=== PATIENT | female | born 1945 | race Caucasian/White ===

== ENCOUNTER → 2019-07-23 14:58 | Outpatient (BNVA) | payer MEDICARE, MEDICAID, SELFPAY | PROVIDERS: Family Provider Family Medicine; PCP Family Medicine; Visit Provider Nurse Practitioner Family | DX: I48.20 Chronic atrial fibrillation, unspecified (principal); I35.0 Nonrheumatic aortic (valve) stenosis; I50.40 Unspecified combined systolic (congestive) and diastolic (congestive) heart failure; I42.8 Other cardiomyopathies | CPT/HCPCS: 80048 ==

== ENCOUNTER 2019-08-16 10:00 | Inpatient (IN) | payer MEDICARE, MEDICAID, SELFPAY ==
[2019-08-16] VITALS (10 sets, daily range): BP systolic 122–177; BP diastolic 66–114; PULSE 63–106; RESP 18–22; TEMP 36.5–36.9; O2SAT 91–96; BMI 22.3
--- NOTE | 2019-08-16 10:07 | ED_ITS ---
Entered by Nubia Zamarripa, acting as scribe for Gwyn Sánchez DO HPI - SOB/Dyspnea General: Chief Complaint: Shortness of Breath/Dyspnea Stated Complaint: RESPIRATORY DISTRESS Time Seen by Provider: 08/16/19 10:10 Source: patient and EMS Mode of arrival: EMS Limitations: no limitations History of Present Illness: HPI Narrative: 73 yo female presents with increased shortness of breath. pt states this started today. pt states when walking or taking deep breaths she has increased shortness of breath. pt states oxygen makes this better. pt is not on home O2. pt denies any other symptoms at this time. MD elicited complaint: shortness of breath Onset (ago): day(s) (yesterday) Context: recent illness Timing: constant and progressively worsening Severity: moderate Exacerbating factors: exertion and deep breaths Relieving factors: oxygen Associated symptoms: Reports fever(s); Deny abdominal pain, nausea or vomiting Treatment prior to arrival: oxygen and other (seen at [facility] yesterday) Related Data: Home oxygen amount: none Review of Systems Const: Reports: fever ENMT: Denies: throat pain, ear pain, nasal discharge or nasal congestion Card: Reports: shortness of breath on exertion Resp: Reports: shortness of breath and productive cough GI: Denies: abdominal pain, nausea, vomiting, vomiting blood, coffee grounds in vomit, diarrhea, constipation, bloating, blood in stool or black tarry stool : Denies: flank pain, difficulty urinating, painful urination, urinary frequency or urinary urgency Skin/Breast: Denies: rash or itching PFSH ED PFSH: Social History Smoking and tobacco status: former smoker Physical Exam Const: COMMON NORMALS: average body habitus, oriented x3 and alert GENERAL APPEARANCE: cooperative, comfortable, well kempt and well developed NUTRITIONAL APPEARANCE: obese ORIENTATION/CONSCIOUSNESS: Yes awake, Yes oriented to person and Yes oriented to place HENMT: COMMON NORMALS: normocephalic, head/scalp atraumatic, external ears normal, EAC's normal, TM's normal bilaterally, external nose normal, moist oral mucous membranes and oropharynx normal HEAD & SCALP: normocephalic and atraumatic NOSE: external nose normal EXTERNAL EAR: Yes external ears normal EXTERNAL AUDITORY CANAL: EAC's normal TYMPANIC MEMBRANE: TM's normal bilaterally MOUTH: oral and palatal mucosa normal, lip normal and tongue normal THROAT: posterior oropharynx normal and tonsils normal Eye: COMMON NORMALS: PERRL, EOMs intact bilaterally, conjunctivae normal and no scleral icterus CONJUNCTIVA: Yes conjunctivae normal PUPIL: Yes PERRL Neck/C-Spine: COMMON NORMALS: full ROM, no lymphadenopathy, supple, no meningeal signs and thyroid normal THYROID: thyroid normal and asymmetrical Lymph: LYMPHATIC: no lymphadenopathy noted Resp: AUSCULTATION: rales bilateral at the base Cardio: COMMON NORMALS: regular rate and regular rhythm RATE: regular rate RHYTHM: regular rhythm HEART SOUNDS: murmur systolic Location: right sternal border Intensity: II/ GI: COMMON NORMALS: normal to inspection, nondistended, normoactive bowel sounds, soft to palpation and no hepatosplenomegaly AUSCULTATION: Yes normoactive bowel sounds PALPATION: Yes soft and Yes no hepatosplenomegaly : COMMON NORMALS: Yes no CVA tenderness BLADDER/KIDNEY EXAM: Yes no CVA tenderness Back/Pelvis: COMMON NORMALS: no CVA tenderness LUMBAR SPINE/LOWER BACK: Yes normal to inspection Extremity: COMMON NORMALS: no clubbing, cyanosis or edema, no calf tenderness and no pedal edema Neuro: COMMON NORMALS: oriented x3 SENSORIUM/ORIENTATION: Yes alert, Yes oriented to person and Yes oriented to place MENINGEAL SIGNS: Yes no meningeal signs Psych: APPEARANCE: Yes well kempt Skin: COMMON NORMALS: no rashes or lesions noted and skin turgor normal GENERAL SKIN EXAM: no rashes or lesions noted and turgor normal Course ED course: Patient has a low-grade bilateral pneumonia with a small pleural effusion. She is requiring oxygen she does not usually require it at home without it she remains in the low 90s on room air with any activity standing up walking even within the room she desats into the mid 80s. We will go ahead and started on IV antibiotics admit to the hospitalist service. Vital Signs: Vital signs: Vital Signs Temperature 97.7 F 08/16/19 15:01 Pulse Rate 93 08/16/19 15:52 Respiratory Rate 18 08/16/19 15:44 Blood Pressure 140/73 08/16/19 15:01 Pulse Oximetry 94 08/16/19 15:44 MDM - SOB/Dyspnea Lab Data: Labs: Lab Results 08/16/19 08/16/19 08/16/19 Range/Units 10:50 10:50 10:50 WBC 4.2 (4.0-10.0) 10^3/ uL RBC 4.30 (4.1-5.3) 10^6/u L Hgb 14.0 (11.5-15.3) g/dL Hct 44.4 (37.0-47.0) % MCV 103.3 H (81-99) fL MCH 32.6 (28.0-34.0) pg MCHC 31.5 (30.0-36.0) g/dL RDW 14.0 (12.1-15.1) % Plt Count 174 (130-400) 10^3/c mm MPV 9.6 (7.4-10.4) fL Neut % (Auto) 78.7 % Lymph % (Auto) 12.9 % [place] % (Auto) 7.4 % Eos % (Auto) 0.0 % Baso % (Auto) 0.5 % Neut # (Auto) 3.3 (1.8-7.7) 10^3/u L Lymph # (Auto) 0.5 L (0.8-4.8) 10^3/u L [place] # (Auto) 0.3 (0.2-0.9) 10^3/u L Eos # (Auto) 0.0 (0.0-0.8) 10^3/u L Baso # (Auto) 0.0 (0.0-0.1) 10^3/u L Nucleated RBC % (a uto) 0 % Nucleated RBCs # 0.0 /100WBC Sodium 139 (136-145) mmol/L Potassium 3.7 (3.5-5.1) mmol/L Chloride 99 (98-107) mmol/L Carbon Dioxide 25 (22-29) mmol/L Anion Gap 18.7 (5-19) BUN 19 (8-23) mg/dL Creatinine 0.9 (0.5-0.9) mg/dL Glucose 132 H (65-115) mg/dL Calcium 9.6 (8.5-10.5) mg/dL Total Bilirubin 1.2 (0.15-1.2) mg/dL AST 34 H (0-32) U/L ALT 38 H (0-33) U/L Alkaline Phosphata se 157 H (35-105) IU/L Troponin T Baselin e 17 H (0-10) ng/mL Total Protein 6.6 (6.6-8.7) g/dL Albumin 4.0 (3.5-5.2) g/dL Globulin 2.6 (1.3-4.6) g/dL Imaging Data^: CXR: Radiologist's impression: [address] [address] XRay Report Signed Patient: oRwena Gil #: [id number] : 5Acct#:[id number] Age/Sex: 73 / FADM Date: 08/16/19 Loc: [facility]/Bed: Attending Dr: Ordering Provider/Ordering MD: Gwyn Sánchez DO Date of Service: 08/16/19 Procedure(s): XR chest 1V portable [id number] Accession Number(s): [id number] Report Number: [id number] WS: [id number] XR chest 1V portable [id number] REASON FOR EXAM: dyspnea/cough FINDINGS: Comparisons were made to May 24, 2019. There is a small amount of bilateral pleural effusion. There is low-grade alveolar infiltrates in the basilar portions of both lower lungs. There is cardiomegaly with arteriosclerotic changes. XR/XR chest 1V portable [id number] IMPRESSION: Low-grade pneumonia basilar portions of both lower lungs with small amounts of pleural effusion Arteriosclerotic heart disease. Dictated By:Gerald Redmond DO Signed By:Gerald Redmond DOSigned Date/Time:08/16/19 1054 Discharge Plan Discharge Admit Provider: Sunny Bautista Clinical Impression: Bilateral pneumonia, COPD (chronic obstructive pulmonary disease), Hypertension, Nonischemic cardiomyopathy, Aortic stenosis, mild Condition: Stable Interventions: ED Discharge Assessment Last Done: 08/16/19 14:45 Discharge Date/Time: 08/16/19 15:06 Coding Level of Care Code ED Resolution Specialist for g Fwd Exam Comprehensive The documentation recorded by the Dallin garcia Bridget Annette, accurately reflects the service I personally performed and the decisions made by me, Gwyn Sánchez, Aug 16, 2019 10:00
--- NOTE | 2019-08-16 10:24 | XR_ITS ---
WS: [id number] XR chest 1V portable [id number] REASON FOR EXAM: dyspnea/cough FINDINGS: Comparisons were made to May 24, 2019. There is a small amount of bilateral pleural effusion. There is low-grade alveolar infiltrates in the basilar portions of both lower lungs. There is cardiomegaly with arteriosclerotic changes. XR/XR chest 1V portable [id number] IMPRESSION: Low-grade pneumonia basilar portions of both lower lungs with small amounts of pleural effusion Arteriosclerotic heart disease.
--- NOTE | 2019-08-16 10:24 | ECG_ITS ---
Measurements Intervals [place] Rate: 109 P: [place]: 0 QRS: -20 QRSD: 89 T: 76 QT: 331 QTc: 446 ATRIAL FIBRILLATION WITH RAPID VENTRICULAR RESPONSE WITH ABERRANT CONDUCTION OR VENTRICULAR PREMATURE COMPLEXES ST DEVIATION AND MODERATE T-WAVE ABNORMALITY, CONSIDER LATERAL ISCHEMIA [-0.1+ mV T WAVE IN I/aVL/V5/V6] Compared to ECG 05/24/2019 16:49:15 Aberrant conduction of supraventricular beat(s) now present Ventricular premature complex(es) now present T-wave abnormality still present Possible ischemia still present Electronically Signed On 08-16-2019 16:57:51 DOCENT COORDINATOR by Donald Dunaway M.D. [id number]
[2019-08-16 10:58] LABS: Basophils % 0.5 %; Hematocrit 44.4 % (37.0-47.0); Lymphocytes # 0.5 10^3/uL (0.8-4.8); Lymphocytes % 12.9 %; Mean Corpuscular HGB Conc 31.5 g/dL (30.0-36.0); Mean Corpuscular Hemoglobin 32.6 pg (28.0-34.0); Mean Corpuscular Volume 103.3 fL (81-99); Mean Platelet Volume 9.6 fL (7.4-10.4); Monocytes # 0.3 10^3/uL (0.2-0.9); Monocytes % 7.4 %; Neutrophils # 3.3 10^3/uL (1.8-7.7); Neutrophils % 78.7 %; Nucleated Red Blood Cells % 0 %; Platelet Count 174 10^3/cmm (130-400); White Blood Count 4.2 10^3/uL (4.0-10.0)
[2019-08-16 11:18] LABS: Alanine Aminotransferase 38 U/L (0-33); Alkaline Phosphatase 157 IU/L (35-105); Anion Gap 18.7 (5-19); Aspartate Amino Transferase 34 U/L (0-32); Blood Urea Nitrogen 19 mg/dL (8-23); Calcium 9.6 mg/dL (8.5-10.5); Carbon Dioxide 25 mmol/L (22-29); Chloride 99 mmol/L (98-107); Globulin 2.6 g/dL (1.3-4.6); Glucose 132 mg/dL (65-115); Potassium 3.7 mmol/L (3.5-5.1); Sodium 139 mmol/L (136-145); Total Bilirubin 1.2 mg/dL (0.15-1.2); Total Protein 6.6 g/dL (6.6-8.7)
[2019-08-16 11:20] LABS: Troponin(5th) Baseline 17 ng/mL (0-10)
--- NOTE | 2019-08-16 12:24 | ECG_ITS ---
Measurements Intervals [place] Rate: 91 P: [place]: 0 QRS: -5 QRSD: 88 T: 157 QT: 401 QTc: 495 ATRIAL FIBRILLATION WITH ABERRANT CONDUCTION OR VENTRICULAR PREMATURE COMPLEXES ST DEVIATION AND MODERATE T-WAVE ABNORMALITY, CONSIDER LATERAL ISCHEMIA [-0.1+ mV T WAVE IN I/aVL/V5/V6] Compared to ECG 05/24/2019 16:49:15 Ventricular premature complex(es) now present Aberrant conduction of supraventricular beat(s) now present T-wave abnormality still present Possible ischemia still present Electronically Signed On 08-16-2019 17:04:05 PLATEMAKER by Donald Dunaway M.D. [id number]
[2019-08-16] MEDS: azithromycin 500 MG in sodium chloride 0.9% 250 ML 250 MG IV (12:52)
[2019-08-16 13:18] LABS: Troponin 5 2HR 15.01 ng/mL (0-10)
[2019-08-16 13:23] LABS: Troponin 5 2HR Delta -1.99 ABS# (0-10)
[2019-08-16] MEDS: cefTRIAXone 1,000 MG in sodium chloride 0.9% (plus) 50 ML 100 MG IV (14:05)
--- NOTE | 2019-08-16 14:27 | USCV_ITS ---
Louise Rowena Age: 73 Gender: F : 1945 Exam Date: 08/16/2019 16:45 Ordering Phys: Sunny Bautista MD Technologist: Dorota Garrett Exam Location: [facility] [place] Indication: SOB BP: / HR: 77 Rhythm: Atrial fibrillation Technical Quality: Adequate MEASUREMENTS (Male / Female) Normal Values 2D ECHO LV Diastolic Diameter PLAX 4.2 cm 4.2 - 5.9 / 3.9 - 5.3 cm LV Systolic Diameter PLAX 3.1 cm LV Chamber Size 3.9 cm IVS Diastolic Thickness 1.6 cm 0.6 - 1.0 / 0.6 - 0.9 cm IVS Systolic Thickness 1.7 cm LVPW Diastolic Thickness 1.4 cm 0.6 - 1.0 / 0.6 - 0.9 cm LVPW Systolic Thickness 1.5 cm RV Chamber Size 2.7 cm LVOT Diameter 2.1 cm LV Ejection Fraction 2D Teich 51.6 % LV Ejection Fraction MOD 2C 49.2 % LV Ejection Fraction 2C AL 49.0 % LA Diameter 5.6 cm LA Width 3.5 cm LA Height 6.4 cm RA Width 4.0 cm RA Height 5.9 cm Aorta at Sinotubular Diameter 2.9 cm M-MODE LV Diastolic Diameter MM 5.5 cm 4.2 - 5.9 / 3.9 - 5.3 cm LV Systolic Diameter MM 3.8 cm LV Ejection Fraction MM Teich 58.7 % IVS Diastolic Thickness MM 1.1 cm 0.6 - 1.0 / 0.6 - 0.9 cm IVS Systolic Thickness MM 1.2 cm LVPW Diastolic Thickness MM 1.0 cm 0.6 - 1.0 / 0.6 - 0.9 cm LVPW Systolic Thickness MM 1.5 cm RV Diastolic Diameter MM 1.5 cm Aortic Annulus Diameter 3.4 cm LA Ao Ratio MM 1.6 MV E Point Septal Separation 0.5 cm DOPPLER AV Peak Velocity 143.0 cm/s LVOT Peak Velocity 88.0 cm/s AV Area Cont Eq vti 2.0 cm squared AV Area Cont Eq pk 2.1 cm squared MV Area PHT 4.3 cm squared MV E' Velocity 11.0 cm/s Mitral E to MV E' Ratio 11.7 Mitral E to LV E' Lateral Ratio 12.0 Mitral E to LV E' Septal Ratio 11.5 TR Peak Velocity 298.5 cm/s TR Peak Gradient 35.6 mmHg TR Mean Velocity 241.0 cm/s TR Mean Gradient 25.3 mmHg TR Velocity Time Integral 102.4 cm TV Peak E Velocity 81.0 cm/s PV Peak Velocity 64.0 cm/s RV Acceleration Time 0.1 s RV Ejection Time 0.3 s RV AcT/ET 0.5 FINDINGS Left Ventricle Normal left ventricular cavity size. Moderately increased left ventricular wall thickness. Moderately decreased left ventricular systolic function. Left ventricular ejection fraction is estimated at 40%. Global left ventricular hypokinesis. Rhythm precludes evaluation of diastolic function. Right Ventricle Normal right ventricular size and systolic function. Right ventricular systolic pressure 39 mmHg. Right Atrium Moderately increased right atrial size. Right atrial pressure estimated at 3 mmHg. Left Atrium Moderately increased left atrial size. Mitral Valve Mild mitral annular calcification. Thickened mitral valve. Mild mitral valve regurgitation. Aortic Valve Aortic valve not well visualized. Mildly thickened and sclerotic aortic valve. No aortic valve stenosis. No aortic valve regurgitation. Tricuspid Valve Structurally normal tricuspid valve. No tricuspid valve stenosis. Mild tricuspid valve regurgitation. Pulmonic Valve Structurally normal pulmonic valve. Mild pulmonary valve regurgitation. Pericardium Small to moderate pericardial effusion (more posteriorly measured 11 mm along left ventricle). No evidence of hemodynamic compromise. Aorta Normal-sized aortic root. CONCLUSIONS 1. Normal left ventricular cavity size. Moderately increased left ventricular wall thickness. Moderately decreased left ventricular systolic function. Left ventricular ejection fraction is estimated at 40%. Global left ventricular hypokinesis. 2. Normal right ventricular size and systolic function. 3. Moderate biatrial enlargement. 4. Mild mitral and tricuspid valve regurgitation. 5. Mild pulmonary hypertension with pulmonary artery pressure estimated at 39 mmHg. 6. Small to moderate pericardial effusion (more posteriorly along left ventricle). No evidence of hemodynamic compromise. 7. When compared to previous echocardiogram dated 11/23/2018, left ventricular systolic function seems to have decreased slightly and there is pericardial effusion now. Nola Tapia MD (Electronically Signed) Final Date: 17 August 2019 14:48 S
[2019-08-16 14:44] LABS: Thyroid Stimulating Hormone 1.12 uIU/mL (0.27-4.20)
--- NOTE | 2019-08-16 14:47 | PM.HP ---
Providers/Chief Complaint Admitting Physician: Sunny Bautista MD Primary Care Provider: Sreedhar Mejia MD Chief Complaint: RESPIRATORY DISTRESS History of Present Illness Rowena Gil is a 73 year old female with a past medical history of atrial fibrillation on Eliquis, diastolic heart failure, hypothyroidism, COPD, history of CVA, dyslipidemia, hypertension, hyperlipidemia, peripheral vascular disease who presents to the emergency room with her sister for evaluation of cough, shortness of breath, fevers, chills, malaise, fatigue, poor appetite. Patient states that she lives by herself, in [facility], her sister checks up on her regularly, she can perform activities of daily living on her own, At one point she did have home health care Patient states that for the last week she has been having fevers, chills, productive cough yellow sputum, increased shortness of breath with exertion, lightheadedness, dizziness, fatigue, malaise, has a good appetite, states that she lives in a assisted living facility with other geriatric individuals and she thinks she might of been exposed to the flu and grandkids. Patient also has complaints of intermittent chest pain, left-sided, nonradiating, associate with shortness of breath, no lightheadedness, has dizziness, no nausea, no vomiting, no significant cardiac history, no history of cardiac stents, has a history of atrial fibrillation, on Eliquis and aspirin. Patient states that she been having episodes of chest palpitations recently. Dizziness, patient states that she has had a few months history of dizziness, as if the room is spinning around her, no tinnitus, no nausea, no vomiting, typically her occurs with changing head positions, often she states that she will shake her head and it will resolve, no recent falls, no visual deficits. Review of Systems Const: Reports: fever, body aches, fatigue and malaise; Denies: chills Eyes: Denies: change in vision or blurry vision ENMT: Reports: nasal congestion Card: Reports: chest pain, palpitations, irregular heart rhythm, edema and swelling of feet/ankles Resp: Reports: shortness of breath and productive cough; Denies: non-productive cough or wheezing GI: Denies: abdominal pain, nausea, vomiting, vomiting blood, diarrhea, constipation, blood in stool or black tarry stool : Denies: flank pain, painful urination or urinary frequency Musc: Denies: neck pain or back pain Skin/Breast: Denies: rash Neuro: Denies: headache, dizziness or vertigo Psych: Denies: anxiety or depression Endo: Denies: excessive urination or excessive thirst Medications/Allergies Home Medications Medication Instructions Recorded Confirmed Last Taken Type amoxicillin-pot clavulanate 1 tab PO BID 08/16/19 08/16/19 08/15/19 History [Augmentin] lisinopril 20 mg PO DAILY 08/16/19 08/16/19 08/16/19 History Allergies Allergy/AdvReac Type Severity Reaction Status Date / Time Sulfa (Sulfonamide Allergy UNK Verified 08/16/19 10:09 Antibiotics) Additional Medication Information Additional Medication Information: Eliquis 5 mg twice daily Aspirin 81 mg once daily Cardizem 240 mg once daily Lasix 80 mg once daily Levothyroxine 50 mcg once daily Lisinopril 20 p.o. daily Metoprolol 50 twice daily sotalol 80 once daily PFSH Acute PFSH: Social History Smoking and tobacco status: former smoker Vitals/I&O/Wt Last Vital Signs Temp 98.4 F 08/16/19 12:58 Pulse 103 H 08/16/19 14:45 Resp 18 08/16/19 14:45 BP 157/114 08/16/19 14:45 Pulse Ox 92 08/16/19 14:45 08/15/19 08/16/19 08/16/19 22:59 06:59 14:59 Intake Total 250 / 250 Balance 250 / 250 Weight last 48 hrs Weight 57.153 kg Physical Exam Const: COMMON NORMALS: no apparent distress and oriented x3 GENERAL APPEARANCE: cooperative and comfortable HENMT: COMMON NORMALS: normocephalic HEAD & SCALP: normocephalic Eye: COMMON NORMALS: PERRL, EOMs intact bilaterally and no papilledema GENERAL EYE: normal appearance of both eyes PUPIL: Yes PERRL DIRECT OPHTHALMOSCOPY: Yes no papilledema Neck/C-Spine: COMMON NORMALS: full ROM, no lymphadenopathy, no JVD and thyroid normal THYROID: thyroid normal Lymph: LYMPHATIC: no lymphadenopathy noted Resp: COMMON NORMALS: normal respiratory effort, no retractions and no use of accessory muscles AUSCULTATION: rhonchi and wheezes Cardio: COMMON NORMALS: no JVD, regular rate, regular rhythm, S1 normal heart sound, S2 normal heart sound, no gallops, no clicks and no murmurs RATE: regular rate RHYTHM: regular rhythm HEART SOUNDS: S1 normal and S2 normal GI: COMMON NORMALS: normal to inspection, nondistended, normoactive bowel sounds, soft to palpation, non-tender and no hepatosplenomegaly PALPATION: Yes soft and Yes no hepatosplenomegaly Extremity: COMMON NORMALS: normal to inspection and full ROM NARRATIVE EXTREMITY EXAM: 2+ pitting edema bilaterally Neuro: COMMON NORMALS: oriented x3, CN's II-XII intact bilaterally, moves all extremities and no focal motor deficits Psych: COMMON NORMALS: mental status grossly normal, thought process normal and cooperative THOUGHT PROCESS: normal thought process Data : 08/16/19 10:50 08/16/19 10:50 Micro: Microbiology 08/16/19 12:51 Blood Culture - Preliminary Blood SPECIMEN COLLECTED 08/16/19 12:29 Blood Culture - Preliminary Blood SPECIMEN COLLECTED A&P Assessment and plan (1) Acute and chronic respiratory failure with hypoxia: -Secondary to bilateral lower lobe pneumonias, diastolic CHF exacerbation Plan: -Nebulizer treatments -Rocephin and azithromycin -Hold off on IV fluids, hold off on steroids -Bumex 1 mg IV twice daily -Fluid restrictions 1500 cc -PT OT -Sputum culture, blood culture, viral panel, urine bacterial antigens Status: Acute Code(s): J96.21 - Acute and chronic respiratory failure with hypoxia (2) Diastolic CHF: Has 2+ pitting edema bilaterally, BNP 8297, repeat echocardiogram Status: Acute Code(s): I50.30 - Unspecified diastolic (congestive) heart failure (3) Chest pain: -EKG shows new T wave inversions in lateral leads, A. fib with RVR -Mild troponin elevations -Likely type II NSTEMI, supply demand ischemia -No active chest pain Plan: -Continue aspirin, statin -Serial EKGs, troponin -Echocardiogram Status: Acute Code(s): R07.9 - Chest pain, unspecified (4) Dizziness: -Likely benign positional vertigo Status: Acute Code(s): R42 - Dizziness and giddiness (5) Hypertension: Status: Acute Code(s): I10 - Essential (primary) hypertension (6) Hypothyroid: Status: Acute Code(s): E03.9 - Hypothyroidism, unspecified (7) Dyslipidemia: Status: Acute Code(s): E78.5 - Hyperlipidemia, unspecified (8) CVA (cerebral vascular accident): -Has had 2 CVAs in the past, -Last CT scan in 06/01/2019 showed a small round low-density area in the left thalamus, most compatible lacunar infarct, age uncertain -We will have PT OT evaluate patient -On aspirin, statin Status: Acute Code(s): I63.9 - Cerebral infarction, unspecified (9) COPD (chronic obstructive pulmonary disease): Not in exacerbation Status: Acute Code(s): J44.9 - Chronic obstructive pulmonary disease, unspecified (10) Bilateral pneumonia: cxray shows bilateral lobe pneumonia, however white count unremarkable, pro-Arcenio 0.08 Chest x-ray seems more like pulmonary vascular congestion, but given upper respiratory tract symptoms we will treat for pneumonia Status: Acute Code(s): J18.9 - Pneumonia, unspecified organism Attestations Medical Necessity Statement*: Patient requires hospitalization, inpatient greater than 2 midnights, acute hypoxic respiratory failure secondary to diastolic CHF and pneumonia Coding Level of Care Code Acute Pharmaceutical Salesperson for [facility] Diagnoses Acute and chronic respiratory failure with hypoxia J96.21 Diastolic CHF I50.30 Chest pain R07.9 Dizziness R42 Hypertension I10 Hypothyroid E03.9 Dyslipidemia E78.5 CVA (cerebral vascular accident) I63.9 COPD (chronic obstructive pulmonary disease) J44.9 Bilateral pneumonia J18.9
[2019-08-16 15:11] LABS: NT Pro B Type Natriuretic Pept 8297 pg/mL (0-125); Procalcitonin 0.08 ng/mL (0-0.5)
[2019-08-16 15:15] LABS: C Reactive Protein 7.4 mg/L (0.0-4.9)
[2019-08-16] MEDS: ipratropium-albuterol 3 mL Neb INHALATION ×2 (15:51→19:40)
--- NOTE | 2019-08-16 16:24 | ECG_ITS ---
Measurements Intervals [place] Rate: 87 P: [place]: 0 QRS: -35 QRSD: 93 T: 222 QT: 427 QTc: 515 ATRIAL FIBRILLATION WITH ABERRANT CONDUCTION OR VENTRICULAR PREMATURE COMPLEXES MARKED LEFT AXIS DEVIATION MINIMAL VOLTAGE CRITERIA FOR LVH, CONSIDER NORMAL VARIANT ST DEVIATION AND MODERATE T-WAVE ABNORMALITY, CONSIDER LATERAL ISCHEMIA ST DEVIATION AND MODERATE T-WAVE ABNORMALITY, CONSIDER INFERIOR ISCHEMIA Compared to ECG 08/16/2019 13:38:37 Left-axis deviation now present T-wave abnormality still present Possible ischemia still present Electronically Signed On 08-17-2019 15:41:08 DROP HAMMER SETTER UP by Nola Tapia M.D. [id number]
[2019-08-16] MEDS: bumetanide 0.25 mg/mL SDV 10 mL 1 MG IV (16:41)
[2019-08-16] MEDS: D5-NS 0.45% + KCL 20 mEq 20 MEQ/1,000 ML BAG 100 MEQ IV (16:48)
[2019-08-16 17:26] LABS: Lactic Sepsis W/Reflex 1.2 mmol/L (0.5-2.2)
[2019-08-16 17:36] LABS: Troponin 5 6HR 11.83 ng/mL (0-10)
[2019-08-16 17:39] LABS: Troponin 5 6HR Delta -5.17 ng/L (0-12)
[2019-08-16] MEDS: apixaban 5 mg Tablet PO (18:22)
[2019-08-16] MEDS: metoprolol tartrate 50 mg Tablet PO (18:51)
[2019-08-16] MEDS: atorvastatin 40 mg Tablet PO (20:03)
[2019-08-17] VITALS (14 sets, daily range): BP systolic 123–158; BP diastolic 74–110; PULSE 88–123; RESP 16–20; TEMP 36.4–36.9; O2SAT 88–98
[2019-08-17] MEDS: ipratropium-albuterol 3 mL Neb INHALATION ×6 (00:01→20:18)
[2019-08-17] MEDS: acetaminophen 325 mg Tablet 650 MG PO ×2 (00:14→09:06)
[2019-08-17] MEDS: bumetanide 0.25 mg/mL SDV 10 mL 1 MG IV ×2 (01:54→14:12)
[2019-08-17] MEDS: levothyroxine 50 mcg Tablet PO (05:46)
[2019-08-17] MEDS: metoprolol tartrate 50 mg Tablet PO ×2 (05:57→17:41)
[2019-08-17 06:12] LABS: Hematocrit 41.5 % (37.0-47.0); Hemoglobin 13.6 g/dL (11.5-15.3); Lymphocytes # 0.4 10^3/uL (0.8-4.8); Lymphocytes % 8.3 %; Mean Corpuscular HGB Conc 32.8 g/dL (30.0-36.0); Mean Corpuscular Hemoglobin 32.9 pg (28.0-34.0); Mean Corpuscular Volume 100.2 fL (81-99); Mean Platelet Volume 9.9 fL (7.4-10.4); Monocytes # 0.3 10^3/uL (0.2-0.9); Monocytes % 5.5 %; Nucleated Red Blood Cells % 0 %; Platelet Count 196 10^3/cmm (130-400); Red Blood Count 4.14 10^6/uL (4.1-5.3); Red Cell Distribution Width 13.7 % (12.1-15.1); White Blood Count 4.7 10^3/uL (4.0-10.0)
[2019-08-17 06:42] LABS: Magnesium 2.2 mg/dL (1.7-2.3)
[2019-08-17 06:43] LABS: Chol HDL Ratio 4.97 mg/dL (0.0-4.40); Cholesterol 169 mg/dL (0-200); HDL Cholesterol 34 mg/dL (60-100); LDL Cholesterol Calculated 120 mg/dL (50-129); LDL HDL Ratio 3.53 RATIO (0.00-3.22); Triglycerides 75 mg/dL (0-150)
[2019-08-17 07:03] LABS: Alanine Aminotransferase 32 U/L (0-33); Albumin Level 3.8 g/dL (3.5-5.2); Alkaline Phosphatase 146 IU/L (35-105); Anion Gap 19.4 (5-19); Aspartate Amino Transferase 24 U/L (0-32); Blood Urea Nitrogen 22 mg/dL (8-23); Calcium 9.5 mg/dL (8.5-10.5); Carbon Dioxide 24 mmol/L (22-29); Chloride 101 mmol/L (98-107); Globulin 2.4 g/dL (1.3-4.6); Glucose 154 mg/dL (65-115); Potassium 3.4 mmol/L (3.5-5.1); Sodium 141 mmol/L (136-145); Total Bilirubin 0.7 mg/dL (0.15-1.2); Total Protein 6.2 g/dL (6.6-8.7)
[2019-08-17] MEDS: sotalol 80 mg Tablet PO (08:59)
[2019-08-17] MEDS: lisinopril 20 mg Tablet PO (08:59)
[2019-08-17] MEDS: apixaban 5 mg Tablet PO ×2 (08:59→17:41)
[2019-08-17] MEDS: dilTIAZem ER (24HR) 240 mg Capsule PO (08:59)
[2019-08-17] MEDS: aspirin 81 mg Chew Tablet PO (08:59)
--- NOTE | 2019-08-17 12:31 | PC.RESP ---
Patient given information on Pulmonary Rehab.
--- NOTE | 2019-08-17 13:12 | PC.CHAP ---
Pastoral Care Encounter/Spiritual Assessment Type of Contact [] Declined presbyterian clergy visit [] Patient/Family/Request visit [] Outpatient visit [] Follow-up visit [] Physician referral [] Code/Alert [x] Routine visit [] Staff referral [] Actively dying [] Patient sleeping [] Family support [] [] Out of room [] Palliative care [] [] Receiving care in room [] Pre-surgical visit [] Trauma [] Long length of stay [] ICU visit [] Other: Relational/Emotional Strength [x] Patient feels connected with others/family/visitors/staff [] Distress [] Loneliness/isolation [] Abandonment Spirituality of Patient [x] Person of Millicent [x] Attends Taoism of their Millicent [] Believes in Prayer [] Reads Bible or Protestant materials [] There are Spiritual issues to be addressed Recruiting Specialist Interventions [x] Prayer [] Active listening [] Non-anxious presence [] Spiritual/emotional support [] Crisis/trauma care [] Spiritual counseling [] Bereavement support [] Provided bereavement packet [] Provided Bible/devotional materials [] Provided toy/stuffed animal, coloring book to patient or family member [] Provided Communion [] Anointing/[place] [] Salvation [x] Completed spiritual assessment [] Other: Impact on Illness or Injury [] Angry [] Fearful [x] Anxious [] Often cries [] Exhaustion [] Unable to work [] Unable to attend shinto [] Unable to walk/stand [] Unable to read [] Unable to drive [] Unable to eat/drink [] Unable to sleep [] Unable to be with family [] Patient intubated [] Other: Summary 10 min Time spent with patient
[2019-08-17] MEDS: azithromycin 500 MG in sodium chloride 0.9% 250 ML 250 MG IV (14:07)
[2019-08-17] MEDS: cefTRIAXone 1,000 MG in sodium chloride 0.9% (plus) 50 ML 100 MG IV (14:08)
--- NOTE | 2019-08-17 18:28 | PM.PN ---
Subjective Subjective: Interval history: Patient states that she is doing better this morning, shortness of breath has improved, no fevers, no chills, no nausea, no vomiting, no lightheaded, no dizziness, has not got out of bed this morning Vitals/I&O/Wt Last Vital Signs Temp 97.8 F 08/17/19 15:56 Pulse 100 08/17/19 16:15 Resp 18 08/17/19 16:15 BP 123/76 08/17/19 15:56 Pulse Ox 98 08/17/19 16:15 08/17/19 08/17/19 08/17/19 06:59 14:59 22:59 Intake Total 60 / 720 840 / 840 Output Total 300 / 300 251 / 251 Balance -240 / 420 589 / 589 Weight last 48 hrs Weight 67.903 kg Weight 57.153 kg Physical Exam Const: COMMON NORMALS: no apparent distress and oriented x3 HENMT: COMMON NORMALS: normocephalic HEAD & SCALP: normocephalic Neck/C-Spine: COMMON NORMALS: no JVD Resp: COMMON NORMALS: normal respiratory effort, no retractions, no use of accessory muscles and clear to auscultation bilaterally AUSCULTATION: clear to auscultation bilaterally Cardio: COMMON NORMALS: no JVD, regular rate, regular rhythm, S1 normal heart sound and S2 normal heart sound RATE: regular rate RHYTHM: regular rhythm HEART SOUNDS: S1 normal and S2 normal GI: COMMON NORMALS: normal to inspection, nondistended, normoactive bowel sounds, soft to palpation, non-tender, no hepatosplenomegaly, no masses and no bruits PALPATION: Yes soft and Yes no hepatosplenomegaly Extremity: COMMON NORMALS: normal capillary refill, no clubbing, cyanosis or edema, no calf tenderness and no pedal edema Neuro: COMMON NORMALS: oriented x3 Psych: COMMON NORMALS: mental status grossly normal Data : 08/17/19 05:42 08/17/19 05:42 Micro: Microbiology 08/16/19 12:51 Blood Culture - Preliminary Blood NEGATIVE TO DATE 08/16/19 12:29 Blood Culture - Preliminary Blood NEGATIVE TO DATE A&P Assessment and plan (1) Acute and chronic respiratory failure with hypoxia: -Secondary to bilateral lower lobe pneumonias, diastolic CHF exacerbation Plan: -Nebulizer treatments -Rocephin and azithromycin -Bumex 1 mg IV twice daily -Fluid restrictions 1500 cc -PT OT -Sputum culture, blood culture, viral panel, urine bacterial antigens Status: Acute Code(s): J96.21 - Acute and chronic respiratory failure with hypoxia (2) Diastolic CHF: Has 2+ pitting edema bilaterally, BNP 8297, repeat echocardiogram Status: Acute Code(s): I50.30 - Unspecified diastolic (congestive) heart failure (3) Chest pain: -EKG shows new T wave inversions in lateral leads, A. fib with RVR -Mild troponin elevations -Likely type II NSTEMI, supply demand ischemia -No active chest pain Plan: -Continue aspirin, statin -Echocardiogram pending Status: Acute Code(s): R07.9 - Chest pain, unspecified (4) Dizziness: -Likely benign positional vertigo Status: Acute Code(s): R42 - Dizziness and giddiness (5) Hypertension: Status: Acute Code(s): I10 - Essential (primary) hypertension (6) Hypothyroid: Status: Acute Code(s): E03.9 - Hypothyroidism, unspecified (7) Dyslipidemia: Status: Acute Code(s): E78.5 - Hyperlipidemia, unspecified (8) CVA (cerebral vascular accident): -Has had 2 CVAs in the past, -Last CT scan in 06/01/2019 showed a small round low-density area in the left thalamus, most compatible lacunar infarct, age uncertain -We will have PT OT evaluate patient -On aspirin, statin Status: Acute Code(s): I63.9 - Cerebral infarction, unspecified (9) COPD (chronic obstructive pulmonary disease): Not in exacerbation Status: Acute Code(s): J44.9 - Chronic obstructive pulmonary disease, unspecified (10) Bilateral pneumonia: cxray shows bilateral lobe pneumonia, however white count unremarkable, pro-Arcenio 0.08 Chest x-ray seems more like pulmonary vascular congestion, but given upper respiratory tract symptoms we will treat for pneumonia Status: Acute Code(s): J18.9 - Pneumonia, unspecified organism Attestations Medical Necessity Statement*: Requires hospitalization due to acute respiratory failure Coding Level of Care Code Acute Sanitation Truck Cleaner for [facility] Fwd Diagnoses Acute and chronic respiratory failure with hypoxia J96.21 Diastolic CHF I50.30 Chest pain R07.9 Dizziness R42 Hypertension I10 Hypothyroid E03.9 Dyslipidemia E78.5 CVA (cerebral vascular accident) I63.9 COPD (chronic obstructive pulmonary disease) J44.9 Bilateral pneumonia J18.9
[2019-08-17] MEDS: atorvastatin 40 mg Tablet PO (21:33)
[2019-08-17 22:32] LABS: Influenza A by IFA Negative (Negative); Influenza B by IFA Negative (Negative)
[2019-08-18] VITALS (27 sets, daily range): BP systolic 126–170; BP diastolic 70–99; PULSE 83–145; RESP 16–22; TEMP 36.4–37; O2SAT 90–98
[2019-08-18] MEDS: acetaminophen 325 mg Tablet 650 MG PO (01:17)
[2019-08-18] MEDS: bumetanide 0.25 mg/mL SDV 10 mL 1 MG IV ×2 (02:53→10:36)
[2019-08-18] MEDS: ipratropium-albuterol 3 mL Neb INHALATION ×6 (04:23→23:48)
[2019-08-18 05:35] LABS: Basophils % 0.3 %; Eosinophils % 0.1 %; Hematocrit 42.7 % (37.0-47.0); Hemoglobin 13.3 g/dL (11.5-15.3); Lymphocytes # 1.2 10^3/uL (0.8-4.8); Lymphocytes % 17.8 %; Mean Corpuscular HGB Conc 31.1 g/dL (30.0-36.0); Mean Corpuscular Hemoglobin 32.4 pg (28.0-34.0); Mean Corpuscular Volume 103.9 fL (81-99); Mean Platelet Volume 10.1 fL (7.4-10.4); Monocytes # 0.6 10^3/uL (0.2-0.9); Monocytes % 8.5 %; Nucleated Red Blood Cells % 0 %; Platelet Count 205 10^3/cmm (130-400); Red Blood Count 4.11 10^6/uL (4.1-5.3); Red Cell Distribution Width 14.4 % (12.1-15.1); White Blood Count 6.9 10^3/uL (4.0-10.0)
[2019-08-18] MEDS: levothyroxine 50 mcg Tablet PO (05:43)
[2019-08-18 05:55] LABS: Alanine Aminotransferase 30 U/L (0-33); Albumin Level 3.4 g/dL (3.5-5.2); Alkaline Phosphatase 133 IU/L (35-105); Anion Gap 16.7 (5-19); Aspartate Amino Transferase 23 U/L (0-32); Blood Urea Nitrogen 30 mg/dL (8-23); Calcium 9.7 mg/dL (8.5-10.5); Carbon Dioxide 28 mmol/L (22-29); Chloride 99 mmol/L (98-107); Globulin 2.9 g/dL (1.3-4.6); Glucose 112 mg/dL (65-115); Magnesium 2.3 mg/dL (1.7-2.3); Phosphorus 4.2 mg/dL (2.5-4.5); Potassium 3.7 mmol/L (3.5-5.1); Sodium 140 mmol/L (136-145); Total Bilirubin 0.4 mg/dL (0.15-1.2); Total Protein 6.3 g/dL (6.6-8.7)
--- NOTE | 2019-08-18 08:18 | CTR_ITS ---
PROCEDURE INFORMATION: Exam: CT Angiography Chest With Contrast Exam date and time: 08/18/2019 8:21 AM Age: 73 years old Clinical indication: Shortness of breath; Additional info: R/O pe TECHNIQUE: Imaging protocol: Computed tomographic angiography of the chest with intravenous contrast. 3D rendering: MIP and/or 3D reconstructed images were created by the technologist. Total DLP: 484.32 mGy-cm Radiation optimization: All CT scans at this facility use at least one of these dose optimization techniques: automated exposure control; mA and/or kV adjustment per patient size (includes targeted exams where dose is matched to clinical indication); or iterative reconstruction. Contrast material: VISI 320; Contrast volume: 95 ml; Contrast route: RT WRIST; COMPARISON: CTA Chest-Pulmonary Emb [id number] 11/23/2018 12:26 PM FINDINGS: Pulmonary arteries: Subtle pulmonary emboli in 1st and 2nd order branches of the right middle lobe pulmonary artery (series 2: Image 246). Aorta: Calcification and ectasia of the thoracic aorta. Inferior vena cava: Refluxed contrast into the inferior vena cava and a padded veins. Upper abdomen: Atrophy of the incompletely visualized right kidney with infiltration of perinephric fat. Wall thickening in the nondistended and incompletely visualized stomach. Lungs: COPD, interstitial prominence, and bronchial wall thickening. Bibasilar airspace disease and poorly defined parenchymal density in the right middle lobe. 3 mm subpleural nodule in the right lower lobe (series 2: Image 310). For patients at low risk (minimal or absent history of smoking and of other known risk factors), no routine follow-up is indicated. For patients at high risk (history of smoking or of other known risk factors), consider optional CT at 12 months. (Verenice et al., Fleischner Society, 2017). Pleural space: Small bilateral pleural effusions. Heart: Cardiomegaly, coronary artery calcification, and 1.8 cm pericardial effusion. Lymph nodes: Lymph nodes, predominantly subcentimeter in size. Bones/joints: Degenerative change prior chronic T7 compression fracture. Soft tissues: Punctate right breast calcification. CT/CT angio chest PE protcl [id number] IMPRESSION: 1. Subtle pulmonary emboli in 1st and 2nd order branches of the right middle lobe pulmonary artery (series 2: Image 246). 2. Cardiomegaly, coronary artery calcification, and 1.8 cm pericardial effusion. 3. COPD, interstitial disease, and bibasilar airspace disease. 4. Additional findings as described above. The aforementioned findings initiated a critical results communication pathway. An addendum will be issued at the time of clincian notification. Radiation Dose CTDIVOL = (mGy): DLP = 484.32 (mGy-cm)
[2019-08-18] MEDS: iodixanol 320 mg/mL 100mL Btl IV (11:29)
[2019-08-18] MEDS: aspirin 81 mg Chew Tablet PO (12:27)
[2019-08-18] MEDS: lisinopril 20 mg Tablet PO (12:28)
[2019-08-18] MEDS: metoprolol tartrate 50 mg Tablet PO (12:28)
[2019-08-18] MEDS: dilTIAZem ER (24HR) 240 mg Capsule PO (12:28)
[2019-08-18] MEDS: sotalol 80 mg Tablet PO (12:29)
[2019-08-18] MEDS: apixaban 5 mg Tablet PO (12:29)
[2019-08-18] MEDS: metoprolol tartrate 1 mg/1 mL SDV 5 mL 5 MG IV ×4 (14:13→23:05)
--- NOTE | 2019-08-18 16:39 | PM.PN ---
Subjective Subjective: Interval history: Patient states that she still has some shortness of breath this morning, no fevers, no chills, has a persistent cough, no hemoptysis, has a poor appetite, has ambulated with assistance Vitals/I&O/Wt Last Vital Signs Temp 97.7 F 08/18/19 11:57 Pulse 110 H 08/18/19 15:36 Resp 17 08/18/19 15:26 BP 128/79 08/18/19 15:09 Pulse Ox 98 08/18/19 15:26 08/18/19 08/18/19 08/18/19 06:59 14:59 22:59 Output Total 1600 / 1851 Balance -1600 / -531 Weight last 48 hrs Weight 67.903 kg Physical Exam Const: COMMON NORMALS: no apparent distress and oriented x3 HENMT: COMMON NORMALS: normocephalic HEAD & SCALP: normocephalic Neck/C-Spine: COMMON NORMALS: no JVD Resp: COMMON NORMALS: normal respiratory effort, no retractions, no use of accessory muscles and clear to auscultation bilaterally AUSCULTATION: clear to auscultation bilaterally Cardio: COMMON NORMALS: no JVD, S1 normal heart sound and S2 normal heart sound RATE: tachycardic RHYTHM: abnormal rhythm HEART SOUNDS: S1 normal and S2 normal GI: COMMON NORMALS: normal to inspection, nondistended, normoactive bowel sounds, soft to palpation, non-tender, no hepatosplenomegaly, no masses and no bruits PALPATION: Yes soft and Yes no hepatosplenomegaly Extremity: COMMON NORMALS: normal capillary refill, no clubbing, cyanosis or edema, no calf tenderness and no pedal edema Neuro: COMMON NORMALS: oriented x3 Psych: COMMON NORMALS: mental status grossly normal Data : 08/18/19 04:47 08/18/19 04:47 Micro: Microbiology 08/16/19 12:51 Blood Culture - Preliminary Blood NEGATIVE TO DATE 08/16/19 12:29 Blood Culture - Preliminary Blood NEGATIVE TO DATE A&P Assessment and plan (1) Pulmonary embolism on right: -Patient's oxygen requirements remained 3 L, her ejection fraction has reduced to 40% from 45% since last year, her echocardiogram showed elevated pulmonary arterial pressure, I was highly concerned for pulmonary embolism, CT angiogram showed subtle pulmonary emboli in the first and second order branch of the right middle lobe pulmonary arteries. This was not seen on CT angiogram on 11/30/2018. -Patient has been on Eliquis 5 mg twice daily for her atrial fibrillation chronically, takes as prescribed -Thus this is likely failure of anticoagulation she is developed a pulmonary embolism Plan: -Stop Eliquis - transition to Lovenox and Coumadin bridge -Will require daily INRs -Goal INR 2-3 Status: Acute Code(s): I26.99 - Other pulmonary embolism without acute cor pulmonale (2) Atrial fibrillation: -Has episodes of A. fib with RVR today, likely secondary to respiratory failure, pulmonary embolism -Received 5 mg x 2 IV pushes of metoprolol, down to the 110s -Metoprolol increased to 75 mg twice daily -On sotalol 80 mg daily -On Cardizem 240 p.o. daily -On telemetry monitoring Status: Acute Code(s): I48.91 - Unspecified atrial fibrillation (3) Acute and chronic respiratory failure with hypoxia: -Secondary to bilateral lower lobe pneumonias, diastolic CHF exacerbation Plan: -Nebulizer treatments -Rocephin and azithromycin -Bumex 1 mg IV twice daily -Fluid restrictions 1500 cc -PT OT -Blood cultures have been unremarkable, viral panel pending Status: Acute Code(s): J96.21 - Acute and chronic respiratory failure with hypoxia (4) Diastolic CHF: Has 2+ pitting edema bilaterally, BNP 8297, repeat echocardiogram Status: Acute Code(s): I50.30 - Unspecified diastolic (congestive) heart failure (5) Chest pain: -EKG shows new T wave inversions in lateral leads, A. fib with RVR -Mild troponin elevations -Likely type II NSTEMI, supply demand ischemia -No active chest pain -Echocardiogram shows dilated cardiomyopathy which is seen on previous echocardiogram, however ejection fraction has reduced from 45% to 40% Plan: -Continue aspirin, statin -Will require an outpatient follow-up with cardiology on discharge Status: Acute Code(s): R07.9 - Chest pain, unspecified (6) Dizziness: -Likely benign positional vertigo Status: Acute Code(s): R42 - Dizziness and giddiness (7) Hypertension: Status: Acute Code(s): I10 - Essential (primary) hypertension (8) Hypothyroid: Status: Acute Code(s): E03.9 - Hypothyroidism, unspecified (9) Dyslipidemia: Status: Acute Code(s): E78.5 - Hyperlipidemia, unspecified (10) CVA (cerebral vascular accident): -Has had 2 CVAs in the past, -Last CT scan in 06/01/2019 showed a small round low-density area in the left thalamus, most compatible lacunar infarct, age uncertain -We will have PT OT evaluate patient -On aspirin, statin Status: Acute Code(s): I63.9 - Cerebral infarction, unspecified (11) COPD (chronic obstructive pulmonary disease): Not in exacerbation Status: Acute Code(s): J44.9 - Chronic obstructive pulmonary disease, unspecified (12) Bilateral pneumonia: cxray shows bilateral lobe pneumonia, however white count unremarkable, pro-Arcenio 0.08 Chest x-ray seems more like pulmonary vascular congestion, but given upper respiratory tract symptoms we will treat for pneumonia Status: Acute Code(s): J18.9 - Pneumonia, unspecified organism Attestations Medical Necessity Statement*: Patient requires hospitalization due to A. fib with RVR, pulmonary embolism, pneumonia Coding Level of Care Code Acute Proposal Rep for [facility] Fwd Diagnoses Pulmonary embolism on right I26.99 Atrial fibrillation I48.91 Acute and chronic respiratory failure with hypoxia J96.21 Diastolic CHF I50.30 Chest pain R07.9 Dizziness R42 Hypertension I10 Hypothyroid E03.9 Dyslipidemia E78.5 CVA (cerebral vascular accident) I63.9 COPD (chronic obstructive pulmonary disease) J44.9 Bilateral pneumonia J18.9
[2019-08-18] MEDS: predniSONE 20 mg Tablet 40 MG PO (18:24)
[2019-08-18] MEDS: metoprolol tartrate 50 mg Tablet 75 MG PO (18:25)
[2019-08-18] MEDS: warfarin 5 mg Tablet PO (18:25)
[2019-08-18] MEDS: guaiFENesin 600 mg Tablet PO (18:26)
[2019-08-18] MEDS: fluticasone nasal spray 16gm Btl 1 SPRAY NASAL (18:26)
--- NOTE | 2019-08-18 19:50 | CTR_ITS ---
PROCEDURE INFORMATION: Exam: CT Head Without Contrast Exam date and time: 08/18/2019 7:54 PM Age: 73 years old Clinical indication: Speech disturbance; Patient HX: Slurred speech x 2 hrs TECHNIQUE: Imaging protocol: Computed tomography of the head without contrast. Total DLP: 2223.35 mGy-cm Radiation optimization: All CT scans at this facility use at least one of these dose optimization techniques: automated exposure control; mA and/or kV adjustment per patient size (includes targeted exams where dose is matched to clinical indication); or iterative reconstruction. Other technique: STROKE PROTOCOL was implemented. COMPARISON: CT head wo con* [id number] 05/24/2019 7:14 PM FINDINGS: Brain: Stable chronic bilateral lacunar basal ganglia infarcts. Mild cerebral atrophy and ischemic leukoencephalopathy. Stable one or more left chronic lacunar thalamic infarcts. Ventricles: Normal. No ventriculomegaly. Bones/joints: Unremarkable. No acute fracture. Sinuses: Visualized sinuses are unremarkable. No fluid levels. Mastoid air cells: Visualized mastoid air cells are well aerated. Soft tissues: Unremarkable. Vasculature: Severe calcified intracranial atherosclerotic vessel disease. Other findings: Examination is limited secondary to motion artifact. CT/CT head wo con* [id number] IMPRESSION: No acute intracranial findings. ASSESSMENT: ASPECTS ([place] Stroke Program Early CT Score) is 10. Radiation Dose CTDIVOL = (mGy): DLP = 2223.35 (mGy-cm)
--- NOTE | 2019-08-18 20:26 | P.EN_ITS ---
Event Note Event Note: I was called by the nurse for patient's slurred speech Patient examined on stat basis, according to nursing report at the change of shift patient's speech was noticed to be slurred which was not the case earlier, when I examined the patient she had good comprehension, slurred speech, right- sided facial droop, NIH score 2, otherwise nonfocal exam, she seemed very tired and lethargic and complained of shortness of breath, she was saturating well on 2 L nasal cannula, heart rate fluctuating between 90-1 35, systolic blood pressure 170, She is able to tell me all the details of the day, she told me her date of , no cerebellar signs No pronator drift, blood sugar 142, A. fib RVR Stroke alert was called stat CT head was done which did not show any acute bleeding My suspicion is high for embolic stroke, her creatinine is 1.1 she has received contrast for CTA chest earlier, she is not a TPA candidate because of Eliquis use currently she is on warfarin and Lovenox, INR 1.1 For her A. fib RVR I have given her 1 dose of 5 mg of metoprolol, sister updated, her phone number is [phone]
[2019-08-18 20:49] LABS: Glucose Point of Care 142 mg/dL (70-110)
[2019-08-18] MEDS: cefTRIAXone 1,000 MG in sodium chloride 0.9% (plus) 50 ML 100 MG IV (22:09)
[2019-08-18] MEDS: enoxaparin 80 mg/0.8 mL Syringe 70 MG SUBCUT (22:09)
[2019-08-18] MEDS: atorvastatin 40 mg Tablet PO (22:10)
[2019-08-19] VITALS (22 sets, daily range): BP systolic 114–165; BP diastolic 75–120; PULSE 82–141; RESP 18–29; TEMP 36.4–37.1; O2SAT 6–98
--- NOTE | 2019-08-19 01:43 | PC.NURSE ---
called report at 1:25am to melvi in [facility]
--- NOTE | 2019-08-19 01:45 | PC.NURSE ---
Received from Med Surg via bed. Monitor showing A-Fib with RVR with HR of 140-150. Oxygen Saturation mid 80's with oxygen at 3L/NC. BP 144/110. Dr. Maldonado notified. Cardizem drip infusing at 10ml/hr. Labetolol 5ml given. Order received to insert espinal catheter. Patient very short of breath. Pale/dusky. Oxygen mask applied at 6L. Oxygen saturation up to low 90's. Sister at bedside.
[2019-08-19] MEDS: ipratropium-albuterol 3 mL Neb INHALATION ×6 (04:26→23:57)
[2019-08-19] MEDS: metoprolol tartrate 1 mg/1 mL SDV 5 mL 5 MG IV (04:39)
--- NOTE | 2019-08-19 04:40 | PC.NURSE ---
Metoprolol given at the time it was ordered. Medication was scanned. This nurse unsure why it didn't take.
--- NOTE | 2019-08-19 04:44 | PC.NURSE ---
Received order to change patient's diet from regular to cardiac.
--- NOTE | 2019-08-19 04:45 | PC.NURSE ---
Patient resting better at this time. HR upper 80's to 90's. Monitor still showing A-Fib. Oxygen Saturation 95% at this time. Patient on high flow NC. Denies complaints at this time. Will monitor.
[2019-08-19] MEDS: levothyroxine 50 mcg Tablet PO (05:37)
[2019-08-19] MEDS: bumetanide 0.25 mg/mL SDV 10 mL 1 MG IV (07:48)
[2019-08-19 07:57] LABS: INR 1.13 (0.8-1.2)
[2019-08-19 08:00] LABS: Basophils % 0.2 %; Hematocrit 44.9 % (37.0-47.0); Lymphocytes # 0.6 10^3/uL (0.8-4.8); Lymphocytes % 12.4 %; Mean Corpuscular HGB Conc 31.2 g/dL (30.0-36.0); Mean Corpuscular Hemoglobin 32.8 pg (28.0-34.0); Mean Corpuscular Volume 105.2 fL (81-99); Mean Platelet Volume 10.1 fL (7.4-10.4); Monocytes # 0.3 10^3/uL (0.2-0.9); Monocytes % 6.7 %; Neutrophils # 3.6 10^3/uL (1.8-7.7); Neutrophils % 80.3 %; Nucleated Red Blood Cells % 0 %; Platelet Count 203 10^3/cmm (130-400); Red Blood Count 4.27 10^6/uL (4.1-5.3); White Blood Count 4.5 10^3/uL (4.0-10.0)
[2019-08-19 08:08] LABS: Alanine Aminotransferase 27 U/L (0-33); Albumin Level 3.3 g/dL (3.5-5.2); Alkaline Phosphatase 144 IU/L (35-105); Anion Gap 17.9 (5-19); Aspartate Amino Transferase 23 U/L (0-32); Blood Urea Nitrogen 20 mg/dL (8-23); Calcium 9.5 mg/dL (8.5-10.5); Carbon Dioxide 24 mmol/L (22-29); Chloride 99 mmol/L (98-107); Globulin 3.1 g/dL (1.3-4.6); Glucose 144 mg/dL (65-115); Magnesium 2.5 mg/dL (1.7-2.3); Phosphorus 4.7 mg/dL (2.5-4.5); Potassium 3.9 mmol/L (3.5-5.1); Sodium 137 mmol/L (136-145); Total Bilirubin 0.6 mg/dL (0.15-1.2); Total Protein 6.4 g/dL (6.6-8.7)
[2019-08-19] MEDS: guaiFENesin 600 mg Tablet PO ×2 (08:08→17:37)
[2019-08-19] MEDS: predniSONE 20 mg Tablet 40 MG PO (08:09)
[2019-08-19] MEDS: lisinopril 20 mg Tablet PO (08:10)
[2019-08-19] MEDS: aspirin 81 mg Chew Tablet PO (08:10)
[2019-08-19] MEDS: azithromycin 250 mg Tablet PO (08:10)
[2019-08-19] MEDS: fluticasone nasal spray 16gm Btl 1 SPRAY NASAL ×2 (08:11→17:38)
[2019-08-19] MEDS: enoxaparin 80 mg/0.8 mL Syringe 70 MG SUBCUT ×2 (08:11→20:37)
--- NOTE | 2019-08-19 09:43 | PC.SOCIAL ---
IMM Update Pg 2 of IMM given and explained to patient who verbalized understanding. Copy provided to patient and copy in chart updated.
[2019-08-19] MEDS: FUROsemide 10 mg/mL SDV 4mL 40 MG IVP ×2 (10:29→20:37)
[2019-08-19] MEDS: acetaminophen 325 mg Tablet 650 MG PO (11:17)
[2019-08-19 11:50] LABS: Influenza A by IFA Negative (Negative); Influenza B by IFA Negative (Negative)
--- NOTE | 2019-08-19 12:16 | PC.OT ---
OT tx attempted. Pt lying in bed sleeping with lunch tray in front of her. She wakes to therapists voice, but unable to maintain alertness and states with slurred speech, I just want to sleep . Nursing notified. SERRANO to attempt tx again later this afternoon if possible.
[2019-08-19] MEDS: warfarin 5 mg Tablet PO (14:13)
--- NOTE | 2019-08-19 15:20 | PM.PN ---
Subjective Subjective: Interval history: Rowena reports she is short of breath today. She is about the same as yesterday. History and physical was reviewed. No chest pain. Medications: Reviewed: Yes Vitals/I&O/Wt Last Vital Signs Temp 98.8 F 08/19/19 15:10 Pulse 103 H 08/19/19 15:10 Resp 24 H 08/19/19 15:10 BP 146/75 08/19/19 15:10 Pulse Ox 97 08/19/19 15:10 08/19/19 08/19/19 08/19/19 06:59 14:59 22:59 Intake Total 480 / 480 Output Total 2200 / 2200 Balance -1720 / -1720 Physical Exam Narrative: EXAM NARRATIVE: General exam is a thin appearing white female, in mild respiratory distress Cardiovascular irregular, irregular Lungs diminished breath sounds bilaterally Abdomen is soft with positive bowel sounds Extremities no cyanosis clubbing or edema Urinary Catheter Management^: [place]: Cath Placed During This Visit: yes Reason for Continuing Indwelling Catheter: Accurate Measurement of Urinary Output in Critically Ill Patients Urinary Catheter Date of Insertion: 08/19/19 Urinary Catheter Time of Insertion: 15:00 Data : 08/19/19 07:18 08/19/19 07:18 A&P Assessment and plan (1) Pulmonary embolism on right: Occurred on Eliquis, found on CTA right middle lobe pulmonary emboli Continue therapeutic dose Lovenox Conversion to Coumadin, 5 mg daily until INR greater than 2. Status: Acute Code(s): I26.99 - Other pulmonary embolism without acute cor pulmonale (2) Atrial fibrillation: On Cardizem drip Restart metoprolol 50 mg twice daily Restart sotalol Wean Cardizem as tolerated Status: Acute Code(s): I48.91 - Unspecified atrial fibrillation (3) Acute and chronic respiratory failure with hypoxia: Mixed etiology, pulmonary emboli, possible lower lobe pneumonia Continue Rocephin, azithromycin Change Bumex to 40 mg of Lasix IV twice daily Continue fluid restriction Close follow-up of renal function Status: Acute Code(s): J96.21 - Acute and chronic respiratory failure with hypoxia (4) Diastolic CHF: Continue diuresis. Echocardiogram demonstrates EF of 40%, slightly lower than previous. This demonstrates a mixed systolic and diastolic acute congestive heart failure Continue PAN inhibitor Status: Acute Code(s): I50.30 - Unspecified diastolic (congestive) heart failure (5) Chest pain: Continue aspirin, statin, beta-vero Appears to be type II Consider outpatient follow-up with cardiology Status: Acute Code(s): R07.9 - Chest pain, unspecified (6) Dizziness: Improved Status: Acute Code(s): R42 - Dizziness and giddiness (7) Hypertension: Still elevated. Metoprolol restarted Status: Acute Code(s): I10 - Essential (primary) hypertension (8) Hypothyroid: Status: Acute Code(s): E03.9 - Hypothyroidism, unspecified (9) Dyslipidemia: Continue statin Status: Acute Code(s): E78.5 - Hyperlipidemia, unspecified (10) CVA (cerebral vascular accident): -Has had 2 CVAs in the past, -Last CT scan in 06/01/2019 showed a small round low-density area in the left thalamus, most compatible lacunar infarct, age uncertain -We will have PT OT evaluate patient -On aspirin, statin Status: Acute Code(s): I63.9 - Cerebral infarction, unspecified (11) COPD (chronic obstructive pulmonary disease): Not in exacerbation Status: Acute Code(s): J44.9 - Chronic obstructive pulmonary disease, unspecified (12) Bilateral pneumonia: Rocephin, Zithromax Wean oxygen as tolerated Status: Acute Code(s): J18.9 - Pneumonia, unspecified organism Additional A&P Information Stroke alert called last night. CT negative. Patient had slurred speech with no other symptoms, possible right facial droop but family and patient alert me that this is old. No further intervention currently other than continue aspirin, anticoagulation. Check carotid duplex. Lovenox for DVT prophylaxis Repeat flu swab was done for symptomatology and negative Attestations Medical Necessity Statement*: Needs continued hospitalization for further diuresis secondary to mixed diastolic and systolic congestive heart failure Coding Level of Care Code Acute Multimedia Technician for [facility] Diagnoses Pulmonary embolism on right I26.99 Atrial fibrillation I48.91 Acute and chronic respiratory failure with hypoxia J96.21 Diastolic CHF I50.30 Chest pain R07.9 Dizziness R42 Hypertension I10 Hypothyroid E03.9 Dyslipidemia E78.5 CVA (cerebral vascular accident) I63.9 COPD (chronic obstructive pulmonary disease) J44.9 Bilateral pneumonia J18.9
[2019-08-19] MEDS: sotalol 80 mg Tablet PO (15:46)
[2019-08-19] MEDS: metoprolol tartrate 50 mg Tablet PO (17:38)
[2019-08-19] MEDS: cefTRIAXone 1,000 MG in sodium chloride 0.9% (plus) 50 ML 100 MG IV (18:54)
--- NOTE | 2019-08-19 19:54 | PC.NURSE ---
may flush espinal cath, patient present's with bright red in espinal collection drainage bag, Called hospitalist food consultant, may flush espinal, will continue to monitor.
--- NOTE | 2019-08-19 20:05 | PC.NURSE ---
flushed espinal cath with 50 cc of normal saline. Will continue to monitor the color of urine and urine output.
[2019-08-19] MEDS: atorvastatin 40 mg Tablet PO (20:37)
[2019-08-20] VITALS (210 sets, daily range): BP systolic 101–182; BP diastolic 68–123; PULSE 77–150; RESP 14–34; TEMP 36.8–36.9; O2SAT 74–100
--- NOTE | 2019-08-20 02:46 | PC.NURSE ---
Restarted patient's Cardizem at 10 units an hour, patient's heart rate tachycardic at 150's. Care Continued. Call light within the patient's reach.
[2019-08-20] MEDS: ipratropium-albuterol 3 mL Neb INHALATION ×6 (04:15→23:10)
[2019-08-20] MEDS: lisinopril 20 mg Tablet PO (04:34)
--- NOTE | 2019-08-20 04:44 | PC.NURSE ---
notified physician, patient's blood pressure 150/103, per hospitalist, okay to give 0900 dose of Lisinopril.
--- NOTE | 2019-08-20 04:47 | PC.NURSE ---
Flushed patient's espinal cath with 40cc of Normal Saline
[2019-08-20] MEDS: levothyroxine 50 mcg Tablet PO (05:03)
--- NOTE | 2019-08-20 06:00 | USCV_ITS ---
Louise Rowena Age: 73 Gender: F : 1945 Exam Date: 08/20/2019 10:26 Ordering Phys: Gideon Mark MD Technologist: Alison Sanchez [place] [facility] [place]: CVA symptoms Risk Factors: Unknown Previous Vascular Surgery: Right Brachial BP: / Left Brachial BP: / Right Left Velocity (cm/s) Spectral Plaque Velocity (cm/s) Spectral Plaque Syst/Diast Broadening Syst/Diast Broadening 41.40/ 9.20 Homo Prox CCA 75.20 / 12.50 40.10/ 11.20 Homo Mid CCA 33.90 / 6.80 33.30/ 11.50 Homo Distal CCA 30.40 / 4.80 33.60/ 6.90 Hetro Prox ICA 74.90 / 14.50 Hetro 45.90/ 9.60 Mid ICA 84.10 / 15.80 45.70/ 11.70 Distal ICA 78.90 / 26.30 87.10 ECA 198.90 Hetro 1.00 ICA/CCA 1.19 Antegrade Vertebral Antegrade 50.20/ 6.80 cm/s 59.80/ 16.20 cm/s Tri Subclavian Tri 83.50 166.2 0 FINDINGS Moderate dense irregular plaques at the right bifurcation and proximal internal carotid artery Moderate dense irregular plaques at the left bifurcation and internal carotid artery Antegrade flow in the vertebral arteries bilaterally Elevated Doppler flow velocitiy in the left external carotid artery CONCLUSIONS Moderate dense irregular plaques at the left bifurcation and internal carotid artery with velocity elevation consistent with 16-49% stenosis. Moderate dense irregular plaques at the right bifurcation and proximal internal carotid artery Elevated velocity in the external carotid artery on the left side, suggestive of hemodynamically significant stenosis. No previous studies are available for comparison. Dr Latosha Mauricio MD [facility] (Electronically Signed) Final Date: 21 August 2019 00:24 S
--- NOTE | 2019-08-20 06:59 | XRR_ITS ---
PROCEDURE INFORMATION: Exam: XR Chest, 1 View Exam date and time: 08/20/2019 7:12 AM Age: 73 years old Clinical indication: Chest pain; Type not specified TECHNIQUE: Imaging protocol: XR of the chest Views: 1 view. COMPARISON: CR XR chest 1V portable [id number] 08/16/2019 10:41 AM FINDINGS: Lungs: mild opacity in the left retrocardiac region-atelectasis versus infiltrate. Pleural space: Unremarkable. No pleural effusion. No pneumothorax. Heart/Mediastinum: Cardiomegaly Bones/joints: Unremarkable. XR/XR chest 1V portable [id number] IMPRESSION: Mild opacity in the left retrocardiac region-atelectasis versus infiltrate. Subtle airspace disease right lung base.
--- NOTE | 2019-08-20 07:00 | PC.NURSE ---
nurse entered room to pt being in distress, nurse Janeth, RN at bedside. dr being notified by night nurse Liliya, JACOBO. 0655 dr Sandhu at bedside. 0659 portable chest xray ordered. 0700 ABG ordered 0702 vitals: heart rate 123, oxygen saturation 96%, respirations 27. pt lethargic. 0705 Cardizem ordered to be increased from 10 ml/hr to 15ml/hr. respiratory therapists at bedside to do ABG. Bladder scanned 30 ml noted. vitals: heart rate 120, 92%, 31 respirations, blood pressure 173/113. 0707 blood sugar checked 164. [address] Sandhu and decision made to transfer to ICU. 0718 Dr. Mark at bedside. vitals: 106 heart rate, 98% on bipap, 35 respirations, 163/96. 0730 pt transferred to ICU via bed and 2 nurses and a respiratory therapist. Report given at bedside in ICU room 1.
[2019-08-20 07:08] LABS: Basophils % 0.2 %; Eosinophils % 0.1 %; Hematocrit 49.4 % (37.0-47.0); Hemoglobin 15.5 g/dL (11.5-15.3); Lymphocytes # 1.6 10^3/uL (0.8-4.8); Lymphocytes % 16.8 %; Mean Corpuscular HGB Conc 31.4 g/dL (30.0-36.0); Mean Corpuscular Hemoglobin 32.5 pg (28.0-34.0); Mean Corpuscular Volume 103.6 fL (81-99); Mean Platelet Volume 9.8 fL (7.4-10.4); Neutrophils % 72.6 %; Nucleated Red Blood Cells % 0 %; Platelet Count 238 10^3/cmm (130-400); Red Blood Count 4.77 10^6/uL (4.1-5.3); Red Cell Distribution Width 13.8 % (12.1-15.1); White Blood Count 9.6 10^3/uL (4.0-10.0)
[2019-08-20 07:09] LABS: ABG PCO2 57.4 mmHg (35-45); ABG PH Result 7.37 (7.35-7.45); Arterial Blood Gas Hematocrit 48.4 % (37-47); Base Excess ABG 5.7 mmol/L (-2.0-2.0); Blood Gas Allen Test Pos; Blood Gas Sample Site Radial, right; Blood Gas Sample Type Arterial; HCO3 ABG 33.1 mmol/L (22-26); Oxygen Device NC; PO2 ABG 80.2 mmHg (80.0-100.0)
[2019-08-20 07:14] LABS: Glucose Point of Care 164 mg/dL (70-110)
[2019-08-20 07:22] LABS: INR 1.34 (0.8-1.2)
[2019-08-20 07:30] LABS: Blood Urea Nitrogen 30 mg/dL (8-23); Calcium 9.7 mg/dL (8.5-10.5); Carbon Dioxide 31 mmol/L (22-29); Chloride 98 mmol/L (98-107); Glucose 149 mg/dL (65-115); Osmolality Calculated 292 mOsm/kg (285-295); Sodium 141 mmol/L (136-145)
--- NOTE | 2019-08-20 08:19 | PC.CHAP ---
Pastoral Care Encounter/Spiritual Assessment Type of Contact [] Declined transmission and coordination engineer visit [] Patient/Family/Request visit [] Outpatient visit [] Follow-up visit [] Physician referral [] Code/Alert [] Routine visit [] Staff referral [] Actively dying [x] Patient sleeping [] Family support [] [] Out of room [] Palliative care [] [] Receiving care in room [] Pre-surgical visit [] Trauma [] Long length of stay [x ICU visit [] Other: Relational/Emotional Strength [] Patient feels connected with others/family/visitors/staff [] Distress [] Loneliness/isolation [] Abandonment Spirituality of Patient [] Person of Millicent [] Attends Roman Catholic of their Millicent [] Believes in Prayer [] Reads Bible or Restorationist materials [] There are Spiritual issues to be addressed Bankruptcy Assistant Interventions [] Prayer [] Active listening [] Non-anxious presence [] Spiritual/emotional support [] Crisis/trauma care [] Spiritual counseling [] Bereavement support [] Provided bereavement packet [] Provided Bible/devotional materials [] Provided toy/stuffed animal, coloring book to patient or family member [] Provided Communion [] Anointing/[place] [] Salvation [] Completed spiritual assessment [] Other: Impact on Illness or Injury [] Angry [] Fearful [] Anxious [] Often cries [] Exhaustion [] Unable to work [] Unable to attend anglican [] Unable to walk/stand [] Unable to read [] Unable to drive [] Unable to eat/drink [] Unable to sleep [] Unable to be with family [] Patient intubated [] Other: Summary Patient was sleeping at the time of visit. Patient visit was attempted by Bankruptcy Assistant Adam Lagos. Time spent with patient 3 minutes
[2019-08-20] MEDS: aspirin 81 mg Chew Tablet PO (10:16)
[2019-08-20] MEDS: fluticasone nasal spray 16gm Btl 1 SPRAY NASAL ×2 (10:16→17:41)
[2019-08-20] MEDS: enoxaparin 80 mg/0.8 mL Syringe 70 MG SUBCUT ×2 (10:16→21:32)
[2019-08-20] MEDS: metoprolol tartrate 50 mg Tablet PO ×2 (10:17→17:40)
[2019-08-20] MEDS: predniSONE 20 mg Tablet 40 MG PO (10:17)
[2019-08-20] MEDS: guaiFENesin 600 mg Tablet PO ×2 (10:17→17:40)
[2019-08-20] MEDS: FUROsemide 10 mg/mL SDV 4mL 40 MG IVP (10:18)
[2019-08-20] MEDS: linezolid premix 600 MG/300 ML PREMIX 300 MG IV ×2 (10:25→21:31)
--- NOTE | 2019-08-20 12:03 | PC.OT ---
OT tx attempted. Nursing reports physician requests therapies be on hold today to allow pt to sleep. OTR to check pt status tomorrow.
[2019-08-20] MEDS: piperacillin-tazobactam 3.375 GM in sodium chloride 0.9% (plus) 50 ML IV (12:16)
--- NOTE | 2019-08-20 12:25 | PM.PN ---
Subjective Subjective: Interval history: Rowena had a respiratory event this morning. According to the overnight physician she had some coughing, following ingestion of water and there was concern of aspiration. She seems lethargic, and she was placed on BiPAP. She was transferred to the ICU. She is sleepy but awakens easily and moves all of her extremities for me. Communication is somewhat difficult on BiPAP. She denies any pain. Medications: Reviewed: Yes Vitals/I&O/Wt Last Vital Signs Temp 98.3 F 08/20/19 08:00 Pulse 87 08/20/19 11:21 Resp 20 H 08/20/19 11:15 BP 144/90 08/20/19 09:45 Pulse Ox 97 08/20/19 11:15 08/19/19 08/20/19 08/20/19 22:59 06:59 14:59 Intake Total 321.292 / 801.292 8.5 / 809.792 370.667 / 370.667 Output Total 401 / 2601 750 / 3351 Balance -79.708 / -1799.708 -741.5 / -2541.208 370.667 / 370.667 Physical Exam Narrative: EXAM NARRATIVE: General exam is a thin appearing white female, currently on BiPAP Cardiovascular irregular, irregular with controlled rate. Note that she did have some atrial fibrillation with rapid ventricular rate last night requiring restart of Cardizem. Lungs diminished breath sounds bilaterally Abdomen is soft with positive bowel sounds Extremities no cyanosis clubbing or edema Urinary Catheter Management^: [place]: Cath Placed During This Visit: yes Reason for Continuing Indwelling Catheter: Other Urinary Catheter Date of Insertion: 08/19/19 Urinary Catheter Time of Insertion: 15:00 Data : 08/20/19 06:57 08/20/19 06:57 A&P Assessment and plan (1) Pulmonary embolism on right: Occurred on Eliquis, found on CTA right middle lobe pulmonary emboli Continue therapeutic dose Lovenox Conversion to Coumadin, 5 mg daily until INR greater than 2. Status: Acute Code(s): I26.99 - Other pulmonary embolism without acute cor pulmonale (2) Atrial fibrillation: On Cardizem drip Continue metoprolol, sotalol Initiate Cardizem orally Status: Acute Code(s): I48.91 - Unspecified atrial fibrillation (3) Acute and chronic respiratory failure with hypoxia: Mixed etiology, pulmonary emboli, possible lower lobe pneumonia Continue Rocephin, azithromycin Continue Lasix, but reduce to once daily Continue fluid restriction Close follow-up of renal function Status: Acute Code(s): J96.21 - Acute and chronic respiratory failure with hypoxia (4) Diastolic CHF: Continue diuresis. Echocardiogram demonstrates EF of 40%, slightly lower than previous. This demonstrates a mixed systolic and diastolic acute congestive heart failure Continue PAN inhibitor Continue Lasix but reduce to every 24 hours Status: Acute Code(s): I50.30 - Unspecified diastolic (congestive) heart failure (5) Chest pain: Continue aspirin, statin, beta-vero Appears to be type II Consider outpatient follow-up with cardiology Status: Acute Code(s): R07.9 - Chest pain, unspecified (6) Dizziness: Improved Status: Acute Code(s): R42 - Dizziness and giddiness (7) Hypertension: Still elevated. Metoprolol restarted. Cardizem restarted Status: Acute Code(s): I10 - Essential (primary) hypertension (8) Hypothyroid: Status: Acute Code(s): E03.9 - Hypothyroidism, unspecified (9) Dyslipidemia: Continue statin Status: Acute Code(s): E78.5 - Hyperlipidemia, unspecified (10) CVA (cerebral vascular accident): -Has had 2 CVAs in the past, -Last CT scan in 06/01/2019 showed a small round low-density area in the left thalamus, most compatible lacunar infarct, age uncertain -We will have PT OT evaluate patient -On aspirin, statin Awaiting carotid ultrasound Status: Acute Code(s): I63.9 - Cerebral infarction, unspecified (11) COPD (chronic obstructive pulmonary disease): Not in exacerbation Status: Acute Code(s): J44.9 - Chronic obstructive pulmonary disease, unspecified (12) Bilateral pneumonia: With worsening respiratory status discontinued Rocephin and Zithromax Started linezolid, Zosyn Concern of aspiration event. Speech therapy consultation. Status: Acute Code(s): J18.9 - Pneumonia, unspecified organism Additional A&P Information Stroke alert called during hospital stay . CT negative. Patient had slurred speech with no other symptoms, possible right facial droop but family and patient alert me that this is old. No further intervention currently other than continue aspirin, anticoagulation. Awaiting carotid duplex Lovenox for DVT prophylaxis Repeat flu swab was done for symptomatology and negative Attestations Medical Necessity Statement*: Needs continued hospitalization for stabilization of respiratory status Coding Level of Care Code Acute Pedigree Tracer for Sandeepg Nasimd Diagnoses Pulmonary embolism on right I26.99 Atrial fibrillation I48.91 Acute and chronic respiratory failure with hypoxia J96.21 Diastolic CHF I50.30 Chest pain R07.9 Dizziness R42 Hypertension I10 Hypothyroid E03.9 Dyslipidemia E78.5 CVA (cerebral vascular accident) I63.9 COPD (chronic obstructive pulmonary disease) J44.9 Bilateral pneumonia J18.9
[2019-08-20] MEDS: dilTIAZem 30 mg Tablet PO ×3 (13:21→21:31)
[2019-08-20] MEDS: warfarin 5 mg Tablet PO (13:22)
--- NOTE | 2019-08-20 20:19 | PC.NURSE ---
assessment per flowsheet. pt noted to have some slurred speech. no ferrari drift noted. vessel ordinary seaman equal and strong. pedal pushes equal and strong. pupils perrl . no facial drooping noted. vss per cm. hr a fib 110-130 at this time. pt requesting tylenol at [facility].
[2019-08-20] MEDS: atorvastatin 40 mg Tablet PO (21:31)
[2019-08-20] MEDS: acetaminophen 325 mg Tablet 650 MG PO (21:31)
[2019-08-21] VITALS (72 sets, daily range): BP systolic 116–163; BP diastolic 54–109; PULSE 75–143; RESP 13–34; TEMP 36.2–36.8; O2SAT 83–99
[2019-08-21] MEDS: ipratropium-albuterol 3 mL Neb INHALATION ×4 (03:07→20:04)
[2019-08-21 04:42] LABS: Anion Gap 14.4 (5-19); Blood Urea Nitrogen 30 mg/dL (8-23); Calcium 9.2 mg/dL (8.5-10.5); Carbon Dioxide 31 mmol/L (22-29); Chloride 98 mmol/L (98-107); Glucose 123 mg/dL (65-115); Osmolality Calculated 288 mOsm/kg (285-295); Potassium 3.4 mmol/L (3.5-5.1); Sodium 140 mmol/L (136-145)
[2019-08-21] MEDS: levothyroxine 50 mcg Tablet PO (05:33)
[2019-08-21 06:01] LABS: INR 2.21 (0.8-1.2)
[2019-08-21 06:58] LABS: Creatine Phosphokinase 21 U/L (26-192)
[2019-08-21 08:19] LABS: Magnesium 2.6 mg/dL (1.7-2.3)
[2019-08-21 08:35] LABS: Vitamin B12 1127 pg/mL (232-1245)
[2019-08-21] MEDS: dilTIAZem 30 mg Tablet PO (08:36)
[2019-08-21] MEDS: fluticasone nasal spray 16gm Btl 1 SPRAY NASAL ×2 (08:36→18:38)
[2019-08-21] MEDS: linezolid premix 600 MG/300 ML PREMIX 300 MG IV ×2 (08:36→20:40)
[2019-08-21] MEDS: metoprolol tartrate 50 mg Tablet PO ×2 (08:36→18:38)
[2019-08-21] MEDS: aspirin 81 mg Chew Tablet PO (08:36)
[2019-08-21] MEDS: lisinopril 20 mg Tablet PO (08:36)
[2019-08-21] MEDS: guaiFENesin 600 mg Tablet PO ×2 (08:36→18:38)
--- NOTE | 2019-08-21 09:15 | PC.SOCIAL ---
IMM Updated Page 2 of IMM updated and given to patient. Initialed, dated, and timed and placed back in chart.
--- NOTE | 2019-08-21 12:14 | PM.PN ---
Subjective Subjective: Interval history: Continues to have significant weakness. Patient reports she would like her [place] catheter out today. Hospitalist was called last night secondary to weakness, difficulty holding head up. Medications: Reviewed: Yes Vitals/I&O/Wt Last Vital Signs Temp 97.1 F L 08/21/19 04:00 Pulse 115 H 08/21/19 10:00 Resp 27 H 08/21/19 10:00 BP 163/91 08/21/19 10:00 Pulse Ox 90 08/21/19 10:00 08/20/19 08/21/19 08/21/19 22:59 06:59 14:59 Intake Total 540 / 910.667 50 / 960.667 200 / 200 Output Total 3201 / 3201 400 / 3601 Balance -2661 / -2290.333 -350 / -2640.333 200 / 200 Physical Exam Narrative: EXAM NARRATIVE: General exam is a thin appearing white female, she is able to converse. She can hold her head up this morning. Cardiovascular irregular, irregular variable rate. Lungs diminished breath sounds bilaterally Abdomen is soft with positive bowel sounds Extremities no cyanosis clubbing. Trace edema. Urinary Catheter Management^: [place]: Cath Placed During This Visit: yes Reason for Continuing Indwelling Catheter: Other Urinary Catheter Date of Insertion: 08/19/19 Urinary Catheter Time of Insertion: 15:00 Data : 08/20/19 06:57 08/21/19 03:10 A&P Assessment and plan (1) Pulmonary embolism on right: Occurred on Eliquis, found on CTA right middle lobe pulmonary emboli INR is therapeutic. Discontinue Lovenox Continue Coumadin INR tomorrow Status: Acute Code(s): I26.99 - Other pulmonary embolism without acute cor pulmonale (2) Atrial fibrillation: Discontinue sotalol Continue metoprolol Increase Cardizem Status: Acute Code(s): I48.91 - Unspecified atrial fibrillation (3) Acute and chronic respiratory failure with hypoxia: Mixed etiology, pulmonary emboli, possible lower lobe pneumonia Continue Rocephin, azithromycin Continue Lasix, 40 mg IV every 24 hours Continue fluid restriction Continue to follow-up on renal function Status: Acute Code(s): J96.21 - Acute and chronic respiratory failure with hypoxia (4) Diastolic CHF: Appears better compensated Echocardiogram demonstrates EF of 40%, slightly lower than previous. This demonstrates a mixed systolic and diastolic acute congestive heart failure Continue PAN inhibitor Continue IV Lasix every 24 hours Status: Acute Code(s): I50.30 - Unspecified diastolic (congestive) heart failure (5) Chest pain: Continue aspirin, statin, beta-vero Appears to be type II Consider outpatient follow-up with cardiology Status: Acute Code(s): R07.9 - Chest pain, unspecified (6) Dizziness: Improved Status: Acute Code(s): R42 - Dizziness and giddiness (7) Hypertension: Control improved Status: Acute Code(s): I10 - Essential (primary) hypertension (8) Hypothyroid: Last TSH normal Status: Acute Code(s): E03.9 - Hypothyroidism, unspecified (9) Dyslipidemia: Continue statin Status: Acute Code(s): E78.5 - Hyperlipidemia, unspecified (10) CVA (cerebral vascular accident): -Has had 2 CVAs in the past, -Last CT scan in 06/01/2019 showed a small round low-density area in the left thalamus, most compatible lacunar infarct, age uncertain -We will have PT OT evaluate patient -On aspirin, statin Carotid ultrasound demonstrates no flow-limiting disease Status: Acute Code(s): I63.9 - Cerebral infarction, unspecified (11) COPD (chronic obstructive pulmonary disease): Not in exacerbation Status: Acute Code(s): J44.9 - Chronic obstructive pulmonary disease, unspecified (12) Bilateral pneumonia: Continue linezolid, Zosyn. Concern of aspiration event. Speech therapy evaluating Check MRSA PCR Status: Acute Code(s): J18.9 - Pneumonia, unspecified organism Additional A&P Information Stroke alert called during hospital stay . CT negative. Patient had slurred speech with no other symptoms, possible right facial droop but family and patient alert me that this is old. No further intervention currently other than continue aspirin, anticoagulation. Carotid duplex no flow-limiting disease Profound weakness. Acetylcholine antibody testing ordered. Briefly discussed with neurology. They request follow-up in 1 week, after testing has been completed. Add nutritional supplementation Coumadin will suffice for DVT prophylaxis Plan to get sent [facility] May transfer back to cardiac stepdown unit. Attestations Medical Necessity Statement*: Needs continued hospitalization for IV antibiotics secondary to pneumonia, further adjustment of medications secondary to atrial fibrillation with rapid ventricular rate. Coding Level of Care Code Acute Psychological Anthropologist for Chg Fwd Diagnoses Pulmonary embolism on right I26.99 Atrial fibrillation I48.91 Acute and chronic respiratory failure with hypoxia J96.21 Diastolic CHF I50.30 Chest pain R07.9 Dizziness R42 Hypertension I10 Hypothyroid E03.9 Dyslipidemia E78.5 CVA (cerebral vascular accident) I63.9 COPD (chronic obstructive pulmonary disease) J44.9 Bilateral pneumonia J18.9
[2019-08-21] MEDS: warfarin 5 mg Tablet PO (14:39)
[2019-08-21] MEDS: FUROsemide 10 mg/mL SDV 4mL 40 MG IVP (14:39)
[2019-08-21] MEDS: dilTIAZem 30 mg Tablet 60 MG PO ×3 (14:39→20:39)
--- NOTE | 2019-08-21 15:12 | PC.CHAP ---
Pastoral Care Encounter/Spiritual Assessment Type of Contact [] Declined snack bar cashier visit [] Patient/Family/Request visit [] Outpatient visit [] Follow-up visit [] Physician referral [] Code/Alert [x] Routine visit [] Staff referral [] Actively dying [] Patient sleeping [] Family support [] [] Out of room [] Palliative care [] [] Receiving care in room [] Pre-surgical visit [] Trauma [] Long length of stay [x] ICU visit [] Other: Relational/Emotional Strength [x] Patient feels connected with others/family/visitors/staff [] Distress [] Loneliness/isolation [] Abandonment Spirituality of Patient [x] Person of Millicent [] Attends Religious of their [place] [x] Believes in Prayer [] Reads Bible or Adventist materials [] There are Spiritual issues to be addressed Applique Sewer Interventions [x] Prayer [x] Active listening [x] Non-anxious presence [x] Spiritual/emotional support [] Crisis/trauma care [] Spiritual counseling [] Bereavement support [] Provided bereavement packet [] Provided Bible/devotional materials [] Provided toy/stuffed animal, coloring book to patient or family member [] Provided Communion [x] Anointing/[place] [] Salvation [] Completed spiritual assessment [] Other: Impact on Illness or Injury [] Angry [] Fearful [x] Anxious [] Often cries [x] Exhaustion [] Unable to work [] Unable to attend yarsanism [] Unable to walk/stand [] Unable to read [] Unable to drive [] Unable to eat/drink [] Unable to sleep [] Unable to be with family [] Patient intubated [] Other: Summary Had prayer with patient and sister Time spent with patient 4
--- NOTE | 2019-08-21 17:53 | PC.SLP ---
INTERPRETER checked in with the pt to see how she was doing with her diet. Difficulty reported earlier. Pt reported some of the food at lunch was too thick for her to swallow, but that she was dong Ok with supper. INTERPRETER will monitor.
[2019-08-21] MEDS: atorvastatin 40 mg Tablet PO (20:39)
[2019-08-21] MEDS: acetaminophen 325 mg Tablet 650 MG PO (23:22)
[2019-08-21] MEDS: piperacillin-tazobactam 3.375 GM in sodium chloride 0.9% (plus) 100 ML IV (23:23)
[2019-08-22] VITALS (19 sets, daily range): BP systolic 121–145; BP diastolic 65–94; PULSE 70–111; RESP 18–24; TEMP 36.4–36.7; O2SAT 94–99
[2019-08-22] MEDS: ipratropium-albuterol 3 mL Neb INHALATION ×6 (00:51→21:19)
[2019-08-22 04:04] LABS: Eosinophils % 0.6 %; Hematocrit 46.4 % (37.0-47.0); Hemoglobin 14.6 g/dL (11.5-15.3); Lymphocytes # 1.6 10^3/uL (0.8-4.8); Lymphocytes % 29.8 %; Mean Corpuscular HGB Conc 31.5 g/dL (30.0-36.0); Mean Corpuscular Volume 104.7 fL (81-99); Monocytes # 0.5 10^3/uL (0.2-0.9); Monocytes % 10.2 %; Neutrophils # 3.1 10^3/uL (1.8-7.7); Neutrophils % 58.8 %; Nucleated Red Blood Cells % 0 %; Platelet Count 176 10^3/cmm (130-400); Red Blood Count 4.43 10^6/uL (4.1-5.3); Red Cell Distribution Width 13.4 % (12.1-15.1); White Blood Count 5.2 10^3/uL (4.0-10.0)
[2019-08-22 04:27] LABS: Anion Gap 13.7 (5-19); Blood Urea Nitrogen 29 mg/dL (8-23); Carbon Dioxide 30 mmol/L (22-29); Chloride 99 mmol/L (98-107); Glucose 94 mg/dL (65-115); Osmolality Calculated 285 mOsm/kg (285-295); Potassium 3.7 mmol/L (3.5-5.1); Sodium 139 mmol/L (136-145)
[2019-08-22 04:39] LABS: INR 2.05 (0.8-1.2)
[2019-08-22] MEDS: piperacillin-tazobactam 3.375 GM in sodium chloride 0.9% (plus) 100 ML IV ×3 (06:07→20:50)
[2019-08-22] MEDS: levothyroxine 50 mcg Tablet PO (06:07)
--- NOTE | 2019-08-22 08:18 | PM.PN ---
Subjective Subjective: Interval history: Rowena reports she feels a little bit better. She has more energy. She has been able to stand and move about some. Medications: Reviewed: Yes Vitals/I&O/Wt Last Vital Signs Temp 98.3 F 08/21/19 12:00 Pulse 91 08/22/19 08:14 Resp 22 H 08/22/19 08:14 BP 126/72 08/22/19 04:00 Pulse Ox 96 08/22/19 08:14 08/21/19 08/22/19 08/22/19 22:59 06:59 14:59 Intake Total 250 / 800 580 / 1380 Output Total 900 / 1100 100 / 1200 Balance -650 / -300 480 / 180 Physical Exam Narrative: EXAM NARRATIVE: General exam is a thin appearing white female, she is able to converse. She can hold her head up this morning. Cardiovascular irregular, irregular variable rate. Lungs diminished breath sounds bilaterally, a few scattered wheezes Abdomen is soft with positive bowel sounds Extremities no cyanosis clubbing. Urinary Catheter Management^: [place]: Cath Placed During This Visit: yes Reason for Continuing Indwelling Catheter: Other Urinary Catheter Date of Insertion: 08/19/19 Urinary Catheter Time of Insertion: 15:00 Data : 08/22/19 03:40 08/22/19 03:40 Micro: Microbiology 08/16/19 12:51 Blood Culture - Final Blood NO GROWTH AFTER 5 DAYS 08/16/19 12:29 Blood Culture - Final Blood NO GROWTH AFTER 5 DAYS A&P Assessment and plan (1) Pulmonary embolism on right: Occurred on Eliquis, found on CTA right middle lobe pulmonary emboli INR is therapeutic. Continue Coumadin INR tomorrow Status: Acute Code(s): I26.99 - Other pulmonary embolism without acute cor pulmonale (2) Atrial fibrillation: Continue metoprolol, Cardizem. Rate is controlled. She is fully anticoagulated. Status: Acute Code(s): I48.91 - Unspecified atrial fibrillation (3) Acute and chronic respiratory failure with hypoxia: Mixed etiology, pulmonary emboli, possible lower lobe pneumonia Continue Rocephin, azithromycin Discontinue IV Lasix Initiate Lasix 60 mg p.o. daily Continue fluid restriction Continue to follow-up on renal function Status: Acute Code(s): J96.21 - Acute and chronic respiratory failure with hypoxia (4) Diastolic CHF: Appears better compensated Echocardiogram demonstrates EF of 40%, slightly lower than previous. This demonstrates a mixed systolic and diastolic acute congestive heart failure Continue PAN inhibitor Change to oral Lasix Status: Acute Code(s): I50.30 - Unspecified diastolic (congestive) heart failure (5) Chest pain: Continue aspirin, statin, beta-vero Appears to be type II Consider outpatient follow-up with cardiology Status: Acute Code(s): R07.9 - Chest pain, unspecified (6) Dizziness: Improved Status: Acute Code(s): R42 - Dizziness and giddiness (7) Hypertension: Control improved Status: Acute Code(s): I10 - Essential (primary) hypertension (8) Hypothyroid: Last TSH normal Status: Acute Code(s): E03.9 - Hypothyroidism, unspecified (9) Dyslipidemia: Continue statin Status: Acute Code(s): E78.5 - Hyperlipidemia, unspecified (10) CVA (cerebral vascular accident): -Has had 2 CVAs in the past, -Last CT scan in 06/01/2019 showed a small round low-density area in the left thalamus, most compatible lacunar infarct, age uncertain -We will have PT OT evaluate patient -On aspirin, statin Carotid ultrasound demonstrates no flow-limiting disease Status: Acute Code(s): I63.9 - Cerebral infarction, unspecified (11) COPD (chronic obstructive pulmonary disease): Not in exacerbation Status: Acute Code(s): J44.9 - Chronic obstructive pulmonary disease, unspecified (12) Bilateral pneumonia: Continue linezolid, Zosyn. Concern of aspiration event. Speech therapy evaluating Check MRSA PCR. If negative discontinue linezolid Status: Acute Code(s): J18.9 - Pneumonia, unspecified organism Additional A&P Information Stroke alert called during hospital stay . CT negative. Patient had slurred speech with no other symptoms, possible right facial droop but family and patient alert me that this is old. No further intervention currently other than continue aspirin, anticoagulation. Carotid duplex no flow-limiting disease Profound weakness. Acetylcholine antibody testing ordered. Briefly discussed with neurology. They request follow-up in 1 week, after testing has been completed. Add nutritional supplementation. She appears clinically better today. Coumadin will suffice for DVT prophylaxis Plan to get sent to care home facility for further rehabilitation Likely will be ready for discharge tomorrow Attestations Medical Necessity Statement*: Needs continued hospitalization for adjustment of medications for atrial fibrillation, CHF pending discharge to care home facility tomorrow. Coding Level of Care Code Acute Producer Assistant for Sandeepg Fwd Diagnoses Pulmonary embolism on right I26.99 Atrial fibrillation I48.91 Acute and chronic respiratory failure with hypoxia J96.21 Diastolic CHF I50.30 Chest pain R07.9 Dizziness R42 Hypertension I10 Hypothyroid E03.9 Dyslipidemia E78.5 CVA (cerebral vascular accident) I63.9 COPD (chronic obstructive pulmonary disease) J44.9 Bilateral pneumonia J18.9
[2019-08-22] MEDS: fluticasone nasal spray 16gm Btl 1 SPRAY NASAL ×2 (08:24→18:14)
[2019-08-22] MEDS: guaiFENesin 600 mg Tablet PO ×2 (08:25→18:14)
[2019-08-22] MEDS: metoprolol tartrate 50 mg Tablet PO ×2 (08:25→18:14)
[2019-08-22] MEDS: lisinopril 20 mg Tablet PO (08:25)
[2019-08-22] MEDS: linezolid premix 600 MG/300 ML PREMIX 300 MG IV (08:25)
[2019-08-22] MEDS: aspirin 81 mg Chew Tablet PO (08:25)
[2019-08-22] MEDS: dilTIAZem ER (24HR) 180 mg Capsule PO (08:29)
[2019-08-22] MEDS: FUROsemide 40 mg Tablet 60 MG PO (08:29)
--- NOTE | 2019-08-22 09:45 | PC.OT ---
OT TREATMENT ATTEMPTED. PATIENT SLEEPING BUT EASILY AWAKENED. HAS DIFFICULTY STAYING AWAKE AND STATES NOT UP TO THERAPY THIS A.M. IS AGREEABLE TO P.M. ATTEMPT
--- NOTE | 2019-08-22 10:37 | PC.CHAP ---
Pastoral Care Encounter/Spiritual Assessment Type of Contact [] Declined pediatric oncology nurse visit [] Patient/Family/Request visit [] Outpatient visit [] Follow-up visit [] Physician referral [] Code/Alert [x] Routine visit [] Staff referral [] Actively dying [] Patient sleeping [] Family support [] [] Out of room [] Palliative care [] [x] Receiving care in room [] Pre-surgical visit [] Trauma [] Long length of stay [x] ICU visit [] Other: Relational/Emotional Strength [] Patient feels connected with others/family/visitors/staff [] Distress [] Loneliness/isolation [] Abandonment Spirituality of Patient [] Person of Millicent [] Attends Sabianism of their Millicent [] Believes in Prayer [] Reads Bible or Catholic materials [] There are Spiritual issues to be addressed Smooth Plater Interventions [] Prayer [] Active listening [] Non-anxious presence [] Spiritual/emotional support [] Crisis/trauma care [] Spiritual counseling [] Bereavement support [] Provided bereavement packet [] Provided Bible/devotional materials [] Provided toy/stuffed animal, coloring book to patient or family member [] Provided Communion [] Anointing/[place] [] Salvation [x] Completed spiritual assessment [] Other: Impact on Illness or Injury [] Angry [] Fearful [] Anxious [] Often cries [] Exhaustion [] Unable to work [] Unable to attend yazidi [] Unable to walk/stand [] Unable to read [] Unable to drive [] Unable to eat/drink [] Unable to sleep [] Unable to be with family [] Patient intubated [] Other: Summary Time spent with patient
[2019-08-22] MEDS: warfarin 5 mg Tablet PO (14:14)
--- NOTE | 2019-08-22 19:14 | PC.NURSE ---
report called to nery vincent in [facility].
[2019-08-22] MEDS: atorvastatin 40 mg Tablet PO (20:47)
[2019-08-22] MEDS: acetaminophen 325 mg Tablet 650 MG PO (20:50)
[2019-08-23] VITALS (14 sets, daily range): BP systolic 129–151; BP diastolic 79–99; PULSE 82–128; RESP 18–23; TEMP 36.4–36.9; O2SAT 90–99
[2019-08-23] MEDS: ipratropium-albuterol 3 mL Neb INHALATION ×6 (00:58→22:01)
[2019-08-23 04:26] LABS: Anion Gap 14.5 (5-19); Blood Urea Nitrogen 28 mg/dL (8-23); Calcium 9.2 mg/dL (8.5-10.5); Carbon Dioxide 29 mmol/L (22-29); Chloride 98 mmol/L (98-107); Glucose 91 mg/dL (65-115); Osmolality Calculated 283 mOsm/kg (285-295); Potassium 3.5 mmol/L (3.5-5.1); Sodium 138 mmol/L (136-145)
[2019-08-23 04:42] LABS: INR 2.27 (0.8-1.2)
[2019-08-23] MEDS: piperacillin-tazobactam 3.375 GM in sodium chloride 0.9% (plus) 100 ML IV ×3 (05:10→20:35)
[2019-08-23] MEDS: levothyroxine 50 mcg Tablet PO (05:10)
--- NOTE | 2019-08-23 06:00 | PC.NURSE ---
Attempt to wean patient off of oxygen. When nasal cannula was taken off, patient's oxygen saturation dropped down to the 80s. Nasal cannula placed back on at 2 liters with oxygen saturation the 90s. Continuos pulse ox on. Will continue to monitor.
[2019-08-23] MEDS: lisinopril 20 mg Tablet PO (08:50)
[2019-08-23] MEDS: metoprolol tartrate 50 mg Tablet PO (08:50)
[2019-08-23] MEDS: aspirin 81 mg Chew Tablet PO (08:50)
[2019-08-23] MEDS: dilTIAZem ER (24HR) 180 mg Capsule PO (08:50)
[2019-08-23] MEDS: guaiFENesin 600 mg Tablet PO ×2 (08:50→18:41)
[2019-08-23] MEDS: FUROsemide 40 mg Tablet 60 MG PO (08:50)
[2019-08-23] MEDS: fluticasone nasal spray 16gm Btl 1 SPRAY NASAL ×2 (08:51→18:42)
--- NOTE | 2019-08-23 09:14 | DCPLANNER ---
Pg 2 of IM updated and reviewed with pt. No questions.
[2019-08-23] MEDS: metoprolol tartrate 25 mg Tablet PO (11:24)
--- NOTE | 2019-08-23 12:59 | P.PN_ITS ---
Subjective Subjective: Interval history: Rowena reports she is about the same. No chest pain. Still short of breath when she moves around but she is able to get out of bed. Overall feels tired. Medications: Reviewed: Yes Vitals/I&O/Wt Last Vital Signs Temp 98.4 F 08/23/19 11:49 Pulse 114 H 08/23/19 12:42 Resp 18 08/23/19 12:42 BP 131/80 08/23/19 11:49 Pulse Ox 95 08/23/19 12:42 08/22/19 08/23/19 08/23/19 22:59 06:59 14:59 Intake Total 350 / 690 400 / 1090 640 / 640 Output Total 200 / 1700 Balance 150 / -1010 400 / -610 640 / 640 Weight last 48 hrs Weight 64.864 kg Physical Exam Narrative: EXAM NARRATIVE: General exam is a thin appearing white female, she is able to converse. Heart rate is higher this morning. Cardiovascular irregular, irregular with accelerated rate this morning Lungs diminished breath sounds bilaterally, a few scattered wheezes Abdomen is soft with positive bowel sounds Extremities no cyanosis clubbing. Urinary Catheter Management^: [place]: Cath Placed During This Visit: yes Reason for Continuing Indwelling Catheter: Other Urinary Catheter Date of Insertion: 08/19/19 Urinary Catheter Time of Insertion: 15:00 Data : 08/22/19 03:40 08/23/19 03:30 Micro: Microbiology 08/21/19 15:10 MRSA Culture - Final Nose A&P Assessment and plan (1) Pulmonary embolism on right: Occurred on Eliquis, found on CTA right middle lobe pulmonary emboli INR is therapeutic. Continue Coumadin Daily INR Status: Acute Code(s): I26.99 - Other pulmonary embolism without acute cor pulmonale (2) Atrial fibrillation: On metoprolol, Cardizem. Rate is not well controlled today. Increase met oprolol to 100 mg twice daily She is fully anticoagulated. Status: Acute Code(s): I48.91 - Unspecified atrial fibrillation (3) Acute and chronic respiratory failure with hypoxia: Mixed etiology, pulmonary emboli, possible lower lobe pneumonia On linezolid, Zosyn Continue Lasix 60 mg p.o. daily Continue fluid restriction Continue to follow-up on renal function Status: Acute Code(s): J96.21 - Acute and chronic respiratory failure with hypoxia (4) Diastolic CHF: Appears better compensated Echocardiogram demonstrates EF of 40%, slightly lower than previous. This demonstrates a mixed systolic and diastolic acute congestive heart failure Continue PAN inhibitor Continue oral Lasix Status: Acute Code(s): I50.30 - Unspecified diastolic (congestive) heart failure (5) Chest pain: Continue aspirin, statin, beta-vero Appears to be type II Consider outpatient follow-up with cardiology Status: Acute Code(s): R07.9 - Chest pain, unspecified (6) Dizziness: Improved Status: Acute Code(s): R42 - Dizziness and giddiness (7) Hypertension: Control improved Status: Acute Code(s): I10 - Essential (primary) hypertension (8) Hypothyroid: Last TSH normal Status: Acute Code(s): E03.9 - Hypothyroidism, unspecified (9) Dyslipidemia: Continue statin Status: Acute Code(s): E78.5 - Hyperlipidemia, unspecified (10) CVA (cerebral vascular accident): -Has had 2 CVAs in the past, -Last CT scan in 06/01/2019 showed a small round low-density area in the left thalamus, most compatible lacunar infarct, age uncertain -We will have PT OT evaluate patient -On aspirin, statin Carotid ultrasound demonstrates no flow-limiting disease Status: Acute Code(s): I63.9 - Cerebral infarction, unspecified (11) COPD (chronic obstructive pulmonary disease): Not in exacerbation Status: Acute Code(s): J44.9 - Chronic obstructive pulmonary disease, unspecified (12) Bilateral pneumonia: Continue linezolid, Zosyn. Concern of aspiration event. Speech therapy evaluating MRSA PCR negative. Linezolid discontinued Status: Acute Code(s): J18.9 - Pneumonia, unspecified organism Additional A&P Information Stroke alert called during hospital stay . CT negative. Patient had slurred speech with no other symptoms, possible right facial droop but family and patient alert me that this is old. No further intervention currently other than continue aspirin, anticoagulation. Carotid duplex no flow-limiting disease Profound weakness. Acetylcholine antibody testing ordered. Briefly discussed with neurology. They request follow-up in 1 week, after testing has been completed. Add nutritional supplementation. She appears clinically better today. Coumadin will suffice for DVT prophylaxis Plan to get sent to [facility] facility for further rehabilitation Plan was discharged today unfortunately heart rate is now at accelerated rate. She had previously been stable for 2 days. Will increase metoprolol to 100 mg twice daily. Attestations Medical Necessity Statement*: Needs continued hospital stay for adjustment of medications to control heart rate secondary to atrial fibrillation with rapid ventricular rate. 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
[2019-08-23] MEDS: warfarin 5 mg Tablet PO (13:54)
--- NOTE | 2019-08-23 14:23 | FL_ITS ---
WS: [id number] MODIFIED BARIUM SWALLOW TECHNIQUE: Modified barium swallow with speech therapy using multiple consistencies. FLUOROSCOPY TIME: 2.1 minutes. CLINICAL INFORMATION: Pharyngeal dysphagia COMPARISON: None. FINDINGS: Multiple consistencies utilized. No difficulties with barium tablet. Early spillage with pooling in t he vallecula. Tiny amount of penetration with thin liquids which resolved. No evidence of deisy aspir ation. FL/FL barium swallow modifd 05190 IMPRESSION: No evidence of deisy aspiration.
--- NOTE | 2019-08-23 14:44 | XR_ITS ---
WS: [id number] Portable AP upright chest, 08/23/2019 Clinical Data: cough Comparison: Portable chest, 08/20/2019. Findings: No nodules or masses are seen. There may be a small left effusion. The heart is slightly en larged. The aortic arch and descending aorta show calcification and tortuosity. The pulmonary vascula rity is not increased. No pneumonia or pneumothorax is seen. Minimal atelectasis is present at the [facility] costophrenic angle. XR/XR chest 1V portable 39001 Impression: Cardiomegaly, atherosclerosis and minimal left pleural effusion.
[2019-08-23] MEDS: metoprolol tartrate 50 mg Tablet 100 MG PO (18:41)
[2019-08-23] MEDS: atorvastatin 40 mg Tablet PO (20:35)
[2019-08-24] VITALS (16 sets, daily range): BP systolic 109–156; BP diastolic 70–100; PULSE 68–124; RESP 18–31; TEMP 36.3–36.8; O2SAT 90–96
[2019-08-24] MEDS: ipratropium-albuterol 3 mL Neb INHALATION ×6 (01:45→23:27)
[2019-08-24 04:20] LABS: INR 2.23 (0.8-1.2)
--- NOTE | 2019-08-24 04:22 | PC.NURSE ---
Patient has been turning herself frequently throughout the night in the bed.
[2019-08-24 04:35] LABS: Basophils % 0.2 %; Eosinophils % 0.9 %; Hematocrit 46.2 % (37.0-47.0); Hemoglobin 14.8 g/dL (11.5-15.3); Lymphocytes # 1.3 10^3/uL (0.8-4.8); Lymphocytes % 27.7 %; Mean Corpuscular Hemoglobin 33.3 pg (28.0-34.0); Mean Corpuscular Volume 103.8 fL (81-99); Mean Platelet Volume 11.1 fL (7.4-10.4); Monocytes # 0.5 10^3/uL (0.2-0.9); Monocytes % 10.3 %; Neutrophils # 2.8 10^3/uL (1.8-7.7); Neutrophils % 60.5 %; Nucleated Red Blood Cells % 0 %; Platelet Count 126 10^3/cmm (130-400); Red Blood Count 4.45 10^6/uL (4.1-5.3); Red Cell Distribution Width 13.2 % (12.1-15.1); White Blood Count 4.6 10^3/uL (4.0-10.0)
[2019-08-24 04:38] LABS: Blood Urea Nitrogen 25 mg/dL (8-23); Calcium 9.3 mg/dL (8.5-10.5); Carbon Dioxide 27 mmol/L (22-29); Chloride 100 mmol/L (98-107); Glucose 100 mg/dL (65-115); Osmolality Calculated 289 mOsm/kg (285-295); Sodium 141 mmol/L (136-145)
[2019-08-24] MEDS: piperacillin-tazobactam 3.375 GM in sodium chloride 0.9% (plus) 100 ML IV ×3 (05:06→23:48)
[2019-08-24] MEDS: levothyroxine 50 mcg Tablet PO (05:06)
[2019-08-24 05:26] LABS: Slide Review Slide Review Perform
[2019-08-24] MEDS: aspirin 81 mg Chew Tablet PO (08:44)
[2019-08-24] MEDS: metoprolol tartrate 50 mg Tablet 100 MG PO ×2 (08:44→17:44)
[2019-08-24] MEDS: dilTIAZem ER (24HR) 180 mg Capsule PO (08:44)
[2019-08-24] MEDS: FUROsemide 40 mg Tablet 60 MG PO (08:44)
[2019-08-24] MEDS: lisinopril 20 mg Tablet PO (08:45)
[2019-08-24] MEDS: fluticasone nasal spray 16gm Btl 1 SPRAY NASAL ×2 (08:45→17:44)
[2019-08-24] MEDS: guaiFENesin 600 mg Tablet PO ×2 (08:45→17:44)
--- NOTE | 2019-08-24 11:55 | PM.DCS ---
Discharge Providers Date of Admission: 08/16/19 12:48 Date of Discharge: August 24, 2019 Attending Provider at Admission: Sunny Bautista MD Attending Provider at Discharge: Gideon Mark MD Primary Care Provider: Sreedhar Mejia MD Diagnoses at Discharge Discharge Diagnosis (1) Pulmonary embolism on right: Status: Acute Problem details: Changed from Eliquis to Coumadin. INR therapeutic (2) Atrial fibrillation: Status: Acute Problem details: Fair control. Heart rate less than 110 resting. Currently on diltiazem, metoprolol. Plan is for metoprolol 100 mg twice daily, diltiazem 240 mg daily (3) Acute and chronic respiratory failure with hypoxia: Status: Acute Problem details: Improving (4) Diastolic CHF: Status: Acute Problem details: Compensated (5) Chest pain: Status: Acute (6) Dizziness: Status: Acute (7) Hypertension: Status: Acute Problem details: Improved control (8) Hypothyroid: Status: Acute (9) Dyslipidemia: Status: Acute (10) CVA (cerebral vascular accident): Status: Acute (11) COPD (chronic obstructive pulmonary disease): Status: Acute Problem details: Albuterol and Atrovent, budesonide, oxygen (12) Bilateral pneumonia: Status: Acute Problem details: Will finish 5 more days of cefdinir Reason for Visit Reason for Visit: Reason For Visit: RESPIRATORY DISTRESS Hospital Course Hospital Course: Rowena presented to the hospital on August 15 with respiratory distress. She was found to have bilateral lower lobe pneumonia, diastolic heart failure and some episodes of atrial fibrillation with rapid ventricular rate. She was diuresed. Further investigation with CTA demonstrated pulmonary embolism, thought to have occurred on Eliquis. She was converted from Eliquis to Coumadin with Lovenox as a bridge. Eventually Coumadin became therapeutic and Lovenox was discontinued. During her hospital stay she had gradual improvement but occasional decompensation. This occurred first on August 17 when a stroke alert was called. It was determined she was not a candidate for TPA, and symptoms were only significant for slurred speech as well as facial droop. These resolved on their own. She had several more events in the hospital that were thought to be related to aspiration. Speech therapy evaluated her, and even a barium swallow study was done while in the hospital. Secondary to this recurring it was thought she would benefit from a pur?ed diet with nectar thick liquids until she gained more strength. By the end of her hospital stay she was doing much better. She was able to ambulate some. There was still concern of aspiration secondary to her global weakness. Medication for atrial fibrillation was constantly adjusted in the hospital and by the end of her stay her heart rate was in general less than 110 resting. She was asymptomatic with all heart rate increases. Secondary to her global weakness some acetylcholine receptor antibodies were also sent on the patient and follow-up with neurology was obtained as an outpatient. Physical Exam Narrative: EXAM NARRATIVE: General exam is no apparent distress Cardiovascular irregular, irregular with a heart rate of 100 when I examined her Lungs diminished breath sounds bilaterally Abdomen is soft with positive bowel sounds Extremities no cyanosis clubbing or edema Urinary Catheter Management^: [place]: Cath Placed During This Visit: yes Reason for Continuing Indwelling Catheter: Other Urinary Catheter Date of Insertion: 08/19/19 Urinary Catheter Time of Insertion: 15:00 Discharge Data Data Completed and Pending: Completed Studies During Hospitalization Category Date Time Status CT angio chest PE protcl 96444 Stat Cat Scan 08/18/19 08:[address] head wo con* 7 0450 Stat Cat Scan 08/18/19 19:50 Completed Modified barium s wallow [FL barium swallow modifd 742 30 Exams 08/23/19 14:23 Completed ] Routine XR chest 1V whit ble [id number] Routine Exams 08/23/19 14:44 Completed XR chest 1V whit ble [id number] Stat Exams 08/16/19 10:24 Completed XR chest 1V whit ble [id number] Stat Exams 08/20/19 06:59 Completed CV carotid duplex BI* [id number] Routine Ultrasound 08/20/19 06:00 Completed CV echo complete* [id number] Routine Ultrasound 08/16/19 14:27 Completed Pending at discharge Category Date Time Status Acetylcholine Rec ept Modulatin Rout ine Lab 08/21/19 03:05 Received Miscellaneous Alyson t Routine Lab 08/21/19 03:05 Received Miscellaneous Alyson t Routine Lab 08/21/19 03:05 Received Labs from last 24 hours 08/24/19 08/24/19 08/24/19 03:25 03:25 03:25 WBC 4.6 RBC 4.45 Hgb 14.8 Hct 46.2 MCV 103.8 H MCH 33.3 MCHC 32.0 RDW 13.2 Plt Count 126 L MPV 11.1 H Neut % (Auto) 60.5 Lymph % (Auto) 27.7 [place] % (Auto) 10.3 Eos % (Auto) 0.9 Baso % (Auto) 0.2 Neut # (Auto) 2.8 Lymph # (Auto) 1.3 [place] # (Auto) 0.5 Eos # (Auto) 0.0 Baso # (Auto) 0.0 Nucleated RBC % (a uto) 0 Nucleated RBCs # 0.0 PT 25.50 H INR 2.23 H Sodium 141 Potassium 4.0 Chloride 100 Carbon Dioxide 27 Anion Gap 18.0 BUN 25 H Creatinine 1.0 H Glucose 100 Calculated Osmolal ity 289 Calcium 9.3 Vitals: Last Vital Signs Temp 97.4 F L 08/24/19 11:34 Pulse 120 H 08/24/19 11:34 Resp 19 H 08/24/19 11:34 BP 151/92 08/24/19 11:34 Pulse Ox 95 08/24/19 11:34 Discharge Plan [facility] Prescriptions: New fluticasone propionate 50 mcg/actuation [employer],Suspension 1 spray nasal BID Qty: 10 RF: 0 cefdinir 300 mg capsule 300 mg PO BID 5 Days Qty: 10 RF: 0 diltiazem HCl 30 mg tablet 30 mg PO ONCE Qty: 1 RF: 0 ipratropium-albuterol 0.5 mg-3 mg(2.5 mg base)/3 mL Solution For Nebulization 3 ml inhalation Q4H.RESPIRATORY Qty: 360 RF: 0 atorvastatin 40 mg Tablet 40 mg PO BEDTIME Qty: 30 RF: 0 guaifenesin [Mucinex] 600 mg Tablet Extended Release 12hr 600 mg PO BID Qty: 20 RF: 0 warfarin 5 mg Tablet 5 mg PO 1400 Qty: 30 RF: 0 metoprolol tartrate 50 mg Tablet 100 mg PO BID Qty: 60 RF: 0 budesonide 0.5 mg/2 mL suspension for nebulization 1 ml INHALATION Q12H Qty: 60 RF: 0 Continued diltiazem HCl 240 mg capsule,extended release 24 hr 240 mg PO DAILY Qty: 90 RF: 1 furosemide 40 mg tablet 80 mg PO DAILY RF: 0 aspirin 81 mg tablet,chewable 81 mg PO DAILY RF: 0 levothyroxine 50 mcg capsule 50 mcg PO DAILY RF: 0 lisinopril 20 mg tablet 20 mg PO DAILY RF: 0 Discontinued metoprolol tartrate 50 mg tablet 50 mg PO BID RF: 0 apixaban 2.5 mg tablet 5 mg PO BID RF: 0 sotalol 80 mg tablet 80 mg PO DAILY Qty: 90 RF: 3 Augmentin 875-125 mg Tablet 1 tab PO BID RF: 0 Referrals: Mila Johnson MD [Physician] - 7-10 days Sreedhar Mejia MD [Primary Care Provider] - 4-7 days Discharge Diet: Cardiac Discharge Activity: Resume usual activity Activity Restrictions/Additional Instructions: [facility] CBC, BMP, INR August 26 Please give diltiazem 30 mg p.o. x1 tonight at 8 PM Note that diet should be pur?ed, with nectar thick liquids. Speech therapy should evaluate as well. 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
[2019-08-24] MEDS: dilTIAZem 30 mg Tablet PO (12:30)
[2019-08-24] MEDS: warfarin 5 mg Tablet PO (15:45)
[2019-08-24] MEDS: atorvastatin 40 mg Tablet PO (20:28)
[2019-08-25] VITALS (12 sets, daily range): BP systolic 127–153; BP diastolic 74–95; PULSE 81–107; RESP 16–28; TEMP 36.5–36.8; O2SAT 62–96
[2019-08-25] MEDS: ipratropium-albuterol 3 mL Neb INHALATION ×2 (03:29→15:47)
--- NOTE | 2019-08-25 05:44 | PC.NURSE ---
Rounded on patient on two different occasions this shift and patients nasal cannula was out of her nose or off of her face. Nasal cannula placed back in proper position and educated patient on importance of oxygen. Will continue to monitor.
[2019-08-25] MEDS: piperacillin-tazobactam 3.375 GM in sodium chloride 0.9% (plus) 100 ML IV (06:20)
[2019-08-25] MEDS: levothyroxine 50 mcg Tablet PO (06:20)
[2019-08-25] MEDS: dilTIAZem ER (24HR) 180 mg Capsule PO (08:54)
[2019-08-25] MEDS: lisinopril 20 mg Tablet PO (08:54)
[2019-08-25] MEDS: fluticasone nasal spray 16gm Btl 1 SPRAY NASAL (08:54)
[2019-08-25] MEDS: metoprolol tartrate 50 mg Tablet 100 MG PO ×2 (08:54→17:24)
[2019-08-25] MEDS: aspirin 81 mg Chew Tablet PO (08:54)
[2019-08-25] MEDS: FUROsemide 40 mg Tablet 60 MG PO (08:54)
[2019-08-25] MEDS: guaiFENesin 600 mg Tablet PO ×2 (08:54→17:24)
--- NOTE | 2019-08-25 09:03 | DCPLANNER ---
Pg 2 of IM updated and reviewed with pt. No questions. Copy provided.
--- NOTE | 2019-08-25 11:47 | P.PN_ITS ---
Subjective Subjective: Interval history: Patient is disappointed this morning about not being able to go over to the custodial, is wondering what the issues with her insurance, either that she is doing well, no fevers, no chills, no nausea, no vomiting her heart rate is A. fib in the 140s, but she is not on her morning medications, Vitals/I&O/Wt Last Vital Signs Temp 97.7 F 08/25/19 11:12 Pulse 103 H 08/25/19 11:12 Resp 25 H 08/25/19 11:12 BP 129/78 08/25/19 11:12 Pulse Ox 92 08/25/19 11:12 08/24/19 08/25/19 08/25/19 22:59 06:59 14:59 Intake Total 450 / 550 220 / 770 360 / 360 Output Total 200 / 200 Balance 450 / 550 20 / 570 360 / 360 Weight last 48 hrs Weight 64.274 kg Weight 64.455 kg Physical Exam Const: COMMON NORMALS: no apparent distress and oriented x3 HENMT: COMMON NORMALS: normocephalic HEAD & SCALP: normocephalic Neck/C-Spine: COMMON NORMALS: no JVD Resp: COMMON NORMALS: normal respiratory effort, no retractions, no use of accessory muscles and clear to auscultation bilaterally AUSCULTATION: clear to auscultation bilaterally Cardio: COMMON NORMALS: no JVD, regular rate, regular rhythm, S1 normal heart sound and S2 normal heart sound RATE: regular rate RHYTHM: regular rhythm HEART SOUNDS: S1 normal and S2 normal GI: COMMON NORMALS: normal to inspection, nondistended, normoactive bowel sounds, soft to palpation, non-tender, no hepatosplenomegaly, no masses and no bruits PALPATION: Yes soft and Yes no hepatosplenomegaly Extremity: COMMON NORMALS: normal capillary refill, no clubbing, cyanosis or edema, no calf tenderness and no pedal edema Neuro: COMMON NORMALS: oriented x3 Psych: COMMON NORMALS: mental status grossly normal Urinary Catheter Management^: [place]: Cath Placed During This Visit: yes Reason for Continuing Indwelling Catheter: Other Urinary Catheter Date of Insertion: 08/19/19 Urinary Catheter Time of Insertion: 15:00 Data : 08/24/19 03:25 08/24/19 03:25 A&P Assessment and plan (1) Pulmonary embolism on right: Occurred on Eliquis, found on CTA right middle lobe pulmonary emboli INR is therapeutic. Continue Coumadin Daily INR Status: Acute Code(s): I26.99 - Other pulmonary embolism without acute cor pulmonale (2) Atrial fibrillation: -Continue Cardizem -Continue metoprolol at increased dose of 100 twice daily Sotalol has been decreased- -continue Coumadin 5 mg once daily, INR therapeutic at 2.2 Status: Acute Code(s): I48.91 - Unspecified atrial fibrillation (3) Acute and chronic respiratory failure with hypoxia: Mixed etiology, pulmonary emboli, possible lower lobe pneumonia On linezolid, Zosyn Continue Lasix 60 mg p.o. daily Continue fluid restriction Continue to follow-up on renal function Status: Acute Code(s): J96.21 - Acute and chronic respiratory failure with hypoxia (4) Diastolic CHF: Appears better compensated Echocardiogram demonstrates EF of 40%, slightly lower than previous. This demonstrates a mixed systolic and diastolic acute congestive heart failure Continue PAN inhibitor Continue oral Lasix Status: Acute Code(s): I50.30 - Unspecified diastolic (congestive) heart failure (5) Chest pain: Continue aspirin, statin, beta-vero Appears to be type II Consider outpatient follow-up with cardiology Status: Acute Code(s): R07.9 - Chest pain, unspecified (6) Dizziness: Improved Status: Acute Code(s): R42 - Dizziness and giddiness (7) Hypertension: Control improved Status: Acute Code(s): I10 - Essential (primary) hypertension (8) Hypothyroid: Last TSH normal Status: Acute Code(s): E03.9 - Hypothyroidism, unspecified (9) Dyslipidemia: Continue statin Status: Acute Code(s): E78.5 - Hyperlipidemia, unspecified (10) CVA (cerebral vascular accident): -Has had 2 CVAs in the past, -Last CT scan in 06/01/2019 showed a small round low-density area in the left thalamus, most compatible lacunar infarct, age uncertain -We will have PT OT evaluate patient -On aspirin, statin -Carotid ultrasound demonstrates no flow-limiting disease Status: Acute Code(s): I63.9 - Cerebral infarction, unspecified (11) COPD (chronic obstructive pulmonary disease): Not in exacerbation Status: Acute Code(s): J44.9 - Chronic obstructive pulmonary disease, unspecified (12) Bilateral pneumonia: de-escalate antibiotics to p.o. doxycycline Concern of aspiration event. Speech therapy evaluating MRSA PCR negative. Status: Acute Code(s): J18.9 - Pneumonia, unspecified organism Additional A&P Information Stroke alert called during hospital stay . CT negative. Patient had slurred speech with no other symptoms, possible right facial droop but family and patient alert me that this is old. No further intervention currently other than continue aspirin, anticoagulation. Carotid duplex no flow-limiting disease Profound weakness. Acetylcholine antibody testing ordered. Briefly discussed with neurology. They request follow-up in 1 week, after testing has been completed. Add nutritional supplementation. She appears clinically better tomarkel agustin. Coumadin will suffice for DVT prophylaxis Plan to get sent to long-term facility for further rehabilitation Plan is for discharge as soon as possible, when accepted by nursing facility Attestations Medical Necessity Statement*: Patient requires hospitalization for pneumonia, A. 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
[2019-08-25] MEDS: warfarin 5 mg Tablet PO (15:00)
[2019-08-25 15:56] LABS: Acetylcholine Recept Modulatin 22
[2019-08-25] MEDS: doxycycline 100 mg Tablet PO (17:24)
[2019-08-25] MEDS: acetaminophen 325 mg Tablet 650 MG PO (20:29)
[2019-08-25] MEDS: atorvastatin 40 mg Tablet PO (20:30)
[2019-08-26] VITALS (14 sets, daily range): BP systolic 117–152; BP diastolic 58–95; PULSE 85–101; RESP 16–32; TEMP 36.5–36.9; O2SAT 91–97
[2019-08-26 05:08] LABS: Basophils % 0.2 %; Eosinophils % 0.9 %; Hematocrit 47.1 % (37.0-47.0); Hemoglobin 14.9 g/dL (11.5-15.3); Lymphocytes # 1.1 10^3/uL (0.8-4.8); Lymphocytes % 24.7 %; Mean Corpuscular HGB Conc 31.6 g/dL (30.0-36.0); Mean Corpuscular Hemoglobin 33.3 pg (28.0-34.0); Mean Corpuscular Volume 105.4 fL (81-99); Mean Platelet Volume 9.8 fL (7.4-10.4); Monocytes # 0.5 10^3/uL (0.2-0.9); Monocytes % 11.2 %; Neutrophils # 2.8 10^3/uL (1.8-7.7); Neutrophils % 62.3 %; Nucleated Red Blood Cells % 0 %; Platelet Count 180 10^3/cmm (130-400); Red Blood Count 4.47 10^6/uL (4.1-5.3); Red Cell Distribution Width 13.2 % (12.1-15.1); White Blood Count 4.5 10^3/uL (4.0-10.0)
[2019-08-26] MEDS: levothyroxine 50 mcg Tablet PO (05:10)
[2019-08-26 05:28] LABS: Alanine Aminotransferase 28 U/L (0-33); Albumin Level 3.4 g/dL (3.5-5.2); Alkaline Phosphatase 119 IU/L (35-105); Anion Gap 14.5 (5-19); Aspartate Amino Transferase 23 U/L (0-32); Blood Urea Nitrogen 23 mg/dL (8-23); Calcium 9.9 mg/dL (8.5-10.5); Carbon Dioxide 31 mmol/L (22-29); Chloride 100 mmol/L (98-107); Globulin 2.8 g/dL (1.3-4.6); Glucose 106 mg/dL (65-115); Magnesium 2.7 mg/dL (1.7-2.3); Osmolality Calculated 291 mOsm/kg (285-295); Phosphorus 2.8 mg/dL (2.5-4.5); Potassium 3.5 mmol/L (3.5-5.1); Sodium 142 mmol/L (136-145); Total Bilirubin 0.6 mg/dL (0.15-1.2); Total Protein 6.2 g/dL (6.6-8.7)
[2019-08-26] MEDS: aspirin 81 mg Chew Tablet PO (08:37)
[2019-08-26] MEDS: doxycycline 100 mg Tablet PO ×2 (08:37→17:58)
[2019-08-26] MEDS: lisinopril 20 mg Tablet PO (08:37)
[2019-08-26] MEDS: guaiFENesin 600 mg Tablet PO ×2 (08:37→17:58)
[2019-08-26] MEDS: metoprolol tartrate 50 mg Tablet 100 MG PO ×2 (08:37→17:59)
[2019-08-26] MEDS: dilTIAZem ER (24HR) 180 mg Capsule PO (08:37)
[2019-08-26] MEDS: FUROsemide 40 mg Tablet 60 MG PO (08:38)
[2019-08-26] MEDS: fluticasone nasal spray 16gm Btl 1 SPRAY NASAL ×2 (08:38→18:00)
[2019-08-26 10:14] LABS: INR 2.22 (0.8-1.2)
[2019-08-26] MEDS: warfarin 5 mg Tablet PO (14:14)
--- NOTE | 2019-08-26 16:24 | PM.PN ---
Subjective Subjective: Interval history: Patient has no complaints this morning, is doing well, is ready to get over to the [facility] Vitals/I&O/Wt Last Vital Signs Temp 98.4 F 08/26/19 04:00 Pulse 90 08/26/19 15:15 Resp 23 H 08/26/19 15:15 BP 134/81 08/26/19 15:15 Pulse Ox 91 08/26/19 15:15 08/26/19 08/26/19 08/26/19 06:59 14:59 22:59 Intake Total 100 / 837 620 / 620 Output Total 300 / 300 500 / 500 Balance -200 / 537 120 / 120 Weight last 48 hrs Weight 62.732 kg Weight 64.274 kg Physical Exam Const: COMMON NORMALS: no apparent distress and oriented x3 HENMT: COMMON NORMALS: normocephalic HEAD & SCALP: normocephalic Neck/C-Spine: COMMON NORMALS: no JVD Resp: COMMON NORMALS: normal respiratory effort, no retractions, no use of accessory muscles and clear to auscultation bilaterally AUSCULTATION: clear to auscultation bilaterally Cardio: COMMON NORMALS: no JVD, regular rate, regular rhythm, S1 normal heart sound and S2 normal heart sound RATE: regular rate RHYTHM: regular rhythm HEART SOUNDS: S1 normal and S2 normal GI: COMMON NORMALS: normal to inspection, nondistended, normoactive bowel sounds, soft to palpation, non-tender, no hepatosplenomegaly, no masses and no bruits PALPATION: Yes soft and Yes no hepatosplenomegaly Extremity: COMMON NORMALS: normal capillary refill, no clubbing, cyanosis or edema, no calf tenderness and no pedal edema Neuro: COMMON NORMALS: oriented x3 Psych: COMMON NORMALS: mental status grossly normal Urinary Catheter Management^: [place]: Cath Placed During This Visit: yes Reason for Continuing Indwelling Catheter: Other Urinary Catheter Date of Insertion: 08/19/19 Urinary Catheter Time of Insertion: 15:00 Data : 08/26/19 04:21 08/26/19 04:21 A&P Assessment and plan (1) Pulmonary embolism on right: Occurred on Eliquis, found on CTA right middle lobe pulmonary emboli INR is therapeutic. Continue Coumadin Daily INR Status: Acute Code(s): I26.99 - Other pulmonary embolism without acute cor pulmonale (2) Atrial fibrillation: -Continue Cardizem -Continue metoprolol at increased dose of 100 twice daily Sotalol has been decreased- -continue Coumadin 5 mg once daily, INR therapeutic at 2.2 Status: Acute Code(s): I48.91 - Unspecified atrial fibrillation (3) Acute and chronic respiratory failure with hypoxia: Mixed etiology, pulmonary emboli, possible lower lobe pneumonia On linezolid, Zosyn Continue Lasix 60 mg p.o. daily Continue fluid restriction Continue to follow-up on renal function Status: Acute Code(s): J96.21 - Acute and chronic respiratory failure with hypoxia (4) Diastolic CHF: Appears better compensated Echocardiogram demonstrates EF of 40%, slightly lower than previous. This demonstrates a mixed systolic and diastolic acute congestive heart failure Continue PAN inhibitor Continue oral Lasix Status: Acute Code(s): I50.30 - Unspecified diastolic (congestive) heart failure (5) Chest pain: Continue aspirin, statin, beta-vero Appears to be type II Consider outpatient follow-up with cardiology Status: Acute Code(s): R07.9 - Chest pain, unspecified (6) Dizziness: Improved Status: Acute Code(s): R42 - Dizziness and giddiness (7) Hypertension: Control improved Status: Acute Code(s): I10 - Essential (primary) hypertension (8) Hypothyroid: Last TSH normal Status: Acute Code(s): E03.9 - Hypothyroidism, unspecified (9) Dyslipidemia: Continue statin Status: Acute Code(s): E78.5 - Hyperlipidemia, unspecified (10) CVA (cerebral vascular accident): -Has had 2 CVAs in the past, -Last CT scan in 06/01/2019 showed a small round low-density area in the left thalamus, most compatible lacunar infarct, age uncertain -We will have PT OT evaluate patient -On aspirin, statin -Carotid ultrasound demonstrates no flow-limiting disease Status: Acute Code(s): I63.9 - Cerebral infarction, unspecified (11) COPD (chronic obstructive pulmonary disease): Not in exacerbation Status: Acute Code(s): J44.9 - Chronic obstructive pulmonary disease, unspecified (12) Bilateral pneumonia: de-escalate antibiotics to p.o. doxycycline Concern of aspiration event. Speech therapy evaluating MRSA PCR negative. Status: Acute Code(s): J18.9 - Pneumonia, unspecified organism Additional A&P Information Stroke alert called during hospital stay . CT negative. Patient had slurred speech with no other symptoms, possible right facial droop but family and patient alert me that this is old. No further intervention currently other than continue aspirin, anticoagulation. Carotid duplex no flow-limiting disease Profound weakness. Acetylcholine antibody testing ordered. Briefly discussed with neurology. They request follow-up in 1 week, after testing has been completed. Add nutritional supplementation. She appears clinically better today. 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
[2019-08-26] MEDS: ipratropium-albuterol 3 mL Neb INHALATION (19:26)
[2019-08-26] MEDS: atorvastatin 40 mg Tablet PO (20:17)
[2019-08-26] MEDS: acetaminophen 325 mg Tablet 650 MG PO (20:17)
--- NOTE | 2019-08-26 20:24 | PC.NURSE ---
Dr Maldonado notified of patient asking for cough syrup.
[2019-08-27] VITALS (7 sets, daily range): BP systolic 78–148; BP diastolic 55–79; PULSE 80–115; RESP 18–23; TEMP 36.3–36.6; O2SAT 93–100
[2019-08-27] MEDS: levothyroxine 50 mcg Tablet PO (05:13)
[2019-08-27 05:19] LABS: Basophils % 0.6 %; Eosinophils % 0.6 %; Hemoglobin 14.8 g/dL (11.5-15.3); Lymphocytes # 1.2 10^3/uL (0.8-4.8); Lymphocytes % 24.6 %; Mean Corpuscular HGB Conc 31.5 g/dL (30.0-36.0); Mean Corpuscular Hemoglobin 32.7 pg (28.0-34.0); Mean Platelet Volume 9.9 fL (7.4-10.4); Monocytes # 0.6 10^3/uL (0.2-0.9); Neutrophils # 3.1 10^3/uL (1.8-7.7); Neutrophils % 62.8 %; Nucleated Red Blood Cells % 0 %; Platelet Count 185 10^3/cmm (130-400); Red Blood Count 4.52 10^6/uL (4.1-5.3); Red Cell Distribution Width 13.1 % (12.1-15.1)
[2019-08-27 05:43] LABS: Alanine Aminotransferase 28 U/L (0-33); Albumin Level 3.4 g/dL (3.5-5.2); Alkaline Phosphatase 125 IU/L (35-105); Anion Gap 14.5 (5-19); Aspartate Amino Transferase 24 U/L (0-32); Blood Urea Nitrogen 25 mg/dL (8-23); Calcium 9.9 mg/dL (8.5-10.5); Carbon Dioxide 32 mmol/L (22-29); Chloride 102 mmol/L (98-107); Globulin 2.9 g/dL (1.3-4.6); Glucose 98 mg/dL (65-115); Magnesium 2.6 mg/dL (1.7-2.3); Osmolality Calculated 297 mOsm/kg (285-295); Phosphorus 3.6 mg/dL (2.5-4.5); Potassium 3.5 mmol/L (3.5-5.1); Sodium 145 mmol/L (136-145); Total Bilirubin 0.5 mg/dL (0.15-1.2); Total Protein 6.3 g/dL (6.6-8.7)
[2019-08-27] MEDS: ipratropium-albuterol 3 mL Neb INHALATION (07:16)
[2019-08-27] MEDS: dilTIAZem ER (24HR) 180 mg Capsule PO (08:42)
[2019-08-27] MEDS: FUROsemide 40 mg Tablet 60 MG PO (08:42)
[2019-08-27] MEDS: fluticasone nasal spray 16gm Btl 1 SPRAY NASAL (08:43)
[2019-08-27] MEDS: guaiFENesin 600 mg Tablet PO (08:43)
[2019-08-27] MEDS: aspirin 81 mg Chew Tablet PO (08:43)
[2019-08-27] MEDS: metoprolol tartrate 50 mg Tablet 100 MG PO (08:43)
[2019-08-27] MEDS: doxycycline 100 mg Tablet PO (08:43)
[2019-08-27] MEDS: lisinopril 20 mg Tablet PO (08:43)
--- NOTE | 2019-08-27 12:48 | DCPLANNER ---
Pg 2 of IM updated and reviewed with pt and Sister. No questions, copy provided.
--- NOTE | 2019-08-27 18:24 | PM.DCS ---
Discharge Providers Date of Admission: 08/16/19 12:48 Date of Discharge: August 27, 2019 Attending Provider at Admission: Sunny Bautista MD Attending Provider at Discharge: Sunny Bautista MD Primary Care Provider: Sreedhar Mejia MD Diagnoses at Discharge Discharge Diagnosis (1) Pulmonary embolism on right: Status: Acute Problem details: Changed from Eliquis to Coumadin. INR therapeutic (2) Atrial fibrillation: Status: Acute Problem details: Fair control. Heart rate less than 110 resting. Currently on diltiazem, metoprolol. Plan is for metoprolol 100 mg twice daily, diltiazem 240 mg daily (3) Acute and chronic respiratory failure with hypoxia: Status: Acute Problem details: Improving (4) Diastolic CHF: Status: Acute Problem details: Compensated (5) Chest pain: Status: Acute (6) Dizziness: Status: Acute (7) Hypertension: Status: Acute Problem details: Improved control (8) Hypothyroid: Status: Acute (9) Dyslipidemia: Status: Acute (10) CVA (cerebral vascular accident): Status: Acute (11) COPD (chronic obstructive pulmonary disease): Status: Acute Problem details: Albuterol and Atrovent, budesonide, oxygen (12) Bilateral pneumonia: Status: Acute Problem details: Will finish 5 more days of cefdinir Reason for Visit Reason for Visit: Reason For Visit: RESPIRATORY DISTRESS Hospital Course Hospital Course: Rowena presented to the hospital on August 15 with respiratory distress. She was found to have bilateral lower lobe pneumonia, diastolic heart failure and some episodes of atrial fibrillation with rapid ventricular rate. She was diuresed. Further investigation with CTA demonstrated pulmonary embolism, thought to have occurred on Eliquis. She was converted from Eliquis to Coumadin with Lovenox as a bridge. Eventually Coumadin became therapeutic and Lovenox was discontinued. During her hospital stay she had gradual improvement but occasional decompensation. This occurred first on August 17 when a stroke alert was called. It was determined she was not a candidate for TPA, and symptoms were only significant for slurred speech as well as facial droop. These resolved on their own. She had several more events in the hospital that were thought to be related to aspiration. Speech therapy evaluated her, and even a barium swallow study was done while in the hospital. Secondary to this recurring it was thought she would benefit from a pur?ed diet with nectar thick liquids until she gained more strength. By the end of her hospital stay she was doing much better. She was able to ambulate some. There was still concern of aspiration secondary to her global weakness. Medication for atrial fibrillation was constantly adjusted in the hospital and by the end of her stay her heart rate was in general less than 110 resting. She was asymptomatic with all heart rate increases. Secondary to her global weakness some acetylcholine receptor antibodies were also sent on the patient and follow-up with neurology was obtained as an outpatient. Physical Exam Urinary Catheter Management^: [place]: Cath Placed During This Visit: yes Reason for Continuing Indwelling Catheter: Other Urinary Catheter Date of Insertion: 08/19/19 Urinary Catheter Time of Insertion: 15:00 Discharge Data Data Completed and Pending: Completed Studies During Hospitalization Category Date Time Status CT angio chest PE protcl [id number] Stat Cat Scan 08/18/19 08:[address] head wo con* 7 0450 Stat Cat Scan 08/18/19 19:50 Completed Modified barium s jessica [FL barium swallow modifd 742 30 Exams 08/23/19 14:23 Completed ] Routine XR chest 1V whit ble [id number] Routine Exams 08/23/19 14:44 Completed XR chest 1V whit ble [id number] Stat Exams 08/16/19 10:24 Completed XR chest 1V whit ble [id number] Stat Exams 08/20/19 06:59 Completed CV carotid duplex BI* [id number] Routine Ultrasound 08/20/19 06:00 Completed CV echo complete* [id number] Routine Ultrasound 08/16/19 14:27 Completed Pending at discharge Category Date Time Status Miscellaneous Alyson t Routine Lab 08/21/19 03:05 Received Miscellaneous Alyson t Routine Lab 08/21/19 03:05 Received Labs from last 24 hours 08/27/19 08/27/19 08/27/19 04:26 04:26 04:26 WBC 5.0 RBC 4.52 Hgb 14.8 Hct 47.0 MCV 104.0 H MCH 32.7 MCHC 31.5 RDW 13.1 Plt Count 185 MPV 9.9 Neut % (Auto) 62.8 Lymph % (Auto) 24.6 Luce % (Auto) 11.0 Eos % (Auto) 0.6 Baso % (Auto) 0.6 Neut # (Auto) 3.1 Lymph # (Auto) 1.2 Luce # (Auto) 0.6 Eos # (Auto) 0.0 Baso # (Auto) 0.0 Nucleated RBC % (a uto) 0 Nucleated RBCs # 0.0 PT 27.10 H INR 2.40 H Sodium 145 Potassium 3.5 Chloride 102 Carbon Dioxide 32 H Anion Gap 14.5 BUN 25 H Creatinine 0.9 Glucose 98 Calculated Osmolal ity 297 H Calcium 9.9 Phosphorus 3.6 Magnesium 2.6 H Total Bilirubin 0.5 AST 24 ALT 28 Alkaline Phosphata se 125 H Total Protein 6.3 L Albumin 3.4 L Globulin 2.9 Vitals: Last Vital Signs Temp 97.8 F 08/27/19 14:07 Pulse 98 08/27/19 14:07 Resp 21 H 08/27/19 14:07 BP 148/55 08/27/19 14:07 Pulse Ox 93 08/27/19 14:07 Discharge Plan Discharge Patient Disposition: Xfer SNF Condition: Stable Prescriptions: New atorvastatin 40 mg Tablet 40 mg PO BEDTIME Qty: 30 RF: 0 ipratropium-albuterol 0.5 mg-3 mg(2.5 mg base)/3 mL Solution For Nebulization 3 ml inhalation Q4H.RESPIRATORY Qty: 360 RF: 0 warfarin 5 mg Tablet 5 mg PO 1400 Qty: 30 RF: 0 metoprolol tartrate 50 mg Tablet 100 mg PO BID Qty: 60 RF: 0 Mucinex 600 mg Tablet Extended Release 12hr 600 mg PO BID Qty: 20 RF: 0 budesonide 0.5 mg/2 mL suspension for nebulization 1 ml INHALATION Q12H Qty: 60 RF: 0 doxycycline monohydrate 100 mg Tablet 100 mg PO BID 4 Days Qty: 8 RF: 0 DILT-XR 180 mg Capsule,Ext.Rel 24h Degradable 180 mg PO DAILY 30 Days Qty: 30 RF: 0 Continued aspirin 81 mg tablet,chewable 81 mg PO DAILY RF: 0 levothyroxine 50 mcg capsule 50 mcg PO DAILY RF: 0 lisinopril 20 mg tablet 20 mg PO DAILY RF: 0 Changed furosemide 40 mg tablet 60 mg PO DAILY Qty: 0 RF: 0 Discontinued diltiazem HCl 240 mg capsule,extended release 24 hr 240 mg PO DAILY Qty: 90 RF: 1 metoprolol tartrate 50 mg tablet 50 mg PO BID RF: 0 apixaban 2.5 mg tablet 5 mg PO BID RF: 0 sotalol 80 mg tablet 80 mg PO DAILY Qty: 90 RF: 3 amoxicillin-pot clavulanate [Augmentin] 875-125 mg Tablet 1 tab PO BID RF: 0 Discharge Orders: Discharge Order (Routine); Ordered 08/24/19 Ordered By: Gideon Mark Other Ambulatory Orders: Prothrombin Time INR (Routine) Timeframe: 1 Day Facility: [facility] - Location: Lab - Main Lab Ordered By: Sunny Bautista Referrals: [facility] [place] [Outside] Mila Johnson MD [Physician] - 7-10 days Sen Quinn MD [Physician] - 1 week Sreedhar Mejia MD [Primary Care Provider] - 4-7 days Discharge Diet: Cardiac Discharge Activity: Resume usual activity Patient Instructions: Metoprolol (By mouth), Diltiazem (By mouth), Hypertension, Atrial Fibrillation (DC), Pulmonary Embolism (DC), Community-acquired Pneumonia (DC) Activity Restrictions/Additional Instructions: Follow-up with primary care provider at senior care facility CBC, BMP, INR August 27 Note that diet should be pur?ed, with nectar thick liquids. Speech therapy should evaluate as well. Oxygen 2 L per nasal cannula titrate for sat greater than or equal to 90% Discharge Date/Time: 08/27/19 15:07 Discharge Attestations Time Spent in Discharge Care*: less than 30 min Quality Metrics Clinical Quality Measures During this hospital stay, did patient experience: None Coding Level of Care Code Acute Mechanical Design Technician for [facility] F[facility] Diagnoses Pulmonary embolism on right I26.99 Atrial fibrillation I48.91 Acute and chronic respiratory failure with hypoxia J96.21 Diastolic CHF I50.30 Chest pain R07.9 Dizziness R42 Hypertension I10 Hypothyroid E03.9 Dyslipidemia E78.5 CVA (cerebral vascular accident) I63.9 COPD (chronic obstructive pulmonary disease) J44.9 Bilateral pneumonia J18.9
== END 2019-08-27 15:07 | disposition skilled nursing facility (03) | DRG 189 ==
LOC: ER 10:54 → MEDSURG 13:26 → CSU 08-19 01:38 → ICU 08-20 07:59 → CSU 08-22 20:41
PROVIDERS: Internal Medicine; Admitting Provider Family Medicine; Emergency Provider Family Medicine; Family Provider Family Medicine; PCP Family Medicine; Visit Provider Family Medicine
DX: J96.21 Acute and chronic respiratory failure with hypoxia (principal); I26.99 Other pulmonary embolism without acute cor pulmonale; I50.31 Acute diastolic (congestive) heart failure; J18.9 Pneumonia, unspecified organism; I63.9 Cerebral infarction, unspecified; I42.8 Other cardiomyopathies; I11.0 Hypertensive heart disease with heart failure; I48.91 Unspecified atrial fibrillation; E03.9 Hypothyroidism, unspecified; E78.5 Hyperlipidemia, unspecified; J44.9 Chronic obstructive pulmonary disease, unspecified; I35.0 Nonrheumatic aortic (valve) stenosis; R47.81 Slurred speech; R29.810 Facial weakness; Z87.891 Personal history of nicotine dependence; Z79.82 Long term (current) use of aspirin; Z79.890 Hormone replacement therapy; Z79.84 Long term (current) use of oral hypoglycemic drugs
CPT/HCPCS: 12345; 36415; 36416; 36600; 51702; 70450; 71045; 71275; 74230; 80048; 80053; 80061; 82550; 82607; 82746; 82803; 82962; 83516; 83519; 83605; 83735; 83880; 84100; 84145; 84443; 84484; 85025; 85610; 86140; 87040; 87641; 87804; 92610; 92611; 93005; 93306; 93880; 94640; 94660; 96372; 96375; 97110; 97116; 97161; 97165; 97530; 97535; 99283; A9270; J0456; J0696; J1650; J1940; J2020; J2543; J3490; J7050; J7512; Q0144; Q9967

== ENCOUNTER → 2019-09-05 07:46 | Outpatient (BNVA) | payer MEDICARE, MEDICAID, OTHER, SELFPAY | PROVIDERS: Family Provider Family Medicine; PCP Family Medicine; Referring Provider Family Medicine; Visit Provider Specialist | DX: R41.89 Other symptoms and signs involving cognitive functions and awareness (principal); R51 Headache; G93.89 Other specified disorders of brain; Z87.891 Personal history of nicotine dependence | CPT/HCPCS: 99205 ==

== ENCOUNTER → 2019-09-07 09:51 | Outpatient (BNVA) | payer MEDICARE, MEDICAID, SELFPAY | PROVIDERS: Family Provider Family Medicine; PCP Family Medicine; Visit Provider Otolaryngology | DX: M31.6 Other giant cell arteritis (principal); R41.89 Other symptoms and signs involving cognitive functions and awareness; R51 Headache; I63.9 Cerebral infarction, unspecified; I48.91 Unspecified atrial fibrillation; Z71.89 Other specified counseling | CPT/HCPCS: 99213; 99214 ==

== ENCOUNTER → 2019-12-26 10:49 | Outpatient (BNVA) | payer MEDICARE, MEDICAID, SELFPAY | PROVIDERS: Family Provider Family Medicine; PCP Family Medicine; Visit Provider Internal Medicine Cardiovascular Disease | DX: I48.91 Unspecified atrial fibrillation (principal) | CPT/HCPCS: 85610 ==

== ENCOUNTER → 2020-01-02 10:18 | Outpatient (BNVA) | payer MEDICARE, MEDICAID, SELFPAY | PROVIDERS: Family Provider Family Medicine; PCP Family Medicine; Visit Provider Internal Medicine Cardiovascular Disease | DX: I48.11 Longstanding persistent atrial fibrillation (principal) | CPT/HCPCS: 85610 ==

== ENCOUNTER → 2020-01-16 12:47 | Outpatient (BNVA) | payer MEDICARE, MEDICAID, SELFPAY | PROVIDERS: Family Provider Family Medicine; PCP Family Medicine; Visit Provider Internal Medicine Cardiovascular Disease | DX: I26.99 Other pulmonary embolism without acute cor pulmonale (principal); I48.11 Longstanding persistent atrial fibrillation | CPT/HCPCS: 85610 ==

== ENCOUNTER → 2020-01-23 09:54 | Outpatient (BNVA) | payer MEDICARE, MEDICAID, SELFPAY | PROVIDERS: Family Provider Family Medicine; PCP Family Medicine; Visit Provider Internal Medicine Cardiovascular Disease | DX: I48.11 Longstanding persistent atrial fibrillation (principal) | CPT/HCPCS: 85610 ==

== ENCOUNTER → 2020-01-30 10:37 | Outpatient (BNVA) | payer MEDICARE, MEDICAID, SELFPAY | PROVIDERS: Family Provider Family Medicine; PCP Family Medicine; Visit Provider Internal Medicine Cardiovascular Disease | DX: I48.11 Longstanding persistent atrial fibrillation (principal); Z79.01 Long term (current) use of anticoagulants | CPT/HCPCS: 85610 ==

== ENCOUNTER → 2020-02-06 09:44 | Outpatient (BNVA) | payer MEDICARE, MEDICAID, SELFPAY | PROVIDERS: Family Provider Family Medicine; PCP Family Medicine; Visit Provider Internal Medicine Cardiovascular Disease | DX: I48.11 Longstanding persistent atrial fibrillation (principal) | CPT/HCPCS: 85610 ==

== ENCOUNTER 2020-02-11 07:19 | Outpatient (CLI) | payer MEDICARE, MEDICAID, SELFPAY ==
--- NOTE | 2020-02-11 07:27 | NM_ITS ---
WS: [id number] NUCLEAR MEDICINE WHOLE BODY BONE SCAN HISTORY: ELEVATED alkaline phosphatase. COMPARISON: None available. TECHNIQUE: The patient was injected with 26.7 mCi of Technetium 99m HDP and serial whole-body scintig shayy have been performed with anterior and posterior images. High-resolution imaging over the skull a nd chest. Mild bilateral AC joint and glenohumeral joint and SC joint arthritis. Bilateral arthritic changes at the knees and wrists. Focal uptake in the T7 vertebral body corresponds to chronic compression fracture. Focal intense upta ke in the posterior lateral RIGHT, probably 6 or seventh rib. Radiographs obtained demonstrated no si gnificant abnormality. Normal soft tissue uptake. There is no uptake in the expected location of the RIGHT kidney. On a rece nt CT from 02/11/2020 was marked atrophy of the RIGHT kidney. NM/NM bone scan whole body* [id number] IMPRESSION: 1. No definite metastatic disease to the bony skeleton although there are a fe w suspicious findings. 2. Focal intense uptake in the RIGHT posterior lateral sixth or seventh rib. R adiographically no abnormality was identified. Osteopenia limits evaluation rad iographically. Consider further evaluation by noncontrast chest CT. CT should h elp clarify whether there is a healing fracture or neoplastic process. 3. There are degenerative changes at the AC joints and sternoclavicular joints . 4. Increased uptake in the seventh thoracic vertebrae corresponds to a previou sly described compression fracture. 5. No uptake RIGHT kidney. Corresponds to known severe atrophy and chronic isc hemic changes.
--- NOTE | 2020-02-11 07:28 | CT_ITS ---
WS: [id number] CT ABDOMEN AND PELVIS WITH CONTRAST HISTORY: PANCREATIC ABNORMALITY ON US TECHNIQUE: Imaging performed of the abdomen and pelvis with IV contrast. Single phase imaging of the abdomen. Coronal and sagittal reformats are submitted. All CT scans at [facility] use at least one of these dose optimization techniques: automated exposure control; mA and/or kV adjustment per patient size (includes targeted exams where dose is matched to clinical indication); or iterativ e reconstruction. IV CONTRAST: Omnipaque 300; 95 mL IV. Oral contrast: Yes. DLP: 584.83 mGy.cm COMPARISON: 05/02/2019 CT and abdomen ultrasound 01/03/2020 Lower thorax: Chronic emphysematous changes at the lung bases. Marked enlargement of the heart chambe rs. Similar to the prior study. No hiatal hernia. Liver/biliary system: Normal size with no intrahepatic dilatation. Gallbladder: Normal. No gallstones or wall thickening. No pericholecystic fluid. Pancreas: No pancreatic head abnormality. There is very mild pancreatic atrophy. Calcification in the body of the pancreas is similar to prior studies. Minimal dilatation of the pancreatic duct but no s ignificant stenosis. Common bile duct at the pancreatic head is normal. Spleen: Normal. Adrenal glands: Normal. Right kidney: Marked atrophy of the RIGHT kidney without obstruction or mass. Kidney measures 6.9 cm in length. There is a small amount of adjacent perinephric stranding, similar to the prior study. Left kidney: Mild compensatory hypertrophy with the kidney measuring 4.0 cm in length. No mass or obs truction. Aorta: Moderate atherosclerosis aorta. Significant calcification in the proximal RIGHT renal artery. No aneurysms. Lymphadenopathy: Rounded RIGHT retrocrural lymph node adjacent to the distal esophagus measures 9.4 m m. Similar findings were noted on a prior CT from 05/02/2019. Free fluid: None. GI tract: Normal appendix. Mild diffuse fecal retention. Sigmoid diverticulosis without diverticuliti s. Abdominal wall: Unremarkable abdominal wall. No hernia. Pelvis: Atrophic uterus as expected. No free fluid or pelvic masses. Minimally distended urinary blad nicole. Bones: Moderate degenerative disc disease at L5-S1 with vacuum disc phenomenon. CT/CT abdomen pelvis w con* [id number] IMPRESSION: 1. Mild atrophy of the pancreas. No mass. 2. Marked cardiomegaly. 3. Chronic severe atrophy RIGHT kidney. Probably due to ischemic changes and a therosclerosis at the proximal renal artery. 4. Moderate atherosclerosis aorta. No aneurysm. 5. Constipation and sigmoid diverticulosis.
[2020-02-11] MEDS: iohexol 300 mg/mL 50 mL Btl PO (07:47)
[2020-02-11 08:09] LABS: Blood Urea Nitrogen 27 mg/dL (8-23)
[2020-02-11] MEDS: iohexol 300 mg/mL 100 mL Btl IV (08:49)
--- NOTE | 2020-02-11 10:07 | XR_ITS ---
WS: [id number] RIGHT SHOULDER: 1 VIEW(S) TECHNIQUE: AP view. HISTORY: BONE SCAN COMPARISON COMPARISON: Bone scan No fracture or dislocation or soft tissue abnormality. Diffuse osteopenia. Degenerative changes at the AC joint with narrowing and subchondral cystic change s. Very slight bony expansion of the posterior fifth rib. Due to the osteopenia the ribs are difficult t o visualize. XR/XR shoulder RT 1V [id number] IMPRESSION: Osteopenia. No definite destructive bone lesions. Indeterminate for mildly dest ructive posterior sixth rib lesion. AC joint arthritis.
--- NOTE | 2020-02-11 10:07 | XR_ITS ---
WS: [id number] THORACIC SPINE TECHNIQUE: AP and lateral views are performed. HISTORY: BONE SCAN COMPARISON COMPARISON: None available. Severe osteopenia. Increase in thoracic kyphosis. Anterior wedging of T7 consistent with a chronic co mpression fracture which was described also on 08/18/2019 without progression. No osteoblastic disease. Moderate atherosclerosis aorta. XR/XR thoracic spine 3V* [id number] IMPRESSION: 1. Severe osteopenia and atherosclerosis aorta. 2. Chronic T7 compression fracture of 30%.
--- NOTE | 2020-02-11 10:07 | XR_ITS ---
WS: [id number] LEFT SHOULDER: 1 VIEW(S) TECHNIQUE: AP view. HISTORY: BONE SCAN COMPARISON COMPARISON: Bone scan imaging No fracture or dislocation or soft tissue abnormality. AC joint arthritis. Subchondral cystic changes. Severe osteopenia. XR/XR shoulder LT 1V [id number] IMPRESSION: Osteopenia and AC joint arthritis. No destructive bone lesion.
--- NOTE | 2020-02-11 10:07 | XR_ITS ---
WS: [id number] BILATERAL RIBS, MULTIPLE VIEWS HISTORY: BONE SCAN COMPARISON COMPARISON: None available. Ribs: Bones are osteopenic. No definite osseous destruction is noted involving the posterior RIGHT se venth rib. There is a focal area increased uptake on the bone scan. Anterolaterally may be from a hea ling rib fracture. Atherosclerosis aorta. Lungs and mediastinum: Atherosclerosis aorta. No mediastinal widening. XR/XR ribs BI 3V* [id number] IMPRESSION: 1. Diffuse osteopenia. 2. No definite osteoblastic or osteolytic rib lesions to suggest metastatic di sease. Focal uptake in the anterolateral RIGHT, probable seventh rib, does not correspond to significant abnormality radiographically. Suggest follow-up with chest CT, noncontrasted be sufficient. This can further evaluate the ribs for subtle areas of fracture or destructive bone process.
== END 2020-02-11 07:20 | disposition home or self-care (01) ==
LOC: CT 07:19
PROVIDERS: PCP Family Medicine; Visit Provider Family Medicine
DX: R74.8 Abnormal levels of other serum enzymes (principal); I70.0 Atherosclerosis of aorta; S22.069A Unspecified fracture of T7-T8 vertebra, initial encounter for closed fracture; M85.89 Other specified disorders of bone density and structure, multiple sites; K86.89 Other specified diseases of pancreas; I51.7 Cardiomegaly; N26.1 Atrophy of kidney (terminal); K59.00 Constipation, unspecified; K57.30 Diverticulosis of large intestine without perforation or abscess without bleeding
CPT/HCPCS: 36415; 71110; 72072; 73020; 74177; 78306; 82565; 84520; A9561

== ENCOUNTER → 2020-02-20 09:46 | Outpatient (BNVA) | payer MEDICARE, MEDICAID, SELFPAY | PROVIDERS: PCP Family Medicine; Visit Provider Internal Medicine Cardiovascular Disease | DX: I48.11 Longstanding persistent atrial fibrillation (principal) | CPT/HCPCS: 85610 ==

== ENCOUNTER 2020-03-10 10:57 | Outpatient (CLI) | payer MEDICARE, MEDICAID, SELFPAY ==
--- NOTE | 2020-03-10 11:20 | CT_ITS ---
WS: [id number] CT CHEST TECHNIQUE: Noncontrast CT of the chest with coronal and sagittal reformatted images. CLINICAL INFORMATION: LYTIC LESION OF BONE ON XRAY COMPARISON: CTA chest August 18, 2019, bone scan February 11, 2020 DLP: 584.[address] scans at [facility] use at least one of these dose optimization techniques: automat ed exposure control; mA and/or kV adjustment per patient size (includes targeted exams where dose is matched to clinical indication); or iterative reconstruction. FINDINGS: Moderate thoracic kyphosis. Chronic anterior wedging at the T7 vertebral body measuring approximately 30% is unchanged since August 18, 2019. Subtle irregularity involving the right seventh rib laterally may represent a tiny nondisplaced heali ng fracture. Additional sclerotic lesion in the more posterior seventh rib with a small amount pleura l calcification is indeterminant and may also correspond to the bone scan findings. This measures nancy roximately 5 mm and may also represent a healing fracture No destructive lesions. Recommend 3 month follow-up bone scan and chest CT to assess change in activity in size. Chronic appearing sclerotic lesion in the right fifth rib anteriorly likely incidental. Advanced chronic emphysematous changes. Slight subsegmental atelectasis in the lung bases. No acute p ulmonary infiltrates. No suspicious pulmonary parenchymal abnormalities. Cardiomegaly. No mediastinal or hilar lymphadenopathy. Vascular calcification including coronary. No axillary lymphadenopathy. Small esophageal hiatal hernia. Atrophic right kidney. Adrenal glands are n ormal. CT/CT chest wo con [id number] IMPRESSION: 1. 2 areas of the right seventh rib may correspond to the bone scan findings a s described above. 2. Slight irregularity anterolateral right seventh rib may represent a tiny he aling nondisplaced fracture. 3. Additional sclerosis with a small amount of exostosis and pleural thickenin g in the right seventh rib posteriorly is nonspecific in appearance but may als o represent healing fracture. No destructive lesions. 4. Malignancy is not entirely excluded and recommend 2-3 month follow-up bone scan and chest CT for further evaluation.
== END 2020-03-10 10:58 | disposition home or self-care (01) ==
LOC: RADWPI 11:03
PROVIDERS: PCP Family Medicine; Visit Provider Family Medicine
DX: M89.9 Disorder of bone, unspecified (principal); R93.89 Abnormal findings on diagnostic imaging of other specified body structures
CPT/HCPCS: 71250

== ENCOUNTER → 2020-03-19 09:53 | Outpatient (BNVA) | payer SELFPAY | PROVIDERS: PCP Family Medicine; Visit Provider Internal Medicine Cardiovascular Disease | DX: I48.11 Longstanding persistent atrial fibrillation (principal); Z79.01 Long term (current) use of anticoagulants | CPT/HCPCS: 85610 ==

== ENCOUNTER → 2020-04-16 09:50 | Outpatient (BNVA) | payer MEDICARE, MEDICAID, SELFPAY | PROVIDERS: PCP Family Medicine; Visit Provider Internal Medicine Cardiovascular Disease | DX: I48.11 Longstanding persistent atrial fibrillation (principal) | CPT/HCPCS: 85610 ==

== ENCOUNTER → 2020-05-19 12:01 | Outpatient (BNVA) | payer MEDICARE, MEDICAID, SELFPAY | PROVIDERS: PCP Family Medicine; Visit Provider Internal Medicine Cardiovascular Disease | DX: I48.11 Longstanding persistent atrial fibrillation (principal) | CPT/HCPCS: 85610 ==

== ENCOUNTER → 2020-06-16 11:03 | Outpatient (BNVA) | payer MEDICARE, MEDICAID, SELFPAY | PROVIDERS: PCP Family Medicine; Visit Provider Internal Medicine Cardiovascular Disease | DX: I48.11 Longstanding persistent atrial fibrillation (principal) | CPT/HCPCS: 85610 ==

== ENCOUNTER → 2020-06-23 08:46 | Outpatient (BNVA) | payer MEDICARE, MEDICAID, SELFPAY | PROVIDERS: PCP Family Medicine; Visit Provider Internal Medicine Cardiovascular Disease | DX: I48.11 Longstanding persistent atrial fibrillation (principal) | CPT/HCPCS: 85610 ==

== ENCOUNTER → 2020-07-07 09:50 | Outpatient (BNVA) | payer MEDICARE, MEDICAID, SELFPAY | PROVIDERS: PCP Family Medicine; Visit Provider Internal Medicine Cardiovascular Disease | DX: I48.11 Longstanding persistent atrial fibrillation (principal) | CPT/HCPCS: 85610 ==

== ENCOUNTER 2020-07-14 12:49 | Outpatient (CLI) | payer MEDICARE, MEDICAID, SELFPAY ==
--- NOTE | 2020-07-14 12:56 | XRR_ITS ---
PROCEDURE INFORMATION: Exam: XR Osseous Survey; Complete Axial And Appendicular Skeleton Exam date and time: 07/14/2020 2:04 PM Age: 74 years old Clinical indication: Abnormal findings; Elevated alk phos; Prior surgery; Surgery type: Heart, stents, legs, eyes; Additional info: Elvated alk phos TECHNIQUE: Imaging protocol: Radiological examination. Complete osseous survey. Axial and appendicular skeleton. COMPARISON: NM bone scan whole body* [id number] 02/11/2020 7:27 AM FINDINGS: Bones/joints: Severe osteopenia is seen. A compression fracture is seen involving the T7 vertebral body of indeterminate age.. This finding was present on prior nuclear medicine bone scan. Joints are unremarkable. No suspicious lytic or blastic lesions. Soft tissues: Vascular stent is seen in the left leg XR/XR bone survey* [id number] IMPRESSION: 1. Generalized osteopenia. 2. Compression fracture T7 vertebral body. 3. Negative for lytic or blastic bone lesions. 4. Vascular stent left leg
== END 2020-07-14 12:50 | disposition home or self-care (01) ==
LOC: RAD 12:52
PROVIDERS: PCP Family Medicine; Visit Provider Family Medicine
DX: R74.8 Abnormal levels of other serum enzymes (principal)
CPT/HCPCS: 77075

== ENCOUNTER 2020-08-07 14:06 | Outpatient (CLI) | payer MEDICARE, MEDICAID, SELFPAY ==
[2020-08-07 16:54] LABS: Basophils % 0.5 %; Eosinophils % 0.3 %; Hematocrit 39.3 % (37.0-47.0); Hemoglobin 12.8 g/dL (11.5-15.3); Lymphocytes % 27.5 %; Mean Corpuscular HGB Conc 32.6 g/dL (30.0-36.0); Mean Corpuscular Hemoglobin 33.5 pg (28.0-34.0); Mean Corpuscular Volume 102.9 fL (81-99); Mean Platelet Volume 9.9 fL (7.4-10.4); Monocytes # 0.4 10^3/uL (0.2-0.9); Monocytes % 9.3 %; Neutrophils # 2.35 10^3/uL (1.8-7.7); Neutrophils % 62.1 %; Nucleated Red Blood Cells % 0 %; Platelet Count 184 10^3/cmm (130-400); Red Blood Count 3.82 10^6/uL (4.1-5.3); White Blood Count 3.8 10^3/uL (4.0-10.0)
[2020-08-07 17:23] LABS: Alanine Aminotransferase 20 U/L (0-33); Albumin Level 4.3 g/dL (3.5-5.2); Alkaline Phosphatase 179 IU/L (35-105); Anion Gap 11.8 (5-19); Aspartate Amino Transferase 21 U/L (0-32); Blood Urea Nitrogen 23 mg/dL (8-23); Calcium 9.8 mg/dL (8.5-10.5); Carbon Dioxide 29 mmol/L (22-29); Chloride 104 mmol/L (98-107); Ferritin 84 ng/mL (15-150); Globulin 2.8 g/dL (1.3-4.6); Glucose 82 mg/dL (65-115); Iron 91 ug/dL (37-145); Lactate Dehydrogenase 289 U/L (135-214); Osmolality Calculated 295 mOsm/kg (285-295); Percent Saturation 28.5 % (20-50); Potassium 3.8 mmol/L (3.5-5.1); Sodium 141 mmol/L (136-145); Total Bilirubin 0.7 mg/dL (0.15-1.2); Total Iron Binding Capacity 319 mcg/dl; Total Protein 7.1 g/dL (6.6-8.7); Unsaturated Iron Binding 228 ug/dL (112-347)
[2020-08-07 17:37] LABS: Vitamin B12 752 pg/mL (232-1245)
--- NOTE | 2020-08-07 18:02 | ONC CON_ITS ---
Dr. Bautista New Patient Note Patient: Rowena Gil Unit #: [id number]: 1945 Dicatated By: Stanley Bautista M.D.Date of Visit: Aug 07, 2020 Onc MED New Patient/Consult Referring Physician: Dr. ALVARO DON M.D. Chief Complaint: Leukopenia/elevated alkaline phosphatase. History of Present Illness: This is a 69-year-old woman with a mild leukopenia. She also has had a persistently elevated alkaline phosphatase level, and she has a history of transfusion dependent anemia. She has multiple medical illnesses including hypertension, dyslipidemia, hypothyroidism, peripheral arterial disease, atrial fibrillation, and congestive heart failure. She reports having a history of anemia for which she required blood transfusions between 1984 and 1990. She was found to have evidence of a pulmonary embolism and stroke during hospitalization in August 2019. She sees Dr. Don for primary care. I am asked to see her in regard to abnormalities in her lab work which include red blood cell macrocytosis, mild leukopenia, and a persistently elevated alkaline phosphatase level. Her records from Dr. Dno include several sets of laboratory studies between March 2020 and June 2020. The initial study, from 03/25/2020, included CBC showing hemoglobin 12.9 g with white blood cell count 3500 and platelet count 236,000. The red cell indices were borderline high. Her comprehensive metabolic profile showed a mildly elevated alkaline phosphatase of 180/140 U/L. The other liver enzymes and the bilirubin were normal. A subsequent GGT level was in normal range at 21 U/L. Additional laboratory studies on 06/27/2020 included protein electrophoresis which showed hypoalbuminemia but no evidence of monoclonal protein. Her serum free light chain assay was nonspecific with slightly elevated kappa/lambda ratio at 1.68. B12 and folate levels were normal. A repeat GGT was again normal at 23 U/L. A repeat CBC on 07/08/2020 showed similar findings with hemoglobin 13.6 g, white blood cell count 3400, and platelet count 173,000. The red cell indices were slightly macrocytic. On review of her records in [facility], on multiple prior blood counts dating back to June 2015 her white blood cell count has intermittently been borderline low to slightly decreased. She occasionally has been slightly anemic. Her platelet counts have consistently been normal. Her red cell indices have been borderline high to slightly elevated. Her imaging studies included a CT abdomen/pelvis on 02/11/2020 which showed normal liver and spleen. There was noted to be marked atrophy of the right kidney and there was also marked cardiomegaly noted. A rounded right retrocrural lymph node adjacent to the distal esophagus measuring 9.4 mm appeared similar to the prior study from April 2019. Bone scan on 02/11/2020 show no definite evidence of metastatic disease, but intense uptake was noted in the right posterior lateral sixth or seventh rib. There was uptake in the seventh thoracic vertebral body in association with a compression fracture, but that had been noted on prior CT scans dating back at least to November 2018. A chest CT on 03/10/2020 showed a subtle irregularity in the right seventh rib laterally and an additional sclerotic lesion in the more posterior seventh rib which were felt to possibly correlate with the bone scan abnormalities. These are thought to perhaps represent healing fractures, but follow-up was recommended. A skeletal survey on 07/14/2020 showed generalized osteopenia with compression fracture at T7. There was no evidence for lytic or blastic bone lesions. She does complain that she has been feeling tired and sleepy. She has limited activity, which she attributes to poor energy. Her ECOG score is 2. She has good appetite. Her weight recently has been stable. She does not have fever or night sweats. She does complain that she tends to cough up a lot of mucousy slime, especially in the mornings. She has occasional epistaxis, and she also occasionally coughs up a little blood, attributable to sinus drainage. She sometimes has shortness of breath. She does not complain of chest pain. She has no GI complaints other than her bowels have been messed up since her hospitalization in August 2019. She has tended to have frequent loose stools, particularly in the mornings, and yellow-colored stools. Recently that has been somewhat better. She occasionally does have a little blood in the stool. She has frequent urination and she has mild stress incontinence. She reports having light arthritis. She does have some chronic back pain for which she has been seeing a chiropractor. She says she gets headaches and she has been having dizzy spells when she lies down in bed at night. She has some numbness in her left arm. She has some bruising, but not a lot. She had been on warfarin following the hospitalization in August, but that was recently stopped. She also has been off aspirin. Past Medical History: Her medical history includes atrial fibrillation, chronic obstructive pulmonary disease, congestive heart failure, dyslipidemia, history of transfusion dependent anemia, hypertension, hypothyroidism, osteoporosis, peripheral arterial disease, history of pulmonary embolism in 2019, and history of stroke in 2019. Past Surgical History: Her surgical/procedural history includes bilateral cataract excisions, laser surgery to the right eye, tonsillectomy, angioplasty to the right superficial femoral artery in June 2015, and angioplasty/stent placement to the left superficial femoral artery in August 2015. Medications: Ascorbic Acid Capsule Oral, Aspirin Low Dose (81 mg) Tablet, chewable Oral daily, Atorvastatin Calcium (40 mg) Tablet Oral at bedtime, Cardizem LA (180 mg) Tablet Oral daily, Coumadin (4 mg) Tablet Oral daily, Daily Multiple Vitamins Tablet Oral daily, Euthyrox (50 mcg) Tablet Oral daily, Furosemide (60 mg) Tablet Oral daily, Klor-Con 10 (10 meq) Tablet, controlled release Oral daily, Lisinopril (20 mg) Tablet Oral daily, Lopressor (100 mg) Tablet Oral b.i.d., Vitamin D3 Capsule Oral Allergies: DOGS, FEATHERS, GRASSES, sulfaSALAzine, and TREES. Social History: Ms. Gil is . 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 She has a history of smoking 1 pack of cigarettes daily for approximately 40 years. She quit smoking 12 or 13 years ago. She does not drink alcohol. Family History: Father of heart disease at age 83. Mother of heart attack at age 51. A brother at age 3 weeks. She has 2 sisters, both living. One has heart disease. Review Of Symptoms: Constitutional - She complains that she is tired and sleepy. It has been going on for a long time, but getting worse. Her appetite is good. Her weight recently has been stable. She has not had fever, night sweats, or hot flashes. ECOG score is 2, Eyes - She says her vision is a mass. She does see an liquor tester, ENMT - No hearing loss or tinnitus. She has allergy related sinus symptoms. She has occasional epistaxis. She has not had sore mouth. She sometimes has sore throat. No difficulty swallowing, Hematologic/Lymphatic - She has a history of anemia, and she was previously transfusion dependent. She has chronic leukopenia. She has some bruising, but not a lot, Respiratory - She sometimes has shortness of breath. She has cough, she tends to bring up a lot of mucousy slime, especially in the morning. She sometimes coughs up a little bit of blood, but she thinks that it is draining down. She has not had pleuritic pain, Cardiovascular - No angina pain. No palpitations, Gastrointestinal - No nausea or vomiting. No heartburn or acid reflux. She says her bowels have been a complete mass since September when she was admitted to the hospital with pneumonia. She has tended to have loose stools with at least 4 bowel movements in the morning, though recently it has been a little better. She occasionally has a little blood in the stool, Genitourinary (F) - No dysuria or hematuria. She has urinary frequency and mild stress incontinence, Musculoskeletal - She has light arthritis. She has chronic back problems. She sees a chiropractor, Neurologic - She gets headaches. She has dizzy spells when she lies down and better at night. She has numbness in her left arm. No other focal neurologic symptoms, Psychiatric - No anxiety or depression. She does report some difficulty with memory. She sleeps okay at night. Vital Signs: Performed on Aug 07, 2020 15:25: 4, 0, 0.00, 0.00 sq.m, 96 %, 90 /min, 18 /min, 160/97 mm(hg) (HIGH), 97.8 F (LOW), and 149.4 lbs (HIGH). Physical Examination: Constitutional - She appears to be in reasonably good general health, Eyes - Sclerae nonicteric. Conjunctivae clear, ENMT - No lesions noted in the oral cavity, Neck - No mass or thyromegaly, Hematologic/Lymphatic - No cervical, clavicular, or axillary adenopathy, Respiratory - Lungs are clear with good air movement bilaterally, Cardiovascular - Heart rhythm is irregular. There is no murmur, gallop, or rub noted, Abdomen - Mildly distended but soft. There is mild tenderness in the left lower quadrant area. Liver is not enlarged. Spleen is not palpable. There is no abdominal mass or ascites noted and there is no inguinal adenopathy, Back/Spine - No bony tenderness in the spine or ribs, Extremities - There are venous stasis changes bilaterally, worse on the left. There is mild edema on the left. I am not able to palpate pedal pulses. Both feet are warm to touch, Integumentary - No rashes. No suspicious skin lesions noted, Neurologic - No focal neurologic deficits noted. Problem List: 1. Patient with persistently elevated alkaline phosphatase. The cause is uncertain. Although the mild leukopenia and mild RBC macrocytosis would go along with chronic liver disease, with her GGT being normal this would appear to more likely be a bony origin. 2. She has mild leukopenia. The cause/clinical significance is uncertain. 3. She has a history of anemia, and by her account she was transfusion dependent between 1984 and 1990. 4. Hypertension. 5. Dyslipidemia. 6. Peripheral arterial disease. 7. She has an atrophic right kidney. 8. Atrial fibrillation. 9. Congestive heart failure. 10. She has a history of pulmonary embolism and stroke while on anticoagulation with apixaban. 11. Osteoporosis with T7 vertebral compression fracture. 12. Hypothyroidism. Problems Addressed with this Encounter and Plan: 1. Patient with persistently elevated alkaline phosphatase. The cause/clinical significance is uncertain, but thus far the studies are more suggestive of bony then liver origin. Given the findings on the CT scan from February 2020, there is some concern regarding possible osteoblastic metastatic disease. As such, I would like to repeat her bone scan. She may need additional imaging, depending on the results. 2. She has mild leukopenia. She also has a history of anemia, and by her account she was transfusion dependent between 1984 and 1990. I have no additional information as to the cause of the anemia, but her recent hemoglobin/hematocrit levels have been normal. I do want to repeat her CBC today and review the blood smear. I also will check sed rate and CRP, and LDH level, serum copper and zinc levels, and will recheck the B12 level along with methylmalonic acid and homocystine levels. She will have further evaluation as indicated. Signed By: Stanley Bautista M.D. <<Signature on File>>
[2020-08-07 19:19] LABS: LAB Peripheral Smear Sent for Review
[2020-08-07 19:59] LABS: Erythrocyte Sedimentation Rate 25 mm/hr (0-15)
[2020-08-12 18:12] LABS: Copper Level 135 mcg/dL (70-175); Zinc Level, Serum or Plasma 74 mcg/dL (60-130)
[2020-08-13 10:44] LABS: Methylmalonic Acid 230 nmol/L (87-318)
== END 2020-08-07 14:07 | disposition home or self-care (01) ==
LOC: ONCMED 14:12
PROVIDERS: PCP Family Medicine; Visit Provider Internal Medicine Medical Oncology
DX: D72.819 Decreased white blood cell count, unspecified (principal); D75.89 Other specified diseases of blood and blood-forming organs; R74.8 Abnormal levels of other serum enzymes; I10 Essential (primary) hypertension; E78.5 Hyperlipidemia, unspecified; I73.9 Peripheral vascular disease, unspecified; N26.1 Atrophy of kidney (terminal); I48.91 Unspecified atrial fibrillation; I50.9 Heart failure, unspecified; M81.0 Age-related osteoporosis without current pathological fracture; E03.9 Hypothyroidism, unspecified; D51.9 Vitamin B12 deficiency anemia, unspecified; Z86.711 Personal history of pulmonary embolism; Z79.01 Long term (current) use of anticoagulants
CPT/HCPCS: 36415; 80053; 82525; 82607; 82728; 83090; 83540; 83550; 83615; 83921; 84630; 85025; 85045; 85651; 99205

== ENCOUNTER 2020-08-25 08:36 | Outpatient (CLI) | payer MEDICARE, MEDICAID, SELFPAY ==
--- NOTE | 2020-08-25 08:42 | NM_ITS ---
WS: [id number] [place] bone scan whole body* [id number] REASON FOR EXAM: ABNORMAL BONE SCAN/ELEVATED ALKALINE PHOSPHATE TECHNICAL: 23.5 mCi of technetium 99m HDP was administered intravenously. Two-hour delayed imaging of the skeletal system was obtained. FINDINGS: The examination is compared to previous examination of 02/10/2021. There are multiple areas of increased uptake of the radionuclide in various portions of the skeletal system. These findings are unchanged compared to the previous examination. The multiple areas of periarticular increased radionuclide activity in the shoulders and wrists and k nees are considered arthropathic. The uptake in the cervical spine is typical of degenerative spondyl osis. Multiple areas of increased uptake uptake seen in the ribs bilaterally. Multiple old fractures seen o n previous CT scan of 03/10/2020. The uptake in the midthoracic spine correlates with a vertebral body compression deformity at T7 seen on CT scan 03/10/2020. NM/NM bone scan whole body* [id number] IMPRESSION: Stable bone scan with abnormalities as described and discussed above. No findings of bony metastatic disease.
== END 2020-08-25 08:37 | disposition home or self-care (01) ==
LOC: RAD 08:39
PROVIDERS: PCP Family Medicine; Visit Provider Internal Medicine Medical Oncology
DX: R94.8 Abnormal results of function studies of other organs and systems (principal); R74.8 Abnormal levels of other serum enzymes
CPT/HCPCS: 78306; A9561

== ENCOUNTER 2020-11-19 12:39 | Outpatient (CLI) | payer MEDICARE, MEDICAID, SELFPAY ==
--- NOTE | 2020-11-19 12:44 | XR_ITS ---
WS: [id number] SCREENING DEXA SCAN [facility] CLINICAL INFORMATION: POST MENOPAUSAL COMPARISON: 2018 FINDINGS: The L1-L4 bone mineral density measures 0.798 g/cm2. This corresponds to a T score score of -3.2 and Z score of -1.4. Left femoral neck bone mineral density measures 0.646 g/cm2. This corresponds to a T score of -2.9 an d Z score of -1.1. Right femoral neck bone mineral density measures 0.689 g/cm2. This corresponds to a T score -2.5of an d Z score of -0.8. Mean femoral neck bone mineral density measures 0.668 g/cm2. This corresponds to a T score of -2.7 an d Z score of -0.9. XR/XR DEXA axial skeleton* [id number] IMPRESSION: Osteoporosis Patient's FRAX calculated 10 year probability for major osteoporotic fracture i s 24.5 % and osteoporotic hip fracture is 10.4%.
--- NOTE | 2020-11-19 14:54 | MM_ITS ---
WS: [id number] Bilateral screening digital mammogram, 11/19/2020 Clinical Data: SCREENING Comparison: 03/30/2018. Findings: The breast parenchymal pattern shows heterogeneous density No spiculated masses or clustered calcific ations are seen. There are no secondary signs of carcinoma. MM/[place] [id number] Impression: 1. Negative bilateral mammogram unchanged. 2. Recommend annual screening mammograms. BIRADS: 1-Negative FOLLOW UP: 1 Year Follow-up The CAD box car checker was used.
== END 2020-11-19 12:40 | disposition home or self-care (01) ==
PROVIDERS: PCP Family Medicine; Visit Provider Family Medicine
DX: Z12.31 Encounter for screening mammogram for malignant neoplasm of breast (principal); Z78.0 Asymptomatic menopausal state; M81.0 Age-related osteoporosis without current pathological fracture
CPT/HCPCS: 77067; 77080

== ENCOUNTER 2020-11-26 13:36 | Outpatient (CLI) | payer MEDICARE, MEDICAID, SELFPAY ==
[2020-11-26 14:20] LABS: Basophils % 0.6 %; Eosinophils % 0.6 %; Hematocrit 39.1 % (37.0-47.0); Hemoglobin 12.9 g/dL (11.5-15.3); Lymphocytes % 31.4 %; Mean Corpuscular Hemoglobin 32.7 pg (28.0-34.0); Mean Corpuscular Volume 99.2 fL (81-99); Monocytes # 0.3 10^3/uL (0.2-0.9); Monocytes % 9.5 %; Neutrophils # 1.88 10^3/uL (1.8-7.7); Neutrophils % 57.9 %; Nucleated Red Blood Cells % 0 %; Platelet Count 177 10^3/cmm (130-400); Red Blood Count 3.94 10^6/uL (4.1-5.3); White Blood Count 3.3 10^3/uL (4.0-10.0)
[2020-11-26 14:46] LABS: Alanine Aminotransferase 13 U/L (0-33); Albumin Level 3.9 g/dL (3.5-5.2); Alkaline Phosphatase 169 IU/L (35-105); Anion Gap 11.8 (5-19); Aspartate Amino Transferase 20 U/L (0-32); Blood Urea Nitrogen 29 mg/dL (8-23); Calcium 8.8 mg/dL (8.5-10.5); Carbon Dioxide 26 mmol/L (22-29); Chloride 108 mmol/L (98-107); Globulin 2.4 g/dL (1.3-4.6); Glucose 84 mg/dL (65-115); Osmolality Calculated 299 mOsm/kg (285-295); Potassium 3.8 mmol/L (3.5-5.1); Sodium 142 mmol/L (136-145); Total Bilirubin 0.5 mg/dL (0.15-1.2); Total Protein 6.3 g/dL (6.6-8.7)
[2020-11-26 17:04] LABS: 25 Hydroxy Vitamin D 45 ng/mL (30-100)
--- NOTE | 2020-11-30 13:56 | ONC FU_ITS ---
Dr. Bautista Patient Follow-Up Note Patient: Rowena Gil Unit #: [id number]: 1945 Dicatated By: Stanley Bautista M.D.Date of Visit:Nov 26, 2020 Onc Med Follow-up/Prog Note Chief Complaint: Leukopenia/elevated alkaline phosphatase. History of Present Illness: This is a 69-year-old woman with a mild leukopenia. She also has had a persistently elevated alkaline phosphatase level, and she has a history of transfusion dependent anemia. I had seen her initially in July 2020. Her records from Dr. Mejia included several sets of laboratory studies between March 2020 and June 2020. The initial study, from 03/25/2020, included CBC showing hemoglobin 12.9 g with white blood cell count 3500 and platelet count 236,000. The red cell indices were borderline high. Her comprehensive metabolic profile showed a mildly elevated alkaline phosphatase of 180/140 U/L. The other liver enzymes and the bilirubin were normal. A subsequent GGT level was in normal range at 21 U/L. Additional laboratory studies on 06/27/2020 included protein electrophoresis which showed hypoalbuminemia but no evidence of monoclonal protein. Her serum free light chain assay was nonspecific with slightly elevated kappa/lambda ratio at 1.68. B12 and folate levels were normal. A repeat GGT was again normal at 23 U/L. A repeat CBC on 07/08/2020 showed similar findings with hemoglobin 13.6 g, white blood cell count 3400, and platelet count 173,000. The red cell indices were slightly macrocytic. I had reviewed her records in [facility] and on multiple prior blood counts dating back to June 2015 her white blood cell count had intermittently been borderline low to slightly decreased. She occasionally had been slightly anemic. Her platelet counts were consistently normal. Her red cell indices were borderline high to slightly elevated. Her imaging studies included a CT abdomen/pelvis on 02/11/2020 which showed normal liver and spleen. There was noted to be marked atrophy of the right kidney and there was also marked cardiomegaly noted. A rounded right retrocrural lymph node adjacent to the distal esophagus measuring 9.4 mm appeared similar to the prior study from April 2019. Bone scan on 02/11/2020 show no definite evidence of metastatic disease, but intense uptake was noted in the right posterior lateral sixth or seventh rib. There was uptake in the seventh thoracic vertebral body in association with a compression fracture, but that had been noted on prior CT scans dating back at least to November 2018. A chest CT on 03/10/2020 showed a subtle irregularity in the right seventh rib laterally and an additional sclerotic lesion in the more posterior seventh rib which were felt to possibly correlate with the bone scan abnormalities. These are thought to perhaps represent healing fractures, but follow-up was recommended. A skeletal survey on 07/14/2020 showed generalized osteopenia with compression fracture at T7. There was no evidence for lytic or blastic bone lesions. Her evaluation in July included CBC showing hemoglobin 12.8 g with white blood cell count 3800 and platelet count 184,000. The red cell indices were slightly macrocytic. Sed rate was only minimally elevated at 25 mm/hour. Comprehensive metabolic profile showed normal renal function with BUN 23 and creatinine 0.8 mg/dL. The alkaline phosphatase was mildly elevated at 179/105 IU/L. The bilirubin and the other liver enzymes were normal. The LDH was slightly elevated at 289/214 U/L. Her B12 level was normal at 752 pg/mL. Her serum copper and zinc levels were in normal range. Bone scan showed multiple areas of increased uptake in various portions of the skeletal system, unchanged compared to previous studies. Multiple areas of periarticular increased activity in the shoulders, wrists, and knees are consistent with degenerative arthritis and uptake in the cervical spine appear typical of degenerative spondylosis. Multiple areas of increased uptake in the ribs bilaterally corresponded to multiple old fractures seen on the previous CT scan. Uptake in the mid thoracic spine correlated with a vertebral body compression deformity at T7. Overall, the findings were stable with no evidence of bony metastatic disease. Her medical illnesses include hypertension, dyslipidemia, hypothyroidism, peripheral arterial disease, atrial fibrillation, congestive heart failure, COPD, and osteoporosis. She is known to have an atrophic right kidney. She reported having a history of anemia, for which she required blood transfusions between 1984 and 1990. She was found to have evidence of a pulmonary embolism and stroke during hospitalization in August 2019. She has history of smoking 1 pack of cigarettes daily for approximately 40 years. She quit smoking 12 or 13 years ago. She is seen for a follow-up visit. She has not been feeling good. She says her energy is bad. She wants to sleep all the time. She has limited activity. ECOG score is 2. Her appetite is not good, but she says she is eating. Her weight is down about 5 pounds. She has had low-grade fever a few times. She does not complain of night sweating. She has sinus drainage and sore throat. She has productive cough. She says her breathing is pretty good, and she does not complain of chest pain. She occasionally has nausea. Her bowels are sometimes loose. She has had intermittent bleeding, and she has not entirely certain if it is from the rectum or the vagina. The bleeding does seem to be associated with activity. She has no complaints with bladder function. She has no significant joint or bone pain. She sometimes has headache and she occasionally has dizziness. She has numbness/tingling in her legs and feet. Medications: Ascorbic Acid Capsule Oral, Aspirin Low Dose (81 mg) Tablet, chewable Oral daily, Atorvastatin Calcium (40 mg) Tablet Oral at bedtime, Cardizem LA (180 mg) Tablet Oral daily, Coumadin (4 mg) Tablet Oral daily, Daily Multiple Vitamins Tablet Oral daily, Euthyrox (50 mcg) Tablet Oral daily, Furosemide (60 mg) Tablet Oral daily, Klor-Con 10 (10 meq) Tablet, controlled release Oral daily, Lisinopril (20 mg) Tablet Oral daily, Lopressor (100 mg) Tablet Oral b.i.d., Vitamin D3 Capsule Oral Allergies: DOGS, FEATHERS, GRASSES, sulfaSALAzine, and TREES. Vital Signs: Performed on Nov 26, 2020 15:41 Height - 65.5 in Weight - 144.2 lbs (LOW) BSA - 1.73 sq.m BMI - 23.63 Temperature - 97.5 F (LOW) Pulse - 62 /min Respiration - 18 /min BP - 120/76 mm(hg) O2 Sat - 96 % Pain - 5 Fatigue - 10 Physical Examination: Constitutional - She does not appear acutely ill, Eyes - Sclerae nonicteric. Conjunctivae clear, ENMT - No lesions noted in the oral cavity, Hematologic/Lymphatic - No cervical, clavicular, or axillary adenopathy, Respiratory - Lungs are clear with good air movement bilaterally, Cardiovascular - Heart rhythm is irregular. There is no murmur, gallop, or rub noted, Abdomen - Soft. There is mild tenderness in the left lower quadrant area. Liver and spleen are not enlarged. There is no abdominal mass or ascites noted and there is no inguinal adenopathy, Extremities - There are mild venous stasis changes bilaterally, worse on the left. There is slight edema, Integumentary - There is a raised skin lesion just anterior to the right earlobe. It does appear somewhat suspicious, Neurologic - No focal neurologic deficits noted. Lab/Imaging: Test performed on Nov 26, 2020 13:57 Sodium 142 mmol/L Vitamin D (25-Hydroxy), Total 45 ng/mL Potassium 3.8 mmol/L Chloride 108 mmol/L CO2 26 mmol/L Anion Gap 11.8 BUN 29 mg/dL Creatinine 0.8 mg/dL Cr Clearance (Est) 61.78 mL/min Glucose 84 mg/dL Osmolality - Calculated 299 mOsm/kg Calcium 8.8 mg/dL Protein, Total 6.3 g/dL Albumin 3.9 g/dL Globulin 2.4 g/dL Bilirubin, Total 0.5 mg/dL ALT (SGPT) 13 U/L AST (SGOT) 20 U/L Alkaline Phosphatase 169 IU/L WBC 3.3 10 3/uL RBC 3.94 10 6/uL HGB 12.9 g/dL HCT 39.1 % MCV 99.2 fL MCH 32.7 pg MCHC 33.0 g/dL RDW 13.0 % Platelet Count 177 10 3/cmm MPV 10.0 fL Neutrophils 1.88 10 3/uL Lymphocytes 1.0 10 3/uL Monocytes 0.3 10 3/uL Eosinophils 0.0 10 3/uL Basophils 0.0 10 3/uL Neutrophil % 57.9 % Lymphocyte % 31.4 % Monocyte % 9.5 % Eosinophil % 0.6 % Basophils % 0.6 % NRBC % 0 % Problem List: 1. Patient with persistently elevated alkaline phosphatase. The cause is uncertain. Although the mild leukopenia and mild RBC macrocytosis would go along with chronic liver disease, with her GGT being normal this would appear to more likely be a bony origin. 2. She has mild leukopenia. The cause/clinical significance is uncertain. 3. She has a history of anemia, and by her account she was transfusion dependent between 1984 and 1990. 4. Hypertension. 5. Dyslipidemia. 6. Peripheral arterial disease. 7. She has an atrophic right kidney. 8. Atrial fibrillation. 9. Congestive heart failure. 10. She has a history of pulmonary embolism and stroke while on anticoagulation with apixaban. 11. Osteoporosis with T7 vertebral compression fracture. 12. Hypothyroidism. Problems Addressed with this Encounter and Plan: 1. Patient with persistently elevated alkaline phosphatase. The cause/clinical significance is uncertain, but her initial imaging studies wre more suggestive of bony then liver origin. Her repeat bone scan in August 2020 showed stable findings with no evidence of metastatic disease. Her alkaline phosphatase has remained mildly elevated with her bilirubin and other liver enzymes normal. Recently she has been having some bleeding, but she is not sure whether it is from the rectum or vagina. At this point I will arrange for [employer] referral and I will schedule her for a CT abdomen/pelvis. She will have further evaluation as indicated. 2. She has mild leukopenia. A specific cause has not been determined, but it has remained stable. She also has a history of anemia, and she was reportedly transfusion dependent between 1984 and 1990. Her hemoglobin/hematocrit levels have remained adequate and stable. 3. She has a raised skin lesion just anterior to the right earlobe. It does appear somewhat suspicious, and I will see if I get an appointment scheduled with the import dispatcher. Signed By: Stanley Bautista M.D. <<Signature on File>>
== END 2020-11-26 13:37 | disposition home or self-care (01) ==
LOC: ONCMED 13:40
PROVIDERS: PCP Family Medicine; Visit Provider Internal Medicine Medical Oncology
DX: R79.89 Other specified abnormal findings of blood chemistry (principal); D72.819 Decreased white blood cell count, unspecified; I10 Essential (primary) hypertension; E78.5 Hyperlipidemia, unspecified; M81.0 Age-related osteoporosis without current pathological fracture; E03.9 Hypothyroidism, unspecified; I73.9 Peripheral vascular disease, unspecified; N26.1 Atrophy of kidney (terminal); I48.91 Unspecified atrial fibrillation; I50.9 Heart failure, unspecified; Z86.711 Personal history of pulmonary embolism; Z79.01 Long term (current) use of anticoagulants; Z86.73 Personal history of transient ischemic attack (TIA), and cerebral infarction without residual deficits
CPT/HCPCS: 80053; 82306; 85025; 99214

== ENCOUNTER 2020-12-09 11:33 | Outpatient (CLI) | payer MEDICARE, MEDICAID, SELFPAY ==
--- NOTE | 2020-12-09 11:46 | CT_ITS ---
WS: [id number] CT ABDOMEN AND PELVIS WITH CONTRAST HISTORY: RECTAL BLEEDING, ELEVATED ALKALINE PHOSPHATASE TECHNIQUE: Imaging performed of the abdomen and pelvis with IV contrast. Single phase imaging of the abdomen. Coronal and sagittal reformats are submitted. All CT scans at use at least one of these dose optimization techniques: automated exposure control; mA and/or kV adjustment per patient size (includes targeted exams where dose is matched to clinical indication); or iterativ e reconstruction. IV CONTRAST: Omnipaque 300; 95 mL IV. Oral contrast: Yes. DLP: 785.23 mGycm COMPARISON: 02/11/2020 Lower thorax: Mild groundglass attenuation at the lung bases. Moderate enlargement the heart. No hiat al hernia. Liver/biliary system: Normal size with no intrahepatic dilatation. Gallbladder: Normal. No gallstones or wall thickening. No pericholecystic fluid. Pancreas: Normal size pancreas and pancreatic duct. No adjacent inflammation. Spleen: Normal size spleen. No mass or infarct. Adrenal glands: Normal. Right kidney: Moderate diffuse atrophy of the RIGHT kidney. No obstruction or solid mass. Left kidney: Normal size kidney with no obstruction. There are a few cortical too small to characteri ze hypodensities. Aorta: Moderate atherosclerosis with no aneurysm. Lymphadenopathy: None. Free fluid: There is a small amount of fluid in the pelvis greatest to the RIGHT of midline. GI tract: Very mild narrowing of the splenic flexure with no mass identified. May be a focal area of peristalsis. There are numerous diverticula in the sigmoid colon with wall thickening. No obstruction . Abdominal wall: Unremarkable abdominal wall. No hernia. Pelvis: Atrophic uterus. Small amount of free fluid in the RIGHT pelvis. Bones: Osteopenia. Advanced degenerative disc disease at L5-S1. No osteoblastic or osteolytic disease . CT/CT abdomen pelvis w con* [id number] IMPRESSION: 1. Sigmoid diverticulosis with wall thickening but no obstruction. No acute di verticulitis. 2. Small amount of free fluid in the pelvis extending to the RIGHT adnexa of u ncertain etiology. 3. No metastatic disease to the liver or adrenal glands. 4. Moderate atrophy RIGHT kidney. 5. Short segment narrowing of the sigmoid colon. No associated masses may be a n area of peristalsis. Colonoscopy would be helpful in this patient to further evaluate the entire colon.
[2020-12-09] MEDS: iohexol 300 mg/mL 50 mL Btl PO (11:47)
[2020-12-09] MEDS: iohexol 300 mg/mL 100 mL Btl IV (14:10)
== END 2020-12-09 11:34 | disposition home or self-care (01) ==
PROVIDERS: PCP Family Medicine; Visit Provider Internal Medicine Medical Oncology
DX: K62.5 Hemorrhage of anus and rectum (principal); R74.8 Abnormal levels of other serum enzymes; K57.30 Diverticulosis of large intestine without perforation or abscess without bleeding; N26.1 Atrophy of kidney (terminal)
CPT/HCPCS: 74177; Q9967

== ENCOUNTER 2020-12-25 12:42 | Outpatient (CLI) | payer MEDICARE, MEDICAID, SELFPAY ==
--- NOTE | 2020-12-25 12:48 | CT_ITS ---
WS: [id number] CT CERVICAL SPINE HISTORY: CHRONIC NECK PAIN TECHNIQUE: Contiguous 2.5 mm axial imaging performed through the entire cervical spine. Sagittal and coronal reformats also performed. All CT scans at [facility] use at least one of these do se optimization techniques: automated exposure control; mA and/or kV adjustment per patient size (inc ludes targeted exams where dose is matched to clinical indication); or iterative reconstruction. DLP: 1295.2 mGycm COMPARISON: None available. Slight increase in the cervical lordosis. Mild disc space narrowing and small osteophytes. No fractur es. Moderate facet joint arthritis and narrowing noted bilaterally. Lateral masses of C1 and C2 are a ligned. Odontoid is intact. C2-C3: Mild bilateral facet joint arthritis. No stenosis. C3-C4: Moderate LEFT and mild RIGHT facet joint arthritis. Mild bilateral foraminal stenosis. C4-C5: Severe LEFT and mild RIGHT facet arthritis. Mild LEFT foraminal stenosis. C5-C6: Severe LEFT and mild RIGHT facet arthritis. Mild bilateral foraminal stenosis. C6-C7: Moderate bilateral facet joint arthritis. Mild bilateral foraminal stenosis. C7-T1: Normal. Chronic emphysema at the lung apices. Motion artifact at the lung apices. Soft tissue nodule in the p osterior trachea is probably an artifact. Extensive calcification in the extracranial carotid arterie s. Probably 50% stenosis LEFT ICA. CT/CT cervical spin wo con* [id number] IMPRESSION: 1. No acute cervical spine fracture. 2. Multilevel facet joint arthritis as described above. No high-grade central stenosis. Severe LEFT foraminal stenosis at C4-5 and C5-6.
== END 2020-12-25 12:43 | disposition home or self-care (01) ==
PROVIDERS: PCP Family Medicine; Visit Provider Family Medicine
DX: M54.2 Cervicalgia (principal); G89.29 Other chronic pain; M48.02 Spinal stenosis, cervical region; M47.812 Spondylosis without myelopathy or radiculopathy, cervical region
CPT/HCPCS: 72125

== ENCOUNTER → 2021-01-06 13:07 | Outpatient (BNVA) | payer MEDICARE, MEDICAID, SELFPAY | PROVIDERS: PCP Family Medicine; Visit Provider Obstetrics & Gynecology | DX: N95.0 Postmenopausal bleeding (principal) | CPT/HCPCS: 76830 ==

== ENCOUNTER → 2021-01-23 11:18 | Outpatient (BNVA) | payer MEDICARE, MEDICAID, SELFPAY | PROVIDERS: PCP Family Medicine; Visit Provider Obstetrics & Gynecology | DX: N95.0 Postmenopausal bleeding (principal); Z20.822 Contact with and (suspected) exposure to COVID-19 | CPT/HCPCS: 87635 ==

== ENCOUNTER 2021-01-27 10:48 | Day surgery (SDC) | payer MEDICARE, MEDICAID, SELFPAY ==
[2021-01-23 12:19] VITALS: BMI 25.7
--- NOTE | 2021-01-23 12:45 | ECG_ITS ---
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: : 1945 Requested By: Phillip Gonzalez Order Number: [id number] Reading MD: TJ MURCIA Measurements Intervals Martin Rate: 65 P: AL: QRS: 28 QRSD: 98 T: 154 QT: 436 QTc: 454 Interpretive Statements ATRIAL FIBRILLATION NONSPECIFIC ST & T-WAVE ABNORMALITY Compared to ECG 08/16/2019 19:48:25 Ventricular premature complex(es) no longer present Aberrant conduction of supraventricular beat(s) no longer present Left-axis deviation no longer present Possible ischemia no longer present T-wave abnormality still present Electronically Signed On 01-23-2021 19:27:31 CDT by TJ MURCIA [id number]
[2021-01-23 13:19] LABS: Basophils % 0.8 %; Eosinophils % 0.8 %; Hematocrit 42.6 % (37.0-47.0); Hemoglobin 13.8 g/dL (11.5-15.3); Lymphocytes # 0.9 10^3/uL (0.8-4.8); Lymphocytes % 25.1 %; Mean Corpuscular HGB Conc 32.4 g/dL (30.0-36.0); Mean Corpuscular Hemoglobin 32.7 pg (28.0-34.0); Mean Corpuscular Volume 100.9 fl (81-99); Mean Platelet Volume 9.7 fL (7.4-10.4); Monocytes # 0.4 10^3/uL (0.2-0.9); Monocytes % 11.2 %; Neutrophils % 61.5 %; Nucleated Red Blood Cells % 0 %; Platelet Count 176 10^3/cmm (130-400); Red Blood Count 4.22 10^6/uL (4.1-5.3); White Blood Count 3.6 10^3/uL (4.0-10.0)
[2021-01-23 13:36] LABS: Anion Gap 12.5 (5-19); Blood Urea Nitrogen 24 mg/dL (8-23); Calcium 9.2 mg/dL (8.5-10.5); Carbon Dioxide 29 mmol/L (22-29); Chloride 106 mmol/L (98-107); Creatinine Clr Calc Pharmacy 54.5402; Glucose 76 mg/dL (65-115); Osmolality Calculated 299 mOsm/kg (285-295); Potassium 4.5 mmol/L (3.5-5.1); Sodium 143 mmol/L (136-145)
--- NOTE | 2021-01-23 14:23 | ANES.PREANE2 ---
Pre-Anesthetic Assessment Pre-Anesthetic Assessment: Height/Weight: Height 1.6 m Weight 65.771 kg Proposed Procedure: Operation Date: 01/27/21 12:40 Proposed Procedures p Hysteroscopy 41526 50316 N95.0(Not Applicable) - Mile Mcrae MD s Dilation And Curettage With Myosure 53191 01048 N95.0(Not Applicable) - Mile Mcrae MD Was Beta Ese taken within 24 hours: Yes Was Clonidine taken within 24 hours: N/A Social: Social History: Tobacco (H/o smoking) and No alcohol Exam: Pre-Anes Outpt Exam: alert, oriented x 3 and regular rate & rhythm Airway: Submandibular: WNL Cervical ROM: WNL MP: 2 Dentition: Chipped Additional comments: Poor dentition,missing several Pulmonary: Pulmonary: COPD CV/HEM: CV/HEM: Afib, Anemia, CHF (diastolic), HTN, Murmur (mild ) and PVD Comments: Anticoagulation meds Metabolic: Metabolic: Hyperlipidemia and Thyroid Neuropsych: Neuropsych: CVA Anesthetic Plan: ASA status: 3 Anesthesia: General Risk of > 500 ml blood loss (7ml/kg in children): No PFSH Anesthesia PFSH: Medical History Anemia COPD (chronic obstructive pulmonary disease) Albuterol and Atrovent, budesonide, oxygen CVA (cerebral vascular accident) Dyslipidemia Former smoker GERD (gastroesophageal reflux disease) Hypertension Improved control Hypothyroid Moderate mitral regurgitation by prior echocardiogram Moderate tricuspid regurgitation by prior echocardiogram PVD (peripheral vascular disease) Denies any claudication continue to monitor Temporal arteritis Trace aortic regurgitation by prior echocardiography Varicose vein of leg Surgical History History of colonoscopy Hx of tonsillectomy Family History Mother Hypertension Father Stroke Denies family history of Diabetes CAD (coronary artery disease) Clotting disorder Hyperlipidemia Chronic kidney disease (CKD) Bleeding disorder Cancer Social History Quit status (tobacco): has quit using tobacco Year quit tobacco: 2008 Alcohol intake: never History of recent travel: No Data Anesthesia CBC & Chem 7: 01/23/21 12:51 01/23/21 12:51 Other Labs: Laboratory Results - last 48 hr 01/23/21 01/23/21 12:51 12:51 WBC 3.6 L RBC 4.22 Hgb 13.8 Hct 42.6 MCV 100.9 H MCH 32.7 MCHC 32.4 RDW 14.0 Plt Count 176 MPV 9.7 Neut % (Auto) 61.5 Lymph % (Auto) 25.1 Pershing % (Auto) 11.2 Eos % (Auto) 0.8 Baso % (Auto) 0.8 Neut # (Auto) 2.20 Lymph # (Auto) 0.9 Pershing # (Auto) 0.4 Eos # (Auto) 0.0 Baso # (Auto) 0.0 Nucleated RBC % (auto) 0 Nucleated RBCs # 0.0 Sodium 143 Potassium 4.5 Chloride 106 Carbon Dioxide 29 Anion Gap 12.5 BUN 24 H Creatinine 0.8 GFR Calculation Not Reportable Glucose 76 Calculated Osmolality 299 H Calcium 9.2 Cardiac Studies: No Data to Display
[2021-01-27] VITALS (7 sets, daily range): BP systolic 127–171; BP diastolic 70–104; PULSE 70–102; RESP 16–19; TEMP 36.2–36.6; O2SAT 93–100
--- NOTE | 2021-01-27 11:26 | ANES.PREANE2 ---
Pre-Anesthetic Assessment Pre-Anesthetic Assessment: Height/Weight: Height 1.6 m Weight 65.771 kg Temp Pulse Resp BP Pulse Ox 97.2 F L 70 18 127/70 93 01/27/21 11:21 01/27/21 11:21 01/27/21 11:21 01/27/21 11:21 01/27/21 11:21 Preop Diagnosis: pmb Proposed Procedure: Operation Date: 01/27/21 12:40 Proposed Procedures p Hysteroscopy 28881 47065 N95.0(Not Applicable) - Mile Mcrae MD s Dilation And Curettage With Myosure 14816 14525 N95.0(Not Applicable) - Mile Mcrae MD Familial anesthetic complications: ponv Was Beta Ese taken within 24 hours: N/A Was Clonidine taken within 24 hours: N/A Last intake: Intake Last Liquid Date 01/26/21 Last Liquid Time 22:00 Last Solid Date 01/25/21 Last Solid Time 18:00 Social: Social History: Tobacco and No alcohol Exam: Pre-Anes Outpt Exam: alert, oriented x 3, clear to auscultation bilaterally and regular rate & rhythm Airway: Cervical ROM: WNL MP: 1 Dentition: Other (mulitple missing, poor dentiition) Pulmonary: Pulmonary: COPD Comments: hx PE CV/HEM: CV/HEM: Afib and HTN Comments: Echo 2019 CONCLUSIONS 1. Normal left ventricular cavity size. Moderately increased left ventricular wall thickness. Moderately decreased left ventricular systolic function. Left ventricular ejection fraction is estimated at 40%. Global left ventricular hypokinesis. 2. Normal right ventricular size and systolic function. 3. Moderate biatrial enlargement. 4. Mild mitral and tricuspid valve regurgitation. 5. Mild pulmonary hypertension with pulmonary artery pressure estimated at 39 mmHg. 6. Small to moderate pericardial effusion (more posteriorly along left ventricle). No evidence of hemodynamic compromise. 7. When compared to previous echocardiogram dated 11/23/2018, left ventricular systolic function seems to have decreased slightly and there is pericardial effusion now. Metabolic: Metabolic: Hyperlipidemia and Thyroid Neuropsych: Neuropsych: CVA Anesthetic Plan: ASA status: 3 Anesthesia: General Risk of > 500 ml blood loss (7ml/kg in children): No PFSH Anesthesia PFSH: Medical History Anemia COPD (chronic obstructive pulmonary disease) Albuterol and Atrovent, budesonide, oxygen CVA (cerebral vascular accident) Dyslipidemia Former smoker GERD (gastroesophageal reflux disease) Hypertension Improved control Hypothyroid Moderate mitral regurgitation by prior echocardiogram Moderate tricuspid regurgitation by prior echocardiogram PVD (peripheral vascular disease) Denies any claudication continue to monitor Temporal arteritis Trace aortic regurgitation by prior echocardiography Varicose vein of leg Surgical History History of colonoscopy Hx of tonsillectomy Family History Mother Hypertension Father Stroke Denies family history of Diabetes CAD (coronary artery disease) Clotting disorder Hyperlipidemia Chronic kidney disease (CKD) Bleeding disorder Cancer Social History Quit status (tobacco): has quit using tobacco Year quit tobacco: 2008 Alcohol intake: never History of recent travel: No Data Anesthesia CBC & Chem 7: 01/23/21 12:51 01/23/21 12:51 Cardiac Studies: No Data to Display
[2021-01-27] MEDS: sodium chloride 0.9% 1,000 ML 30 ML IV (11:41)
[2021-01-27] MEDS: vancomycin 1,000 MG in sodium chloride 0.9% 250 ML 250 MG IV (11:41)
--- NOTE | 2021-01-27 11:49 | W.PM.OPSUD ---
Surgery/Procedure H&P Update DATE OF PROCEDURE: January 27, 2021 DATE H&P PERFORMED: 01/09/21 H&P UPDATE INFORMATION: I have reviewed H&P completed within last 30 days, I have examined patient prior to procedure and No changes to prior documentation CHANGES TO PREVIOUS DOCUMENTATION: The patient reports that she took the cytotec as prescribed. It have her GI upset and diarrhea PREOP DIAGNOSIS: pmb PLANNED PROCEDURE: Operation Date: 01/27/21 12:40 Proposed Procedures p Hysteroscopy 45116 34209 N95.0(Not Applicable) - Mile Mcrae MD s Dilation And Curettage With Myosure 33615 07080 N95.0(Not Applicable) - Mile Mcrae MD
[2021-01-27 12:43] LABS: Add Urine Microscopic? YES; Bilirubin Urine 1+ (Negative); Blood Urine 2+ (Negative); Glucose Urine UA Norm (Normal); Ketones Urine Negative (Negative); Leukocyte Esterase Urine Negative (Negative); Nitrate Urine Negative (Negative); Protein Urine 2+ (Negative); Specific Gravity, Urine 1.025 (1.005-1.030); Urine Appearance Clear (CLEAR); Urine Color Yellow (Yellow); Urobilinogen Urine Norm (Negative); pH Urine 5 (5-7)
[2021-01-27 12:56] LABS: Bacteria Urine 1+ /hpf; WBC Urine 0-4 /hpf (0-5)
[2021-01-27 12:57] LABS: Add Urine Culture? No
--- NOTE | 2021-01-27 12:58 | PM.OP ---
Operative Report Date of procedure: January 27, 2021 Pre-op Diagnosis: pmb, thickened endometrium Post-op diagnosis: same Post-op Findings: thickened uterine lining Procedure Done: hysteroscopy, dilation and curettage with myosure Specimens removed/disposition: endometrial curettings sent to pathology Surgeon: Mile Mcrae Anesthesia: General Estimated blood loss (mL): 5 IV fluids (mL): 300 Complications: none Findings: small uterus with excessive tissue Condition: stable Disposition: PACU Procedure: The patient was taken to the operating room where monitored anesthesia was administered and to be adequate. She was prepped and draped in the normal sterile fashion in the dorsal lithotomy position in [facility]. A weighted speculum was placed into the vagina and the anterior lip of the cervix grasped with a single-tooth tenaculum. The uterus was sounded to 7 cm. The cervix was dilated to 15 Taiwanese. The hysteroscope was advanced into the endometrial cavity. There was excessive tissue visualized. The MyoSure device was activated and the tissue was removed. Pictures were taken pre and post procedure. All instruments were removed. The patient tolerated the procedure well. Sponge lap and needle counts were correct x3. She was taken to the recovery room in stable condition.
--- NOTE | 2021-01-27 13:04 | P.DS_ITS ---
Discharge Providers Date of Discharge: January 27, 2021 Attending Provider at Discharge: Mile Mcrae MD Primary Care Provider: Sreedhar Mejia MD Diagnoses at Discharge Discharge Diagnosis (1) Postoperative state: Status: Acute Reason for Visit Reason for Visit: Hysteroscopy, D&C with Myosure Hospital Course Hospital Course The patient was admitted for surgery. She did well postoperatively and was ready for discharge. Discharge Data Data Completed and Pending: Pending at discharge Category Date Time Status ES surgery / GI i mages Routine Exams 01/27/21 12:00 Taken Pathology: Surgic al [PTH] Routine Pth 01/27/21 12:57 Ordered Labs from last 24 hours 01/27/21 11:20 Urine Color Yellow Urine Appearance Clear Urine pH 5 Ur Specific Gravit y 1.025 Urine Protein 2+ H Urine Glucose (UA) Norm Urine Ketones Negative Urine Blood 2+ H Urine Nitrate Negative Urine Bilirubin 1+ H Urine Urobilinogen Norm Ur Leukocyte Mansi ase Negative Urine RBC 5-10 H Urine WBC 0-4 H Ur Squamous Epith Cells 5-10 H Amorphous Sediment Not Reportable Urine Bacteria 1+ H Vitals: Last Vital Signs Temp 97.2 F L 01/27/21 11:21 Pulse 70 01/27/21 11:21 Resp 18 01/27/21 11:21 BP 127/70 01/27/21 11:21 Pulse Ox 93 01/27/21 11:21 Discharge Plan Discharge Patient Disposition: Home Condition: Stable Prescriptions: Continued ascorbic acid (vitamin C) 500 mg capsule 1,000 mg PO DAILY RF: 0 levothyroxine [Euthyrox] 50 mcg tablet 50 mcg PO DAILY RF: 0 potassium chloride [Klor-Con 10] 10 mEq tablet extended release 10 meq PO DAILY RF: 0 metoprolol tartrate [Lopressor] 100 mg tablet 100 mg PO BID RF: 0 cholecalciferol (vitamin D3) 10 mcg (400 unit) capsule 10 mcg PO DAILY RF: 0 misoprostol [Cytotec] 200 mcg tablet 600 mcg PO Q6H Qty: 12 RF: 0 lisinopril 20 mg tablet 20 mg PO DAILY Qty: 90 RF: 3 furosemide 40 mg tablet 60 mg PO DAILY Qty: 135 RF: 3 diltiazem HCl [DILT-XR] 180 mg capsule,ext.rel 24h degradable See Rx Instructions .ROUTE .COMPLEX Qty: 90 RF: 2 atorvastatin 40 mg tablet 40 mg PO BEDTIME Qty: 90 RF: 2 acetaminophen [Tylenol] 325 mg Tablet 325 mg PO QID PRN (Reason: Pain) RF: 0 fluticasone propionate 50 mcg/actuation [place],Suspension 1 spray INTRANASAL DAILY RF: 0 vitamin B complex 1 tab PO DAILY RF: 0 budesonide 0.5 mg/2 mL suspension for nebulization 1 ml INHALATION Q12H PRN (Reason: Wheezing) RF: 0 Discharge Orders: Discharge Order (Routine); Ordered 01/27/21 Ordered By: Mile Mcrae Discharge Attestations Time Spent in Discharge Care*: less than 30 min Quality Metrics Clinical Quality Measures During this hospital stay, did patient experience: None Coding Level of Care Code Acute [facility] FW MARIAMA note Diagnoses Postoperative state Z98.890
--- NOTE | 2021-01-27 13:44 | SUR.PHASEI ---
1320 PT AWAKE ALERT STATES SHE HAS NO PAIN OR NAUSEA, HOB UP TO 30 DEGREES, PT WANTS TO GET UP TO VOID, PT ASKING REPEATEDLY AND REFUSED BEDPAN, PT TO OPS AND ASSISTED UP TO BSC 1130 PT UNABLE TO VOID, CONTINUES TO WANT TO SIT ON BSC, PT ENCOURAGED TO GET BACK TO BED SHE IS NOW C/O OF NAUSEA, PT STRONGLY ASSISTS IN GETTING BACK TO BED COOL CLOTH TO FOREHEAD. BP NOW ELEVATED PT C/O OF(BAD CRAMPING , LIKE I NEED TO HAVE A BOWEL MOVEMENT) PT REMINDED OF HER SURGERY AND THAT IT CAN CAUSE CRAMPING PAIN, PT ENCOURAGED TO LY BACK AND RELAX WILL RECHECK BP HANDOFF TO [facility].
--- NOTE | 2021-01-27 14:13 | ANE.PACU2 ---
Inpatient post-anesthesia follow up: Airway intact: Yes Vital signs: Temperature 97.8 F Pulse Rate 70 Respiratory Rate 16 Blood Pressure 142/82 Pulse Oximetry 98 Oxygen Delivery Me thod Room Air Oxygen Flow Rate 3 Fraction of Inspir ed Oxygen Hydration adequate: Yes Nausea and vomiting: No Pain level: 2 Mental status: Baseline
== END 2021-01-27 14:33 | disposition home or self-care (01) ==
PROVIDERS: PCP Family Medicine; Visit Provider Obstetrics & Gynecology
PROC: 0UJD8ZZ Inspection of Uterus and Cervix, Via Natural or Artificial Opening Endoscopic (ICD-10-PCS; CPT 58555; principal; 2021-01-27 12:30)
PROC: (CPT 58120; 2021-01-27 12:30)
DX: R93.89 Abnormal findings on diagnostic imaging of other specified body structures (principal); Z87.891 Personal history of nicotine dependence; J44.9 Chronic obstructive pulmonary disease, unspecified; Z86.711 Personal history of pulmonary embolism; I48.91 Unspecified atrial fibrillation; Z86.73 Personal history of transient ischemic attack (TIA), and cerebral infarction without residual deficits; E78.5 Hyperlipidemia, unspecified; K21.9 Gastro-esophageal reflux disease without esophagitis; E03.9 Hypothyroidism, unspecified; I11.0 Hypertensive heart disease with heart failure; I50.30 Unspecified diastolic (congestive) heart failure; Z79.01 Long term (current) use of anticoagulants
CPT/HCPCS: 58558; 80048; 81001; 85025; 87086; 88305; 93005; J3010; J3370; J7030; J7050

== ENCOUNTER 2021-03-23 09:35 | Outpatient (CLI) | payer MEDICARE, MEDICAID, SELFPAY ==
--- NOTE | 2021-03-23 09:49 | XR_ITS ---
WS: [id number] PROCEDURE: XR chest 2V* [id number] CLINICAL INFORMATION: COUGH COMPARISON: February 11, 2020 FINDINGS: Heart: Cardiomegaly unchanged. Aortic calcification. Lungs: Hyperinflation with advanced chronic emphysematous changes. No acute pulmonary infiltrates. No focal pneumonia or pleural fluid. Bones: Osteopenia. Chronic anterior wedging in the upper thoracic spine. XR/XR chest 2V* [id number] IMPRESSION: 1. Stable marked cardiomegaly. 2. Advanced chronic emphysematous changes. No acute-appearing pulmonary infilt rates. 3. Osteopenia with thoracic kyphosis. 4. Chronic appearing anterior wedging in the upper thoracic spine.
== END 2021-03-23 09:36 | disposition home or self-care (01) ==
PROVIDERS: PCP Family Medicine; Visit Provider Specialist
DX: R05.9 Cough, unspecified (principal); I51.7 Cardiomegaly; M85.88 Other specified disorders of bone density and structure, other site; M40.204 Unspecified kyphosis, thoracic region; M48.54XA Collapsed vertebra, not elsewhere classified, thoracic region, initial encounter for fracture
CPT/HCPCS: 71046

== ENCOUNTER 2021-08-04 13:34 | Outpatient (CLI) | payer MEDICARE, MEDICAID, SELFPAY ==
[2021-08-04 15:14] LABS: Basophils % 0.7 %; Eosinophils % 0.4 %; Hematocrit 37.9 % (37.0-47.0); Hemoglobin 12.2 g/dL (11.5-15.3); Lymphocytes # 0.7 10^3/uL (0.8-4.8); Lymphocytes % 13.3 %; Mean Corpuscular HGB Conc 32.2 g/dL (30.0-36.0); Mean Corpuscular Hemoglobin 33.2 pg (28.0-34.0); Mean Platelet Volume 9.5 fL (7.4-10.4); Monocytes # 0.5 10^3/uL (0.2-0.9); Neutrophils # 4.14 10^3/uL (1.8-7.7); Neutrophils % 76.2 %; Nucleated Red Blood Cells % 0 %; Platelet Count 190 10^3/cmm (130-400); Red Blood Count 3.68 10^6/uL (4.1-5.3); Red Cell Distribution Width 14.3 % (12.1-15.1); White Blood Count 5.4 10^3/uL (4.0-10.0)
[2021-08-04 15:15] LABS: Reticulocyte % 1.8 % (0.5-2.0)
[2021-08-04 15:56] LABS: Alanine Aminotransferase 22 U/L (0-33); Albumin Level 4.2 g/dL (3.5-5.2); Alkaline Phosphatase 165 IU/L (35-105); Aspartate Amino Transferase 25 U/L (0-32); Blood Urea Nitrogen 23 mg/dL (8-23); Calcium 9.6 mg/dL (8.5-10.5); Carbon Dioxide 26 mmol/L (22-29); Chloride 106 mmol/L (98-107); Ferritin 63 ng/mL (15-150); Globulin 2.8 g/dL (1.3-4.6); Glucose 108 mg/dL (65-115); Iron 67 ug/dL (37-145); Lactate Dehydrogenase 289 U/L (135-214); Osmolality Calculated 298 mOsm/kg (285-295); Percent Saturation 18.7 % (20-50); Sodium 142 mmol/L (136-145); Total Bilirubin 0.9 mg/dL (0.15-1.2); Total Iron Binding Capacity 358 mcg/dl; Unsaturated Iron Binding 291 ug/dL (112-347)
[2021-08-04 16:10] LABS: Vitamin B12 698 pg/mL (232-1245)
[2021-08-04 16:33] LABS: Erythrocyte Sedimentation Rate 19 mm/hr (0-15)
--- NOTE | 2021-08-04 16:49 | ONC FU_ITS ---
Dr. Bautista Patient Follow-Up Note Patient: Rowena Gil Unit #: [id number]: 1945 Dicatated By: Stanley Bautista M.D.Date of Visit:Aug 04, 2021 Onc Med Follow-up/Prog Note Chief Complaint: Leukopenia/elevated alkaline phosphatase. History of Present Illness: This is a 75 year-old woman with a mild leukopenia. She also has had a persistently elevated alkaline phosphatase level, and she has a history of transfusion dependent anemia. I had seen her initially in July 2020. Her records from Dr. Mejia included several sets of laboratory studies between March 2020 and June 2020. The initial study, from 03/25/2020, included CBC showing hemoglobin 12.9 g with white blood cell count 3500 and platelet count 236,000. The red cell indices were borderline high. Her comprehensive metabolic profile showed a mildly elevated alkaline phosphatase of 180/140 U/L. The other liver enzymes and the bilirubin were normal. A subsequent GGT level was in normal range at 21 U/L. Additional laboratory studies on 06/27/2020 included protein electrophoresis which showed hypoalbuminemia but no evidence of monoclonal protein. Her serum free light chain assay was nonspecific with slightly elevated kappa/lambda ratio at 1.68. B12 and folate levels were normal. A repeat GGT was again normal at 23 U/L. A repeat CBC on 07/08/2020 showed similar findings with hemoglobin 13.6 g, white blood cell count 3400, and platelet count 173,000. The red cell indices were slightly macrocytic. I had reviewed her records in [facility] and on multiple prior blood counts dating back to June 2015 her white blood cell count had intermittently been borderline low to slightly decreased. She occasionally had been slightly anemic. Her platelet counts were consistently normal. Her red cell indices were borderline high to slightly elevated. Her imaging studies included a CT abdomen/pelvis on 02/11/2020 which showed normal liver and spleen. There was noted to be marked atrophy of the right kidney and there was also marked cardiomegaly noted. A rounded right retrocrural lymph node adjacent to the distal esophagus measuring 9.4 mm appeared similar to the prior study from April 2019. Bone scan on 02/11/2020 show no definite evidence of metastatic disease, but intense uptake was noted in the right posterior lateral sixth or seventh rib. There was uptake in the seventh thoracic vertebral body in association with a compression fracture, but that had been noted on prior CT scans dating back at least to November 2018. A chest CT on 03/10/2020 showed a subtle irregularity in the right seventh rib laterally and an additional sclerotic lesion in the more posterior seventh rib which were felt to possibly correlate with the bone scan abnormalities. These are thought to perhaps represent healing fractures, but follow-up was recommended. A skeletal survey on 07/14/2020 showed generalized osteopenia with compression fracture at T7. There was no evidence for lytic or blastic bone lesions. Her evaluation in July 2020 included CBC showing hemoglobin 12.8 g with white blood cell count 3800 and platelet count 184,000. The red cell indices were slightly macrocytic. Sed rate was only minimally elevated at 25 mm/hour. Comprehensive metabolic profile showed normal renal function with BUN 23 and creatinine 0.8 mg/dL. The alkaline phosphatase was mildly elevated at 179/105 IU/L. The bilirubin and the other liver enzymes were normal. The LDH was slightly elevated at 289/214 U/L. Her B12 level was normal at 752 pg/mL. Her serum copper and zinc levels were in normal range. Bone scan showed multiple areas of increased uptake in various portions of the skeletal system, unchanged compared to previous studies. Multiple areas of periarticular increased activity in the shoulders, wrists, and knees were consistent with degenerative arthritis and uptake in the cervical spine appear typical of degenerative spondylosis. Multiple areas of increased uptake in the ribs bilaterally corresponded to multiple old fractures seen on the previous CT scan. Uptake in the mid thoracic spine correlated with a vertebral body compression deformity at T7. Overall, the bone scan findings were stable with no evidence of bony metastatic disease. Repeat CT abdomen/pelvis on 12/09/2020 showed sigmoid diverticulosis with wall thickening but with no evidence of acute diverticulitis and with no obstruction. There was short segment narrowing of the sigmoid colon. There was no associated mass and there was no evidence of metastatic disease in the abdomen/pelvis. In the absence of any evidence of underlying malignancy she was recommended to continue expectant management. Her medical illnesses include hypertension, dyslipidemia, hypothyroidism, peripheral arterial disease, atrial fibrillation, congestive heart failure, COPD, and osteoporosis. She is known to have an atrophic right kidney. She reported having a history of anemia, for which she required blood transfusions between 1984 and 1990. She was found to have evidence of a pulmonary embolism and stroke during hospitalization in August 2019. She has history of smoking 1 pack of cigarettes daily for approximately 40 years. She quit smoking 12 or 13 years ago. INTERIM HISTORY: On 01/27/2021 she underwent hysteroscopy/D&C. Pathology showed benign inactive endometrium. On 06/10/2021 she underwent Mohs micrographic surgery for a nodular basal cell carcinoma at the left nasal ala. She is seen for a follow-up visit. She says her energy has not been very high, but she has been doing some light work. ECOG score is one. She has somewhat limited oral intake due to dental work and some difficulty with chewing, she says she does eat. Her weight is actually up a few pounds since November. She has not had fever. She sometimes has sweating at night. She recently has had scratchy throat. She does not complain of cough. She does have some shortness of breath and she occasionally has chest pain. She has occasional nausea/vomiting. She says her bowel movements are too frequent and she sometimes cannot control them, but that is chronic. She occasionally has blood in the stool. Her urination is sometimes frequent. She is currently not having any significant joint or bone pain. She does have headaches. She does not complain of dizziness. She has no numbness/paresthesia or other focal neurologic symptoms. Medications: Acetaminophen Tablet Oral PRN, Ascorbic Acid 2 Capsule (of 500 mg) Oral daily, Atorvastatin Calcium (40 mg) Tablet Oral at bedtime, Budesonide (0.5 mg/2mL) Suspension Inhalation Take as Directed, Cardizem LA (180 mg) Tablet Oral daily, Daily Multiple Vitamins Tablet Oral daily, Euthyrox (50 mcg) Tablet Oral daily, Fexofenadine HCl (180 mg) Tablet Oral daily, Fluticasone Propionate (50 mcg/act) Suspension Nasal daily, Furosemide (40 mg) Tablet Oral daily, Klor-Con 10 (10 meq) Tablet, controlled release Oral daily, Lopressor 1 Tablet (of 100 mg) Oral b.i.d., Losartan Potassium 1 Tablet (of 50 mg) Oral daily, Vitamin B-Complex Tablet Oral daily, Vitamin D3 Capsule Oral Allergies: DOGS, FEATHERS, GRASSES, Lisinopril, sulfaSALAzine, and TREES. Vital Signs: Performed on Aug 04, 2021 16:01 Height - 65.50 in Weight - 147.2 lbs (HIGH) BSA - 1.75 sq.m BMI - 24.12 Temperature - 97.9 F (LOW) Pulse - 96 /min Respiration - 16 /min BP - 145/80 mm(hg) (HIGH) O2 Sat - 92 % (LOW) Pain - 0 Fatigue - 10 Physical Examination: Constitutional - She appears somewhat weak generally, Eyes - Sclerae nonicteric. Conjunctivae clear, ENMT - No lesions noted in the oral cavity, Hematologic/Lymphatic - No cervical, clavicular, or axillary adenopathy, Respiratory - Lungs are clear with some decrease in air movement bilaterally, Cardiovascular - Heart rhythm is irregular. There is no murmur, gallop, or rub noted, Abdomen - Soft. Liver and spleen are not enlarged. There is no abdominal mass or ascites noted and there is no inguinal adenopathy, Extremities - There is mild swelling in both legs. There are venous stasis changes bilaterally, worse on the left, Neurologic - No focal neurologic deficits noted. Lab/Imaging: Test performed on Aug 04, 2021 14:55 Ferritin 63 ng/mL Iron 67 mcg/dL LDH (Total) 289 U/L Sodium 142 mmol/L Vitamin B12 698 pg/mL Iron Binding Capacity (TIBC) 358 mcg/dl Potassium 4.0 mmol/L % Iron Saturation 18.7 % Chloride 106 mmol/L CO2 26 mmol/L UIBC 291 mcg/dL Anion Gap 14.0 BUN 23 mg/dL Creatinine 0.6 mg/dL Cr Clearance (Est) 84.08 mL/min Glucose 108 mg/dL Osmolality - Calculated 298 mOsm/kg Calcium 9.6 mg/dL Protein, Total 7.0 g/dL Albumin 4.2 g/dL Globulin 2.8 g/dL Bilirubin, Total 0.9 mg/dL ALT (SGPT) 22 U/L AST (SGOT) 25 U/L Alkaline Phosphatase 165 IU/L Retic Count % 1.8 % WBC 5.4 10 3/uL RBC 3.68 10 6/uL HGB 12.2 g/dL HCT 37.9 % MCV 103.0 fl MCH 33.2 pg MCHC 32.2 g/dL RDW 14.3 % Platelet Count 190 10 3/cmm MPV 9.5 fL Neutrophils 4.14 10 3/uL Lymphocytes 0.7 10 3/uL Monocytes 0.5 10 3/uL Eosinophils 0.0 10 3/uL Basophils 0.0 10 3/uL Neutrophil % 76.2 % Lymphocyte % 13.3 % Monocyte % 9.0 % Eosinophil % 0.4 % Basophils % 0.7 % NRBC % 0 % Problem List: 1. Patient with persistently elevated alkaline phosphatase. The cause is uncertain. Although the mild leukopenia and mild RBC macrocytosis would go along with chronic liver disease, with her GGT being normal this would appear to more likely be a bony origin. 2. She has mild leukopenia. The cause/clinical significance is uncertain. 3. She has a history of anemia, and by her account she was transfusion dependent between 1984 and 1990. 4. Hypertension. 5. Dyslipidemia. 6. Peripheral arterial disease. 7. She has an atrophic right kidney. 8. Atrial fibrillation. 9. Congestive heart failure. 10. She has a history of pulmonary embolism and stroke while on anticoagulation with apixaban. 11. Osteoporosis with T7 vertebral compression fracture. 12. Hypothyroidism. Problems Addressed with this Encounter and Plan: 1. Patient with persistently elevated alkaline phosphatase. Her initial imaging studies were more suggestive of bony than liver origin. Her repeat bone scan in August 2020 showed stable findings with no evidence of metastatic disease. During follow-up her alkaline phosphatase has remained mildly elevated with her bilirubin and other liver enzymes normal. Overall, a specific cause has not been determined, but thus far there has been no evidence of underlying malignancy, and the alkaline phosphatase level has remained stable. As such, it is being followed expectantly. 2. She has a history of transfusion dependent between 1984 and 1990. At this point her serum iron studies and ferritin are suggestive of iron deficiency, but her hemoglobin is adequate and stable at 12.2 g. It will also be followed expectantly. 3. She has shortness of breath. She has a resting oxygen saturation of 94% on room air. With activity her oxygen saturation decreases to 88% and with oxygen at 2 L/min it increases to 99%. With those findings, I will put in a request for a portable oxygen concentrator to be used with activity at 2 L/min. Signed By: Stanley Bautista M.D. <<Signature on File>>
[2021-08-04 17:41] LABS: Folate Level > 20.0 ng/mL (4.8-37.3)
== END 2021-08-04 13:35 | disposition home or self-care (01) ==
PROVIDERS: PCP Family Medicine; Visit Provider Internal Medicine Medical Oncology
DX: D72.819 Decreased white blood cell count, unspecified (principal); I10 Essential (primary) hypertension; E78.5 Hyperlipidemia, unspecified; I73.9 Peripheral vascular disease, unspecified; I48.91 Unspecified atrial fibrillation; I50.9 Heart failure, unspecified; E03.9 Hypothyroidism, unspecified; Z79.01 Long term (current) use of anticoagulants; Z79.899 Other long term (current) drug therapy; Z86.711 Personal history of pulmonary embolism; Z86.73 Personal history of transient ischemic attack (TIA), and cerebral infarction without residual deficits
CPT/HCPCS: 36415; 80053; 82607; 82728; 82746; 83010; 83540; 83550; 83615; 85025; 85045; 85651; 99214

== ENCOUNTER → 2021-12-03 10:24 | Outpatient (BNVA) | payer MEDICARE, MEDICAID, SELFPAY | PROVIDERS: PCP Family Medicine; Visit Provider Internal Medicine Cardiovascular Disease | DX: R07.89 Other chest pain (principal); I48.11 Longstanding persistent atrial fibrillation; I42.8 Other cardiomyopathies; I26.99 Other pulmonary embolism without acute cor pulmonale; E03.9 Hypothyroidism, unspecified; E78.5 Hyperlipidemia, unspecified; I35.0 Nonrheumatic aortic (valve) stenosis; I11.0 Hypertensive heart disease with heart failure; I50.42 Chronic combined systolic (congestive) and diastolic (congestive) heart failure; I73.9 Peripheral vascular disease, unspecified | CPT/HCPCS: 93005; 99204; 99205 ==

== ENCOUNTER 2022-01-27 14:19 | Oncology outpatient (recurring) (ONCR) | payer MEDICARE, MEDICAID, SELFPAY ==
[2022-01-27 14:48] LABS: Basophils % 0.3 %; Eosinophils % 0.8 %; Hematocrit 39.5 % (37.0-47.0); Hemoglobin 12.7 g/dL (11.5-15.3); Lymphocytes # 0.9 10^3/uL (0.8-4.8); Mean Corpuscular HGB Conc 32.2 g/dL (30.0-36.0); Mean Corpuscular Volume 102.6 fl (81-99); Mean Platelet Volume 9.8 fL (7.4-10.4); Monocytes # 0.3 10^3/uL (0.2-0.9); Monocytes % 8.6 %; Neutrophils # 2.34 10^3/uL (1.8-7.7); Nucleated Red Blood Cells % 0 %; Platelet Count 161 10^3/cmm (130-400); Red Blood Count 3.85 10^6/uL (4.1-5.3); Red Cell Distribution Width 13.8 % (12.1-15.1); White Blood Count 3.6 10^3/uL (4.0-10.0)
[2022-01-27 14:49] LABS: Erythrocyte Sedimentation Rate 3 mm/hr (0-15)
[2022-01-27 15:11] LABS: Alanine Aminotransferase 20 U/L (0-33); Albumin Level 4.3 g/dL (3.5-5.2); Alkaline Phosphatase 166 U/L (35-105); Anion Gap 11.8 (5-19); Aspartate Amino Transferase 23 U/L (0-32); Blood Urea Nitrogen 24 mg/dL (8-23); Calcium 9.3 mg/dL (8.5-10.5); Carbon Dioxide 30 mmol/L (22-29); Chloride 104 mmol/L (98-107); Ferritin 118 ng/mL (15-150); Globulin 1.9 g/dL (1.3-4.6); Glucose 101 mg/dL (65-115); Iron 88 ug/dL (37-145); Lactate Dehydrogenase 273 U/L (135-214); Osmolality Calculated 298 mOsm/kg (285-295); Percent Saturation 34.6 % (20-50); Potassium 3.8 mmol/L (3.5-5.1); Sodium 142 mmol/L (136-145); Total Bilirubin 0.5 mg/dL (0.15-1.2); Total Iron Binding Capacity 254 mcg/dl; Total Protein 6.2 g/dL (6.6-8.7); Unsaturated Iron Binding 166 ug/dL (112-347)
== END 2022-02-10 23:59 | disposition home or self-care (01) ==
LOC: LAB 16:16 → ONCMED 02-11 06:59
PROVIDERS: PCP Family Medicine; Visit Provider Internal Medicine Medical Oncology
DX: R74.8 Abnormal levels of other serum enzymes (principal); D72.819 Decreased white blood cell count, unspecified; D75.89 Other specified diseases of blood and blood-forming organs; Z87.891 Personal history of nicotine dependence; R15.2 Fecal urgency
CPT/HCPCS: 80053; 82728; 83540; 83550; 83615; 85025; 85651; 99214; G0463

== ENCOUNTER 2022-02-03 10:32 | Outpatient (CLI) | payer MEDICARE, MEDICAID, SELFPAY ==
--- NOTE | 2022-02-03 11:00 | USCV_ITS ---
Rowena Gil Age: 76 Gender: F : 1945 Exam Date: 02/03/2022 10:46 Ordering Phys: Latosha Mauricio MD ([email or web address]) Technologist: Leonel Hanna [place] [facility] [place]: [place] pain Risk Factors: Previous Vascular Surgery: Left femoral stent RIGHT LEFT BP: 137.0 / 79.00 BP: 131.0/ 81.00 0 0 Waveform Velocity (cm/s) Velocity (cm/s) Waveform Triphasic 136.7 Iliac Prox 138.8 Triphasic Triphasic Iliac Mid Triphasic 131.2 114.5 Triphasic 106.6 Iliac Distal 111.1 Triphasic Triphasic 101.4 CHEF UNDER 94.0 Biphasic Monophasic 130.1 SFA Prox 38.0 Monophasic Monophasic 127.9 SFA Mid Monophasic 111.4 SFA Dist Monophasic 49.3 POP 52.8 Monophasic Monophasic 35.5 FORENSIC ACCOUNTANT 17.5 Monophasic Monophasic 47.3 DPA 20.5 Monophasic NARINDER 0.7 0.7 FINDINGS There is no flow in the [place] left SFA from mid to prox popliteal. There does appear to be collateral flow extending throughout the left lower extremity. There is is collateral flow seen reconstituting the distal left popliteal. Monophasic and continuous waveforms in the right posterior tibial and dorsalis pedis artery Resting NARINDER of 0.7 on the right and 0.7 on the left CONCLUSIONS 1. Abnormal resting NARINDER on the right side, suggesting moderate peripheral artery disease with features of possible collateral filling of the posterior tibial and dorsalis pedis artery. 2. Abnormal resting NARINDER on the left side, suggesting moderate peripheral artery disease. Mid and distal SFA appeared to be occluded. Popliteal and infrapopliteal vessels also appears to have diffuse disease No similar previous studies are available for comparison Dr Latosha Mauricio MD [facility] (Electronically Signed) Final Date: 03 February 2022 19:13 S
== END 2022-02-03 10:33 | disposition home or self-care (01) ==
PROVIDERS: PCP Family Medicine; Visit Provider Internal Medicine Cardiovascular Disease
DX: I73.9 Peripheral vascular disease, unspecified (principal)
CPT/HCPCS: 93925

== ENCOUNTER → 2022-02-10 13:23 | Outpatient (BNVA) | payer MEDICARE, MEDICAID, SELFPAY | PROVIDERS: PCP Family Medicine; Visit Provider Internal Medicine Cardiovascular Disease | DX: I73.9 Peripheral vascular disease, unspecified (principal); D64.9 Anemia, unspecified; D72.819 Decreased white blood cell count, unspecified; R07.89 Other chest pain; I48.11 Longstanding persistent atrial fibrillation; I26.99 Other pulmonary embolism without acute cor pulmonale; I35.0 Nonrheumatic aortic (valve) stenosis; I42.8 Other cardiomyopathies; I11.0 Hypertensive heart disease with heart failure; I50.42 Chronic combined systolic (congestive) and diastolic (congestive) heart failure; J44.9 Chronic obstructive pulmonary disease, unspecified; I25.2 Old myocardial infarction; E78.5 Hyperlipidemia, unspecified; Z87.891 Personal history of nicotine dependence | CPT/HCPCS: 99215 ==

== ENCOUNTER 2022-02-26 06:10 | Outpatient (CLI) | payer MEDICARE, MEDICAID, SELFPAY ==
[2022-02-26] VITALS (15 sets, daily range): BP systolic 127–147; BP diastolic 69–94; PULSE 23–75; RESP 15–24; TEMP 36.3–36.5; O2SAT 91–100; BMI 26.2
--- NOTE | 2022-02-26 06:26 | XACV_ITS ---
Ht: 160 cm Wt: 67 kg BSA: 1.74 m2 Any Known Allergies: Penicillins Gender: Female : 1945 Exam Type: Invasive Peripheral Vascular Procedure(s): Procedure Description: Peripheral Cath Diagnostic Procedure Procedure Description: Lower extremities' angiography Exam Priority: Routine Abdominal Diagnostic Findings The lower abdominal aorta contains diffuse luminal irregularities and modest calcification. Lower Extremity Diagnostic Findings Patient has previously placed stents in the left superficial femoral artery that began shortly after its origin and proceeded all the way down to the popliteal. Patient presented to the office with claudication in the absence of critical limb ischemia. The claudication is in both legs but worse on the left. Noninvasive studies were abnormal. On the left there is heavy calcification throughout. There are mild luminal irregularities of the left common iliac. The internal iliac artery is patent and calcified. The external iliac is heavily calcified. In the midportion there is an eccentric 40 to 50% stenosis. Common femoral artery is patent and heavily calcified. The profunda femoris artery is patent. The superficial femoral artery is occluded shortly after its origin. There is collateral flow from the profunda femoris and to the popliteal to a mild degree into the vessels below the knee. At least proximally there is three-vessel runoff below the left knee. Distally there appears to be at least two-vessel runoff. The flow is less than adequate for visualization. The popliteal artery is visualized.. On the right, there is once again heavy calcification throughout. The common iliac contains a 30% stenosis at the origin. The remainder the vessel appears to be patent. The internal iliac is patent. The external iliac is likewise patent. All vessels have diffuse and mild luminal irregularities. The common femoral artery is patent. The profunda femoris is patent. The superficial femoral artery is patent down to approximately half the length of the vessel where it is occluded. Prior to this there are heavily calcified eccentric lesions up to 60% stenosis. There are at least 6 of these. Prior to the occlusion, there are several small collateral vessels which arise from the superficial femoral artery and to a lesser degree from the profunda femoris. These travel to below the knee to fill the anterior and posterior tibial vessels which are seen below the knee. The peroneal artery is not seen. The popliteal artery is also not seen filling by collaterals.. Conclusions Severe lower extremity peripheral arterial disease without critical limb ischemia involving primarily the superficial femoral arteries bilaterally. Previously placed stents on the left are completely occluded. Collateral flow present to both lower extremities below the knee with visualization of 3 vessels below the left knee and 2 vessels below the right knee. Recommendations Consider femoral-popliteal bypass initially on the left. Hemodynamic Data Phase:Rest AO : 94.0 / 72.0 ( 84.0 ) @ 8:22:00 AM Access Site Site: Right Femoral artery Sheath Size: 6 Fr Hemost... Method: Manual Compression Hemost... Success: Successful Procedure Details Findings Procedure Consent Obtained. Pre-Procedure Time Out. Identified patient by full name and date of as verbalized by the patient/guarantor. Does the consent match the physician's order: Yes. Accurate & Complete Informed Consent: Yes. Inpatient/Outpatient History & Physical on Chart: Yes. If H&P is completed, is and addenduem needed: No. Visualize and Verify Site with Patient/Guarantor: N/A. Relevant Radiology Images available: Yes. The risks, benefits, and alternatives of sedation and/or procedure were discussed by physician. The patient agrees to continue. Procedure started. Current diagnosis: PVD. PERRLA. 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 Lungs clear x 5 lobes. IV Site on Arrival: 20 gauge in the right anticubital. IV Fluids: 0.9% NaCl at KVO. 0 mL infused prior to laboratory associate. Pre Procedural Pulses: bilateral dorsalis pedis was Doppled. Pre Procedural Pulses: bilateral radial was Doppled. Pre Procedural Pulses: right posterior tibial was Doppled. Pre Procedural Pulses: left posterior tibial was 1+. Oxygen started at 2liters/min via nasal canula. bilateral groins was prepped with chloroprep then draped in the usual sterile fashion. Physician notified. Baseline sample Acquired. HR: 74 BPM. Patient's family waiting in CPRU. Dr. Dunaway will update at the completion of the procedure. Equipment: 6F - Femoral. Physician arrived. Cardiac Cath Pack. ACIST Manifold Kit Model BT 2000. Heparinized Saline (2 units/mL), 1000 mL bag. Immediate Pre-Procedure Time Out. Correct Patient: Yes; Correct Procedure: Yes; Correct Site: Yes; Correct Patient Position: Yes; Correct Supplies: Yes; Dried Flammable Prep: Yes; Blood Products Available: N/A;. Lidocaine 1% infiltrated to the right groin. Arterial access obtained. Unable to advance the sheath wire. 0.035 260cm Stiff Angled Glidewire in through the access needle, unable to advance, glidewire out. A 5Fr UF catheter in over wire. Catheter removed over the glide wire. A 5Fr RIM catheter in over wire. Left common iliac selected and arteriogram with runoff performed @ 10 mL/sec for a total of 30 mL. Pigtail postioned above the bifurcation of the iliacs. Aortagram performed @ 10 mL/sec for a total of 30 mL. Catheter out. Sheath injected in Right common femoral artery and runoff performed @ 10mL/sec for a total of [address] Dunaway scrubbed out. Sheath(s) removed and manual pressure held until hemostasis was achieved. Sterile 4x4 and Op-site applied to the puncture site. No oozing or hematoma noted. Post sheath removal instructions were given and the patient verbalized understanding. Post Procedure: Pulses reassessed and unchanged. PERRLA. 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 No VTE prophylaxis required. A Manual Compression was successful obtaining hemostatsis at the Right Femoral artery insertion site. Post-op diagnosis: Severe bilateral PAD. Complications: none. Estimated blood loss: 5mL-10mL. Medication's Wasted: Heparin = 1000 units. Total IV fluids: 28 mL. Responsiveness - Normal response to verbal stimuli; alert and oriented, PERRLA. Airway - Unaffected, no intervention required; spontaneous ventilation. Circulation: W/N/L, pulses unchanged. Nausea/Vomiting: No. Patient transferred by bed to [facility]. Procedure completed. Vital chart was stopped. Procedure Medications Start: 7:02 AM Stop: 7:02 AM Medication: Versed Amount: 1 mg Route: I.V. Start: 7:02 AM Stop: 7:02 AM Medication: Fentanyl Amount: 50 mcg Route: I.V. Start: 7:15 AM Stop: 7:15 AM Medication: Versed Amount: 1 mg Route: I.V. I, the attending physician, have reviewed and verified all procedure medications. Yes, all medications given per verbal order History/Risk Factors Hypertension: Yes Dyslipidemia: Yes Peripheral Arterial Disease (PAD): Yes Obesity: No Renal Disease: No Tobacco Use: Former Prior Interventions PCI: No CABG: No Valve Surgery: No Report Signatures Finalized by Dr. Donald Dunaway MD on 02/26/2022 07:52 AM
[2022-02-26] MEDS: diphenhydrAMINE 50 mg Capsule PO (06:46)
--- NOTE | 2022-02-26 06:47 | P.HPUD_ITS ---
Surgery/Procedure H&P Update DATE OF PROCEDURE: February 26, 2022 DATE H&P PERFORMED: 02/10/22 H&P UPDATE INFORMATION: I have reviewed H&P completed within last 30 days, I have examined patient prior to procedure, No changes to prior documentation and H&P is in [facility] EMR on date indicated CHANGES TO PREVIOUS DOCUMENTATION: None PREOP DIAGNOSIS: Claudication PRIMARY INDICATION FOR PROCEDURE: Claudication, known peripheral arterial disease, abnormal noninvasive studies PLANNED PROCEDURE: Operation Date: 02/26/22 07:00 Proposed Procedures p Peripheral Diagnostic Angiogram 42061,I73.9(Bilateral) - Donald Dunaway MD PATIENT REASSESSED PRIOR TO SEDATION, WITH NO CHANGE NOTED: Yes PHYSICAL EXAM: alert, oriented x 3, clear to auscultation bilaterally, regular rate & rhythm and operative site marked AIRWAY EVAL/ANESTHESIA PLAN: ASA II, Risks, benefits & alternatives of sedation and/or procedure discussed and Patient agrees to continue as planned
--- NOTE | 2022-02-26 09:27 | PC.PHAR ---
PT AND PTS SISTER ST DR. DON DISCONTINUED LEVOTHYROXINE 50 AND 25 ON 02/26/22
[2022-02-26] MEDS: sodium chloride 0.9% 1,000 ML 100 ML IV (09:37)
--- NOTE | 2022-02-26 12:25 | P.DS_ITS ---
Discharge Providers Date of Admission: 02/26/22 08:06 Date of Discharge: February 26, 2022 Attending Provider at Admission: Donald Dunaway MD Attending Provider at Discharge: Donald Dunaway MD Primary Care Provider: Sreedhar Mejia MD Diagnoses at Discharge Discharge Diagnosis (1) Cognitive impairment: Status: Acute (2) Atrial fibrillation: Status: Acute Qualifiers: Atrial fibrillation type: longstanding persistent Qualified Code(s): I48.11 - Longstanding persistent atrial fibrillation (3) Pulmonary embolism on right: Status: Acute Permanent problem details: Changed from Eliquis to Coumadin. INR therapeutic (4) Hypertension: Status: Acute (5) Dyslipidemia: Status: Acute (6) CVA (cerebral vascular accident): Status: Acute (7) COPD (chronic obstructive pulmonary disease): Status: Acute Permanent problem details: Albuterol and Atrovent, budesonide, oxygen (8) Aortic stenosis, mild: Status: Acute Permanent problem details: echocardiogram 11/2018- mean gradient 5.8 mmHg, PARRISH 1.7 cm2 (9) Acute and chronic respiratory failure with hypoxia: Status: Acute Permanent problem details: Improving (10) Nonischemic cardiomyopathy: Status: Acute (11) Peripheral arterial disease: Status: Acute Reason for Visit Reason for Visit: I73.9 Brief History: Patient came to see me in the office about 2 weeks ago with left lower extremity pain. She has previous history of peripheral arterial disease with stents to the left superficial femoral artery sometime ago by Dr. Quinn. She has no open sores and does not have critical limb ischemia. Noninvasive testing was abnormal and she was scheduled for angiography. She was brought in for this today. Hospital Course Hospital Course She has a complete occlusion of the superficial femoral artery on the left starting just past the origin and extending all the way down through the popliteal artery to below the knee. There is some collateral flow on the left from the profunda femoris artery which fills the popliteal artery by collaterals and there is evidence of three-vessel runoff below the knee. On the right, the superficial femoral artery is open about prison down its course and then is occluded. The collaterals come from the SFA itself but do not fill the popliteal but do feel the 2 vessels below the right knee. There is minimal if any collaterals from the profunda femoris on the right. She is not a candidate for intervention. I had a lengthy conversation with her and the woman accompanying her about lower extremity surgery. This patient does have some cognitive dysfunction and is really not very capable of understanding the illness. She is not the best candidate for surgery but wants to visit with Dr. De Los Santos for consideration of lower extremity bypass. We will schedule this appointment as an outpatient. Physical Exam Narrative: GENERAL: In general she is awake and alert HEENT: Exam within normal limits. NECK: Supple without jugular vein distention. The carotid upstroke is normal without bruits. BACK: Exam normal. LUNGS: Clear. HEART: Regular rate and rhythm. ABDOMEN: Benign without organomegaly or tenderness. EXTREMITIES: No edema. No pulses below either groin. NEUROLOGIC: Exam normal. SKIN: Unremarkable. 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 Bilateral lower extremity angiography. Vitals Last Vital Signs Temp 97.4 F L 02/26/22 11:58 Pulse 62 02/26/22 11:58 Resp 19 H 02/26/22 11:58 BP 133/70 02/26/22 11:58 Pulse Ox 91 02/26/22 11:58 O2 Del Method 02/26/22 11:09 O2 Flow Rate 1 02/26/22 11:09 Discharge Plan Discharge Patient Disposition: Home Condition: Stable Prescriptions: Continued ascorbic acid (vitamin C) 500 mg capsule 1,000 mg PO DAILY potassium chloride [Klor-Con 10] 10 mEq tablet extended release 10 meq PO DAILY cholecalciferol (vitamin D3) 10 mcg (400 unit) capsule 10 mcg PO DAILY levothyroxine [Euthyrox] 50 mcg tablet 25 mcg PO DAILY ipratropium bromide 21 mcg (0.03 %) spray,non-aerosol 2 spray intranasal TID ferrous sulfate 325 mg (65 mg iron) tablet 325 mg PO DAILY [id number] 333-133-5 mg tablet 1 tab PO DAILY furosemide 40 mg tablet 60 mg PO DAILY Qty: 135 3RF metoprolol tartrate [Lopressor] 100 mg tablet 100 mg PO BID Qty: 180 1RF atorvastatin 40 mg tablet 40 mg PO BEDTIME Qty: 90 3RF diltiazem HCl [DILT-XR] 180 mg capsule,ext.rel 24h degradable 180 mg PO DAILY Qty: 90 3RF losartan 50 mg tablet 50 mg PO DAILY Qty: 90 3RF acetaminophen [Tylenol] 325 mg Tablet 325 mg PO QID PRN (Reason: Pain) vitamin B complex Tablet 1 tab PO DAILY fluticasone propionate 50 mcg/actuation spray,suspension 2 spray INTRANASAL BID Discharge Orders: Discharge Order (Routine); Ordered 02/26/22 Ordered By: Donald Dunaway Referrals: Geovanyn De Los Santos MD [Physician] - 2 weeks (Consideration for left femoral- popliteal bypass due to his severe lower extremity peripheral arterial disease.PLEASE CALL FOR APPOINTMENT) Karla Keyes FNP [Nurse Practitioner] - 7-10 days (Right groin check and chemistry panel.) Discharge Diet: Cardiac Discharge Activity: Limit activity as instructed Patient Instructions: Peripheral Vascular Angioplasty (DC) Activity Restrictions/Additional Instructions: No lifting over 5 pounds for 2 days. Call or report to the emergency room for swelling, bleeding or pain in the right groin. Our office will call next week to schedule appointment with Dr. De Los Santos for consideration of surgery. Continue medications as currently prescribed. Discharge Attestations Time Spent in Discharge Care*: greater than 30 min Quality Metrics Clinical Quality Measures [ No reported AMI, CVA or VTE this stay] Coding Level of Care Code Established Pt Acute Chg FW DC note Patient Type Established History Detailed Exam Detailed Medical Decision Making Moderate Complexity Diagnoses Cognitive impairment R41.89 Atrial fibrillation I48.11 Atrial fibrillation type: longstanding persistent Pulmonary embolism on right I26.99 Hypertension I10 Dyslipidemia E78.5 CVA (cerebral vascular accident) I63.9 COPD (chronic obstructive pulmonary disease) J44.9 Aortic stenosis, mild I35.0 Acute and chronic respiratory failure with hypoxia J96.21 Nonischemic cardiomyopathy I42.8 Peripheral arterial disease I73.9
--- NOTE | 2022-02-26 14:46 | PC.NURSE ---
Patient discharged at 1437 via wheelchair with sister to surgical services entrance. Education, instructions and follow up appointments given to patient and sister who verbalized understanding. IV removed and tolerated well. No bleeding or hematoma noted at right femoral puncture site.
== END 2022-02-26 14:38 | disposition home or self-care (01) | DRG 300 ==
LOC: CCL 06:12 → MEDSURG 12:25 → MS 2A 12-14 15:06
PROVIDERS: PCP Family Medicine; Visit Provider Internal Medicine Cardiovascular Disease
PROC: B41DYZZ Fluoroscopy of Aorta and Bilateral Lower Extremity Arteries using Other Contrast (ICD-10-PCS; principal; 2022-02-26 07:00)
DX: I70.222 Atherosclerosis of native arteries of extremities with rest pain, left leg (principal); T82.856A Stenosis of peripheral vascular stent, initial encounter; I77.1 Stricture of artery; R41.89 Other symptoms and signs involving cognitive functions and awareness; E78.5 Hyperlipidemia, unspecified; Z87.891 Personal history of nicotine dependence; I10 Essential (primary) hypertension; Y71.8 Miscellaneous cardiovascular devices associated with adverse incidents, not elsewhere classified
CPT/HCPCS: 36415; 75625; 75716; 96360; 99152; 99153; C1769; C1887; C1894; J1644; J2250; J3010; J7030; Q0163; Q9967

== ENCOUNTER → 2022-03-02 13:34 | Outpatient (BNVA) | payer MEDICARE, MEDICAID, SELFPAY | PROVIDERS: PCP Family Medicine; Visit Provider Thoracic Surgery (Cardiothoracic Vascular Surgery) | DX: I73.9 Peripheral vascular disease, unspecified (principal); Z87.891 Personal history of nicotine dependence | CPT/HCPCS: 99203 ==

== ENCOUNTER → 2022-03-08 13:52 | Outpatient (BNVA) | payer MEDICARE, MEDICAID, SELFPAY | PROVIDERS: PCP Family Medicine; Visit Provider Nurse Practitioner Family | DX: I73.9 Peripheral vascular disease, unspecified (principal); Z87.891 Personal history of nicotine dependence | CPT/HCPCS: 36415; 80048; 99214 ==

== ENCOUNTER → 2022-03-15 09:56 | Outpatient (BNVA) | payer MEDICARE, MEDICAID, SELFPAY | PROVIDERS: PCP Family Medicine; Visit Provider Internal Medicine Cardiovascular Disease | DX: I73.9 Peripheral vascular disease, unspecified (principal); I35.0 Nonrheumatic aortic (valve) stenosis; I11.0 Hypertensive heart disease with heart failure; I50.42 Chronic combined systolic (congestive) and diastolic (congestive) heart failure; I42.8 Other cardiomyopathies; Z86.73 Personal history of transient ischemic attack (TIA), and cerebral infarction without residual deficits; Z87.891 Personal history of nicotine dependence | CPT/HCPCS: 99214 ==

== ENCOUNTER 2022-03-31 14:08 | Outpatient (CLI) | payer MEDICARE, MEDICAID, SELFPAY ==
--- NOTE | 2022-03-31 | MR_ITS ---
WS: [id number] MRI BRAIN WITHOUT CONTRAST HISTORY: MIXED CONDUCTIVE AND SENSORINEURAL HEARING LOSS, UNSPECIFIED Note: Patient was unable to continue with this examination. Limited MRI brain was performed. No contr ast given. Patient was unable to lay still and in pain. COMPARISON: None available. TECHNIQUE: Diffusion imaging, multiplanar T1, T2 and FLAIR imaging obtained. No evidence for acute infarct or hemorrhage. No edema or midline shift. Patchy and confluent T2 and F LAIR signal hyperintensity surrounding the white matter and extending towards the vertex. Symmetric b ilaterally with extension to the subcortical white matter. No signal abnormality is identified within the cerebellum or brainstem. No prior infarct. Small lacunar infarct LEFT basal ganglia. Ventricles and extra-axial spaces are normal. No inferior displacement of cerebellar tonsils. The sella turcica and pituitary gland are unremarkabl e. Dural venous sinuses and moapa of Lion demonstrate no abnormality on this unenhanced studies. Paranasal sinuses: Very small air-fluid level LEFT maxillary sinus. Mastoid air cells: Normal. Calvarium and scalp: Intact. MR/MR head wo con* [id number] IMPRESSION: 1. Study terminated due to patient discomfort and inability to continue with t his examination. 2. No acute infarcts or hemorrhage. 3. Moderate to severe small vessel ischemic disease. Small lacunar infarct LEF T basal ganglia. 4. No mass effect at the cerebellopontine angle or signal abnormality identifi ed on this unenhanced exam.
== END 2022-03-31 14:09 | disposition home or self-care (01) ==
PROVIDERS: PCP Family Medicine; Visit Provider Otolaryngology
DX: H90.8 Mixed conductive and sensorineural hearing loss, unspecified (principal)
CPT/HCPCS: 70551

== ENCOUNTER 2022-05-20 08:56 | Outpatient (CLI) | payer MEDICARE, MEDICAID, SELFPAY ==
[2022-05-20 09:21] VITALS: BMI 26.9
--- NOTE | 2022-05-20 09:23 | NMCV_ITS ---
NM nemesio perf SPECT r/s* [id number] Louise Rowena Age: 76 Gender: F : 1945 Exam Date: 05/20/2022 10:28 Ordering Phys: Latosha Mauricio MD ([email or web address]) Technologist: DB Pascual Exam Location: [facility] Indications: CORONARY ANGIOPLASTY STATUS STRESS TEST Please [facility] for [facility] IMAGE PROTOCOL Rest/Stress 1 Lexiscan Day Radiopharmaceutical Dose (mCi) Administration Site Administered by Rest: Tc-99m 10.6 IV DB Nava Sestamibi Stress:Tc-99m 32.5 IV DB Nava Sestamibi Rest: 20-May-2022 60 Discovery 630 Stress: 20-May-2022 30 Discovery 630 0.4mg Lexiscan. Supine position only as patient was unable to lay prone. SPECT RESULTS Technical Quality: Excellent Raw Data Analysis: Normal Image Corrections: No attenuation or motion correction applied Summed Stress Score: 0 Summed Rest Score: 0 Summed Difference Score: 0 PERFUSION FINDINGS SPECT images demonstrate homogeneous tracer distribution throughout the myocardium. FUNCTIONAL RESULTS (calculated via Gated SPECT) Stress Image LV EF (%): 55 Stress EDV (mL):92 TID: 0.76 Stress ESV (mL):41 FUNCTIONAL FINDINGS: There is normal left ventricular systolic function. IMPRESSIONS 1. Normal myocardial perfusion imaging with no evidence of ischemia 2. LV systolic function is normal Mayank Ashby MD (Electronically Signed) Final Date: 20 May 2022 12:26 S
--- NOTE | 2022-05-20 09:23 | ECG_ITS ---
[facility] Test Date: 2022-05-20 Pat Name: Rowena Gil Department: Room: Gender: Female Mother Helper: : 1945 Requested By: Latosha Mauricio Order Number: [id number] Jose MD: Latosha Mauricio M.D. Interpretive Statements NAME OF STUDY: LEXISCAN SESTAMIBI STRESS TEST INDICATION: Chest Pain, PROCEDURE: At the baseline, the EKG revealed fibrillation with a controlled ventricular response rate. Diffuse nonspecific ST changes. The baseline heart was 73 bpm with a blood pressue of 149/85 mm of Hg Lexiscan was infused over a period of 20 seconds. A total of 0.4 milligrams of Lexiscan was infused. The stress phase was continued for a total of 5 minutes. Heart rate at the end of the stress phase was 79 bpm with a blood pressure 130/90 mm of Hg. The EKG at the peak infusion revealed no significant changes. Sestamibi was injected 20 seconds after the Lexiscan infusion. Heart rate at the end of the recovery phase was 76 bpm with a blood pressure of 133/89 mm of Hg. CONCLUSION: 1. No significant EKG changes with the LexiScan infusion 2. No LexiScan induced chest pain or cardiac arrhythmia 3. Normal blood pressure and heart rate response 4. Sestamibi/sestamibi perfusion scan pending; see separate report. Electronically Signed On 05-23-2022 20:01:16 MOLD CUTTING MACHINE OPERATOR by Latosha Mauricio M.D. [email or web address]
[2022-05-20] MEDS: regadenoson 0.4 Mg/5 ml Syringe IVP (11:05)
[2022-05-20 11:24] VITALS: BP 133/89; PULSE 75
== END 2022-05-20 08:57 | disposition home or self-care (01) ==
LOC: CDL 08:59
PROVIDERS: PCP Family Medicine; Visit Provider Internal Medicine Cardiovascular Disease
DX: R07.89 Other chest pain (principal); I73.9 Peripheral vascular disease, unspecified; I48.11 Longstanding persistent atrial fibrillation; I63.9 Cerebral infarction, unspecified; R07.9 Chest pain, unspecified; I35.0 Nonrheumatic aortic (valve) stenosis; I50.42 Chronic combined systolic (congestive) and diastolic (congestive) heart failure; I42.8 Other cardiomyopathies
CPT/HCPCS: 36415; 78452; 93017; 96374; A9500; J2785

== ENCOUNTER 2022-08-02 12:30 | Oncology outpatient (recurring) (ONCR) | payer MEDICARE, MEDICAID, SELFPAY ==
[2022-08-02 13:47] LABS: Basophils % 0.5 %; Eosinophils % 0.5 %; Hematocrit 38.4 % (37.0-47.0); Hemoglobin 12.1 g/dL (11.5-15.3); Lymphocytes % 23.8 %; Mean Corpuscular HGB Conc 31.5 g/dL (30.0-36.0); Mean Corpuscular Volume 104.6 fl (81-99); Mean Platelet Volume 9.5 fL (7.4-10.4); Monocytes # 0.3 10^3/uL (0.2-0.9); Monocytes % 7.8 %; Neutrophils # 2.69 10^3/uL (1.8-7.7); Neutrophils % 67.1 %; Nucleated Red Blood Cells % 0 %; Platelet Count 160 10^3/cmm (130-400); Red Blood Count 3.67 10^6/uL (4.1-5.3); Red Cell Distribution Width 14.4 % (12.1-15.1)
[2022-08-02 14:26] LABS: Alanine Aminotransferase 34 U/L (0-33); Albumin Level 3.8 g/dL (3.5-5.2); Alkaline Phosphatase 142 U/L (35-105); Anion Gap 10.8 (5-19); Aspartate Amino Transferase 32 U/L (0-32); Blood Urea Nitrogen 26 mg/dL (8-23); Calcium 9.4 mg/dL (8.5-10.5); Carbon Dioxide 30 mmol/L (22-29); Chloride 101 mmol/L (98-107); Ferritin 124 ng/mL (15-150); Globulin 2.6 g/dL (1.3-4.6); Glucose 176 mg/dL (65-115); Iron 104 ug/dL (37-145); Lactate Dehydrogenase 304 U/L (135-214); Osmolality Calculated 295 mOsm/kg (285-295); Percent Saturation 38.3 % (20-50); Potassium 3.8 mmol/L (3.5-5.1); Sodium 138 mmol/L (136-145); Total Bilirubin 0.8 mg/dL (0.15-1.2); Total Iron Binding Capacity 271 mcg/dl; Total Protein 6.4 g/dL (6.6-8.7); Unsaturated Iron Binding 167 ug/dL (112-347)
== END 2022-08-10 23:59 | disposition home or self-care (01) ==
PROVIDERS: PCP Family Medicine; Visit Provider Internal Medicine Medical Oncology
DX: D72.819 Decreased white blood cell count, unspecified (principal); R74.01 Elevation of levels of liver transaminase levels; E80.7 Disorder of bilirubin metabolism, unspecified; B02.9 Zoster without complications; Z79.899 Other long term (current) drug therapy; Z87.891 Personal history of nicotine dependence
CPT/HCPCS: 36415; 80053; 82728; 83540; 83550; 83615; 85025; 99213; 99214

== ENCOUNTER → 2022-12-16 11:50 | Outpatient (BNVA) | payer MEDICARE, MEDICAID, SELFPAY | PROVIDERS: PCP Family Medicine; Visit Provider Internal Medicine Cardiovascular Disease | DX: I11.0 Hypertensive heart disease with heart failure (principal); I50.42 Chronic combined systolic (congestive) and diastolic (congestive) heart failure; R42 Dizziness and giddiness; Z87.891 Personal history of nicotine dependence | CPT/HCPCS: 99214 ==

== ENCOUNTER 2023-01-26 10:45 | Oncology outpatient (recurring) (ONCR) | payer MEDICARE, MEDICAID, SELFPAY ==
[2023-01-26 11:37] VITALS: BP 149/76; PULSE 84; RESP 18; TEMP 36.3; O2SAT 90
[2023-01-26 11:50] LABS: Basophils % 0.7 %; Eosinophils # 0.1 10^3/uL (0.0-0.8); Eosinophils % 1.3 %; Hematocrit 37.4 % (37.0-47.0); Hemoglobin 12.4 g/dL (11.5-15.3); Lymphocytes # 0.6 10^3/uL (0.8-4.8); Lymphocytes % 12.7 %; Mean Corpuscular HGB Conc 33.2 g/dL (30.0-36.0); Mean Corpuscular Hemoglobin 33.2 pg (28.0-34.0); Mean Corpuscular Volume 100.3 fl (81-99); Mean Platelet Volume 9.2 fL (7.4-10.4); Monocytes # 0.4 10^3/uL (0.2-0.9); Monocytes % 8.7 %; Neutrophils # 3.42 10^3/uL (1.8-7.7); Neutrophils % 76.4 %; Nucleated Red Blood Cells % 0 %; Platelet Count 208 10^3/cmm (130-400); Red Blood Count 3.73 10^6/uL (4.1-5.3); Red Cell Distribution Width 14.3 % (12.1-15.1); White Blood Count 4.5 10^3/uL (4.0-10.0)
[2023-01-26 11:51] LABS: Erythrocyte Sedimentation Rate 6 mm/hr (0-15)
[2023-01-26 12:30] LABS: Alanine Aminotransferase 17 U/L (0-33); Albumin Level 3.8 g/dL (3.5-5.2); Alkaline Phosphatase 126 U/L (35-105); Anion Gap 11.7 (5-19); Aspartate Amino Transferase 24 U/L (0-32); Blood Urea Nitrogen 19 mg/dL (8-23); C Reactive Protein 8.6 mg/L (0.0-4.9); Calcium 9.2 mg/dL (8.5-10.5); Carbon Dioxide 31 mmol/L (22-29); Chloride 102 mmol/L (98-107); Globulin 2.6 g/dL (1.3-4.6); Glucose 97 mg/dL (65-115); Iron 88 ug/dL (37-145); Lactate Dehydrogenase 289 U/L (135-214); Osmolality Calculated 294 mOsm/kg (285-295); Percent Saturation 34.9 % (20-50); Potassium 3.7 mmol/L (3.5-5.1); Sodium 141 mmol/L (136-145); Thyroid Stimulating Hormone 2.51 uIU/mL (0.27-4.20); Total Iron Binding Capacity 252 mcg/dl; Total Protein 6.4 g/dL (6.6-8.7); Unsaturated Iron Binding 164 ug/dL (112-347)
[2023-01-26 13:26] LABS: Vitamin B12 820 pg/mL (232-1245)
== END 2023-02-10 23:59 | disposition home or self-care (01) ==
PROVIDERS: PCP Family Medicine; Visit Provider Internal Medicine Medical Oncology
DX: D72.819 Decreased white blood cell count, unspecified (principal); D64.9 Anemia, unspecified; R40.0 Somnolence; R53.83 Other fatigue; R25.1 Tremor, unspecified
CPT/HCPCS: 36415; 80053; 82607; 83540; 83550; 83615; 84443; 85025; 85651; 86140; 99214

== ENCOUNTER → 2023-02-24 10:42 | Outpatient (BNVA) | payer MEDICARE, MEDICAID, SELFPAY | PROVIDERS: PCP Family Medicine; Visit Provider Internal Medicine Cardiovascular Disease | DX: I73.9 Peripheral vascular disease, unspecified (principal); D64.9 Anemia, unspecified; R07.89 Other chest pain; M31.6 Other giant cell arteritis; R41.89 Other symptoms and signs involving cognitive functions and awareness; I26.99 Other pulmonary embolism without acute cor pulmonale; J18.9 Pneumonia, unspecified organism; E78.5 Hyperlipidemia, unspecified; J44.9 Chronic obstructive pulmonary disease, unspecified; J96.21 Acute and chronic respiratory failure with hypoxia; I35.0 Nonrheumatic aortic (valve) stenosis; I11.0 Hypertensive heart disease with heart failure; I50.42 Chronic combined systolic (congestive) and diastolic (congestive) heart failure; I42.8 Other cardiomyopathies; Z86.73 Personal history of transient ischemic attack (TIA), and cerebral infarction without residual deficits; Z87.891 Personal history of nicotine dependence | CPT/HCPCS: 99214 ==

== ENCOUNTER 2023-03-15 12:23 | Outpatient (CLI) | payer MEDICARE, MEDICAID, SELFPAY ==
--- NOTE | 2023-03-15 12:37 | USCV_ITS ---
Rowena Gil Age: 77 Gender: F : 1945 Exam Date: 03/15/2023 12:42 Ordering Phys: Sreedhar Mejia MD Technologist: Exam Location: [facility] [place] Indication: pvd RIGHT LEFT Brachial 165.00 mmHg Brachial 160.00 mmHg Pressure (mmHg) Waveform Pressure (mmHg) Waveform 100.00 REHABILITATOR 90.0 106.00 DPA 86.0 0.60 Ankle/Brachial Index 0.50 0.47 Pre-Exercise Toe/Brachial Index 0.33 FINDINGS Resting NARINDER of 0.6 on the right and 0.5 on the left side Resting TBI of 0.47 on the right and 0.33 on the left CONCLUSIONS 1. Abnormal resting NARINDER and TBI on the right side suggesting moderate peripheral arterial disease 2. Abnormal resting NARINDER and TBI on the left side suggesting severe peripheral artery disease Compared to the study from 02/03/2022, there is worsening of the ABIs bilaterally Dr Latosha Mauricio MD [facility] (Electronically Signed) Final Date: 15 March 2023 19:34 S
== END 2023-03-15 12:24 | disposition home or self-care (01) ==
PROVIDERS: PCP Family Medicine; Visit Provider Family Medicine
DX: I73.9 Peripheral vascular disease, unspecified (principal)
CPT/HCPCS: 93922

== ENCOUNTER 2023-05-21 13:46 | Emergency (ER) | payer MEDICARE, MEDICAID, SELFPAY ==
[2023-05-21 13:47] VITALS: BP 142/86; PULSE 86; RESP 18; TEMP 36.4; O2SAT 91; BMI 26.5
--- NOTE | 2023-05-21 14:08 | PC.NURSE ---
placed pt on 2L NC due to continued dropping o2 saturations of 85-89%
--- NOTE | 2023-05-21 14:22 | XRR_ITS ---
PROCEDURE INFORMATION: Exam: XR Chest Exam date and time: 05/21/2023 2:57 PM Age: 77 years old Clinical indication: Cough and dyspnea; Additional info: Dyspnea/cough TECHNIQUE: Imaging protocol: Radiologic exam of the chest. Views: 1 view. COMPARISON: CR XR chest 2V* [id number] 03/23/2021 10:43 AM FINDINGS: Lungs: Increased lung volumes. No focal lung consolidations. Pleural spaces: Mild blunting of the left costophrenic angle. No pneumothorax. Heart/Mediastinum: Cardiomegaly. Bones/joints: Unremarkable. XR/XR chest 1V portable [id number] IMPRESSION: 1. Small left lower lobe pleural effusion. 2. Cardiomegaly.
--- NOTE | 2023-05-21 14:28 | ED_ITS ---
HPI - SOB/Dyspnea 2 General: Chief Complaint: Shortness of Breath/Dyspnea Stated Complaint: sob,low O2,swollen legs Time Seen by Provider: 05/21/23 13:49 Source: patient Mode of arrival: ambulatory History of Present Illness: HPI Narrative: 69-year-old female notes increased swell ing in bilateral inner legs and some shortness of breath. Denies any chest pain. She has noted orthopnea. She is currently taking Lasix does take it daily. She has home oxygen she uses intermittently but now has needed to use it regularly last several days. MD elicited complaint: shortness of breath and cough Pertinent past history: congestive heart failure, PE and other (atrial fibrilation) Onset (ago): day(s) Timing: constant Severity: moderate Exacerbating factors: exertion and coughing Relieving factors: nothing Known history of: congestive heart failure Associated symptoms: Reports chest congestion, cough and other; Deny abdominal pain, chest pain, diaphoresis, dizziness, extremity pain, fever(s), hemoptysis, lightheadedness, myalgias, nausea, orthopnea, palpitations, paresthesias, polydipsia, polyuria, rash, sense of impending doom, syncope or vomiting Related Data: Home oxygen amount: 2 liters Review of Systems 2 Const: Denies: fever(s), chills, fatigue, malaise or diaphoresis Card: Denies: chest pain, palpitations, lightheadedness, syncope or orthopnea Resp: Reports: dyspnea, productive cough, wheezing and chest congestion; Denies: hemoptysis GI: Denies: abdominal pain, nausea or vomiting : Denies: flank pain, dysuria, urinary frequency or urinary urgency Musc: Denies: neck pain, back pain or extremity pain Skin/Breast: Denies: rash Neuro: Denies: dizziness Endo: Denies: polyuria or polydipsia PFSH ED 2 PFSH: Medical History History of nonmelanoma skin cancer Osteoporosis CHF (congestive heart failure) History of atrial fibrillation History of pulmonary embolism (2019) Hypothyroidism Valvular heart disease Moderate mitral and tricuspid regurgitation and trace aortic regurgitation by echocardiogram Peripheral arterial disease Leukopenia Temporal arteritis Varicose vein of leg Anemia History of transfusion dependent anemia Dyslipidemia Hypertension CVA (cerebral vascular accident) (2019) GERD (gastroesophageal reflux disease) COPD (chronic obstructive pulmonary disease) Albuterol and Atrovent, budesonide, oxygen Surgical History History of PTCA Status post surgical removal of malignant neoplasm of skin (01/2021) 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 History of angioplasty (2015) Angioplasty to right superficial femoral artery History of bilateral cataract extraction S/P dilatation and curettage Hx of coronary artery balloon dilation History of heart surgery History of intravascular stent placement (2015) Left superficial femoral artery History of colonoscopy Hx of tonsillectomy Family History Mother Hypertension Father Stroke Denies family history of Diabetes CAD (coronary artery disease) Clotting disorder Hyperlipidemia Chronic kidney disease (CKD) Bleeding disorder Cancer Social History Smoking and tobacco/nicotine status: former use of tobacco/nicotine Quit status (tobacco/nicotine): has quit using Year quit tobacco: 2008 Alcohol intake: never Substance/Drug Use: never Physical Exam 2 Const: GENERAL APPEARANCE: cooperative and comfortable O RIENTATION/CONSCIOUSNESS: Yes awake, Yes oriented to person, Yes oriented to place and Yes oriented to time HENMT: COMMON NORMALS: normocephalic, atraumatic and hearing grossly normal bilaterally HEAD & SCALP: normocephalic and atraumatic Resp: COMMON NORMALS: normal respiratory effort, No retractions and No use of accessory muscles AUSCULTATION: wheezes and diminished lung sounds Cardio: COMMON NORMALS: regular rate, regular rhythm and No murmurs present (Cardio) RATE: regular rate RHYTHM: regular rhythm GI: COMMON NORMALS: Soft to palpation and No hepatosplenomegaly present A USCULTATION: Yes normoactive bowel sounds PALPATION: Yes Soft to palpation, No Tenderness to palpation present (GI), No Guarding due to palpation present (GI) and Yes No hepatosplenomegaly present Extremity: OTHER: 2+ edema lower extremities negative Lucinda ns test Neuro: SENSORIUM/ORIENTATION: Yes oriented to person, Yes oriented to place and Yes oriented to time Skin: COMMON NORMALS: no rashes or lesions noted GENERAL SKIN EXAM: no rashes or lesions noted Course 2 Vital Signs: Vital signs: Vital Signs Temperature 97.6 F 05/21/23 13:47 Pulse Rate 87 05/21/23 16:55 Respiratory Rate 20 H 05/21/23 16:55 Blood Pressure 184/92 05/21/23 16:55 Pulse Oximetry 99 05/21/23 16:55 Oxygen Delivery Me thod Nasal Cannula 05/21/23 16:03 Oxygen Flow Rate 2 05/21/23 16:03 MDM - SOB/Dyspnea Medical Decision Making Labs and imaging reviewed. Oxygen saturation normalized with 2 L by nasal cannula. BNP increased negative Homans no tachycardia will increase Lasix to twice daily for 3 days follow-up with primary care next week return if has further problems. Medical Records I reviewed the patient's medical records. Lab Data I reviewed the patient's lab results. 05/21/23 14:33 05/21/23 14:33 Labs/Radiology: Radiology Impressions Chest X-Ray 05/21/23 14:22 IMPRESSION: 1. Small left lower lobe pleural effusion. 2. Cardiomegaly. Laboratory Results WBC 3.80 10^3/uL (3.29-11.43) 05/21/23 14:33 RBC 3.58 10^6/uL (3.85-5.65) L 05/21/23 14:33 Hgb 12.00 g/dL (11.27-16.99) 05/21/23 14:33 Hct 37.8 % (36-47) 05/21/23 14:33 MCV 105.6 fl (85-98) H 05/21/23 14:33 MCH 33.5 pg (27-33) H 05/21/23 14:33 MCHC 31.7 g/dL (30-55) 05/21/23 14:33 RDW 15.4 % (12.1-15.1) H 05/21/23 14:33 Plt Count 176 10^3/cmm (157-399) 05/21/23 14:33 MPV 9.2 fL (7.4-10.4) 05/21/23 14:33 Neut % (Auto) 71.1 % 05/21/23 14:33 Lymph % (Auto) 16.6 % 05/21/23 14:33 [place] % (Auto) 9.7 % 05/21/23 14:33 Eos % (Auto) 1.3 % 05/21/23 14:33 Baso % (Auto) 0.8 % 05/21/23 14:33 Neut # (Auto) 2.70 10^3/uL (1.8-7.7) 05/21/23 14:33 Lymph # (Auto) 0.6 10^3/uL (0.8-4.8) L 05/21/23 14:33 [place] # (Auto) 0.4 10^3/uL (0.2-0.9) 05/21/23 14:33 Eos # (Auto) 0.1 10^3/uL (0.0-0.8) 05/21/23 14:33 Baso # (Auto) 0.0 10^3/uL (0.0-0.1) 05/21/23 14:33 Nucleated RBC % (auto) 0 % 05/21/23 14:33 Nucleated RBCs # 0.0 /100WBC 05/21/23 14:33 Specimen Type Arterial 05/21/23 15:16 Sample Site Brachial, left 05/21/23 15:16 ABG pH 7.41 (7.35-7.45) 05/21/23 15:16 ABG pCO2 44.9 mmHg (35-45) 05/21/23 15:16 ABG pO2 92.6 mmHg (80.0-100.0) 05/21/23 15:16 ABG PO2/FiO2 Ratio 0 05/21/23 15:16 ABG HCO3 28.1 mmol/L (22-26) H 05/21/23 15:16 ABG O2 Saturation 97.2 05/21/23 15:16 ABG Base Excess 2.8 mmol/L (-2.0-2.0) H 05/21/23 15:16 [place]roy Test N/a 05/21/23 15:16 A-a O2 Gradient 6.6 mmHg (5-10) 05/21/23 15:16 Hematocrit 37.1 % (37-47) 05/21/23 15:16 Hgb O2 Saturation 95.1 % (95-100) 05/21/23 15:16 Carboxyhemoglobin 1.7 %THgb (0.4-20.1) 05/21/23 15:16 Methemoglobin 0.5 % (0.4-1.5) 05/21/23 15:16 Total Hemoglobin 12.1 g/dL (12-16) 05/21/23 15:16 Sodium 143.0 mmol/L (131-143) 05/21/23 15:16 Potassium 3.2 mmol/L (3.5-5.0) L 05/21/23 15:16 Glucose 128.0 mg/dL (70-115) H 05/21/23 15:16 Ionized Calcium 1.3 mmol/L (1.1-1.4) 05/21/23 15:16 O2 Delivery Device Nc 05/21/23 15:16 O2 Liters/Min 2.0 % 05/21/23 15:16 FiO2 28.0 % 05/21/23 15:16 Cipher Expert ID Amh 05/21/23 15:16 Sodium 145 mmol/L (136-145) 05/21/23 14:33 Potassium 3.5 mmol/L (3.5-5.1) 05/21/23 14:33 Chloride 107 mmol/L (98-107) 05/21/23 14:33 Carbon Dioxide 27 mmol/L (22-29) 05/21/23 14:33 Anion Gap 14.5 (5-19) 05/21/23 14:33 BUN 19 mg/dL (8-23) 05/21/23 14:33 Creatinine 0.7 mg/dL (0.5-0.9) 05/21/23 14:33 GFR Calculation Not Reportable 05/21/23 14:33 Glucose 148 mg/dL (65-115) H 05/21/23 14:33 Calculated Osmolality 305 mOsm/kg (285-295) H 05/21/23 14:33 Calcium 9.2 mg/dL (8.5-10.5) 05/21/23 14:33 Total Bilirubin 0.9 mg/dL (0.15-1.2) 05/21/23 14:33 AST 24 U/L (0-32) 05/21/23 14:33 ALT 29 U/L (0-33) 05/21/23 14:33 Alkaline Phosphatase 130 U/L (35-105) H 05/21/23 14:33 NT-Pro-B Natriuret Pep 6349 pg/mL (0-450) H 05/21/23 14:33 Total Protein 6.2 g/dL (6.6-8.7) L 05/21/23 14:33 Albumin 3.7 g/dL (3.5-5.2) 05/21/23 14:33 Globulin 2.5 g/dL (1.3-4.6) 05/21/23 14:33 All radiology interpretation(s) finalized by discharge Discharge Plan Discharge Patient Disposition: Home Clinical Impression: Nonischemic cardiomyopathy, Congestive heart failure Condition: Stable Prescriptions: No Action ipratropium bromide 21 mcg (0.03 %) spray,non-aerosol 2 spray intranasal TID PRN (Reason: Nasal Congestion) ferrous sulfate 325 mg (65 mg iron) tablet 325 mg PO QAM [id number] 333-133-5 mg tablet 1 tab PO QAM [place] Saline Gel 1 applic topical DAILY prednisolone acetate 1 % drops,suspension 1 drp ophthalmic (eye) BID Rx Instructions: both eyes atorvastatin 40 mg tablet 40 mg PO BEDTIME Qty: 90 3RF vitamin B complex Tablet 1 tab PO QAM fluticasone propionate 50 mcg/actuation spray,suspension 2 spray INTRANASAL DAILY potassium chloride 10 mEq capsule, extended release 10 meq PO QAM Tylenol Ex Str Rapid Release 500 mg Tablet 500 mg PO BID albuterol sulfate 90 mcg/actuation HFA aerosol inhaler 2 puff INHALATION QID PRN (Reason: Cough) Vitamin D3 50 mcg (2,000 unit) Tablet 2,000 unit PO QAM lutein 40 mg Capsule 40 mg PO QAM Rx Instructions: administer with meals furosemide 40 mg tablet 60 mg PO QAM metoprolol tartrate 100 mg tablet 100 mg PO BID DILT-XR 180 mg capsule,ext.rel 24h degradable 180 mg PO QAM Discharge Orders: Discharge ED (Routine); Ordered 05/21/23 Ordered By: Gwyn Sánchez Referrals: Sreedhar Mejia MD [Primary Care Provider] - Discharge Diet: Usual diet Discharge Activity: Increase activity as tolerated Patient Instructions: Opioid Safety, Pain Management Activity Restrictions/Additional Instructions: Thank you for choosing [facility] for your healthcare needs today. Please realize this is an emergency room and that we are providing you with a medical screening exam and this may not be complete and all inclusive of all the testing and or work up that you may need to determine your ailment or severity of your illness. It is very important that you follow up as instructed or that you return to the Emergency Department should you have concerns or if your condition changes or worsens in any way. You are seen today for shortness of breath you have mild congestive heart failure. Recommend you increase your Lasix to twice a day for 3 days then resume once daily. Follow-up with your primary care doctor in 3 to 4 days. Coding Level of Care Code ED Business Development Recruiter for Cassie Porras
[2023-05-21 14:37] VITALS: BP 140/106; PULSE 82; RESP 18; O2SAT 100
[2023-05-21 14:41] LABS: Basophils % 0.8 %; Eosinophils # 0.1 10^3/uL (0.0-0.8); Eosinophils % 1.3 %; Hematocrit 37.8 % (36-47); Lymphocytes # 0.6 10^3/uL (0.8-4.8); Lymphocytes % 16.6 %; Mean Corpuscular HGB Conc 31.7 g/dL (30-55); Mean Corpuscular Hemoglobin 33.5 pg (27-33); Mean Corpuscular Volume 105.6 fl (85-98); Mean Platelet Volume 9.2 fL (7.4-10.4); Monocytes # 0.4 10^3/uL (0.2-0.9); Monocytes % 9.7 %; Neutrophils % 71.1 %; Nucleated Red Blood Cells % 0 %; Platelet Count 176 10^3/cmm (157-399); Red Blood Count 3.58 10^6/uL (3.85-5.65); Red Cell Distribution Width 15.4 % (12.1-15.1)
[2023-05-21 15:06] LABS: Alanine Aminotransferase 29 U/L (0-33); Albumin Level 3.7 g/dL (3.5-5.2); Alkaline Phosphatase 130 U/L (35-105); Anion Gap 14.5 (5-19); Aspartate Amino Transferase 24 U/L (0-32); Blood Urea Nitrogen 19 mg/dL (8-23); Calcium 9.2 mg/dL (8.5-10.5); Carbon Dioxide 27 mmol/L (22-29); Chloride 107 mmol/L (98-107); Globulin 2.5 g/dL (1.3-4.6); Glucose 148 mg/dL (65-115); NT Pro B Type Natriuretic Pept 6349 pg/mL (0-450); Osmolality Calculated 305 mOsm/kg (285-295); Potassium 3.5 mmol/L (3.5-5.1); Sodium 145 mmol/L (136-145); Total Bilirubin 0.9 mg/dL (0.15-1.2); Total Protein 6.2 g/dL (6.6-8.7)
[2023-05-21 15:27] LABS: ABG PCO2 44.9 mmHg (35-45); ABG PH Result 7.41 (7.35-7.45); Alveolar-Arterial Oxygen Gradi 6.6 mmHg (5-10); Arterial Blood Gas Hematocrit 37.1 % (37-47); Base Excess ABG 2.8 mmol/L (-2.0-2.0); Blood Gas Operator Identificat AMH; Blood Gas Sample Site Brachial, left; Blood Gas Sample Type Arterial; Carboxyhemoglobin 1.7 %THgb (0.4-20.1); HCO3 ABG 28.1 mmol/L (22-26); HGB O2 Sat 95.1 % (95-100); Ionized Calcium Level - ABG 1.3 mmol/L (1.1-1.4); Methemoglobin 0.5 % (0.4-1.5); Oxygen Device NC; Oxygen Saturation ABG 97.2; PO2 ABG 92.6 mmHg (80.0-100.0); PO2 FiO2 Ratio Arterial Blood 0; Potassium Level - ABG 3.2 mmol/L (3.5-5.0); Total Hemoglobin 12.1 g/dL (12-16)
[2023-05-21 16:03] VITALS: BP 159/90; PULSE 89; RESP 18; O2SAT 98
[2023-05-21] MEDS: FUROsemide 10 mg/mL SDV 10mL 60 MG IVP (16:21)
[2023-05-21 16:55] VITALS: BP 184/92; PULSE 87; RESP 20; O2SAT 99
== END 2023-05-21 16:57 | disposition home or self-care (01) ==
PROVIDERS: Emergency Provider Family Medicine; PCP Family Medicine
DX: I42.8 Other cardiomyopathies (principal); I11.0 Hypertensive heart disease with heart failure; I50.9 Heart failure, unspecified; Z87.891 Personal history of nicotine dependence; Z99.81 Dependence on supplemental oxygen
CPT/HCPCS: 36600; 71045; 80051; 80053; 82330; 82805; 83880; 85025; 96374; 99284; J1940

== ENCOUNTER 2023-05-28 08:34 | Emergency (ER) | payer MEDICARE, MEDICAID, SELFPAY ==
--- NOTE | 2023-05-28 08:39 | XRR_ITS ---
PROCEDURE INFORMATION: Exam: XR Chest Exam date and time: 05/28/2023 8:46 AM Age: 77 years old Clinical indication: Shortness of breath; Additional info: SOB TECHNIQUE: Imaging protocol: Radiologic exam of the chest. Views: 1 view. COMPARISON: CR (CHEST, ) 05/21/2023 2:57 PM FINDINGS: Lungs: Unremarkable. No consolidation. Pleural spaces: Unremarkable. No pleural effusion. No pneumothorax. Heart/Mediastinum: Cardiomegaly. Bones/joints: Unremarkable. XR/XR chest 1V portable [id number] IMPRESSION: Cardiomegaly with no acute process
--- NOTE | 2023-05-28 08:39 | ECG_ITS ---
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 Measurements Intervals [place] Rate: 138 P: 0 VA: 0 QRS: -26 QRSD: 98 T: 95 QT: 332 QTc: 503 Interpretive Statements ATRIAL FIBRILLATION WITH RAPID VENTRICULAR RESPONSE WITH ABERRANT CONDUCTION OR VENTRICULAR PREMATURE COMPLEXES BORDERLINE LEFT AXIS DEVIATION [QRS AXIS < -20] NONSPECIFIC ST & T-WAVE ABNORMALITY INTERPRETATION BASED ON A DEFAULT AGE OF 40 YEARS Compared to ECG 01/23/2021 12:59:17 Aberrant conduction of supraventricular beat(s) now present Ventricular premature complex(es) now present T-wave abnormality still present Electronically Signed On 05-28-2023 18:43:51 BENCH PATTERNMAKER METAL by Latosha Mauricio M.D. [id number] f
[2023-05-28 08:42] VITALS: BP 148/119; PULSE 123; RESP 20; O2SAT 99
[2023-05-28] MEDS: dilTIAZem 5 mg/mL SDV 5 mL 20 MG IVP (08:57)
--- NOTE | 2023-05-28 08:57 | ED_ITS ---
HPI - SOB/Dyspnea 2 General: Chief Complaint: Shortness of Breath/Dyspnea Stated Complaint: SOB; CHEST PAIN Time Seen by Provider: 05/28/23 08:38 Source: patient Mode of arrival: ambulatory Limitations: no limitations History of Present Illness: HPI Narrative: 77-year-old female with a history of A-f ib along with COPD and CHF states she feels like she is hemolyzing fluid was seen here a few days ago states that she feels like she has had increased shortness of breath and lower extremity edema patient not requiring oxygen here she does have a history of A-fib is in with A- fib with RVR she had some mild chest pains. Associated symptoms: Reports chest pain; Deny abdominal pain, fever(s), nausea or vomiting Review of Systems 2 Const: Denies: fever(s) or chills ENMT: Denies: throat pain or dental pain Card: Reports: chest pain and irregular heart rhythm Resp: Reports: dyspnea GI: Denies: abdominal pain, nausea, vomiting or diarrhea Musc: Denies: neck pain or back pain Skin/Breast: Denies: rash Neuro: Denies: headache(s) PFSH ED 2 PFSH: Medical History History of nonmelanoma skin cancer Osteoporosis CHF (congestive heart failure) History of atrial fibrillation History of pulmonary embolism (2019) Hypothyroidism Valvular heart disease Moderate mitral and tricuspid regurgitation and trace aortic regurgitation by echocardiogram Peripheral arterial disease Leukopenia Temporal arteritis Varicose vein of leg Anemia History of transfusion dependent anemia Dyslipidemia Hypertension CVA (cerebral vascular accident) (2019) GERD (gastroesophageal reflux disease) COPD (chronic obstructive pulmonary disease) Albuterol and Atrovent, budesonide, oxygen Surgical History History of PTCA Status post surgical removal of malignant neoplasm of skin (01/2021) 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 History of angioplasty (2015) Angioplasty to right superficial femoral artery History of bilateral cataract extraction S/P dilatation and curettage Hx of coronary artery balloon dilation History of heart surgery History of intravascular stent placement (2015) Left superficial femoral artery History of colonoscopy Hx of tonsillectomy Family History Mother Hypertension Father Stroke Denies family history of Diabetes CAD (coronary artery disease) Clotting disorder Hyperlipidemia Chronic kidney disease (CKD) Bleeding disorder Cancer Social History Smoking and tobacco/nicotine status: former use of tobacco/nicotine Quit status (tobacco/nicotine): has quit using Year quit tobacco: 2008 Alcohol intake: never Substance/Drug Use: never Physical Exam 2 Const: COMMON NORMALS: no acute distress, patient oriented x3 and healthy appearing HENMT: COMMON NORMALS: normocephalic and atraumatic HEAD & SCALP: n ormocephalic and atraumatic Neck/C-Spine: COMMON NORMALS: full ROM and supple Chest: COMMONS NORMALS: normal inspection of the chest Resp: COMMON NORMALS: normal respiratory effort, No retractions, No use of accessory muscles and clear to auscultation bilaterally AUSCULTATION: clear to auscultation bilaterally Cardio: COMMON NORMALS: No murmurs present (Cardio) RATE: tachycardic R HYTHM: abnormal rhythm irregularly irregular GI: COMMON NORMALS: Normal to inspection, nondistended, normoactive bowel sounds present, Soft to palpation, non-tender and no masses PALPATION: Yes Soft to palpation Extremity: COMMON NORMALS: full ROM OTHER: 1+edema le Neuro: COMMON NORMALS: patient oriented x3, moves all extremities and no focal motor deficits Psych: COMMON NORMALS: mental status grossly normal, Normal thought process present and cooperative THOUGHT PROCESS: Normal thought process present Skin: COMMON NORMALS: no rashes or lesions noted and no wounds GENERAL SKIN EXAM: no rashes or lesions noted Course 2 Vital Signs: Vital signs: Vital Signs Pulse Rate 106 H 05/28/23 11:16 Respiratory Rate 20 H 05/28/23 08:42 Blood Pressure 167/75 05/28/23 11:16 Pulse Oximetry 99 05/28/23 11:16 Oxygen Delivery Me thod Nasal Cannula 05/28/23 08:42 Oxygen Flow Rate 3 05/28/23 08:42 MDM - SOB/Dyspnea Medical Decision Making Patient presents for shortness of breath she does have a history of CHF she is also in A-fib here has a history of A-fib heart rate here is much improved she has no signs of pulm edema she is stable here on her 2 L of oxygen did give her IV Lasix she is to continue her Lasix at home she is stable for discharge she has no signs of pulmonary embolism she is return if worsening. Medical Records I reviewed the patient's medical records. Lab Data I reviewed the patient's lab results. 05/28/23 08:58 05/28/23 08:58 Labs/Radiology: Radiology Impressions Chest X-Ray 05/28/23 08:39 IMPRESSION: Cardiomegaly with no acute process Laboratory Results WBC 7.01 10^3/uL (3.29-11.43) 05/28/23 08:58 RBC 4.02 10^6/uL (3.85-5.65) 05/28/23 08:58 Hgb 13.70 g/dL (11.27-16.99) 05/28/23 08:58 Hct 42.7 % (36-47) 05/28/23 08:58 MCV 106.2 fl (85-98) H 05/28/23 08:58 MCH 34.1 pg (27-33) H 05/28/23 08:58 MCHC 32.1 g/dL (30-55) 05/28/23 08:58 RDW 15.8 % (12.1-15.1) H 05/28/23 08:58 Plt Count 162 10^3/cmm (157-399) 05/28/23 08:58 MPV 9.3 fL (7.4-10.4) 05/28/23 08:58 Neut % (Auto) 84.6 % 05/28/23 08:58 Lymph % (Auto) 6.6 % 05/28/23 08:58 Gage % (Auto) 7.8 % 05/28/23 08:58 Eos % (Auto) 0.3 % 05/28/23 08:58 Baso % (Auto) 0.4 % 05/28/23 08:58 Neut # (Auto) 5.93 10^3/uL (1.8-7.7) 05/28/23 08:58 Lymph # (Auto) 0.5 10^3/uL (0.8-4.8) L 05/28/23 08:58 Gage # (Auto) 0.6 10^3/uL (0.2-0.9) 05/28/23 08:58 Eos # (Auto) 0.0 10^3/uL (0.0-0.8) 05/28/23 08:58 Baso # (Auto) 0.0 10^3/uL (0.0-0.1) 05/28/23 08:58 Nucleated RBC % (auto) 0 % 05/28/23 08:58 Nucleated RBCs # 0.0 /100WBC 05/28/23 08:58 PT 13.10 SECONDS (12.1-14.9) 05/28/23 08:58 INR 0.96 (0.8-1.2) 05/28/23 08:58 Sodium 141 mmol/L (136-145) 05/28/23 08:58 Potassium 3.3 mmol/L (3.5-5.1) L 05/28/23 08:58 Chloride 102 mmol/L (98-107) 05/28/23 08:58 Carbon Dioxide 27 mmol/L (22-29) 05/28/23 08:58 Anion Gap 15.3 (5-19) 05/28/23 08:58 BUN 19 mg/dL (8-23) 05/28/23 08:58 Creatinine 0.7 mg/dL (0.5-0.9) 05/28/23 08:58 GFR Calculation Not Reportable 05/28/23 08:58 Glucose 132 mg/dL (65-115) H 05/28/23 08:58 Calculated Osmolality 296 mOsm/kg (285-295) H 05/28/23 08:58 Calcium 9.1 mg/dL (8.5-10.5) 05/28/23 08:58 Total Bilirubin 1.3 mg/dL (0.15-1.2) H 05/28/23 08:58 AST 23 U/L (0-32) 05/28/23 08:58 ALT 23 U/L (0-33) 05/28/23 08:58 Alkaline Phosphatase 139 U/L (35-105) H 05/28/23 08:58 Troponin T Baseline 20 ng/L (0-10) H 05/28/23 08:58 Troponin T 120 Minute 18.26 ng/L (0-10) H 05/28/23 10:52 Delta Troponin T -1.74 ABS# (0-10) L 05/28/23 10:52 NT-Pro-B Natriuret Pep 3145 pg/mL (0-450) H 05/28/23 08:58 Total Protein 6.4 g/dL (6.6-8.7) L 05/28/23 08:58 Albumin 4.3 g/dL (3.5-5.2) 05/28/23 08:58 Globulin 2.1 g/dL (1.3-4.6) 05/28/23 08:58 No radiology studies performed this visit EKG Data EKG 1: I personally reviewed and interpreted this EKG as follows: EKG Interpretation Date: 05/28/23 EKG interpretation time: 08:42 Interpretation: afib with rvr hr [address] or t wave abnormalities [id number] qtc 412 Discharge Plan Discharge Patient Disposition: Home Clinical Impression: Congestive heart failure Atrial fibrillation Qualifiers: Atrial fibrillation type: longstanding persistent Qualified Code(s): I48.11 - Longstanding persistent atrial fibrillation Condition: Stable Prescriptions: No Action ipratropium bromide 21 mcg (0.03 %) spray,non-aerosol 2 spray intranasal TID PRN (Reason: Nasal Congestion) ferrous sulfate 325 mg (65 mg iron) tablet 325 mg PO QAM [id number] 333-133-5 mg tablet 1 tab PO QAM [place] Saline Gel 1 applic topical DAILY prednisolone acetate 1 % drops,suspension 1 drp ophthalmic (eye) BID atorvastatin 40 mg tablet 40 mg PO BEDTIME Qty: 90 3RF vitamin B complex Tablet 1 tab PO QAM fluticasone propionate 50 mcg/actuation spray,suspension 2 spray INTRANASAL DAILY potassium chloride 10 mEq capsule, extended release 10 meq PO QAM acetaminophen [Tylenol Ex Str Rapid Release] 500 mg Tablet 500 mg PO BID albuterol sulfate 90 mcg/actuation HFA aerosol inhaler 2 puff INHALATION QID PRN (Reason: Cough) cholecalciferol (vitamin D3) [Vitamin D3] 50 mcg (2,000 unit) Tablet 2,000 unit PO QAM lutein 40 mg Capsule 40 mg PO QAM furosemide 40 mg tablet 60 mg PO QAM metoprolol tartrate 100 mg tablet 100 mg PO BID diltiazem HCl [DILT-XR] 180 mg capsule,ext.rel 24h degradable 180 mg PO QAM Entresto 24-26 mg tablet 1 tab PO DAILY Discharge Orders: Discharge ED (Routine); Ordered 05/28/23 Ordered By: Shima Quintanilla Referrals: Sreedhar Mejia MD [Primary Care Provider] - 1-3 days Discharge Diet: Advance as tolerated Discharge Activity: Resume usual activity Patient Instructions: Heart Failure (ED) Coding Level of Care Code ED Welt Drawer for Cassie Porras
[2023-05-28 09:16] VITALS: PULSE 84; O2SAT 98
[2023-05-28 09:17] LABS: Basophils % 0.4 %; Eosinophils % 0.3 %; Hematocrit 42.7 % (36-47); Lymphocytes # 0.5 10^3/uL (0.8-4.8); Lymphocytes % 6.6 %; Mean Corpuscular HGB Conc 32.1 g/dL (30-55); Mean Corpuscular Hemoglobin 34.1 pg (27-33); Mean Corpuscular Volume 106.2 fl (85-98); Mean Platelet Volume 9.3 fL (7.4-10.4); Monocytes # 0.6 10^3/uL (0.2-0.9); Monocytes % 7.8 %; Neutrophils # 5.93 10^3/uL (1.8-7.7); Neutrophils % 84.6 %; Nucleated Red Blood Cells % 0 %; Platelet Count 162 10^3/cmm (157-399); Red Blood Count 4.02 10^6/uL (3.85-5.65); Red Cell Distribution Width 15.8 % (12.1-15.1); White Blood Count 7.01 10^3/uL (3.29-11.43)
[2023-05-28 09:46] VITALS: BP 162/95; PULSE 97; O2SAT 98
[2023-05-28 09:48] LABS: INR 0.96 (0.8-1.2)
[2023-05-28 09:56] LABS: Troponin(5th) Baseline 20 ng/L (0-10)
[2023-05-28 10:16] VITALS: BP 162/91; PULSE 90; O2SAT 99
--- NOTE | 2023-05-28 10:23 | ECG_ITS ---
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 Measurements Intervals [place] Rate: 101 P: 0 OK: 0 QRS: -28 QRSD: 94 T: 66 QT: 369 QTc: 480 Interpretive Statements ATRIAL FIBRILLATION WITH RAPID VENTRICULAR RESPONSE WITH ABERRANT CONDUCTION OR VENTRICULAR PREMATURE COMPLEXES BORDERLINE LEFT AXIS DEVIATION [QRS AXIS < -20] MINIMAL VOLTAGE CRITERIA FOR LVH, CONSIDER NORMAL VARIANT [MEETS CRITERIA IN ONE OF: R(aVL), S(V1), R(V5), R(V5/V6)+S(V1)] NONSPECIFIC ST & T-WAVE ABNORMALITY ABNORMAL RHYTHM ECG Compared to ECG 01/23/2021 12:59:17 Ventricular premature complex(es) now present Aberrant conduction of supraventricular beat(s) now present T-wave abnormality still present Electronically Signed On 05-28-2023 19:00:36 GEOTECHNICAL ENGINEERING TECHNICIAN by Latosha Mauricio M.D. [id number]
[2023-05-28 10:31] LABS: Alanine Aminotransferase 23 U/L (0-33); Albumin Level 4.3 g/dL (3.5-5.2); Alkaline Phosphatase 139 U/L (35-105); Anion Gap 15.3 (5-19); Aspartate Amino Transferase 23 U/L (0-32); Blood Urea Nitrogen 19 mg/dL (8-23); Calcium 9.1 mg/dL (8.5-10.5); Carbon Dioxide 27 mmol/L (22-29); Chloride 102 mmol/L (98-107); Globulin 2.1 g/dL (1.3-4.6); Glucose 132 mg/dL (65-115); NT Pro B Type Natriuretic Pept 3145 pg/mL (0-450); Osmolality Calculated 296 mOsm/kg (285-295); Potassium 3.3 mmol/L (3.5-5.1); Sodium 141 mmol/L (136-145); Total Bilirubin 1.3 mg/dL (0.15-1.2); Total Protein 6.4 g/dL (6.6-8.7)
[2023-05-28 10:46] VITALS: BP 169/75; PULSE 105; O2SAT 99
[2023-05-28 11:16] VITALS: BP 167/75; PULSE 106; O2SAT 99
[2023-05-28] MEDS: dilTIAZem 60 mg Tablet PO (11:20)
[2023-05-28 11:53] LABS: Troponin 5 2HR 18.26 ng/L (0-10)
[2023-05-28 11:56] LABS: Troponin 5 2HR Delta -1.74 ABS# (0-10)
[2023-05-28] MEDS: FUROsemide 10 mg/mL SDV 10mL 60 MG IVP (12:16)
== END 2023-05-28 14:28 | disposition home or self-care (01) ==
PROVIDERS: Emergency Provider Emergency Medicine; PCP Family Medicine
DX: I48.11 Longstanding persistent atrial fibrillation (principal); Z87.891 Personal history of nicotine dependence; E78.5 Hyperlipidemia, unspecified; I11.0 Hypertensive heart disease with heart failure; I50.9 Heart failure, unspecified; Z86.73 Personal history of transient ischemic attack (TIA), and cerebral infarction without residual deficits; J44.9 Chronic obstructive pulmonary disease, unspecified
CPT/HCPCS: 36415; 71045; 80053; 83880; 84484; 85025; 85610; 93005; 96374; 96375; 99285; J1940; J3490

== ENCOUNTER → 2023-08-01 09:49 | Outpatient (BNVA) | payer MEDICARE, MEDICAID, SELFPAY | PROVIDERS: PCP Family Medicine; Visit Provider Internal Medicine Cardiovascular Disease | DX: I42.8 Other cardiomyopathies (principal); I11.0 Hypertensive heart disease with heart failure; I50.42 Chronic combined systolic (congestive) and diastolic (congestive) heart failure; E78.5 Hyperlipidemia, unspecified; I35.0 Nonrheumatic aortic (valve) stenosis; I26.99 Other pulmonary embolism without acute cor pulmonale; I48.11 Longstanding persistent atrial fibrillation; I73.9 Peripheral vascular disease, unspecified; Z87.891 Personal history of nicotine dependence | CPT/HCPCS: 36415; 80048; 83880; 99214 ==

== ENCOUNTER 2023-08-31 13:00 | Outpatient (CLI) | payer MEDICARE, MEDICAID, SELFPAY | END 2023-08-31 13:01 | disposition home or self-care (01) | LOC: SLEEP 09-01 12:45 | PROVIDERS: PCP Family Medicine; Visit Provider Nurse Practitioner Family | DX: G47.33 Obstructive sleep apnea (adult) (pediatric) (principal) | CPT/HCPCS: G0399 ==

== ENCOUNTER → 2023-09-06 13:28 | Outpatient (BNVA) | payer MEDICARE, MEDICAID, SELFPAY | PROVIDERS: PCP Family Medicine; Visit Provider Nurse Practitioner Family | DX: L30.8 Other specified dermatitis (principal); L72.0 Epidermal cyst; D22.5 Melanocytic nevi of trunk; L57.8 Other skin changes due to chronic exposure to nonionizing radiation; L81.4 Other melanin hyperpigmentation | CPT/HCPCS: 99214 ==

== ENCOUNTER 2023-09-15 11:36 | Outpatient (CLI) | payer MEDICARE, MEDICAID, SELFPAY ==
[2023-09-15 12:43] LABS: Blood Urea Nitrogen 29 mg/dL (8-23); Calcium 9.7 mg/dL (8.5-10.5); Carbon Dioxide 30 mmol/L (22-29); Chloride 103 mmol/L (98-107); Glucose 92 mg/dL (65-115); NT Pro B Type Natriuretic Pept 3256 pg/mL (0-450); Osmolality Calculated 301 mOsm/kg (285-295); Sodium 143 mmol/L (136-145)
== END 2023-09-15 11:37 | disposition home or self-care (01) ==
LOC: LAB 11:38
PROVIDERS: PCP Family Medicine; Visit Provider Internal Medicine Cardiovascular Disease
DX: J44.9 Chronic obstructive pulmonary disease, unspecified (principal); I50.42 Chronic combined systolic (congestive) and diastolic (congestive) heart failure
CPT/HCPCS: 36415; 80048; 83880

== ENCOUNTER → 2023-10-07 10:07 | Outpatient (BNVA) | payer MEDICARE, MEDICAID, SELFPAY | PROVIDERS: PCP Family Medicine; Visit Provider Nurse Practitioner Family | DX: I11.0 Hypertensive heart disease with heart failure (principal); I50.42 Chronic combined systolic (congestive) and diastolic (congestive) heart failure; Z87.891 Personal history of nicotine dependence | CPT/HCPCS: 99214 ==

== ENCOUNTER → 2024-02-21 15:19 | Outpatient (BNVA) | payer MEDICARE, MEDICAID, SELFPAY | PROVIDERS: PCP Family Medicine; Visit Provider Podiatrist Foot & Ankle Surgery | DX: L60.3 Nail dystrophy (principal); I73.9 Peripheral vascular disease, unspecified | CPT/HCPCS: 11721; 99203 ==

== ENCOUNTER → 2024-03-26 14:28 | Outpatient (BNVA) | payer MEDICARE, MEDICAID, SELFPAY | PROVIDERS: PCP Family Medicine; Visit Provider Internal Medicine Cardiovascular Disease | DX: I48.91 Unspecified atrial fibrillation (principal); Q24.8 Other specified congenital malformations of heart; R94.31 Abnormal electrocardiogram [ECG] [EKG]; R07.9 Chest pain, unspecified | CPT/HCPCS: 93005; 99214 ==

== ENCOUNTER 2024-04-27 12:00 | Outpatient (CLI) | payer MEDICARE, MEDICAID, SELFPAY ==
--- NOTE | 2024-04-27 12:45 | USCV_ITS ---
Louise Rowena Age: 78 Gender: F : 1945 Exam Date: 04/27/2024 12:31 Ordering Phys: Latosha Mauricio MD ([email or web address]) Technologist: ANU Exam Location: [facility] [place] Indication: CARDIOMYOPATHY BP: 140 / 70 HR: 76 Rhythm: Sinus Technical Quality: Adequate MEASUREMENTS (Male / Female) Normal Values 2D ECHO LV Diastolic Diameter PLAX 4.5 cm 4.2 - 5.9 / 3.9 - 5.3 cm IVS Diastolic Thickness 1.2 cm 0.6 - 1.0 / 0.6 - 0.9 cm IVS Systolic Thickness 1.9 cm LVPW Diastolic Thickness 1.4 cm 0.6 - 1.0 / 0.6 - 0.9 cm LVPW Systolic Thickness 1.7 cm LVOT Diameter 2.0 cm LV Ejection Fraction 2D Teich 46.1 % LV Ejection Fraction MOD 4C 55.4 % LV Ejection Fraction MOD 2C 45.9 % LV Ejection Fraction 2C AL 48.3 % LA Diameter 4.6 cm RA Systolic Volume 4C AL 71.4 ml RA Systolic Volume 4C MOD 69.5 ml LA Sys Volume AL 103.9 cm cubed LA Sys Volume Index AL 41.5 cm cubed/m squared Aorta at Sinotubular Diameter 2.3 cm IVC Diameter 1.6 cm M-MODE LA Ao Ratio MM 2.0 AV Cusp Separation MM 1.1 cm DOPPLER AV Peak Velocity 114.0 cm/s LVOT Peak Velocity 77.0 cm/s AV Area Cont Eq vti 1.8 cm squared AV Area Cont Eq pk 2.1 cm squared MV Peak Velocity 119.0 cm/s MV Area PHT 4.3 cm squared Mitral E to A Ratio 0.0 TR Peak Velocity 265.0 cm/s TR Peak Gradient 28.1 mmHg TR Mean Velocity 227.0 cm/s TR Mean Gradient 21.6 mmHg TR Velocity Time Integral 115.2 cm TV Peak E Velocity 35.0 cm/s Right Atrial Pressure 3.0 mmHg Pulmonary Artery Systolic Pressu 31.1 mmHg PV Peak Velocity 82.0 cm/s RV Ejection Time 0.3 s FINDINGS Left Ventricle Mild diffuse hypokinesia of the left ventricle with ejection fraction of 45 to 50% Right Ventricle Normal right ventricular size and systolic function. Right Atrium Moderately increased right atrial size. Left Atrium Moderately increased left atrial size. Mitral Valve Mild mitral valve regurgitation. Aortic Valve No gross abnormalities noted.trace aortic valve regurgitation. Tricuspid Valve Mild tricuspid valve regurgitation. Pulmonic Valve Mild pulmonary valve regurgitation. Pericardium Small echo-free space posteriorly suggesting pericardial effusion Aorta Normal ascending aorta dimension. IVC Normal inferior vena cava. CONCLUSIONS Mild diffuse hypokinesia of the left ventricle with ejection fraction of 45 to 50%. Moderate biatrial enlargementMild mitral valve regurgitation. Mild tricuspid valve regurgitation. Trace aortic valve regurgitation. Features of small pericardial effusion There is no pericardial effusion. Compared to the study from 08/16/2019, there is slight improvement in the LV ejection fraction. The pericardial effusion also seems to be less. Dr Latosha Mauricio MD [facility] (Electronically Signed) Final Date: 04 May 2024 09:35 S
== END 2024-04-27 12:01 | disposition home or self-care (01) ==
LOC: RAD 12:01
PROVIDERS: PCP Family Medicine; Visit Provider Internal Medicine Cardiovascular Disease
DX: I51.7 Cardiomegaly (principal); I31.39 Other pericardial effusion (noninflammatory); R06.09 Other forms of dyspnea
CPT/HCPCS: 93306

== ENCOUNTER 2024-05-02 13:33 | Outpatient (CLI) | payer MEDICARE, MEDICAID, SELFPAY ==
--- NOTE | 2024-05-02 13:41 | XR_ITS ---
WS: [id number] Exam: XR chest 2V* [id number] Date/Time of Exam: 05/02/2024 1:45 PM Reason For Exam: CHRONIC COUGH/DYSPNEA Comparison 12/08/2023. The heart is enlarged but unchanged in size. Extensive chronic pulmonary interstitial changes. No ple ural effusions. No acute infiltrates are noted. The mediastinum is normal in contour. Nondisplaced in sufficiency compression fracture in the mid T-spine probably T7. Exaggerated thoracic kyphosis. XR/XR chest 2V* [id number] IMPRESSION: 1. Cardiac enlargement unchanged. Chronic interstitial changes.
== END 2024-05-02 13:34 | disposition home or self-care (01) ==
LOC: RAD 13:36
PROVIDERS: PCP Family Medicine; Visit Provider Otolaryngology
DX: J84.10 Pulmonary fibrosis, unspecified (principal); I51.7 Cardiomegaly; M40.204 Unspecified kyphosis, thoracic region; R05.3 Chronic cough; R06.00 Dyspnea, unspecified
CPT/HCPCS: 71046

== ENCOUNTER → 2024-05-22 12:19 | Outpatient (BNVA) | payer MEDICARE, MEDICAID, SELFPAY | PROVIDERS: PCP Family Medicine; Visit Provider Podiatrist Foot & Ankle Surgery | DX: I73.9 Peripheral vascular disease, unspecified (principal); L60.3 Nail dystrophy | CPT/HCPCS: 11721 ==

== ENCOUNTER 2024-06-18 13:31 | Outpatient (CLI) | payer MEDICARE, MEDICAID, SELFPAY ==
--- NOTE | 2024-06-18 13:39 | CT_ITS ---
WS: [id number] CT CHEST ANGIOGRAPHY WITH REFORMATS HISTORY: ABNORMAL COAGULATION PROFILE TECHNIQUE: Contiguous axial images are obtained through the chest during arterial injection of intrav enous contrast. Images are reconstructed to evaluate the pulmonary arteries. MIP imaging also reviewe d. All CT scans at [facility] use at least one of these dose optimization techniques: automat ed exposure control; mA and/or kV adjustment per patient size (includes targeted exams where dose is matched to clinical indication); or iterative reconstruction. CONTRAST: Omnipaque 350; 100 mL IV. DLP: 196.03 mGy.cm COMPARISON: 03/10/2020 Good opacification of the pulmonary arteries. Normal size pulmonary artery. No pulmonary emboli or fi lling defects are identified. Moderate atherosclerotic plaque and ectasia thoracic aorta. No aneurysm . Marked enlargement of the heart. Significant RIGHT atrial dilatation. No lymphadenopathy. Advanced centrilobular emphysema. No pneumonia, pulmonary mass or nodule. Small pericardial and no pl eural effusions. Atherosclerotic plaque continues into the great vessels. Tricuspid regurgitation int o the hepatic veins. Advanced atrophy of the visualized RIGHT kidney. No adrenal mass. Increase in thoracic kyphosis. 20% anterior wedging of T7. Diffuse osteopenia. CT/CT angio chest PE protcl [id number] IMPRESSION: 1. No pulmonary embolism. 2. No pneumonia. 3. Advanced centrilobular emphysema. 4. Marked cardiomegaly. Marked enlargement of the RIGHT atrium. Tricuspid regu rgitation into the hepatic veins. 5. Small pericardial effusion. 6. Atrophied upper pole RIGHT kidney. 7. Moderate atherosclerosis thoracic aorta with extension of plaque into the g reat vessels.
== END 2024-06-18 13:32 | disposition home or self-care (01) ==
PROVIDERS: PCP Family Medicine; Visit Provider Family Medicine
DX: J43.2 Centrilobular emphysema (principal); I51.7 Cardiomegaly; I31.39 Other pericardial effusion (noninflammatory); N26.1 Atrophy of kidney (terminal); I70.0 Atherosclerosis of aorta; R79.1 Abnormal coagulation profile
CPT/HCPCS: 71275

== ENCOUNTER 2024-08-15 14:35 | Emergency (ER) | payer MEDICARE, MEDICAID, SELFPAY ==
[2024-08-15 14:42] VITALS: BP 103/71; PULSE 90; RESP 18; TEMP 37.1; O2SAT 91
--- NOTE | 2024-08-15 14:57 | PC.NURSE ---
Patient reports that she wears prn oxygen at home. Sats 91% here in the ER. Pt denies sob/ chest pain at this time. Placed on oxygen @ 2lnc while in the ER.
--- NOTE | 2024-08-15 14:59 | W.ED.WOUNDLC ---
HPI - Wound/Laceration General: Chief Complaint: Wound/Laceration Stated Complaint: back right shoulder insect bite Time Seen by Provider: 08/15/24 14:51 Source: patient Mode of arrival: ambulatory Limitations: no limitations History of Present Illness: 78-year-old female presents to the ER complaining of a insect bite on her right upper back. Patient states she noticed this on Tuesday and suspect a spider bit her. She reports to using triple a antibiotic which she thinks is helping along with warm showers. She reports the lesion is pruritic. Patient denies fever, chills, abdominal pain, nausea, vomiting, headaches. Patient is on oxygen as needed at home. No other complaints at this time. Location: back (R. upper back ) Place: home Context: accidental Associated symptoms: Reports no associated symptoms; Denies chills, fever(s), nausea or vomiting Treatments prior to arrival: other (Triple A antibiotic) Related Data Home Medications ?Medication ?Instructions ?Recorded ?Confirmed ferrous sulfate 325 mg (65 mg 325 mg PO QAM 12/03/21 05/22/24 iron) tablet [id number] 333 mg-133 1 tab PO QAM 01/27/22 05/22/24 mg-5 mg tablet ipratropium bromide 21 mcg (0.03 2 spray intranasal TID PRN Nasal 02/10/22 05/22/24 %) nasal spray Congestion vitamin B complex 1 tab PO QAM 02/26/22 05/22/24 fluticasone propionate 50 2 spray intranasal DAILY 08/02/22 05/22/24 mcg/actuation nasal spray,suspension sodium chloride-aloe vera nasal 1 applic topical DAILY 08/02/22 05/22/24 gel ([place] Saline nasal gel) prednisolone acetate 1 % eye 1 drp ophthalmic (eye) BID 01/26/23 05/22/24 drops,suspension acetaminophen 500 mg tablet 500 mg PO BID 05/21/23 05/22/24 albuterol sulfate 90 mcg/actuation 2 puff inhalation QID PRN Cough 05/21/23 05/22/24 aerosol inhaler cholecalciferol (vitamin D3) 50 2,000 unit PO QAM 05/21/23 05/22/24 mcg (2,000 unit) tablet (Vitamin D3) lutein 40 mg capsule 40 mg PO QAM 05/21/23 05/22/24 potassium chloride 10 mEq 10 meq PO QAM 05/21/23 05/22/24 capsule,extended release Previous Rx's ?Medication ?Instructions ?Recorded atorvastatin 40 mg tablet 40 mg PO BEDTIME #90 tabs 10/03/23 metoprolol tartrate 100 mg tablet See Rx Instructions .Route 01/02/24 .COMPLEX #180 tabs diltiazem HCl 180 mg See Rx Instructions .Route 01/09/24 capsule,extended release 24 hr, .COMPLEX #90 caps controlled (DILT-XR) furosemide 40 mg tablet 60 mg (1.5 x 40 mg) PO QAM #135 02/17/24 tabs clotrimazole 1 % topical cream 1 applic topical BID #15 grams 08/15/24 Allergies Allergy/AdvReac Type Severity Reaction Status Date / Time aspirin Allergy Unknown unknown Verified 05/22/24 12:45 losartan Allergy Unknown Verified 05/22/24 12:45 Sulfa (Sulfonamide Allergy UNK Verified 05/22/24 12:45 Antibiotics) amiodarone AdvReac unknown Verified 05/22/24 12:45 lisinopril AdvReac excess Verified 05/22/24 12:45 mucous Penicillins AdvReac childhood Verified 05/22/24 12:45 allergy rash Review of Systems General: Reports: 10 or more systems reviewed and unremarkable except in HPI and below Const: Denies: fever(s), chills, body aches or change in appetite Card: Denies: chest pain or palpitations Resp: Denies: dyspnea or productive cough GI: Denies: abdominal pain, nausea or vomiting Musc: Denies: neck pain, back pain or extremity pain Skin/Breast: Reports: pruritus, erythema and new lesions; Denies: skin tenderness Neuro: Denies: headache(s) PFS ED PFSH: Medical History History of nonmelanoma skin cancer Osteoporosis CHF (congestive heart failure) History of atrial fibrillation History of pulmonary embolism (2019) Hypothyroidism Valvular heart disease Moderate mitral and tricuspid regurgitation and trace aortic regurgitation by echocardiogram Peripheral arterial disease Leukopenia Temporal arteritis Varicose vein of leg Anemia History of transfusion dependent anemia Dyslipidemia Hypertension CVA (cerebral vascular accident) (2019) GERD (gastroesophageal reflux disease) COPD (chronic obstructive pulmonary disease) Albuterol and Atrovent, budesonide, oxygen Surgical History History of PTCA Status post surgical removal of malignant neoplasm of skin (01/2021) 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 History of angioplasty (2015) Angioplasty to right superficial femoral artery History of bilateral cataract extraction S/P dilatation and curettage Hx of coronary artery balloon dilation History of heart surgery History of intravascular stent placement (2015) Left superficial femoral artery History of colonoscopy Hx of tonsillectomy Family History Mother Hypertension Father Stroke Denies family history of Diabetes CAD (coronary artery disease) Clotting disorder Hyperlipidemia Chronic kidney disease (CKD) Bleeding disorder Cancer Social History Smoking and tobacco/nicotine status: unknown if used tobacco/nicotine Quit status (tobacco/nicotine): has quit using Year quit tobacco: 2008 Alcohol intake: never Substance/Drug Use: never Physical Exam Const: COMMON NORMALS: no acute distress, average body habitus, patient oriented x3, no limitations, healthy appearing, alert and well nourished GENERAL APPEARANCE: cooperative ORIENTATION/CONSCIOUSNESS: Yes awake, Yes oriented to person, Yes oriented to place and Yes oriented to time Chest: COMMONS NORMALS: normal inspection of the chest Resp: COMMON NORMALS: normal respiratory effort and clear to auscultation bilaterally EFFORT & INSPECTION: Yes able to speak in complete sentences AUSCULTATION: clear to auscultation bilaterally Cardio: COMMON NORMALS: regular rate and regular rhythm RATE: regular rate RHYTHM: regular rhythm Neuro: COMMON NORMALS: patient oriented x3 SENSORIUM/ORIENTATION: Yes alert, Yes oriented to person, Yes oriented to place and Yes oriented to time Skin: GENERAL SKIN EXAM: crusts and erythema LESIONS: lesion noted (Erythematous, puritic, non-weeping to right upper back, well-defined border) TRAUMA: no lacerations or abrasions Course Vital Signs: Vital signs: Vital Signs Temperature 98.8 F 08/15/24 14:42 Pulse Rate 90 08/15/24 14:42 Respiratory Rate 18 08/15/24 14:42 Blood Pressure 103/71 08/15/24 14:42 Pulse Oximetry 91 08/15/24 14:42 Oxygen Delivery Me thod Room Air 03/05/25 14:42 MDM - Wound/Laceration Medical Decision Making Patient presents with lesion to right upper back she notes couple days ago, she suspected insect bite. However on examination this was a well-defined lesion that did give the appearance of a tinea corporis. She has been applying topical triple antibiotic and though she noted some relief I think that this would benefit from clotrimazole. Instructed her to apply this twice a day and to follow-up with primary care in the next 2 days to make sure that this lesion is healing. She no other symptoms to report and rest of her physical exam was unremarkable. Vitals have been within normal limits. Discussed return precautions, she verbalized understanding. No radiology studies performed this visit Discharge Plan Discharge Patient Disposition: Home Clinical Impression: Tinea corporis Condition: Stable Prescriptions: New clotrimazole 1 % cream 1 applic topical BID Qty: 15 0RF No Action ipratropium bromide 21 mcg (0.03 %) spray,non-aerosol 2 spray intranasal TID PRN (Reason: Nasal Congestion) ferrous sulfate 325 mg (65 mg iron) tablet 325 mg PO QAM [id number] 333-133-5 mg tablet 1 tab PO QAM [place] Saline Gel 1 applic topical DAILY prednisolone acetate 1 % drops,suspension 1 drp ophthalmic (eye) BID atorvastatin 40 mg tablet 40 mg PO BEDTIME Qty: 90 3RF metoprolol tartrate 100 mg tablet See Rx Instructions .ROUTE .COMPLEX Qty: 180 3RF Dose Instruction: TAKE 1 TABLET BY MOUTH TWICE A DAY Rx Instructions: TAKE 1 TABLET BY MOUTH TWICE A DAY diltiazem HCl [DILT-XR] 180 mg capsule,ext.rel 24h degradable See Rx Instructions .ROUTE .COMPLEX Qty: 90 3RF Dose Instruction: TAKE 1 CAPSULE BY MOUTH EVERY DAY Rx Instructions: TAKE 1 CAPSULE BY MOUTH EVERY DAY furosemide 40 mg tablet 60 mg PO QAM Qty: 135 3RF vitamin B complex Tablet 1 tab PO QAM fluticasone propionate 50 mcg/actuation spray,suspension 2 spray INTRANASAL DAILY potassium chloride 10 mEq capsule, extended release 10 meq PO QAM acetaminophen [Tylenol Ex Str Rapid Release] 500 mg Tablet 500 mg PO BID albuterol sulfate 90 mcg/actuation HFA aerosol inhaler 2 puff INHALATION QID PRN (Reason: Cough) cholecalciferol (vitamin D3) [Vitamin D3] 50 mcg (2,000 unit) Tablet 2,000 unit PO QAM lutein 40 mg Capsule 40 mg PO QAM Discharge Orders: Discharge ED (Routine); Ordered 08/15/24 Ordered By: Mac Gonzalez Referrals: Sreedhar Mejia MD [Primary Care Provider] - Patient Instructions: Tinea Corporis (ED) Activity Restrictions/Additional Instructions: Apply the topical clotrimazole as instructed. Follow-up with primary care in 2 to 3 days for reevaluation of the lesion and make sure it is healing. Return with any fevers, nausea or vomiting, or any other concerns. Print Language: Citizen Of [place] Coding Level of Care Code ED [employer] Manager for Cassie Porras
[2024-08-15 15:00] VITALS: PULSE 77; RESP 18; O2SAT 99
[2024-08-15 15:14] VITALS: BP 169/79; PULSE 76; O2SAT 100
== END 2024-08-15 15:15 | disposition home or self-care (01) ==
PROVIDERS: Emergency Provider Physician Assistant; PCP Family Medicine
DX: B35.4 Tinea corporis (principal); Z86.73 Personal history of transient ischemic attack (TIA), and cerebral infarction without residual deficits; E78.5 Hyperlipidemia, unspecified; J44.9 Chronic obstructive pulmonary disease, unspecified; I11.0 Hypertensive heart disease with heart failure; I50.9 Heart failure, unspecified
CPT/HCPCS: 99283

== ENCOUNTER → 2024-09-05 10:18 | Outpatient (BNVA) | payer MEDICARE, MEDICAID, SELFPAY | PROVIDERS: PCP Family Medicine; Visit Provider Nurse Practitioner Family | DX: L08.9 Local infection of the skin and subcutaneous tissue, unspecified (principal); L72.0 Epidermal cyst; D22.39 Melanocytic nevi of other parts of face; M79.3 Panniculitis, unspecified; L57.8 Other skin changes due to chronic exposure to nonionizing radiation; Z08 Encounter for follow-up examination after completed treatment for malignant neoplasm; Z85.828 Personal history of other malignant neoplasm of skin | CPT/HCPCS: 99214 ==

== ENCOUNTER → 2024-10-08 13:25 | Outpatient (BNVA) | payer MEDICARE, MEDICAID, SELFPAY | PROVIDERS: PCP Family Medicine; Visit Provider Nurse Practitioner Family | DX: L08.9 Local infection of the skin and subcutaneous tissue, unspecified (principal); Z08 Encounter for follow-up examination after completed treatment for malignant neoplasm; Z85.828 Personal history of other malignant neoplasm of skin | CPT/HCPCS: 99214 ==

== ENCOUNTER → 2024-10-31 11:08 | Outpatient (BNVA) | payer MEDICARE, MEDICAID, SELFPAY | PROVIDERS: PCP Family Medicine; Visit Provider Internal Medicine Cardiovascular Disease | DX: R07.89 Other chest pain (principal); I42.8 Other cardiomyopathies; I11.0 Hypertensive heart disease with heart failure; I50.42 Chronic combined systolic (congestive) and diastolic (congestive) heart failure; E78.5 Hyperlipidemia, unspecified; I35.0 Nonrheumatic aortic (valve) stenosis; I48.11 Longstanding persistent atrial fibrillation; I73.9 Peripheral vascular disease, unspecified; Z86.711 Personal history of pulmonary embolism; Z87.891 Personal history of nicotine dependence | CPT/HCPCS: 99214 ==

== ENCOUNTER → 2024-11-09 10:59 | Outpatient (BNVA) | payer MEDICARE, MEDICAID, SELFPAY | PROVIDERS: PCP Family Medicine; Visit Provider Nurse Practitioner Family | DX: L08.9 Local infection of the skin and subcutaneous tissue, unspecified (principal); I87.2 Venous insufficiency (chronic) (peripheral); Z08 Encounter for follow-up examination after completed treatment for malignant neoplasm; Z85.828 Personal history of other malignant neoplasm of skin | CPT/HCPCS: 99214 ==

== ENCOUNTER → 2024-11-20 12:39 | Outpatient (BNVA) | payer MEDICARE, MEDICAID, SELFPAY | PROVIDERS: PCP Family Medicine; Visit Provider Podiatrist Foot & Ankle Surgery | DX: L60.3 Nail dystrophy (principal); I73.9 Peripheral vascular disease, unspecified | CPT/HCPCS: 99213 ==

== ENCOUNTER 2024-11-27 09:33 | Outpatient (CLI) | payer MEDICARE, MEDICAID, SELFPAY ==
[2024-11-27 09:53] VITALS: BMI 23.3
--- NOTE | 2024-11-27 10:18 | NMCV_ITS ---
NM nemesio perf SPECT r/s* [id number] Rowena Gil Age: 79 Gender: F : 1945 Exam Date: 11/27/2024 10:48 Ordering Phys: Latosha Mauricio MD ([email or web address]) Technologist: DB Arguelles Exam Location: [facility] Indications: cp STRESS TEST Please see separate stress test report in [facility] for full findings IMAGE PROTOCOL Rest/Stress 1 Lexiscan Day Radiopharmaceutical Dose (mCi) Administration Site Administered by Rest: Tc-99m 10.6 IV Scarlett Eid FOOD AND BEVERAGE COORDINATOR Sestamibi Stress:Tc-99m 32.9 IV Scarlett Eid, FOOD AND BEVERAGE COORDINATOR Sestamibi Rest: 27-Nov-2024 60 Discovery 630 Stress: 27-Nov-2024 30 Discovery 630 0.4mg Lexiscan. Supine position only as patient was unable to lay prone. Patient stated she was unable to lay on her stomach. SPECT RESULTS Technical Quality: Good Raw Data Analysis: Normal Image Corrections: No attenuation or motion correction applied Summed Stress Score: 4 Summed Rest Score: 0 Summed Difference Score: 4 PERFUSION FINDINGS Moderate area of minimal to moderate decrease tracer uptake involving the basal and mid anterolateral and mid inferolateral segments. Significant reversibility was noted in this area at rest. FUNCTIONAL RESULTS (calculated via Gated SPECT) Stress Image LV EF (%): 69 Stress EDV (mL):78 TID: 0.93 Stress ESV (mL):24 FUNCTIONAL FINDINGS: Segmental wall motion analysis revealing no gross wall motion abnormalities IMPRESSIONS 1. Myocardial perfusion imaging revealing small to moderate area of minimal to moderate reversible defect involving the anterolateral and inferolateral segments suggesting ischemia predominantly in the distribution of the left circumflex artery 2. Normal LV ejection fraction of 69%. 3. LV wall motion analysis revealing no gross wall motion abnormalities. 4. Normal LV volume Compared to the study from 05/20/2022, the ischemia appears to be new Dr Latosha Mauricio MD FAC (Electronically Signed) Final Date: 27 November 2024 13:06 S
--- NOTE | 2024-11-27 10:18 | ECG_ITS ---
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 Interpretive Statements Lung unchanged pre/post procedure; Intraprocedure shortess of breath; Symptoms resoled by discharge PROCEDURE: At the baseline, the EKG revealed atrial fibrillation with a frequent PVCs. Diffuse nonspecific ST-T changes.. The baseline heart was 88 bpm with a blood pressue of 143/81 mm of Hg Lexiscan was infused over a period of 20 seconds. A total of 0.4 milligrams of Lexiscan was infused. The stress phase was continued for a total of 5 minutes. Heart rate at the end of the stress phase was 115bpm with a blood pressure 125/71 mm of Hg. The EKG at the peak infusion revealed no significant changes. Sestamibi was injected 20 seconds after the Lexiscan infusion. Heart rate at the end of the recovery phase was 99 bpm with a blood pressure of 128/73 mm of Hg. CONCLUSION: 1. No significant EKG changes with the LexiScan infusion 2. No LexiScan induced chest pain or cardiac arrhythmia 3. Normal blood pressure and heart rate response 4. Sestamibi/sestamibi perfusion scan pending; see separate report. Electronically Signed On 12-02-2024 22:35:51 CDT by Latosha Mauricio M.D. [email or web address]
--- NOTE | 2024-11-27 10:18 | PC.NURSE ---
pt attended appt with a wheelchair. initial order was for an exercise mibi. called physician and received new orders for a chemical stress test.
[2024-11-27] MEDS: regadenoson 0.4 Mg/5 ml Syringe IVP (11:19)
[2024-11-27 11:32] VITALS: BP 129/73; PULSE 99
== END 2024-11-27 09:34 | disposition home or self-care (01) ==
LOC: CDL 09:36
PROVIDERS: PCP Family Medicine; Visit Provider Internal Medicine Cardiovascular Disease
DX: Z98.61 Coronary angioplasty status (principal); R93.1 Abnormal findings on diagnostic imaging of heart and coronary circulation
CPT/HCPCS: 36415; 78452; 93017; 96374; A9500; J2785

== ENCOUNTER 2024-12-22 08:53 | Observation (INO) | payer MEDICARE, MEDICAID, SELFPAY ==
[2024-12-22] VITALS (78 sets, daily range): BP systolic 116–178; BP diastolic 59–108; PULSE 76–144; RESP 16–33; TEMP 36.4–36.8; O2SAT 83–100; BMI 24.7
--- NOTE | 2024-12-22 09:09 | W.ED.HA ---
HPI - Headache General: Chief Complaint: Headache Stated Complaint: headache Time Seen by Provider: 12/22/24 08:55 History of Present Illness: 79-year-old female presents emergency room with a headache. She also states she is having rapid heart rate intermittently recently. She went to chiropractor for adjustments to try to relieve her headache did not improve. She also reports increasing shortness of breath and productive cough of clear mucus. No fevers. She did not had any chest pain. She has known atrial fibrillation took both her diltiazem and metoprolol this morning Associated symptoms: Deny chest pain, fever(s) or rash Related Data Home Medications ?Medication ?Instructions ?Recorded ?Confirmed ferrous sulfate 325 mg (65 mg 325 mg PO QAM 12/03/21 12/22/24 iron) tablet lhfpyno-jwokxhjly-qumt 333 mg-133 1 tab PO QAM 01/27/22 12/22/24 mg-5 mg tablet ipratropium bromide 21 mcg (0.03 2 spray intranasal TID PRN Nasal 02/10/22 12/22/24 %) nasal spray Congestion vitamin B complex 1 tab PO QAM 02/26/22 12/22/24 fluticasone propionate 50 2 spray intranasal DAILY 08/02/22 12/22/24 mcg/actuation nasal spray,suspension acetaminophen 500 mg tablet 500 mg PO BID PRN Pain 05/21/23 12/22/24 albuterol sulfate 90 mcg/actuation 2 puff inhalation QID PRN Cough 05/21/23 12/22/24 aerosol inhaler cholecalciferol (vitamin D3) 50 2,000 unit PO QAM 05/21/23 12/22/24 mcg (2,000 unit) tablet (Vitamin D3) lutein 40 mg capsule 40 mg PO QAM 05/21/23 12/22/24 potassium chloride 10 mEq 10 meq PO QAM 05/21/23 12/22/24 capsule,extended release cefdinir 300 mg capsule 300 mg PO Q12H [id number] 12/22/24 12/22/24 clotrimazole 1 % topical cream 1 applic topical BID PRN Skin 12/22/24 12/22/24 Irritation diltiazem HCl 180 mg 180 mg PO DAILY 12/22/24 12/22/24 capsule,extended release 24 hr, controlled (DILT-XR) loratadine 10 mg tablet 10 mg PO DAILY 12/22/24 12/22/24 metoprolol tartrate 100 mg tablet 100 mg PO BID 12/22/24 12/22/24 Previous Rx's ?Medication ?Instructions ?Recorded furosemide 40 mg tablet 60 mg (1.5 x 40 mg) PO QAM #135 02/17/24 tabs atorvastatin 40 mg tablet 40 mg PO BEDTIME #90 tabs 10/16/24 Allergies Allergy/AdvReac Type Severity Reaction Status Date / Time aspirin Allergy Unknown unknown Verified 11/20/24 12:42 losartan Allergy Unknown Verified 11/20/24 12:42 Sulfa (Sulfonamide Allergy UNK Verified 11/20/24 12:42 Antibiotics) amiodarone AdvReac unknown Verified 11/20/24 12:42 lisinopril AdvReac excess Verified 11/20/24 12:42 mucous Penicillins AdvReac childhood Verified 11/20/24 12:42 allergy rash Review of Systems Const: Denies: fever(s) or chills Card: Reports: palpitations and irregular heart rhythm; Denies: chest pain Resp: Reports: dyspnea, productive cough, wheezing and chest congestion GI: Denies: abdominal pain : Denies: dysuria, urinary frequency or urinary urgency Musc: Denies: neck pain or back pain Skin/Breast: Denies: rash PFSH ED PFSH: Medical History History of nonmelanoma skin cancer Osteoporosis CHF (congestive heart failure) History of atrial fibrillation History of pulmonary embolism (2019) Hypothyroidism Valvular heart disease Moderate mitral and tricuspid regurgitation and trace aortic regurgitation by echocardiogram Peripheral arterial disease Leukopenia Temporal arteritis Varicose vein of leg Anemia History of transfusion dependent anemia Dyslipidemia Hypertension CVA (cerebral vascular accident) (2019) GERD (gastroesophageal reflux disease) COPD (chronic obstructive pulmonary disease) Albuterol and Atrovent, budesonide, oxygen Surgical History History of PTCA Status post surgical removal of malignant neoplasm of skin (01/2021) 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 History of angioplasty (2015) Angioplasty to right superficial femoral artery History of bilateral cataract extraction S/P dilatation and curettage Hx of coronary artery balloon dilation History of heart surgery History of intravascular stent placement (2015) Left superficial femoral artery History of colonoscopy Hx of tonsillectomy Family History Mother Hypertension Father Stroke Denies family history of Diabetes CAD (coronary artery disease) Clotting disorder Hyperlipidemia Chronic kidney disease (CKD) Bleeding disorder Cancer Social History Smoking and tobacco/nicotine status: former use of tobacco/nicotine Quit status (tobacco/nicotine): has quit using Year quit tobacco: 2008 Alcohol intake: never Substance/Drug Use: never Physical Exam Const: GENERAL APPEARANCE: cooperative ORIENTATION/CONSCIOUSNESS: Yes awake, Yes oriented to person, Yes oriented to place and Yes oriented to time HENMT: COMMON NORMALS: normocephalic, atraumatic and hearing grossly normal bilaterally HEAD & SCALP: normocephalic and atraumatic Resp: COMMON NORMALS: normal respiratory effort, No retractions, No use of accessory muscles and clear to auscultation bilaterally AUSCULTATION: clear to auscultation bilaterally Cardio: RATE: tachycardic RHYTHM: abnormal rhythm irregularly irregular GI: COMMON NORMALS: Soft to palpation and No hepatosplenomegaly present AUSCULTATION: Yes normoactive bowel sounds PALPATION: Yes Soft to palpation, No Tenderness to palpation present (GI), No Guarding due to palpation present (GI) and Yes No hepatosplenomegaly present Extremity: COMMON NORMALS: normal to inspection, capillary refill normal, no clubbing, cyanosis or edema, no calf tenderness and no pedal edema Neuro: SENSORIUM/ORIENTATION: Yes oriented to person, Yes oriented to place and Yes oriented to time Skin: COMMON NORMALS: no rashes or lesions noted GENERAL SKIN EXAM: no rashes or lesions noted Course Vital Signs: Vital signs: Vital Signs Temperature 98.2 F 12/22/24 08:55 Pulse Rate 98 12/22/24 14:00 Respiratory Rate 25 H 12/22/24 11:50 Blood Pressure 178/85 12/22/24 11:50 Pulse Oximetry 98 12/22/24 11:50 Oxygen Delivery Me thod Nasal Cannula 12/22/24 12:30 Oxygen Flow Rate 3 12/22/24 11:13 MDM - Headache Medical Decision Making Patient intermittently her heart rate will jump to the 130s with minimal activity. She is continuously on oxygen her oxygen sats remain good. She did have some improvement with her wheezing after nebulizer. She has failed outpatient therapy at this point for COPD exacerbation concern. Lack of adequate control of her atrial fibrillation placed on observation continue aggressive pulmonary toilet adjust medications as appropriate discussed with hospitalist orders written Medical Records I reviewed the patient's medical records. Lab Data I reviewed the patient's lab results. 12/22/24 09:36 12/22/24 09:36 Radiology Impressions Chest X-Ray 12/22/24 09:20 IMPRESSION: As above. Laboratory Results WBC 5.22 10^3/uL (3.29-11.43) 12/22/24 09:36 RBC 4.08 10^6/uL (3.85-5.65) 12/22/24 09:36 Hgb 13.70 g/dL (11.27-16.99) 12/22/24 09:36 Hct 40.6 % (36-47) 12/22/24 09:36 MCV 99.5 fl (85-98) H 12/22/24 09:36 MCH 33.6 pg (27-33) H 12/22/24 09:36 MCHC 33.7 g/dL (30-55) 12/22/24 09:36 RDW 14.0 % (12.1-15.1) 12/22/24 09:36 Plt Count 200 10^3/cmm (157-399) 12/22/24 09:36 MPV 9.2 fL (7.4-10.4) 12/22/24 09:36 Neut % (Auto) 82.8 % 12/22/24 09:36 Lymph % (Auto) 7.7 % 12/22/24 09:36 Starr % (Auto) 7.5 % 12/22/24 09:36 Eos % (Auto) 1.0 % 12/22/24 09:36 Baso % (Auto) 0.6 % 12/22/24 09:36 Neut # (Auto) 4.33 10^3/uL (1.8-7.7) 12/22/24 09:36 Lymph # (Auto) 0.4 10^3/uL (0.8-4.8) L 12/22/24 09:36 Starr # (Auto) 0.4 10^3/uL (0.2-0.9) 12/22/24 09:36 Eos # (Auto) 0.1 10^3/uL (0.0-0.8) 12/22/24 09:36 Baso # (Auto) 0.0 10^3/uL (0.0-0.1) 12/22/24 09:36 Nucleated RBC % (auto) 0 % 12/22/24 09:36 Nucleated RBCs # 0.0 /100WBC 12/22/24 09:36 Specimen Type Arterial 12/22/24 09:58 Sample Site Radial, left 12/22/24 09:58 ABG pH 7.45 (7.35-7.45) 12/22/24 09:58 ABG pCO2 43.7 mmHg (35-45) 12/22/24 09:58 ABG pO2 104.0 mmHg (80.0-100.0) H 12/22/24 09:58 ABG HCO3 30.2 mmol/L (22-26) H 12/22/24 09:58 ABG O2 Saturation 98.7 12/22/24 09:58 ABG Base Excess 5.5 mmol/L (-2.0-2.0) H 12/22/24 09:58 Elroy Test Pos 12/22/24 09:58 A-a O2 Gradient Not Reportable 12/22/24 09:58 Hematocrit 43.4 % (37-47) 12/22/24 09:58 Hgb O2 Saturation 96.5 % (95-100) 12/22/24 09:58 Carboxyhemoglobin 1.7 %THgb (0.4-20.1) 12/22/24 09:58 Methemoglobin 0.6 % (0.4-1.5) 12/22/24 09:58 Total Hemoglobin 14.2 g/dL (12-16) 12/22/24 09:58 Sodium 140.0 mmol/L (131-143) 12/22/24 09:58 Potassium 3.3 mmol/L (3.5-5.0) L 12/22/24 09:58 Glucose 128.0 mg/dL (70-115) H 12/22/24 09:58 Ionized Calcium 1.2 mmol/L (1.1-1.4) 12/22/24 09:58 O2 Delivery Device Nc 12/22/24 09:58 O2 Liters/Min 3.0 % 12/22/24 09:58 Pathology Secretary/Transcriptionist ID Kim 12/22/24 09:58 Sodium 141 mmol/L (136-145) 12/22/24 09:36 Potassium 3.5 mmol/L (3.5-5.1) 12/22/24 09:36 Chloride 99 mmol/L (98-107) 12/22/24 09:36 Carbon Dioxide 28 mmol/L (22-29) 12/22/24 09:36 Anion Gap 17.5 (5-19) 12/22/24 09:36 BUN 16 mg/dL (8-23) 12/22/24 09:36 Creatinine 0.7 mg/dL (0.5-0.9) 12/22/24 09:36 GFR Calculation Not Reportable 12/22/24 09:36 Glucose 140 mg/dL (65-115) H 12/22/24 09:36 Calculated Osmolality 295 mOsm/kg (285-295) 12/22/24 09:36 Lactic Acid 1.0 mmol/L (0.5-2.2) 12/22/24 09:36 Calcium 9.5 mg/dL (8.5-10.5) 12/22/24 09:36 Total Bilirubin 1.0 mg/dL (0.15-1.2) 12/22/24 09:36 AST 37 U/L (0-32) H 12/22/24 09:36 ALT 31 U/L (0-33) 12/22/24 09:36 Alkaline Phosphatase 115 U/L (35-105) H 12/22/24 09:36 Troponin T Baseline 44 ng/L (0-10) H 12/22/24 09:36 C-Reactive Protein 26.8 mg/L (0.0-4.9) H 12/22/24 09:36 Total Protein 6.2 g/dL (6.6-8.7) L 12/22/24 09:36 Albumin 3.9 g/dL (3.5-5.2) 12/22/24 09:36 Globulin 2.3 g/dL (1.3-4.6) 12/22/24 09:36 All radiology interpretation(s) finalized by discharge EKG Data EKG 1: Interpretation: EKG 12/22/2004 10:09 AM. A-fib with rapid ventricular sponsor rate of 117. Nonspecific ST elevation likely related to rate changes. EKG 2: Interpretation: EKG 12/22/2024 1351. A-fib fracture ventricular response with a rate of [address] changes noted likely rate related no significant change from previous EKG. Discharge Plan Discharge Patient Disposition: Placed in Observation Admit Provider: Campbell Chaudhari Clinical Impression: Nonischemic cardiomyopathy, COPD (chronic obstructive pulmonary disease) Atrial fibrillation Qualifiers: Atrial fibrillation type: longstanding persistent Qualified Code(s): I48.11 - Longstanding persistent atrial fibrillation Coding Level of Care Code ED Design Technology Teacher for Cassie Porras
--- OUTSIDE RECORDS SUMMARY | 2024-12-22 09:11 | XMS_ITS | Clinical Summary ---
Author Organization [facility] Address [address] [place] [address] Phone Care Team Providers Care Yarn Packer Name Role Phone Unavailable Primary Care Provider Unavailabl e Social History Tobacco Use Types Packs/Day Years Used Date Smoking Tobacco: Never Assessed Comments Unknown Sex and Gender Information Value Date Recorded Sex Assigned at Not on file Legal Sex Female 3:31 PM CDT Gender Identity Not on file Sexual Orientation Not on file Plan of Treatment Health Maintenance Due Date Last Done Comments DTAP/TDAP/TD VACCINES (1 - Tdap) 11/01/1963 ZOSTER VACCINE (1 of 2) 1994 OSTEOPOROSIS SCREENING 2009 RSV VACCINE (60+ or ) (1 - 1-dose 75+ series) 11/01/2019 INFLUENZA VACCINE (#1) 2025 06/12/2014 PNEUMOCOCCAL VACCINE 50+ YEARS Completed 01/20/2015 , 06/12/2014 Insurance [place] Member Subscriber Plan / Payer (Ef fective 2019-Present) Name:Rowena Gil Relation to Subscriber:Self Name:Rowena Gil Payer ID:Not on file Group ID:[id number] Type:Medicare Managed Care Address: [facility] [id number] [place] [id number]
--- OUTSIDE RECORDS SUMMARY | 2024-12-22 09:11 | XMS_ITS | Clinical Summary ---
Author Organization [facility] [address] Address [address] [place] [address] Phone Care Team Providers Care Bay Stocker Name Role Phone Jose Pagan MD Primary Care Provider Unavailabl e Allergies Active Allergy Reactions Criticality Noted Date Comments Aspirin Nausea and Vomiting Low 09/16/2014 Sulfa (Sulfonamide Antibiotics) Unknown 05/13 Medications multivitamin (DAILY-DESIREE) tablet Take 1 Tab by mouth daily. Active ascorbic acid (VITAMIN C) 500 mg tablet Take 500 mg by mouth daily . Active acetaminophen (TYLENOL) 500 mg tablet Take 500 mg by mouth every 6 hours as needed. Active PROAIR HFA 90 mcg/actuation inhaler Take 1 Puff by inhalation every 6 hours as needed . 4 Active sodium chloride (OCEAN) 0.65 % Aerosol, [place] Administer 2 Sprays in each nostril PRN for Congestion. Active hydrochlorothia zide (MICROZIDE) 12.5 mg capsule Take 1 Cap (12.5 mg) by mouth daily. 30 Cap 3 5 Active apixaban (ELIQUIS) 5 mg tablet Take 1 Tablet (5 mg) by mouth 2 times daily. 60 Tablet 6 5 Active pravastatin (PRAVACHOL) 80 mg tablet Take 1 Tablet (80 mg) by mouth Daily LATE. 30 Tablet 6 5 Active lisinopril (PRINIVIL) 40 mg tablet Take 1 Tablet (40 mg) by mouth daily. 30 Tablet 3 5 Active carvedilol (COREG) 12.5 mg tablet Take 1 Tablet (12.5 mg) by mouth Daily LATE. 30 Tablet 6 5 Active amiodarone (CORDARONE) 200 mg tablet Take 0.5 Tablet (100 mg) by mouth daily. 30 Tablet 6 5 Active Active Problems Patient Care Coordination No te Formatting of this note migh t be different from the original. Forensic Scientist: Abiodun Leon MD Problem Noted Date Diagnosed Date Bradycardia 11/08/2014 CAD (coronary artery disease) 10/23/2014 Cardiomyopathy of undetermined type 09/16/2014 Acute diastolic CHF (congestive heart failure) 1 08/02/2013 Noncompliance with medication regimen 06/01/2014 COPD (chronic obstructive pulmonary disease) Edema extremities 05/29/2014 Dyspnea 05/29/2014 Atrial fibrillation with RVR 05/29/2014 Acute respiratory failure 05/29/2014 Stroke, lacunar 05/29/2014 HTN (hypertension) 05/29/2014 Malignant hypertension 05/02/2014 Shortness of breath 05/02/2014 Confusion 05/02/2014 Pneumonia, organism unspecified(486) 05/02/2014 Cardiac arrhythmia 05/02/2014 GERD (gastroesophageal reflux disease) CHF (congestive heart failure) Hyperlipidemia Atrial fibrillation Coronary artery disease invo [place] coronary artery without angina pectoris Immunizations Immunization Administration Dates Next Due (PNEUMOVAX 23)(50 YRS UP) PN EUMOCOCCAL POLYSACCHARIDE (PPV23) 0.5 ML, IM 01/20/2015 (PREVNAR 13)(6 WKS UP) PNEUM OCOCCAL CONJUGATE (PCV13) 0.5 ML, IM 06/12/2014 INFLUENZA VACCINE QUADRIVALENT 3 YR UP PF IM Family History Medical History Relation Name Comments Heart Disease Father Heart Disease Mother Unknown Other Relation Name Status Comments Father Mother Other Social History Tobacco Use Types Packs/Day Years Used Date Smoking Tobacco: Former Cigarettes Q uit: 04/20/2014 Smokeless Tobacco: Never Alcohol Use Standard Drinks/Week Comments No 0 (1 standard drink = 0.6 oz pur e alcohol) Comments No Sex and Gender Information Value Date Recorded Sex Assigned at Not on file Legal Sex Female 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 Gender Identity Not on file Sexual Orientation Not on file Occupation Industry Job Start Date Job End Date Not on file Not on file Not on file Not on file Last Filed Vital Signs Vital Sign Reading Time Taken Comments Blood Pressure 150/70 02/10/2015 10:10 AM CDT Pulse 47 02/10/2015 10:10 AM CDT Temperature 36.4 C (97.5 F) 01/28/2015 10:00 PM CDT Respiratory Rate 16 02/10/2015 10:10 AM CDT Oxygen Saturation 97% 02/10/2015 10:10 AM CDT Inhaled Oxygen Concentration - - Weight 57.8 kg (127 lb 6.4 oz) 02/10/2015 10:10 AM CDT Height 160 cm (5' 3 ) 02/10/2015 10:10 AM CDT Body Mass Index 22.57 02/10/2015 10:10 AM CDT Plan of Treatment Health Maintenance Due Date Last Done Comments DTAP/TDAP/TD VACCINES (1 - Tdap) 11/01/1963 ZOSTER VACCINE (1 of 2) 1994 OSTEOPOROSIS SCREENING 2009 RSV VACCINE (60+ or ) (1 - 1-dose 75+ series) 11/01/2019 INFLUENZA VACCINE (#1) 2025 06/12/2014 PNEUMOCOCCAL VACCINE 50+ YEARS Completed 01/20/2015 , 06/12/2014 Insurance MEDICARE PART A AND B MEDICARE PART A AND B Advance Directives For more information, please contact: [phone] * Full Code (Latest Code Status on File) Date Activated Date Inactivated Comments 10/22/2014 1:05 PM 10/25/2014 6:20 PM * Full Code Date Activated Date Inactivated Comments 10/22/2014 7:18 AM 10/22/2014 1:05 PM * Full Code Date Activated Date Inactivated Comments 05/29/2014 7:05 PM 06/07/2014 4:52 PM * Full Code Date Activated Date Inactivated Comments 05/02/2014 6:23 PM 05/05/2014 12:27 PM Care Teams Bay Stocker Relationship Specialty Start Date End Date Jose Pagan MD PCP - General Internal Medicine 06/02/14
--- NOTE | 2024-12-22 09:20 | XRR_ITS ---
PROCEDURE INFORMATION: Exam: XR Chest Exam date and time: 12/22/2024 9:50 AM Age: 79 years old Clinical indication: Cough; Additional info: Dyspnea/cough TECHNIQUE: Imaging protocol: Radiologic exam of the chest. Views: 1 view. COMPARISON: CR XR chest 2V* [id number] 12/10/2024 12:29 PM FINDINGS: Lungs: Unremarkable. No consolidation. Pleural spaces: Unremarkable. No pleural effusion. No pneumothorax. Heart/Mediastinum: Cardiomegaly. Bones/joints: Unremarkable. XR/XR chest 1V portable [id number] IMPRESSION: As above.
--- NOTE | 2024-12-22 09:21 | ECG_ITS ---
[facility] Test Date: 2024-12-22 Pat Name: Rowena Gil Department: Room: Gender: Female Ash Handler: : 1945 Requested By: Gwyn Bowser Order Number: [id number] Jose MD: Latosha Mauricio M.D. Measurements Intervals [place] Rate: 117 P: 0 IN: 0 QRS: -43 QRSD: 101 T: 128 QT: 336 QTc: 469 Interpretive Statements ATRIAL FIBRILLATION WITH RAPID VENTRICULAR RESPONSE LEFT AXIS DEVIATION [QRS AXIS < -30] SEPTAL MYOCARDIAL INFARCTION , OF INDETERMINATE AGE [40+ ms Q WAVE IN V1/V2] MODERATE T-WAVE ABNORMALITY, CONSIDER LATERAL ISCHEMIA [-0.1+ mV T-WAVE IN I/aVL/V5/V6] Compared to ECG 03/26/2024 14:39:25 Left-axis deviation now present Myocardial infarct finding now present T-wave abnormality still present Possible ischemia still present Electronically Signed On 12-25-2024 10:11:52 CDT by Latosha Mauricio M.D. [email or web address]
[2024-12-22 09:43] LABS: Hematocrit 40.6 % (36-47); Hemoglobin 13.70 g/dL (11.27-16.99); Mean Corpuscular HGB Conc 33.7 g/dL (30-55); Mean Corpuscular Hemoglobin 33.6 pg (27-33); Mean Corpuscular Volume 99.5 fl (85-98); Nucleated Red Blood Cells % 0 %; Platelet Count 200 10^3/cmm (157-399); Red Blood Count 4.08 10^6/uL (3.85-5.65); White Blood Count 5.22 10^3/uL (3.29-11.43)
[2024-12-22] MEDS: diphenhydrAMINE 50 mg/mL SDV 1mL IVP (09:45)
[2024-12-22] MEDS: methylPREDNISolone sod succ 125 mg/2 mL INJ IVP (09:52)
[2024-12-22 10:01] LABS: Troponin(5th) Baseline 44 ng/L (0-10)
[2024-12-22 10:02] LABS: Lactic Sepsis W/Reflex 1.0 mmol/L (0.5-2.2)
[2024-12-22 10:08] LABS: Alanine Aminotransferase 31 U/L (0-33); Albumin Level 3.9 g/dL (3.5-5.2); Alkaline Phosphatase 115 U/L (35-105); Anion Gap 17.5 (5-19); Aspartate Amino Transferase 37 U/L (0-32); Blood Urea Nitrogen 16 mg/dL (8-23); Calcium 9.5 mg/dL (8.5-10.5); Carbon Dioxide 28 mmol/L (22-29); Chloride 99 mmol/L (98-107); Creatinine Clr Calc Pharmacy 50.3281; Globulin 2.3 g/dL (1.3-4.6); Glucose 140 mg/dL (65-115); Osmolality Calculated 295 mOsm/kg (285-295); Potassium 3.5 mmol/L (3.5-5.1); Sodium 141 mmol/L (136-145); Total Protein 6.2 g/dL (6.6-8.7)
[2024-12-22 10:09] LABS: ABG PCO2 43.7 mmHg (35-45); ABG PH Result 7.45 (7.35-7.45); Arterial Blood Gas Hematocrit 43.4 % (37-47); Blood Gas Allen Test Pos; Blood Gas LPM 3.0 %; Blood Gas Operator Identificat WALCI; Blood Gas Sample Site Radial, left; Blood Gas Sample Type Arterial; Carboxyhemoglobin 1.7 %THgb (0.4-20.1); Glucose Level-ABG 128.0 mg/dL (70-115); HCO3 ABG 30.2 mmol/L (22-26); Ionized Calcium Level - ABG 1.2 mmol/L (1.1-1.4); Methemoglobin 0.6 % (0.4-1.5); Oxygen Saturation ABG 98.7; PO2 ABG 104.0 mmHg (80.0-100.0); Potassium Level - ABG 3.3 mmol/L (3.5-5.0); Sodium Level - ABG 140.0 mmol/L (131-143)
[2024-12-22] MEDS: metoprolol tartrate 1 mg/1 mL SDV 5 mL 2.5 MG IVP (11:05)
--- NOTE | 2024-12-22 11:16 | PC.PHAR ---
Pt just finished Doxycycline Hyclate 100mg cap. bid last dose 12/20/24. Pt currently finishing Cefdinir 300mg bid from 12/13/24 to 12/23/24
[2024-12-22 11:30] LABS: Troponin 5 2HR 41.46 ng/L (0-10)
[2024-12-22 11:31] LABS: Troponin 5 2HR Delta -2.54 ABS# (0-10)
--- NOTE | 2024-12-22 13:51 | ECG_ITS ---
[email or web address] [facility] Test Date: 2024-12-22 Pat Name: Rowena Gil Department: Room: ICU12 Gender: Female Climate Change Risk Assessor: : 1945 Requested By: Gwyn Bowser Order Number: [id number] Jose MD: Latosha Mauricio M.D. Measurements Intervals [place] Rate: 116 P: 0 OR: 0 QRS: -33 QRSD: 94 T: 149 QT: 360 QTc: 501 Interpretive Statements ATRIAL FIBRILLATION WITH RAPID VENTRICULAR RESPONSE WITH ABERRANT CONDUCTION OR VENTRICULAR PREMATURE COMPLEXES LEFT AXIS DEVIATION [QRS AXIS < -30] ST DEVIATION AND MODERATE T-WAVE ABNORMALITY, CONSIDER LATERAL ISCHEMIA [-0.1+ mV T-WAVE IN I/aVL/V5/V6] Compared to ECG 12/22/2024 10:09:58 Ventricular premature complex(es) now present Aberrant conduction of supraventricular beat(s) now present Myocardial infarct finding no longer present T-wave abnormality still present Possible ischemia still present Electronically Signed On 12-26-2024 00:34:02 CDT by Latosha Mauricio M.D. [email or web address]
--- NOTE | 2024-12-22 15:21 | ECG_ITS ---
[employer] Test Date: 2024-12-22 Pat Name: Rowena Gil Department: Room: ICU12 Gender: Female Band And Cuff Cutter: : 1945 Requested By: Gwyn Bowser Order Number: [id number] Jose MD: Latosha Mauricio M.D. Measurements Intervals [place] Rate: 94 P: 0 MI: 0 QRS: -14 QRSD: 93 T: 185 QT: 365 QTc: 457 Interpretive Statements ATRIAL FIBRILLATION WITH ABERRANT CONDUCTION OR VENTRICULAR PREMATURE COMPLEXES NONSPECIFIC ST & T-WAVE ABNORMALITY Compared to ECG 12/22/2024 13:51:26 Left-axis deviation no longer present Possible ischemia no longer present T-wave abnormality still present Electronically Signed On 12-26-2024 00:33:58 CDT by Latosha Mauricio M.D. [email or web address]
[2024-12-22 15:55] LABS: Troponin 5 6HR 28.10 ng/L (0-10)
[2024-12-22 15:56] LABS: Troponin 5 6HR Delta -15.90 ng/L (0-12)
[2024-12-22 17:45] LABS: Magnesium 2.1 mg/dL (1.7-2.3)
--- NOTE | 2024-12-22 17:52 | PM.HP ---
Providers/Chief Complaint Admitting Physician: Campbell Chaudhari MD Primary Care Provider: Sreedhar Mejia MD Chief Complaint: headache History of Present Illness Rowena Gil is a 79 year old female with history of rate controlled A-fib not on anticoagulation due to some bleeding problem and anemia. 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 Labs shows that she has had a macrocytic hemoglobin differential in the past. Patient denies alcohol use. She states she had a headache and went to see the chiropractor but came to the ER due to increasing shortness of breath productive cough of yellow and green phlegm and rapid heart rate. She was found to have COPD exacerbation and A-fib rapid ventricular response in the ER. She did not miss her morning doses of medication. Dr. Sánchez gave her additional IV and oral medication referred her for admission. Review of Systems Narrative: General some fevers and chills at night she reports her weight fluctuates between 130 and 100 40 pounds she retains some fluid with swelling in the legs but does not know that it is particularly worse or not. She is not on CPAP. Cardiovascular no chest pain positive for palpitations positive for leg swelling Respiratory positive for cough with yellow and now green phlegm she does not have nebulizers at home she quit smoking 15 years ago she is on a concentrator at 2 L/min GI positive for nausea vomiting recently. She has had diarrhea 3-4 times most days positive for dysuria but not hematuria [employer] no vaginal bleeding or discharge she had D&C about 6 years ago Malignancy she had skin cancer on her face next to her nose on the left side Hematologic she denies blood clots in the legs or lungs but old records suggest that she has had PE in the past Neuro no history of seizures or strokes psychiatric she denies psychiatric diagnosis Medications/Allergies Home Medications ?Medication ?Instructions ?Recorded ?Confirmed ?Last Taken ?Type ferrous sulfate 325 mg (65 mg 325 mg PO QAM 12/03/21 12/22/24 12/21/24 History iron) tablet [id number] 333 mg-133 1 tab PO QAM 01/27/22 12/22/24 12/21/24 History mg-5 mg tablet ipratropium bromide 21 mcg (0.03 2 spray intranasal TID PRN Nasal 02/10/22 12/22/24 Unknown History %) nasal spray Congestion vitamin B complex 1 tab PO QAM 02/26/22 12/22/24 12/21/24 History fluticasone propionate 50 2 spray intranasal DAILY 08/02/22 12/22/24 12/22/24 History mcg/actuation nasal spray,suspension acetaminophen 500 mg tablet 500 mg PO BID PRN Pain 05/21/23 12/22/24 05/27/23 History albuterol sulfate 90 mcg/actuation 2 puff inhalation QID PRN Cough 05/21/23 12/22/24 Unknown History aerosol inhaler cholecalciferol (vitamin D3) 50 2,000 unit PO QAM 05/21/23 12/22/24 12/21/24 History mcg (2,000 unit) tablet (Vitamin D3) lutein 40 mg capsule 40 mg PO QAM 05/21/23 12/22/24 12/21/24 History potassium chloride 10 mEq 10 meq PO QAM 05/21/23 12/22/24 12/22/24 History capsule,extended release furosemide 40 mg tablet 60 mg (1.5 x 40 mg) PO QAM #135 02/17/24 12/22/24 12/22/24 Rx tabs atorvastatin 40 mg tablet 40 mg PO BEDTIME #90 tabs 10/16/24 12/22/24 12/21/24 Rx cefdinir 300 mg capsule 300 mg PO Q12H [id number] 12/22/24 12/22/24 12/22/24 History clotrimazole 1 % topical cream 1 applic topical BID PRN Skin 12/22/24 12/22/24 Unknown History Irritation diltiazem HCl 180 mg 180 mg PO DAILY 12/22/24 12/22/24 12/22/24 History capsule,extended release 24 hr, controlled (DILT-XR) loratadine 10 mg tablet 10 mg PO DAILY 12/22/24 12/22/24 12/22/24 History metoprolol tartrate 100 mg tablet 100 mg PO BID 12/22/24 12/22/24 12/22/24 History Allergies Allergy/AdvReac Type Severity Reaction Status Date / Time aspirin Allergy Unknown unknown Verified 11/20/24 12:42 losartan Allergy Unknown Verified 11/20/24 12:42 Sulfa (Sulfonamide Allergy UNK Verified 11/20/24 12:42 Antibiotics) amiodarone AdvReac unknown Verified 11/20/24 12:42 lisinopril AdvReac excess Verified 11/20/24 12:42 mucous Penicillins AdvReac childhood Verified 11/20/24 12:42 allergy rash PFSH Acute PFSH: Medical History (Updated 12/22/24 @ 18:04 by Campbell Chaudhari MD) Macrocytosis History of nonmelanoma skin cancer Osteoporosis CHF (congestive heart failure) History of atrial fibrillation History of pulmonary embolism (2019) Hypothyroidism Valvular heart disease Moderate mitral and tricuspid regurgitation and trace aortic regurgitation by echocardiogram Peripheral arterial disease Leukopenia Temporal arteritis Varicose vein of leg Anemia History of transfusion dependent anemia Dyslipidemia Hypertension CVA (cerebral vascular accident) (2019) GERD (gastroesophageal reflux disease) COPD (chronic obstructive pulmonary disease) Albuterol and Atrovent, budesonide, oxygen Surgical History History of PTCA Status post surgical removal of malignant neoplasm of skin (01/2021) 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 History of angioplasty (2015) Angioplasty to right superficial femoral artery History of bilateral cataract extraction S/P dilatation and curettage Hx of coronary artery balloon dilation History of heart surgery History of intravascular stent placement (2015) Left superficial femoral artery History of colonoscopy Hx of tonsillectomy Family History Mother Hypertension Father Stroke Denies family history of Diabetes CAD (coronary artery disease) Clotting disorder Hyperlipidemia Chronic kidney disease (CKD) Bleeding disorder Cancer Social History (Updated 12/22/24 @ 18:00 by Campbell Chaudhari MD) Smoking and tobacco/nicotine status: former use of tobacco/nicotine Quit status (tobacco/nicotine): has quit using Year quit tobacco: 2008 Alcohol intake: never Substance/Drug Use: never Additional social history: 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 Vitals/I&O/Wt Last Vital Signs Temp 98.2 F 12/22/24 08:55 Pulse 98 12/22/24 14:00 Resp 25 H 12/22/24 11:50 BP 178/85 12/22/24 11:50 Pulse Ox 98 12/22/24 11:50 O2 Del Method Nasal Cannula 12/22/24 12:30 O2 Flow Rate 3 12/22/24 11:13 12/22/24 12/22/24 12/22/24 06:59 14:59 22:59 Intake Total 1000 / 1000 Balance 1000 / 1000 Weight last 48 hrs Weight 63.503 kg Weight 63.503 kg Physical Exam Narrative: General well-developed well-nourished female in no acute cardiopulmonary stress CV irregular no loud murmur Lungs diminished in the bases but no overt crackles Neck she has JVP 10 cm Abdomen positive bowel tones soft nontender Calves 1+ to 2 bilateral pretibial edema Data 12/22/24 09:36 12/22/24 09:36 Micro: Microbiology 12/22/24 09:57 Blood Culture - Preliminary Blood SPECIMEN COLLECTED 12/22/24 09:36 Blood Culture - Preliminary Blood SPECIMEN COLLECTED A&P Assessment and plan 1. Acute combined systolic (congestive) and diastolic (congestive) heart failure: Will diurese with furosemide IV and add spironolactone. Replace potassium 2. Atrial fibrillation: Diurese and continue with rate control medications including her diltiazem to 40 mg CD daily and metoprolol XL 100 mg twice a day 3. Macrocytosis: Check B12 and folic acid 4. Acute exacerbation of chronic obstructive pulmonary disease (COPD): Will continue with steroids and Xopenex 5. Bronchitis: Start azithromycin and cefdinir which it shows that the patient was already taking at home but she states she was taking doxycycline PDMP PDMP Reviewed: Not Reviewed Attestations Medical Necessity Statement*: Patient is admitted to hospital and will be observed overnight for return to baseline function with diuresis Coding Level of Care Code 97309 Diagnoses Acute combined systolic (congestive) and diastolic (congestive) heart failure I50.41 Atrial fibrillation I48.91 Macrocytosis D75.89 Acute exacerbation of chronic obstructive pulmonary disease (COPD) J44.1 Bronchitis J40 Time Spent (min) 75
[2024-12-22] MEDS: FUROsemide 10 mg/mL SDV 4mL 40 MG IVP (18:00)
[2024-12-22 19:19] LABS: Vitamin B12 > 2000 pg/mL (232-1245)
[2024-12-23] VITALS (67 sets, daily range): BP systolic 114–153; BP diastolic 61–107; PULSE 68–144; RESP 16–31; TEMP 36.4–36.6; O2SAT 77–100
[2024-12-23 04:56] LABS: Anion Gap 14.5 (5-19); Blood Urea Nitrogen 18 mg/dL (8-23); Calcium 9.1 mg/dL (8.5-10.5); Carbon Dioxide 29 mmol/L (22-29); Chloride 104 mmol/L (98-107); Creatinine Clr Calc Pharmacy 50.3281; Glucose 164 mg/dL (65-115); Osmolality Calculated 300 mOsm/kg (285-295); Potassium 5.5 mmol/L (3.5-5.1); Sodium 142 mmol/L (136-145)
[2024-12-23] MEDS: ferrous sulfate EC 325 mg Tablet PO (05:09)
--- OUTSIDE RECORDS SUMMARY | 2024-12-23 08:27 | XMS_ITS | Clinical Summary ---
Author Organization [facility] Address [address] [place] [address] Phone Care Team Providers Care Distance Learning Unit Leader Name Role Phone Unavailable Primary Care Provider [...] file Group ID:[id number] Type:Medicare Managed Care Address: [facility] [id number] [place] [id number]
--- OUTSIDE RECORDS SUMMARY | 2024-12-23 08:27 | XMS_ITS | Clinical Summary ---
Author Organization [facility] [address] Address [address] [place] [address] Phone Care Team Providers Care Operations Support Specialist Name Role Phone Jose Pagan MD Primary [...] Active sodium chloride (OCEAN) 0.65 % Aerosol, [place] Administer 2 Sprays in each nostril PRN [...] migh t be different from the original. 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 Gender Identity Not on file Sexual Orientation [...] Advance Directives For more information, please contact: [phone] * Full Code (Latest Code Status on File) Date Activated Date Inactivated Comments 10/22/2014 1:05 PM 10/25/2014 6:20 PM * Full Code Date Activated Date Inactivated Comments 10/22/2014 7:18 AM 10/22/2014 1:05 PM * Full Code Date Activated Date Inactivated Comments 05/29/2014 7:05 PM 06/07/2014 4:52 PM * Full Code Date Activated Date Inactivated Comments 05/02/2014 6:23 PM 05/05/2014 12:27 PM Care Teams Operations Support Specialist Relationship Specialty Start Date End Date Jose Pagan MD PCP - General Internal Medicine 06/02/14
[2024-12-23] MEDS: FUROsemide 10 mg/mL SDV 4mL 40 MG IVP ×2 (08:43→18:21)
[2024-12-23] MEDS: dilTIAZem ER (24HR) 180 mg Capsule PO ×2 (08:45→18:22)
[2024-12-23] MEDS: fluticasone nasal spray 16gm Btl 2 SPRAY INTRANASAL (08:45)
--- NOTE | 2024-12-23 12:49 | P.PN_ITS ---
Subjective 2 Subjective: 79-year-old female states she feels poorly primarily weak. She admits that her heart rate is 110 often at home. She states it has been that way ongoing patient refused Lovenox due to her recollection that Dr. Bautista had said not to take anticoagulation due to bone marrow disorder She has not had chest pain. She states she voided 3 times last night Vitals/I&O/Wt Last Vital Signs Temp 98 F 12/23/24 12:00 Pulse 108 H 12/23/24 12:00 Resp 26 H 12/23/24 12:00 BP 115/84 12/23/24 12:00 Pulse Ox 99 12/23/24 12:00 O2 Del Method Nasal Cannula 12/23/24 09:30 O2 Flow Rate 4 12/23/24 09:30 12/22/24 12/23/24 12/23/24 22:59 06:59 14:59 Intake Total 320 / 1320 300 / 300 Output Total 400 / 400 200 / 600 Balance -80 / 920 -200 / 720 299 / 299 Weight last 48 hrs Weight 63.74 kg Weight 63.503 kg Weight 63.503 kg Physical Exam 2 Narrative: General well-developed well-nourished female in no acute cardiopulmonary stress CV irregular no loud murmur Lungs clear to auscultation mildly decreased in bases Abdomen positive bowel tones soft nontender Calves trace to 1+ bilateral pretibial edema Data 12/22/24 09:36 12/23/24 04:20 Micro: Microbiology 12/22/24 09:57 Blood Culture - Preliminary Blood NEGATIVE TO DATE 12/22/24 09:36 Blood Culture - Preliminary Blood NEGATIVE TO DATE A&P Assessment and plan 1. Acute combined systolic (congestive) and diastolic (congestive) heart failure: Will diurese with furosemide IV and add spironolactone. She received too much potassium and K is up to 5.5. Will stop potassium replacement continue furosemide and spironolactone 2. Longstanding persistent atrial fibrillation: Diurese and continue with rate control medications including her diltiazem to 40 mg CD daily and metoprolol XL 100 mg twice a day Heart rate running [id number]. Additional 60 mg diltiazem short acting now and increase long-acting to 180 mg twice a day. Increase activity with ambulation 3 times a day monitor heart rate. Will discuss anticoagulation with the patient further 3. Macrocytosis: Folic acid was greater than 20 and B12 is greater than 2000 4. Acute exacerbation of chronic obstructive pulmonary disease (COPD): Will continue with steroids. Because the patient is not wheezing on going to stop the Xopenex as the patient is already having tachycardia 5. Bronchitis: Start azithromycin and cefdinir which it shows that the patient was already taking at home but she states she was taking doxycycline PDMP PDMP Reviewed: Not Reviewed Attestations 2 Medical Necessity Statement*: Patient have additional midnight in the hospital due to uncontrolled tachycardia with A-fib. We also need to see how she does walking. Coding Level of Care Code 68135 Diagnoses Acute combined systolic (congestive) and diastolic (congestive) heart failure I50.41 Longstanding persistent atrial fibrillation I48.11 Atrial fibrillation type: longstanding persistent Macrocytosis D75.89 Acute exacerbation of chronic obstructive pulmonary disease (COPD) J44.1 Bronchitis J40 Time Spent (min) 35
--- NOTE | 2024-12-23 15:49 | PC.NURSE ---
report called to [facility] , for transfer to room 105 no distress at this time
[2024-12-24 02:33] LABS: Magnesium 2.0 mg/dL (1.7-2.3)
[2024-12-24 02:37] LABS: Anion Gap 14.0 (5-19); Blood Urea Nitrogen 22 mg/dL (8-23); Calcium 9.2 mg/dL (8.5-10.5); Carbon Dioxide 30 mmol/L (22-29); Chloride 102 mmol/L (98-107); Creatinine Clr Calc Pharmacy 50.4121; Glucose 160 mg/dL (65-115); Osmolality Calculated 299 mOsm/kg (285-295); Potassium 5.0 mmol/L (3.5-5.1); Sodium 141 mmol/L (136-145)
[2024-12-24 04:00] VITALS: BP 114/62; PULSE 64; RESP 18; TEMP 36.4; O2SAT 95
[2024-12-24] MEDS: ferrous sulfate EC 325 mg Tablet PO (05:36)
[2024-12-24 05:57] VITALS: PULSE 76
[2024-12-24 08:00] VITALS: BP 150/86; PULSE 92; RESP 20; TEMP 36.2; O2SAT 94
[2024-12-24] MEDS: FUROsemide 10 mg/mL SDV 4mL 40 MG IVP (09:16)
[2024-12-24] MEDS: dilTIAZem ER (24HR) 180 mg Capsule PO (09:18)
[2024-12-24] MEDS: fluticasone nasal spray 16gm Btl 2 SPRAY INTRANASAL (09:25)
[2024-12-24 09:31] VITALS: O2SAT 86; O2SAT 94
--- NOTE | 2024-12-24 09:53 | PC.CHAP ---
Pastoral Care Encounter/Spiritual Assessment Type of Contact [] Declined audit control clerk visit [] Patient/Family/Request visit [] Outpatient visit [] Follow-up visit [] Physician referral [] Code/Alert [x] Routine visit [] Staff referral [] Actively dying [] Patient sleeping [] Family support [] [] Out of room [] Palliative care [] [] Receiving care in room [] Pre-surgical visit [] Trauma [] Long length of stay [] ICU visit [] Other: Relational/Emotional Strength [x] Patient feels connected with others/family/visitors/staff [] Distress [] Loneliness/isolation [] Abandonment Spirituality of Patient [x] Person of Millicent [] Attends Taoist of their Millicent [x] Believes in Prayer [] Reads Bible or Zoroastrianism materials [] There are Spiritual issues to be addressed Field Sales Executive Interventions [x] Prayer [x] Active listening [] Non-anxious presence [x] Spiritual/emotional support [] Crisis/trauma care [] Spiritual counseling [] Bereavement support [] Provided bereavement packet [] Provided Bible/devotional materials [] Provided toy/stuffed animal, coloring book to patient or family member [] Provided Communion [] Anointing/Donner [] Salvation [x] Completed spiritual assessment [] Other: Impact on Illness or Injury [] Angry [] Fearful [] Anxious [] Often cries [] Exhaustion [] Unable to work [] Unable to attend advent [] Unable to walk/stand [] Unable to read [] Unable to drive [] Unable to eat/drink [] Unable to sleep [] Unable to be with family [] Patient intubated [] Other: Summary Time spent with patient 5 min
--- NOTE | 2024-12-24 11:11 | PM.DCS ---
Discharge Providers Date of Admission: 12/23/24 12:09 Date of Discharge: December 24, 2024 Attending Provider at Admission: Campbell Chaudhari MD Attending Provider at Discharge: Campbell Chaudhari MD Primary Care Provider: Sreedhar Mejia MD Diagnoses at Discharge Discharge Diagnosis 1. Acute combined systolic (congestive) and diastolic (congestive) heart failure: 2. Longstanding persistent atrial fibrillation: 3. Macrocytosis: 4. Acute exacerbation of chronic obstructive pulmonary disease (COPD): 5. Bronchitis: Reason for Visit Reason for Visit: headache Brief History: Rowena Gil is a 79 year old female with history of rate controlled A-fib not on anticoagulation due to some bleeding problem and anemia. 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 Labs shows that she has had a macrocytic hemoglobin differential in the past. Patient denies alcohol use. She states she had a headache and went to see the chiropractor but came to the ER due to increasing shortness of breath productive cough of yellow and green phlegm and rapid heart rate. She was found to have COPD exacerbation and A-fib rapid ventricular response in the ER. She did not miss her morning doses of medication. Dr. Sánchez gave her additional IV and oral medication referred her for admission. Hospital Course Hospital Course Patient quit smoking perhaps 15 years ago or 20 but she is a poor historian on that. She has been on chronic O2 at 2 L/min. She had green phlegm and A-fib rapid ventricular response. Diuretics were given in the form of IV Lasix with diuresis of 5 kg based on weight though that is not clearly correlating with net negative balance which is documented as positive with only 1100 cc output and 1 void. I think some urine output was missed. I started the patient on spironolactone and potassium imani to 5.5 with concomitant potassium supplementation for initial potassium of 3.5. Potassium was stopped and her potassium level dropped to 5 continued on furosemide and spironolactone. Patient's COPD exacerbation with bronchitis was treated with azithromycin and her cefdinir from home was continued. She reports yellow and green sputum has resolved. She is breathing better but still requires more oxygen than she required on outpatient basis now requiring 3 L/min. Lung exam shows poor air movement and prolonged expiratory phase but no crackles Patient has refused Lovenox DVT prophylaxis because she states Dr. Bautista told her that she could not use blood thinners. Her blood count here has been good with normal white count 5.5, hematocrit 40 and platelets 200. B12 is elevated to greater than 2000 and folic acid greater than 20 showing no deficiency Patient does not drive but uses bus transportation and lives alone. I have arranged for her to have home health nursing to monitor her for heart rate control with her A-fib as well as her COPD. Patient is oriented but of very poor historian and has some illogical beliefs regarding her care that I think could be helped with additional education at home Physical Exam Narrative: General well-developed well-nourished female in no acute cardiopulmonary distress CV irregular rhythm but rate is controlled no loud murmur Lungs prolonged x-ray phase with poor air movement but no crackles Abdomen positive bowel tones soft Calves no tenderness cords pretrip edema Discharge Data Studies Completed and Pending Completed Studies During Hospitalization Category Date Time Status XR chest 1V portable [id number] Stat Exams 12/22/24 09:20 Completed Pending at discharge Category Date Time Status Basic Metabolic Panel AM LABS Lab 12/25/24 04:00 Ordered Blood Culture Stat Lab 12/22/24 09:57 Results Sputum Culture and Gram Stain Stat Lab 12/22/24 09:21 Uncollected Radiology Impressions Chest X-Ray 12/22/24 09:20 IMPRESSION: As above. Laboratory Results WBC 5.22 10^3/uL (3.29-11.43) 12/22/24 09:36 RBC 4.08 10^6/uL (3.85-5.65) 12/22/24 09:36 Hgb 13.70 g/dL (11.27-16.99) 12/22/24 09:36 Hct 40.6 % (36-47) 12/22/24 09:36 MCV 99.5 fl (85-98) H 12/22/24 09:36 MCH 33.6 pg (27-33) H 12/22/24 09:36 MCHC 33.7 g/dL (30-55) 12/22/24 09:36 RDW 14.0 % (12.1-15.1) 12/22/24 09:36 Plt Count 200 10^3/cmm (157-399) 12/22/24 09:36 MPV 9.2 fL (7.4-10.4) 12/22/24 09:36 Neut % (Auto) 82.8 % 12/22/24 09:36 Lymph % (Auto) 7.7 % 12/22/24 09:36 [place] % (Auto) 7.5 % 12/22/24 09:36 Eos % (Auto) 1.0 % 12/22/24 09:36 Baso % (Auto) 0.6 % 12/22/24 09:36 Neut # (Auto) 4.33 10^3/uL (1.8-7.7) 12/22/24 09:36 Lymph # (Auto) 0.4 10^3/uL (0.8-4.8) L 12/22/24 09:36 [place] # (Auto) 0.4 10^3/uL (0.2-0.9) 12/22/24 09:36 Eos # (Auto) 0.1 10^3/uL (0.0-0.8) 12/22/24 09:36 Baso # (Auto) 0.0 10^3/uL (0.0-0.1) 12/22/24 09:36 Nucleated RBC % (auto) 0 % 12/22/24 09:36 Nucleated RBCs # 0.0 /100WBC 12/22/24 09:36 Specimen Type Arterial 12/22/24 09:58 Sample Site Radial, left 12/22/24 09:58 ABG pH 7.45 (7.35-7.45) 12/22/24 09:58 ABG pCO2 43.7 mmHg (35-45) 12/22/24 09:58 ABG pO2 104.0 mmHg (80.0-100.0) H 12/22/24 09:58 ABG HCO3 30.2 mmol/L (22-26) H 12/22/24 09:58 ABG O2 Saturation 98.7 12/22/24 09:58 ABG Base Excess 5.5 mmol/L (-2.0-2.0) H 12/22/24 09:58 [place] Test Pos 12/22/24 09:58 A-a O2 Gradient Not Reportable 12/22/24 09:58 Hematocrit 43.4 % (37-47) 12/22/24 09:58 Hgb O2 Saturation 96.5 % (95-100) 12/22/24 09:58 Carboxyhemoglobin 1.7 %THgb (0.4-20.1) 12/22/24 09:58 Methemoglobin 0.6 % (0.4-1.5) 12/22/24 09:58 Total Hemoglobin 14.2 g/dL (12-16) 12/22/24 09:58 Sodium 140.0 mmol/L (131-143) 12/22/24 09:58 Potassium 3.3 mmol/L (3.5-5.0) L 12/22/24 09:58 Glucose 128.0 mg/dL (70-115) H 12/22/24 09:58 Ionized Calcium 1.2 mmol/L (1.1-1.4) 12/22/24 09:58 O2 Delivery Device Nc 12/22/24 09:58 O2 Liters/Min 3.0 % 12/22/24 09:58 Director Educational Radio ID [place] 12/22/24 09:58 Sodium 141 mmol/L (136-145) 12/24/24 01:42 Potassium 5.0 mmol/L (3.5-5.1) 12/24/24 01:42 Chloride 102 mmol/L (98-107) 12/24/24 01:42 Carbon Dioxide 30 mmol/L (22-29) H 12/24/24 01:42 Anion Gap 14.0 (5-19) 12/24/24 01:42 BUN 22 mg/dL (8-23) 12/24/24 01:42 Creatinine 0.6 mg/dL (0.5-0.9) 12/24/24 01:42 GFR Calculation Not Reportable 12/24/24 01:42 Glucose 160 mg/dL (65-115) H 12/24/24 01:42 Calculated Osmolality 299 mOsm/kg (285-295) H 12/24/24 01:42 Lactic Acid 1.0 mmol/L (0.5-2.2) 12/22/24 09:36 Calcium 9.2 mg/dL (8.5-10.5) 12/24/24 01:42 Magnesium 2.0 mg/dL (1.7-2.3) 12/24/24 01:42 Total Bilirubin 1.0 mg/dL (0.15-1.2) 12/22/24 09:36 AST 37 U/L (0-32) H 12/22/24 09:36 ALT 31 U/L (0-33) 12/22/24 09:36 Alkaline Phosphatase 115 U/L (35-105) H 12/22/24 09:36 Troponin T Baseline 44 ng/L (0-10) H 12/22/24 09:36 Troponin T 120 Minute 41.46 ng/L (0-10) H 12/22/24 11:08 Delta Troponin T -2.54 ABS# (0-10) L 12/22/24 11:08 Troponin T Hi Sens 6Hr 28.10 ng/L (0-10) H 12/22/24 15:23 Troponin T Hi Sens 6Hr Delta -15.90 ng/L (0-12) L 12/22/24 15:23 C-Reactive Protein 26.8 mg/L (0.0-4.9) H 12/22/24 09:36 Total Protein 6.2 g/dL (6.6-8.7) L 12/22/24 09:36 Albumin 3.9 g/dL (3.5-5.2) 12/22/24 09:36 Globulin 2.3 g/dL (1.3-4.6) 12/22/24 09:36 Vitamin B12 > 2000 pg/mL (232-1245) H 12/22/24 09:36 Folate > 20.0 ng/mL (4.8-37.3) 12/22/24 09:36 Imaging CXR: Radiologist's impression: FINDINGS: Lungs: Unremarkable. No consolidation. Pleural spaces: Unremarkable. No pleural effusion. No pneumothorax. Heart/Mediastinum: Cardiomegaly. Bones/joints: Unremarkable. Vitals Last Vital Signs Temp 97.2 F L 12/24/24 08:00 Pulse 92 12/24/24 08:00 Resp 20 H 12/24/24 08:00 BP 150/86 12/24/24 08:00 Pulse Ox 86 L 12/24/24 09:31 O2 Del Method Nasal Cannula 12/24/24 08:00 O2 Flow Rate 3 12/24/24 09:31 Discharge Plan Discharge Patient Disposition: Home Condition: Stable Prescriptions: New azithromycin 250 mg Tablet 250 mg PO DAILY Qty: 5 0RF spironolactone 25 mg Tablet 25 mg PO BID Qty: 60 0RF dexamethasone 4 mg Tablet 4 mg PO DAILY Qty: 4 0RF Continued ipratropium bromide 21 mcg (0.03 %) spray,non-aerosol 2 spray intranasal TID PRN (Reason: Nasal Congestion) ferrous sulfate 325 mg (65 mg iron) tablet 325 mg PO QAM yyicocq-toaewyybp-wwvy 333-133-5 mg tablet 1 tab PO QAM atorvastatin 40 mg tablet 40 mg PO BEDTIME Qty: 90 3RF vitamin B complex Tablet 1 tab PO QAM fluticasone propionate 50 mcg/actuation spray,suspension 2 spray INTRANASAL DAILY acetaminophen [Tylenol Ex Str Rapid Release] 500 mg Tablet 500 mg PO BID PRN (Reason: Pain) albuterol sulfate 90 mcg/actuation HFA aerosol inhaler 2 puff INHALATION QID PRN (Reason: Cough) cholecalciferol (vitamin D3) [Vitamin D3] 50 mcg (2,000 unit) Tablet 2,000 unit PO QAM lutein 40 mg Capsule 40 mg PO QAM cefdinir 300 mg capsule 300 mg PO Q12H loratadine 10 mg tablet 10 mg PO DAILY metoprolol tartrate 100 mg tablet 100 mg PO BID clotrimazole 1 % cream 1 applic topical BID PRN (Reason: Skin Irritation) Changed furosemide 40 mg tablet 40 mg PO BID Qty: 60 3RF diltiazem HCl [DILT-XR] 180 mg capsule,ext.rel 24h degradable 180 mg PO BID Qty: 60 0RF Discontinued potassium chloride 10 mEq capsule, extended release 10 meq PO QAM Discharge Order = DC NOW: Discharge Order (Routine); Ordered 12/24/24 Ordered By: Campbell Chaudhari Other Ambulatory Orders: Basic Metabolic Panel (Routine) Timeframe: 3 Days Facility: [facility] [place] - Location: Lab - Main Lab Ordered By: Campbell Chaudhari Referrals: Sreedhar Mejia MD [Primary Care Provider, Family Practice] - 1 week Discharge Diet: Cardiac Discharge Activity: Increase activity as tolerated and Oxygen as instructed Patient Instructions: Opioid Safety, Patient Portal & Morgan Instructions Activity Restrictions/Additional Instructions: Use oxygen at 3 L/min Take new increased dose of furosemide 40 mg twice a day. Stop potassium chloride at home. Take spironolactone 25 mg twice a day which is a diuretic that will also increase your potassium level. Increase diltiazem to 180 mg CD twice a day for control of your A-fib heart rate Follow-up basic metabolic panel for potassium in 3 days Follow-up with Dr. Mejia in [address] Mejia your improved blood count and possibility of anticoagulation for A-fib. Return if worsening shortness of breath, chest pain or heart rate [id number]-ju-[id number] greater than 110 at rest Discharge Attestations Time Spent in Discharge Care*: greater than 30 min Time Spent in Smoking Cessation: Patient is non-smoker Quality Metrics Clinical Quality Measures [ No reported AMI, CVA or VTE this stay] Coding Level of Care Code Acute Code for Chg Fwd Diagnoses Acute combined systolic (congestive) and diastolic (congestive) heart failure I50.41 Longstanding persistent atrial fibrillation I48.11 Atrial fibrillation type: longstanding persistent Macrocytosis D75.89 Acute exacerbation of chronic obstructive pulmonary disease (COPD) J44.1 Bronchitis J40 Time Spent (min) 40
[2024-12-24 11:38] VITALS: BP 150/86; PULSE 102; RESP 18; O2SAT 95
[2024-12-24 12:00] VITALS: BP 127/86; PULSE 93; RESP 20; TEMP 36.2; O2SAT 95
--- NOTE | 2024-12-24 14:47 | PC.NURSE ---
discharge instructions given and explained...pt and pt's sister verb understanding of instructions.discharged via w/c to exit at this time
--- OUTSIDE RECORDS SUMMARY | 2024-12-24 14:51 | XMS_ITS | Clinical Summary ---
Author Organization [facility] Address [address] [place] [address] Phone Care Team Providers Care Saw Sharpener Name Role Phone Unavailable Primary Care Provider [...] file Group ID:[id number] Type:Medicare Managed Care Address: [facility] [id number] [place] [id number]
--- OUTSIDE RECORDS SUMMARY | 2024-12-24 14:51 | XMS_ITS | Clinical Summary ---
Author Organization [employer] [facility] [address] Address [address] [place] [address] Phone Care Team Providers Care Vibrator Operator Name Role Phone Jose Pagan MD Primary [...] Active sodium chloride (OCEAN) 0.65 % Aerosol, [place] Administer 2 Sprays in each nostril PRN [...] migh t be different from the original. 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 Gender Identity Not on file Sexual Orientation [...] Advance Directives For more information, please contact: [phone] * Full Code (Latest Code Status on File) Date Activated Date Inactivated Comments 10/22/2014 1:05 PM 10/25/2014 6:20 PM * Full Code Date Activated Date Inactivated Comments 10/22/2014 7:18 AM 10/22/2014 1:05 PM * Full Code Date Activated Date Inactivated Comments 05/29/2014 7:05 PM 06/07/2014 4:52 PM * Full Code Date Activated Date Inactivated Comments 05/02/2014 6:23 PM 05/05/2014 12:27 PM Care Teams Vibrator Operator Relationship Specialty Start Date End Date Jose Pagan MD PCP - General Internal Medicine 06/02/14
--- OUTSIDE RECORDS SUMMARY | 2024-12-25 05:40 | XMS_ITS | Clinical Summary ---
Author Organization [facility] Address [address] [place] [address] Phone Care Team Providers Care Digital Account Director Name Role Phone Unavailable Primary Care Provider [...] file Group ID:[id number] Type:Medicare Managed Care Address: [facility] [id number] [place] [id number]
--- OUTSIDE RECORDS SUMMARY | 2024-12-25 05:40 | XMS_ITS | Clinical Summary ---
Author Organization [employer] [facility] [address] Address [address] [place] [address] Phone Care Team Providers Care Dispensing And Measuring Optician Name Role Phone Jose Pagan MD Primary [...] Active sodium chloride (OCEAN) 0.65 % Aerosol, [place] Administer 2 Sprays in each nostril PRN [...] migh t be different from the original. 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 Gender Identity Not on file Sexual Orientation [...] Advance Directives For more information, please contact: [phone] * Full Code (Latest Code Status on File) Date Activated Date Inactivated Comments 10/22/2014 1:05 PM 10/25/2014 6:20 PM * Full Code Date Activated Date Inactivated Comments 10/22/2014 7:18 AM 10/22/2014 1:05 PM * Full Code Date Activated Date Inactivated Comments 05/29/2014 7:05 PM 06/07/2014 4:52 PM * Full Code Date Activated Date Inactivated Comments 05/02/2014 6:23 PM 05/05/2014 12:27 PM Care Teams Dispensing And Measuring Optician Relationship Specialty Start Date End Date Jose Pagan MD PCP - General Internal Medicine 06/02/14
== END 2024-12-24 14:48 | disposition home or self-care (01) ==
LOC: ER 11:53 → ICU 15:22 → CSU 12-23 17:01 → ICU 12-25 05:38
PROVIDERS: Admitting Provider Internal Medicine; Emergency Provider Family Medicine; PCP Family Medicine; Visit Provider Internal Medicine
DX: J44.1 Chronic obstructive pulmonary disease with (acute) exacerbation (principal); I11.0 Hypertensive heart disease with heart failure; I50.41 Acute combined systolic (congestive) and diastolic (congestive) heart failure; I48.11 Longstanding persistent atrial fibrillation; D75.89 Other specified diseases of blood and blood-forming organs; J40 Bronchitis, not specified as acute or chronic; Z87.891 Personal history of nicotine dependence; Z99.81 Dependence on supplemental oxygen; Z86.711 Personal history of pulmonary embolism; K21.9 Gastro-esophageal reflux disease without esophagitis; E78.5 Hyperlipidemia, unspecified; E03.9 Hypothyroidism, unspecified; Z95.5 Presence of coronary angioplasty implant and graft
CPT/HCPCS: 36415; 36600; 71045; 80048; 80051; 80053; 82330; 82607; 82746; 82805; 83605; 83735; 84484; 85025; 86140; 87040; 93005; 94640; 94760; 96372; 96374; 96375; 96376; 99285; G0378; J0780; J1200; J1650; J1885; J1938; J2919; J3490; J7030; J8540; J9999; Q0144

== ENCOUNTER 2025-01-03 17:25 | Inpatient (IN) | payer MEDICARE, MEDICAID, SELFPAY ==
--- OUTSIDE RECORDS SUMMARY | 2025-01-03 17:30 | XMS_ITS | Clinical Summary ---
Author Organization [facility] Address [address] [place] [address] Phone Care Team Providers Care Coordinate Measuring Machine Technician Name Role Phone Unavailable Primary Care Provider [...] file Group ID:[id number] Type:Medicare Managed Care Address: [facility] [id number] [place] [id number]
--- OUTSIDE RECORDS SUMMARY | 2025-01-03 17:30 | XMS_ITS | Clinical Summary ---
Author Organization [employer] [facility] [address] Address [address] [place] [address] Phone Care Team Providers Care Sausage Grinder Name Role Phone Jose Pagan MD Primary [...] Active sodium chloride (OCEAN) 0.65 % Aerosol, [place] Administer 2 Sprays in each nostril PRN [...] migh t be different from the original. 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 Gender Identity Not on file Sexual Orientation [...] Advance Directives For more information, please contact: [phone] * Full Code (Latest Code Status on File) Date Activated Date Inactivated Comments 10/22/2014 1:05 PM 10/25/2014 6:20 PM * Full Code Date Activated Date Inactivated Comments 10/22/2014 7:18 AM 10/22/2014 1:05 PM * Full Code Date Activated Date Inactivated Comments 05/29/2014 7:05 PM 06/07/2014 4:52 PM * Full Code Date Activated Date Inactivated Comments 05/02/2014 6:23 PM 05/05/2014 12:27 PM Care Teams Sausage Grinder Relationship Specialty Start Date End Date Jose Pagan MD PCP - General Internal Medicine 06/02/14
[2025-01-03 17:33] VITALS: BP 106/55; PULSE 85; RESP 17; TEMP 36.7; O2SAT 97; BMI 21.7
--- NOTE | 2025-01-03 17:52 | CTR_ITS ---
PROCEDURE INFORMATION: Exam: CT Abdomen And Pelvis With Contrast Exam date and time: 01/03/2025 6:36 PM Age: 79 years old Clinical indication: Abdominal pain; Other: Lower; Additional info: Gi bleed TECHNIQUE: Imaging protocol: Computed tomography of the abdomen and pelvis with contrast. Radiation optimization: All CT scans at this facility use at least one of these dose optimization techniques: automated exposure control; mA and/or kV adjustment per patient size (includes targeted exams where dose is matched to clinical indication); or iterative reconstruction. Contrast material: OMNI 350; Contrast volume: 100 ml; Contrast route: INTRAVENOUS (IV); COMPARISON: 1. CT abdomen pelvis w con* [id number] 12/09/2020 2:[address] angio chest PE protcl [id number] 06/18/2024 1:56 PM RADIATION DOSE METRICS: Total DLP (mGy-cm): 333.1 FINDINGS: Lungs: Emphysematous changes in the lung bases. Heart: Cardiomegaly. Rounded filling defects within the right atrial appendage. Stable asymmetric atrophy of the right kidney. Subcentimeter left renal cortical hypodensities are too small to characterize but likely represent cysts. Coronary arteries: Coronary artery calcifications. Liver: Normal. No mass. Gallbladder and biliary ducts: Normal. No calcified stones. No ductal dilation. Pancreas: Normal. No ductal dilation. Spleen: Normal. No splenomegaly. Adrenal glands: Normal. No mass. Kidneys and ureters: See Heart finding. Stomach and bowel: Focal area of hyperattenuation within the rectum (for example series 7, image 32). With the additional hyperattenuation near the anorectal junction. Sigmoid diverticulosis without diverticulitis. Appendix: No evidence of appendicitis. Intraperitoneal space: Unremarkable. No free air. No significant fluid collection. Vasculature: Moderate diffuse atherosclerotic aortoiliac calcifications. No abdominal aortic aneurysm. Lymph nodes: Unremarkable. No enlarged lymph nodes. Urinary bladder: Unremarkable as visualized. Reproductive: The uterus is atrophic. Bones/joints: Degenerative changes of the spine. Diffuse osseous demineralization. Soft tissues: Unremarkable. CT/CT abdomen pelvis w con* [id number] IMPRESSION: 1. Focal area of hyperattenuation within the rectum with ill-defined hyperattenuation near the anorectal junction could represent bleeding in the GI tract, possibly from internal hemorrhoids, though assessment is limited on this single phase of contrast. Correlate with physical exam findings. 2. Rounded filling defects in the region of the right atrial appendage concerning for thrombus. Consider echocardiogram for further evaluation. 3. Similar asymmetric atrophy of the right kidney. 4. Additional nonemergent findings as above are similar to prior. COMMENTS: Consistent with the [place] [employer]'s Incidental Findings Committee white paper (J Am Jalil Radiol 2018): Any incidental renal lesion less than 1 cm or classified as too small to characterize, or any incidental cystic renal lesion characterized as simple-appearing, is likely benign. No follow-up imaging is recommended for these lesions per consensus recommendations based on imaging criteria.
--- NOTE | 2025-01-03 17:55 | W.ED.GIBLEED ---
HPI - GI Bleed General: Chief complaint: GI Bleed Stated complaint: bowel problems Time Seen by Provider: 01/03/25 17:28 History of Present Illness: 79-year-old female with a history of macrocytosis, osteoporosis, congestive heart failure, atrial fibrillation, remote history of pulmonary embolism, valvular heart disease, hypothyroidism, hyperlipidemia, hypertension, stroke and COPD who presents the emergency room with concern for rectal bleeding. She says she was constipated and did not poop for a couple of days and then she took some medications and did and when she did she had bright red blood with her stools. No dizziness. No shortness of breath. No black tarry stools. No hematemesis. She says she is not on anticoagulation because she has big cells . I believe this is referring to the microcytic anemia that she had in the past. No abdominal pain. Related Data Home Medications ?Medication ?Instructions ?Recorded ?Confirmed ferrous sulfate 325 mg (65 mg 325 mg PO QAM 12/03/21 12/22/24 iron) tablet [id number] 333 mg-133 1 tab PO QAM 01/27/22 12/22/24 mg-5 mg tablet ipratropium bromide 21 mcg (0.03 2 spray intranasal TID PRN Nasal 02/10/22 12/22/24 %) nasal spray Congestion vitamin B complex 1 tab PO QAM 02/26/22 12/22/24 fluticasone propionate 50 2 spray intranasal DAILY 08/02/22 12/22/24 mcg/actuation nasal spray,suspension acetaminophen 500 mg tablet 500 mg PO BID PRN Pain 05/21/23 12/22/24 albuterol sulfate 90 mcg/actuation 2 puff inhalation QID PRN Cough 05/21/23 12/22/24 aerosol inhaler cholecalciferol (vitamin D3) 50 2,000 unit PO QAM 05/21/23 12/22/24 mcg (2,000 unit) tablet (Vitamin D3) lutein 40 mg capsule 40 mg PO QAM 05/21/23 12/22/24 cefdinir 300 mg capsule 300 mg PO Q12H [id number] 12/22/24 12/22/24 clotrimazole 1 % topical cream 1 applic topical BID PRN Skin 12/22/24 12/22/24 Irritation loratadine 10 mg tablet 10 mg PO DAILY 12/22/24 12/22/24 metoprolol tartrate 100 mg tablet 100 mg PO BID 12/22/24 12/22/24 Previous Rx's ?Medication ?Instructions ?Recorded atorvastatin 40 mg tablet 40 mg PO BEDTIME #90 tabs 10/16/24 azithromycin 250 mg tablet 250 mg PO DAILY #5 tabs 12/24/24 dexamethasone 4 mg tablet 4 mg PO DAILY #4 tabs 12/24/24 diltiazem HCl 180 mg 180 mg PO BID #60 caps 12/24/24 capsule,extended release 24 hr, controlled (DILT-XR) furosemide 40 mg tablet 40 mg PO BID #60 tabs 12/24/24 spironolactone 25 mg tablet 25 mg PO BID #60 tabs 12/24/24 Allergies Allergy/AdvReac Type Severity Reaction Status Date / Time aspirin Allergy Unknown unknown Verified 11/20/24 12:42 losartan Allergy Unknown Verified 11/20/24 12:42 Sulfa (Sulfonamide Allergy UNK Verified 11/20/24 12:42 Antibiotics) amiodarone AdvReac unknown Verified 11/20/24 12:42 lisinopril AdvReac excess Verified 11/20/24 12:42 mucous Penicillins AdvReac childhood Verified 11/20/24 12:42 allergy rash Review of Systems Narrative: Constitutional symptoms: Negative except as documented in HPI. Skin symptoms: Negative except as documented in HPI. Eye symptoms: Negative except as documented in HPI. ENMT symptoms: Negative except as documented in HPI. Respiratory symptoms: Negative except as documented in HPI. Cardiovascular symptoms: Negative except as documented in HPI. Gastrointestinal symptoms: Negative except as documented in HPI. Genitourinary symptoms: Negative except as documented in HPI. Musculoskeletal symptoms: Negative except as documented in HPI. Neurologic symptoms: Negative except as documented in HPI. Psychiatric symptoms: Negative except as documented in HPI. Endocrine symptoms: Negative except as documented in HPI. PFSH ED PFSH: Medical History (Updated 01/03/25 @ 20:20 by Tamera Artis MD) Macrocytosis History of nonmelanoma skin cancer Osteoporosis CHF (congestive heart failure) History of atrial fibrillation History of pulmonary embolism (2019) Hypothyroidism Valvular heart disease Moderate mitral and tricuspid regurgitation and trace aortic regurgitation by echocardiogram Peripheral arterial disease Leukopenia Temporal arteritis Varicose vein of leg Anemia History of transfusion dependent anemia Dyslipidemia Hypertension CVA (cerebral vascular accident) (2019) GERD (gastroesophageal reflux disease) COPD (chronic obstructive pulmonary disease) Albuterol and Atrovent, budesonide, oxygen Surgical History (Updated 12/25/24 @ 00:00 by TERRY Guerrero) History of PTCA Status post surgical removal of malignant neoplasm of skin (01/2021) 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 History of angioplasty (2015) Angioplasty to right superficial femoral artery History of bilateral cataract extraction S/P dilatation and curettage Hx of coronary artery balloon dilation History of heart surgery History of intravascular stent placement (2015) Left superficial femoral artery History of colonoscopy Hx of tonsillectomy Family History Mother Hypertension Father Stroke Denies family history of Diabetes CAD (coronary artery disease) Clotting disorder Hyperlipidemia Chronic kidney disease (CKD) Bleeding disorder Cancer Social History (Updated 12/22/24 @ 18:00 by Campbell Chaudhari MD) Smoking and tobacco/nicotine status: former use of tobacco/nicotine Quit status (tobacco/nicotine): has quit using Year quit tobacco: 2008 Alcohol intake: never Substance/Drug Use: never Additional social history: 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 Skin: Warm, dry. Head: Normocephalic, atraumatic. Neck: Supple, trachea midline. Eye: Extraocular movements are intact. Ears, nose, mouth and throat: mucosa moist. Cardiovascular: Regular, Normal peripheral perfusion. Respiratory: Lungs are clear to auscultation, respirations are non-labored, breath sounds are equal, Symmetrical chest wall expansion. Gastrointestinal: Soft, Nontender, Non distended Musculoskeletal: Normal ROM, no deformity. Neurological: Alert and oriented, No focal neurological deficit observed. Psychiatric: Cooperative, appropriate mood & affect. Course Vital Signs: Vital signs: Vital Signs Temperature 98.1 F 01/03/25 17:33 Pulse Rate 85 07/24/25 18:11 Respiratory Rate 20 H 01/03/25 18:11 Blood Pressure 115/72 01/03/25 20:19 Pulse Oximetry 94 01/03/25 20:19 Oxygen Delivery Me thod Room Air 01/03/25 18:11 MDM - GI Bleed Medical Decision Making Medical decision making: Differential diagnosis for patient who presents with hematochezia/bright red blood per rectum including but not limited to and based on the above HPI, review of systems and physical exam: Internal hemorrhoid bleeding, diverticular bleeding, irritated colonic mucosa. This is most often not life-threatening. Main concerns would be for anemia. Also if this were a very brisk upper GI bleed there might be an elevation in the BUN. But likely this is lower GI bleeding. Orders placed to evaluate differential diagnosis based on the above differential, HPI and physical exam Lab Review: Laboratory results were reviewed and interpreted by myself the emergency room physician. No leukocytosis. Hemoglobin is normal at 15 but she does have some microcytosis. BUN/creatinine are slightly elevated over baseline at 36 and 1.2. She is receiving some fluids. Urinalysis is negative for infection urine is very concentrated at 1.055 which would also indicate dehydration. CT of the abdomen pelvis: Focal area in the rectum that might represent an internal hemorrhoid bleed. This is consistent with history. I also see rounded filling defects in the region of the right atrial appendage that are concerning for thrombus. See radiology report for full details of chronic findings. This was reviewed and interpreted by myself the emergency room physician. I also reviewed the radiology report. I reviewed the patient's medical record. 79-year-old female with a history of macrocytosis, osteoporosis, congestive heart failure, atrial fibrillation, remote history of pulmonary embolism, valvular heart disease, hypothyroidism, hyperlipidemia, hypertension, stroke and COPD Reexamination: Patient has remained stable. Blood pressure has been normal. She has had no belly pain. No tachycardia. No altered mental status. Consultation: I spoke with Dr. Ashby about the findings on the CT scan. He recommends heparin drip and admission for BARRERA. Given that she has had issues with bleeding in the past I am not comfortable sending her home on oral anticoagulation with a plan for an outpatient follow-up on this. Consultation: I spoke with Dr. Sorto who is on-call for the hospitalist service who agrees to admission. She recommends consultation with general surgery in case the patient needs this hemorrhoid thrombosed or further evaluation. Consultation: I spoke with Dr. Salazar who is on-call for the hospitalist service who is now aware of the patient and will consult on her tomorrow unless he is needed overnight. Assessment and plan: Rectal bleeding Possible atrial thrombus History of atrial fibrillation Dehydration Acute renal insufficiency ?Normal saline bolus in the emergency room. ? Heparin drip initiated ? Stat echo was done. Results pending. -I discussed the patient with the hospitalist on-call who is admitting the patient. - Discussed findings and plan with patient. Answered any questions. - All laboratory values were reviewed and interpreted personally by myself, the ER physician - All imaging was reviewed and interpreted personally by myself, the ER physician. - Evaluation and treatment of this problem were appropriate in the emergency setting Lab Data 01/03/25 18:09 01/03/25 18:09 Radiology Impressions Abdomen/Pelvis CT 01/03/25 17:52 IMPRESSION: 1. Focal area of hyperattenuation within the rectum with ill-defined hyperattenuation near the anorectal junction could represent bleeding in the GI tract, possibly from internal hemorrhoids, though assessment is limited on this single phase of contrast. Correlate with physical exam findings. 2. Rounded filling defects in the region of the right atrial appendage concerning for thrombus. Consider echocardiogram for further evaluation. 3. Similar asymmetric atrophy of the right kidney. 4. Additional nonemergent findings as above are similar to prior. COMMENTS: Consistent with the [place] [employer]'s Incidental Findings Committee white paper (J Am Jalil Radiol 2018): Any incidental renal lesion less than 1 cm or classified as too small to characterize, or any incidental cystic renal lesion characterized as simple-appearing, is likely benign. No follow-up imaging is recommended for these lesions per consensus recommendations based on imaging criteria. Laboratory Results WBC 10.84 10^3/uL (3.29-11.43) 01/03/25 18:09 RBC 4.46 10^6/uL (3.85-5.65) 01/03/25 18:09 Hgb 15.10 g/dL (11.27-16.99) 01/03/25 18:09 Hct 44.1 % (36-47) 01/03/25 18:09 MCV 98.9 fl (85-98) H 01/03/25 18:09 MCH 33.9 pg (27-33) H 01/03/25 18:09 MCHC 34.2 g/dL (30-55) 01/03/25 18:09 RDW 14.6 % (12.1-15.1) 01/03/25 18:09 Plt Count 183 10^3/cmm (157-399) 01/03/25 18:09 MPV 10.0 fL (7.4-10.4) 01/03/25 18:09 Neut % (Auto) 85.5 % 01/03/25 18:09 Lymph % (Auto) 5.1 % 01/03/25 18:09 [place] % (Auto) 7.3 % 01/03/25 18:09 Eos % (Auto) 0.4 % 01/03/25 18:09 Baso % (Auto) 0.2 % 01/03/25 18:09 Neut # (Auto) 9.28 10^3/uL (1.8-7.7) H 01/03/25 18:09 Lymph # (Auto) 0.6 10^3/uL (0.8-4.8) L 01/03/25 18:09 [place] # (Auto) 0.8 10^3/uL (0.2-0.9) 01/03/25 18:09 Eos # (Auto) 0.0 10^3/uL (0.0-0.8) 01/03/25 18:09 Baso # (Auto) 0.0 10^3/uL (0.0-0.1) 01/03/25 18:09 Nucleated RBC % (auto) 0 % 01/03/25 18:09 Nucleated RBCs # 0.0 /100WBC 01/03/25 18:09 Sodium 135 mmol/L (136-145) L 01/03/25 18:09 Potassium 5.1 mmol/L (3.5-5.1) 01/03/25 18:09 Chloride 92 mmol/L (98-107) L 01/03/25 18:09 Carbon Dioxide 27 mmol/L (22-29) 01/03/25 18:09 Anion Gap 21.1 (5-19) H 01/03/25 18:09 BUN 36 mg/dL (8-23) H 01/03/25 18:09 Creatinine 1.2 mg/dL (0.5-0.9) H 01/03/25 18:09 GFR Calculation Not Reportable 01/03/25 18:09 Glucose 120 mg/dL (65-115) H 01/03/25 18:09 Calculated Osmolality 290 mOsm/kg (285-295) 01/03/25 18:09 Lactic Acid 1.3 mmol/L (0.5-2.2) 01/03/25 18:09 Calcium 9.9 mg/dL (8.5-10.5) 01/03/25 18:09 Total Bilirubin 1.5 mg/dL (0.15-1.2) H 01/03/25 18:09 AST 24 U/L (0-32) 01/03/25 18:09 ALT 44 U/L (0-33) H 01/03/25 18:09 Alkaline Phosphatase 124 U/L (35-105) H 01/03/25 18:09 C-Reactive Protein 27.0 mg/L (0.0-4.9) H 01/03/25 18:09 Total Protein 6.6 g/dL (6.6-8.7) 01/03/25 18:09 Albumin 4.1 g/dL (3.5-5.2) 01/03/25 18:09 Globulin 2.5 g/dL (1.3-4.6) 01/03/25 18:09 Lipase 24 U/L (13-60) 01/03/25 18:09 Urine Color Yellow (Yellow) 01/03/25 19:41 Urine Appearance Clear (CLEAR) 01/03/25 19:41 Urine pH 7.5 (5-7) 01/03/25 19:41 Ur Specific [place] 1.055 (1.005-1.030) H 01/03/25 19:41 Urine Protein Trace (Negative) A 01/03/25 19:41 Urine Glucose (UA) Negative (Normal) 01/03/25 19:41 Urine Ketones Negative (Negative) 01/03/25 19:41 Urine Blood Negative (Negative) 01/03/25 19:41 Urine Nitrate Negative (Negative) 01/03/25 19:41 Urine Bilirubin Negative (Negative) 01/03/25 19:41 Urine Urobilinogen 1.0 mg/dL (Negative) 01/03/25 19:41 Ur Leukocyte Esterase Negative (Negative) 01/03/25 19:41 Urine RBC 0-2 /hpf (0-2) 01/03/25 19:41 Urine WBC 0-5 /hpf (0-5) 01/03/25 19:41 Ur Squamous Epith Cells 0-5 /hpf (0-5) 01/03/25 19:41 Amorphous Sediment Not Reportable 01/03/25 19:41 Urine Bacteria None seen /hpf (NONE) 01/03/25 19:41 Hyaline Casts 4.95 /lpf 01/03/25 19:41 Blood Type O Positive 01/03/25 19:17 Rho(D) Type Rh positive 01/03/25 19:17 Antibody Screen Negative 01/03/25 19:17 All radiology interpretation(s) finalized by discharge Discharge Plan Discharge Patient Disposition: Admitted As Inpatient Clinical Impression: Bright red rectal bleeding, Constipation, History of atrial fibrillation, Right atrial thrombus Condition: Stable Coding Level of Care Code 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
[2025-01-03 18:11] VITALS: BP 121/65; PULSE 85; RESP 20; O2SAT 97
[2025-01-03 18:37] LABS: Hematocrit 44.1 % (36-47); Hemoglobin 15.10 g/dL (11.27-16.99); Mean Corpuscular HGB Conc 34.2 g/dL (30-55); Mean Corpuscular Hemoglobin 33.9 pg (27-33); Mean Corpuscular Volume 98.9 fl (85-98); Nucleated Red Blood Cells % 0 %; Platelet Count 183 10^3/cmm (157-399); Red Blood Count 4.46 10^6/uL (3.85-5.65); White Blood Count 10.84 10^3/uL (3.29-11.43)
[2025-01-03] MEDS: iohexol 350 mg/mL 500 mL Btl (per mL) IV (18:39)
[2025-01-03 19:12] LABS: Alanine Aminotransferase 44 U/L (0-33); Albumin Level 4.1 g/dL (3.5-5.2); Alkaline Phosphatase 124 U/L (35-105); Anion Gap 21.1 (5-19); Aspartate Amino Transferase 24 U/L (0-32); Blood Urea Nitrogen 36 mg/dL (8-23); Calcium 9.9 mg/dL (8.5-10.5); Carbon Dioxide 27 mmol/L (22-29); Chloride 92 mmol/L (98-107); Creatinine Clr Calc Pharmacy 31.7314; Globulin 2.5 g/dL (1.3-4.6); Glucose 120 mg/dL (65-115); Lipase 24 U/L (13-60); Osmolality Calculated 290 mOsm/kg (285-295); Potassium 5.1 mmol/L (3.5-5.1); Sodium 135 mmol/L (136-145); Total Protein 6.6 g/dL (6.6-8.7)
[2025-01-03 19:13] LABS: Lactic Sepsis W/Reflex 1.3 mmol/L (0.5-2.2)
[2025-01-03 19:17] VITALS: BP 120/68; O2SAT 94
--- NOTE | 2025-01-03 19:49 | USCV_ITS ---
Rowena Gil Age: 79 Gender: F : 1945 Exam Date: 01/03/2025 20:15 Ordering Phys: Tamera Artis MD Technologist: DREA [place] [facility] [place]: r/o atrial thrombus, hx Afib, CHF, COPD, CVA, hx CAD s/p PCI BP: 120 / 68 HR: 79 Rhythm: Sinus Technical Quality: Adequate MEASUREMENTS (Male / Female) Normal Values 2D ECHO LV Diastolic Diameter PLAX 3.3 cm 4.2 - 5.9 / 3.9 - 5.3 cm IVS Diastolic Thickness 1.9 cm 0.6 - 1.0 / 0.6 - 0.9 cm IVS Systolic Thickness 1.9 cm LVPW Diastolic Thickness 1.7 cm 0.6 - 1.0 / 0.6 - 0.9 cm LVPW Systolic Thickness 1.6 cm LVOT Diameter 2.0 cm LV Ejection Fraction 2D Teich 48.3 % LV Ejection Fraction MOD 4C 48.9 % LV Ejection Fraction MOD 2C 29.3 % LV Ejection Fraction 2C AL 35.3 % LA Diameter 6.0 cm LA Sys Volume AL 132.2 cm cubed LA Sys Volume Index AL 83.8 cm cubed/m squared Aorta at Sinotubular Diameter 2.7 cm IVC Diameter 1.6 cm M-MODE LA Ao Ratio MM 2.1 AV Cusp Separation MM 1.4 cm DOPPLER AV Peak Velocity 119.0 cm/s LVOT Peak Velocity 60.0 cm/s AV Area Cont Eq vti 1.5 cm squared AV Area Cont Eq pk 1.6 cm squared MV Peak Velocity 112.0 cm/s MV Area PHT 3.8 cm squared Mitral E to A Ratio 0.0 TV Peak Velocity 258.7 cm/s TR Peak Velocity 352.0 cm/s TR Peak Gradient 49.6 mmHg TV Peak E Velocity 48.0 cm/s PV Peak Velocity 95.0 cm/s FINDINGS Left Ventricle Left ventricle is normal in size. LV systolic function is normal with EF of 55-60%. No regional wall motion abnormalities. Moderate left ventricular hypertrophy. Right Ventricle Grossly appears hypokinetic Right Atrium Dilated. In some views, echogenicity seen, may represent thrombus Left Atrium Severely dilated. Echogenicity seen in left atrial appendage concerning for thrombus Mitral Valve Moderate mitral annular calcification. Mild mitral regurgitation. Aortic Valve Aortic valve is thickened. No significant stenosis or regurgitation. Tricuspid Valve Mild tricuspid regurgitation. RVSP is 45-50mmHg. Moderate pulmonary hypertension Pulmonic Valve Mild pulmonic regurgitation. Pericardium Small sized pericardial effusion. Aorta [place] in size IVC Appears to be normal CONCLUSIONS LV systolic function is normal with EF of 55-60% RV appears grossly hypokinetic. Right atrial dilation. Possible thrombus Left atrium is severely. Echogenicity seen in left atrial appendage concerning for thrombus Mild mitral regurgitation. Mild tricuspid regurgitation. Moderate pulmonary hypertension Mild pulmonic regurgitation. Small sized pericardial effusion. Mayank Ashby MD (Electronically Signed) Final Date: 04 January 2025 06:08 S
[2025-01-03 19:50] LABS: Glucose Urine UA Negative (Normal); Nitrate Urine Negative (Negative)
[2025-01-03 19:55] LABS: Add Urine Microscopic? YES
[2025-01-03 19:57] LABS: Specific Gravity, Urine 1.055 (1.005-1.030)
[2025-01-03 20:19] VITALS: BP 115/72; O2SAT 94
--- NOTE | 2025-01-03 20:20 | ECG_ITS ---
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 Measurements Intervals [place] Rate: 77 P: 0 CO: 0 QRS: -9 QRSD: 97 T: 119 QT: 406 QTc: 461 Interpretive Statements ATRIAL FIBRILLATION ST DEVIATION AND MODERATE T-WAVE ABNORMALITY, CONSIDER LATERAL ISCHEMIA [-0.1+ mV T-WAVE IN I/aVL/V5/V6] Compared to ECG 12/22/2024 16:52:01 Ventricular premature complex(es) no longer present Electronically Signed On 01-04-2025 18:32:11 CDT by Bladimir [email or web address]
[2025-01-03] MEDS: heparin 5,000 unit/mL INJ 1 mL IVP (21:15)
[2025-01-03] MEDS: heparin drip 25,000 UNIT/500 ML PREMIX 16 UNIT IV (21:19)
--- NOTE | 2025-01-03 21:56 | PM.HP ---
Providers/Chief Complaint Admitting Physician: Zuleika Sorto MD Primary Care Provider: Sreedhar Mejia MD Chief Complaint: bowel problems History of Present Illness Rowena Gil is a 79 year old female with PMH Nonischemic cardiomyopathy, Hypertension, Dyslipidemia, Combined systolic and diastolic congestive heart failure, Aortic stenosis, mild, Pulmonary embolism on right, Atrial fibrillation, Peripheral arterial disease. Patient has intolerance to Entresto and oral anticoagulant. she was recent admitted and discharged on 12/24 after being treated for CHF and COPD. She returned today to the ER after experiencing bright red blood per rectum. She had been constipated since her discharge from the hospital and took some stool softners. This resulted in Bleeding per rectum which brought her to the RE. CT abdomen showed Focal area of hyperattenuation within the rectum with ill-defined hyperattenuation near the anorectal junction could represent bleeding internal hemorrhoids. Incidentally noted Rounded filling defects in the region of the right atrial appendage concerning for thrombus. Stat Echo was ordered to confirm which is currently pending. She has been started on a/c with heparin at this time. Past cardiac history is notable as above. She reports she has not been on any anticoagulation in spite of a history of PE and A-fib due to history of anemia in the past. She was last seen as an outpatient in October 2024 at which time she had complained of some left-sided chest discomfort concerning for angina. She underwent a stress test in November 2024 where an myocardial perfusion revealed small to moderate area of minimal to moderate reversible defect involving the anterolateral and anterolateral segments suggesting ischemia predominantly in the distribution of the LCx. LVEF was noted to be at 69%, no regional wall motion abnormalities were noted at that time. This appeared to be a change from 2021. She denies any chest pain today. Her EKG today shows a baseline rhythm of A-fib, ST deviation in leads V5 V6. Troponin series is currently pending. Review of Systems General: Reports: 10 or more systems reviewed and unremarkable except in HPI and below Const: Denies: fever(s), chills or body aches Eyes: Denies: change in vision, blurry vision or photophobia ENMT: Reports: hoarseness; Denies: throat pain, enlarged tonsils, odynophagia or nasal congestion Card: Denies: chest pain, palpitations, irregular heart rhythm, edema, swelling of feet/ankles, lightheadedness, pre-syncope, dyspnea on exertion or orthopnea Resp: Denies: dyspnea, productive cough, non-productive cough, wheezing, stridor, pain on inspiration, change in phlegm color, hemoptysis or chest congestion GI: Denies: abdominal pain, nausea, vomiting, hematemesis, coffee ground emesis, dysphagia, heartburn, diarrhea, constipation, GI cramping, change in stool character, hematochezia or melena : Denies: flank pain, difficulty voiding, dysuria, urinary frequency, urinary urgency, urinary hesitancy or hematuria Musc: Denies: neck pain, back pain, extremity pain, joint swelling, joint warmth or deformity Neuro: Denies: headache(s), numbness in extremities, weakness in extremities, sensory changes, difficulty walking, frequent falls, dizziness, vertigo, behavioral changes, Slurred speech present or seizure-like activity Psych: Denies: anxiety, depression, suicidal ideation or homicidal ideation Endo: Denies: polyuria, polydipsia, tired all the time, cold intolerance or hot flashes Elie/Lymph: Denies: easy bruising or easy bleeding Medications/Allergies Home Medications ?Medication ?Instructions ?Recorded ?Confirmed ?Last Taken ?Type ferrous sulfate 325 mg (65 mg 325 mg PO QAM 12/03/21 01/03/25 01/03/25 History iron) tablet [id number] 333 mg-133 1 tab PO QAM 01/27/22 01/03/25 01/02/25 History mg-5 mg tablet ipratropium bromide 21 mcg (0.03 2 spray intranasal TID PRN Nasal 02/10/22 01/03/25 01/03/25 History %) nasal spray Congestion vitamin B complex 1 tab PO QAM 02/26/22 01/03/25 01/03/25 History fluticasone propionate 50 2 spray intranasal DAILY 08/02/22 01/03/25 01/03/25 History mcg/actuation nasal spray,suspension acetaminophen 500 mg tablet 500 mg PO BID PRN Pain 05/21/23 01/03/25 01/02/25 History albuterol sulfate 90 mcg/actuation 2 puff inhalation QID PRN Cough 05/21/23 01/03/25 Unknown History aerosol inhaler cholecalciferol (vitamin D3) 50 2,000 unit PO QAM 05/21/23 01/03/25 01/02/25 History mcg (2,000 unit) tablet (Vitamin D3) lutein 40 mg capsule 40 mg PO QAM 05/21/23 01/03/25 01/03/25 History atorvastatin 40 mg tablet 40 mg PO BEDTIME #90 tabs 10/16/24 01/03/25 01/02/25 Rx loratadine 10 mg tablet 10 mg PO DAILY 12/22/24 01/03/25 12/22/24 History metoprolol tartrate 100 mg tablet 100 mg PO BID 12/22/24 01/03/25 01/03/25 History azithromycin 250 mg tablet 250 mg PO DAILY #5 tabs 12/24/24 01/03/25 12/13/24 Rx dexamethasone 4 mg tablet 4 mg PO DAILY #4 tabs 12/24/24 01/03/25 12/27/24 Rx diltiazem HCl 180 mg 180 mg PO BID #60 caps 12/24/24 01/03/25 01/03/25 Rx capsule,extended release 24 hr, controlled (DILT-XR) furosemide 40 mg tablet 40 mg PO BID #60 tabs 12/24/24 01/03/25 01/03/25 Rx spironolactone 25 mg tablet 25 mg PO BID #60 tabs 12/24/24 01/03/25 Unknown Rx Allergies Allergy/AdvReac Type Severity Reaction Status Date / Time aspirin Allergy Unknown unknown Verified 11/20/24 12:42 losartan Allergy Unknown Verified 11/20/24 12:42 Sulfa (Sulfonamide Allergy UNK Verified 11/20/24 12:42 Antibiotics) amiodarone AdvReac unknown Verified 11/20/24 12:42 lisinopril AdvReac excess Verified 11/20/24 12:42 mucous Penicillins AdvReac childhood Verified 11/20/24 12:42 allergy rash PFSH Acute PFSH: Medical History Macrocytosis History of nonmelanoma skin cancer Osteoporosis CHF (congestive heart failure) History of atrial fibrillation History of pulmonary embolism (2019) Hypothyroidism Valvular heart disease Moderate mitral and tricuspid regurgitation and trace aortic regurgitation by echocardiogram Peripheral arterial disease Leukopenia Temporal arteritis Varicose vein of leg Anemia History of transfusion dependent anemia Dyslipidemia Hypertension CVA (cerebral vascular accident) (2019) GERD (gastroesophageal reflux disease) COPD (chronic obstructive pulmonary disease) Albuterol and Atrovent, budesonide, oxygen Surgical History History of PTCA Status post surgical removal of malignant neoplasm of skin (01/2021) 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 History of angioplasty (2015) Angioplasty to right superficial femoral artery History of bilateral cataract extraction S/P dilatation and curettage Hx of coronary artery balloon dilation History of heart surgery History of intravascular stent placement (2015) Left superficial femoral artery History of colonoscopy Hx of tonsillectomy Family History Mother Hypertension Father Stroke Denies family history of Diabetes CAD (coronary artery disease) Clotting disorder Hyperlipidemia Chronic kidney disease (CKD) Bleeding disorder Cancer Social History Smoking and tobacco/nicotine status: former use of tobacco/nicotine Quit status (tobacco/nicotine): has quit using Year quit tobacco: 2008 Alcohol intake: never Substance/Drug Use: never Additional social history: 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 Vitals/I&O/Wt Last Vital Signs Temp 98.1 F 01/03/25 17:33 Pulse 85 01/03/25 18:11 Resp 20 H 01/03/25 18:11 BP 115/72 01/03/25 20:19 Pulse Ox 94 01/03/25 20:19 O2 Del Method Room Air 01/03/25 18:11 Weight last 48 hrs Weight 55.792 kg Physical Exam Narrative: General: No acute distress, AO x3 HEENT: PERRLA, pupils bilaterally equal and reactive, pallors not present Chest: Normal vesicular breath sounds, no added sounds, equal good air entry bilaterally CVS: S1-S2 regular, no murmurs, no tachycardia, no gallops, no rubs Abdomen: Soft, nontender, no organomegaly, bowel sounds present Neuro: No focal deficits, no facial deformity, AO x3, power 5/5 in all limbs Data 01/04/25 03:25 01/04/25 03:25 Other data: Radiology Impressions Abdomen/Pelvis CT 01/03/25 17:52 IMPRESSION: 1. Focal area of hyperattenuation within the rectum with ill-defined hyperattenuation near the anorectal junction could represent bleeding in the GI tract, possibly from internal hemorrhoids, though assessment is limited on this single phase of contrast. Correlate with physical exam findings. 2. Rounded filling defects in the region of the right atrial appendage concerning for thrombus. Consider echocardiogram for further evaluation. 3. Similar asymmetric atrophy of the right kidney. 4. Additional nonemergent findings as above are similar to prior. COMMENTS: Consistent with the [employer]'s Incidental Findings Committee white paper (J Am Jalil Radiol 2018): Any incidental renal lesion less than 1 cm or classified as too small to characterize, or any incidental cystic renal lesion characterized as simple-appearing, is likely benign. No follow-up imaging is recommended for these lesions per consensus recommendations based on imaging criteria. Laboratory Results WBC 10.84 10^3/uL (3.29-11.43) 01/03/25 18:09 RBC 4.46 10^6/uL (3.85-5.65) 01/03/25 18:09 Hgb 15.10 g/dL (11.27-16.99) 01/03/25 18:09 Hct 44.1 % (36-47) 01/03/25 18:09 MCV 98.9 fl (85-98) H 01/03/25 18:09 MCH 33.9 pg (27-33) H 01/03/25 18:09 MCHC 34.2 g/dL (30-55) 01/03/25 18:09 RDW 14.6 % (12.1-15.1) 01/03/25 18:09 Plt Count 183 10^3/cmm (157-399) 01/03/25 18:09 MPV 10.0 fL (7.4-10.4) 01/03/25 18:09 Neut % (Auto) 85.5 % 01/03/25 18:09 Lymph % (Auto) 5.1 % 01/03/25 18:09 [place]berry % (Auto) 7.3 % 01/03/25 18:09 Eos % (Auto) 0.4 % 01/03/25 18:09 Baso % (Auto) 0.2 % 01/03/25 18:09 Neut # (Auto) 9.28 10^3/uL (1.8-7.7) H 01/03/25 18:09 Lymph # (Auto) 0.6 10^3/uL (0.8-4.8) L 01/03/25 18:09 Newberry # (Auto) 0.8 10^3/uL (0.2-0.9) 01/03/25 18:09 Eos # (Auto) 0.0 10^3/uL (0.0-0.8) 01/03/25 18:09 Baso # (Auto) 0.0 10^3/uL (0.0-0.1) 01/03/25 18:09 Nucleated RBC % (auto) 0 % 01/03/25 18:09 Nucleated RBCs # 0.0 /100WBC 01/03/25 18:09 Sodium 135 mmol/L (136-145) L 01/03/25 18:09 Potassium 5.1 mmol/L (3.5-5.1) 01/03/25 18:09 Chloride 92 mmol/L (98-107) L 01/03/25 18:09 Carbon Dioxide 27 mmol/L (22-29) 01/03/25 18:09 Anion Gap 21.1 (5-19) H 01/03/25 18:09 BUN 36 mg/dL (8-23) H 01/03/25 18:09 Creatinine 1.2 mg/dL (0.5-0.9) H 01/03/25 18:09 GFR Calculation Not Reportable 01/03/25 18:09 Glucose 120 mg/dL (65-115) H 01/03/25 18:09 Calculated Osmolality 290 mOsm/kg (285-295) 01/03/25 18:09 Lactic Acid 1.3 mmol/L (0.5-2.2) 01/03/25 18:09 Calcium 9.9 mg/dL (8.5-10.5) 01/03/25 18:09 Total Bilirubin 1.5 mg/dL (0.15-1.2) H 01/03/25 18:09 AST 24 U/L (0-32) 01/03/25 18:09 ALT 44 U/L (0-33) H 01/03/25 18:09 Alkaline Phosphatase 124 U/L (35-105) H 01/03/25 18:09 C-Reactive Protein 27.0 mg/L (0.0-4.9) H 01/03/25 18:09 Total Protein 6.6 g/dL (6.6-8.7) 01/03/25 18:09 Albumin 4.1 g/dL (3.5-5.2) 01/03/25 18:09 Globulin 2.5 g/dL (1.3-4.6) 01/03/25 18:09 Lipase 24 U/L (13-60) 01/03/25 18:09 Urine Color Yellow (Yellow) 01/03/25 19:41 Urine Appearance Clear (CLEAR) 01/03/25 19:41 Urine pH 7.5 (5-7) 01/03/25 19:41 Ur Specific [place] 1.055 (1.005-1.030) H 01/03/25 19:41 Urine Protein Trace (Negative) A 01/03/25 19:41 Urine Glucose (UA) Negative (Normal) 01/03/25 19:41 Urine Ketones Negative (Negative) 01/03/25 19:41 Urine Blood Negative (Negative) 01/03/25 19:41 Urine Nitrate Negative (Negative) 01/03/25 19:41 Urine Bilirubin Negative (Negative) 01/03/25 19:41 Urine Urobilinogen 1.0 mg/dL (Negative) 01/03/25 19:41 Ur Leukocyte Esterase Negative (Negative) 01/03/25 19:41 Urine RBC 0-2 /hpf (0-2) 01/03/25 19:41 Urine WBC 0-5 /hpf (0-5) 01/03/25 19:41 Ur Squamous Epith Cells 0-5 /hpf (0-5) 01/03/25 19:41 Amorphous Sediment Not Reportable 01/03/25 19:41 Urine Bacteria None seen /hpf (NONE) 01/03/25 19:41 Hyaline Casts 4.95 /lpf 01/03/25 19:41 Blood Type O Positive 01/03/25 19:17 Rho(D) Type Rh positive 01/03/25 19:17 Antibody Screen Negative 01/03/25 19:17 A&P Assessment and plan 1. Bright red rectal bleeding: bright red rectal bleeding likely from internal hemorrhoids Hb stable at 15.1 monitor H&H with am labs General surgery consult requested as patient will be on anticoagulation for suspected cardiac thrombus, may need definitive management if bleed worsens with a/c 2. Mural thrombus of heart: Suspected mural thrombus based on CT Pending stat echo taken in ER recently abnormal stress test in November 2024, denies chest pain today, pending cardiac enzymes Currently started on heparin drip which will be continued may need further assessment with [facility] dependent on results of pending TTE. Npo post midnight in case needs [facility] cardiology consulted from the ER closely monitor for signs of worsening rectal bleeding 3. Atrial fibrillation: rate controlled currently Continue home doses of Cardizem and metoprolol A/c as above with heparin drip Plan: Continue home medications including atorvaststain, metoprolol, cardizem. Hold aldactone as cr at 1.2, up from last admission. DVT ppx: heaprin drip Full code PDMP PDMP Reviewed: Not Reviewed Attestations Medical Necessity Statement*: > 2 midnight stay is anticipated Coding Level of Care Code Acute Code for Chg Fwd High MDM includes number and complexity of problems actively addressed during encounter, amount and/or complexity of data reviewed/ordered and described risk of complication, morbidity or mortality of management as documented Diagnoses Bright red rectal bleeding K62.5 Mural thrombus of heart I51.3 Atrial fibrillation I48.91
[2025-01-03 22:01] VITALS: BP 124/69; PULSE 85; O2SAT 95
[2025-01-03 22:02] VITALS: BP 149/75; PULSE 84; RESP 24; O2SAT 96
[2025-01-03 22:46] VITALS: BMI 21.9
--- NOTE | 2025-01-03 22:47 | ECG_ITS ---
[facility] Pat Name: Rowena Gil Department: Room: 101 Gender: Female Chief Privacy Officer: : 1945 Requested By: Tamera Bowser Order Number: [id number] Jose MD: Mayank Ashby M.D. Measurements Intervals Moss Rate: 84 P: 0 MO: 0 QRS: -14 QRSD: 100 T: 129 QT: 389 QTc: 461 Interpretive Statements ATRIAL FIBRILLATION WITH ABERRANT CONDUCTION OR VENTRICULAR PREMATURE COMPLEXES ST DEVIATION AND MODERATE T-WAVE ABNORMALITY, CONSIDER LATERAL ISCHEMIA [-0.1+ mV T-WAVE IN I/aVL/V5/V6] Compared to ECG 01/03/2025 21:10:27 Ventricular premature complex(es) now present Aberrant conduction of supraventricular beat(s) now present T-wave abnormality still present Possible ischemia still present Electronically Signed On 01-05-2025 08:51:50 CDT by Mayank Ashby M.D. [email or web address]
[2025-01-03 23:31] LABS: Platelet Count 144 10^3/cmm (157-399)
[2025-01-03 23:41] LABS: INR 1.00 (0.8-1.2); Prothrombin Time 13.90 SECONDS (12.1-14.9)
[2025-01-03 23:46] LABS: Troponin(5th) Baseline 56 ng/L (0-10)
[2025-01-03 23:52] LABS: Partial Thromboplastin Time 119.2 SECONDS (23.9-36.7)
[2025-01-04] VITALS (8 sets, daily range): BP systolic 103–140; BP diastolic 53–82; PULSE 70–104; RESP 16–23; TEMP 36.4–36.8; O2SAT 90–96
[2025-01-04 01:51] LABS: Troponin 5 2HR 57.45 ng/L (0-10); Troponin 5 2HR Delta 1.45 ABS# (0-10)
--- NOTE | 2025-01-04 02:20 | ECG_ITS ---
[facility] Test Date: 2025-01-04 Pat Name: Rowena Gil Department: Room: 101 Gender: Female Corporate Relations Director: : 1945 Requested By: Tamera Bowser Order Number: [id number] Jose MD: Mayank Ashby M.D. Measurements Intervals [place]io Rate: 83 P: 0 AR: 0 QRS: -8 QRSD: 101 T: 132 QT: 382 QTc: 450 Interpretive Statements ATRIAL FIBRILLATION WITH ABERRANT CONDUCTION OR VENTRICULAR PREMATURE COMPLEXES ST DEVIATION AND MODERATE T-WAVE ABNORMALITY, CONSIDER LATERAL ISCHEMIA [-0.1+ mV T-WAVE IN I/aVL/V5/V6] Compared to ECG 01/03/2025 22:47:20 No significant changes Electronically Signed On 01-05-2025 08:51:29 CDT by Mayank Ashby M.D. [email or web address]
[2025-01-04 03:37] LABS: Hematocrit 39.4 % (36-47); Hemoglobin 13.20 g/dL (11.27-16.99); Mean Corpuscular HGB Conc 33.5 g/dL (30-55); Mean Corpuscular Hemoglobin 33.2 pg (27-33); Mean Corpuscular Volume 99.0 fl (85-98); Nucleated Red Blood Cells % 0 %; Platelet Count 134 10^3/cmm (157-399); Red Blood Count 3.98 10^6/uL (3.85-5.65); White Blood Count 5.80 10^3/uL (3.29-11.43)
[2025-01-04 03:58] LABS: Alanine Aminotransferase 32 U/L (0-33); Albumin Level 3.4 g/dL (3.5-5.2); Alkaline Phosphatase 101 U/L (35-105); Anion Gap 13.9 (5-19); Aspartate Amino Transferase 19 U/L (0-32); Blood Urea Nitrogen 29 mg/dL (8-23); Calcium 9.1 mg/dL (8.5-10.5); Carbon Dioxide 25 mmol/L (22-29); Chloride 98 mmol/L (98-107); Creatinine Clr Calc Pharmacy 38.1367; Globulin 2.2 g/dL (1.3-4.6); Glucose 147 mg/dL (65-115); Magnesium 2.4 mg/dL (1.7-2.3); Osmolality Calculated 285 mOsm/kg (285-295); Potassium 3.9 mmol/L (3.5-5.1); Sodium 133 mmol/L (136-145); Total Protein 5.6 g/dL (6.6-8.7)
[2025-01-04 03:59] LABS: Partial Thromboplastin Time 117.7 SECONDS (23.9-36.7)
[2025-01-04 06:06] LABS: Troponin 5 6HR 61.42 ng/L (0-10); Troponin 5 6HR Delta 5.42 ng/L (0-12)
--- NOTE | 2025-01-04 07:41 | PM.CONSULT ---
Providers/Reason For Consult Consulting Physician/Specialty*: General Surgery Reason for Consult*: GI bleed Attending Physician: Kamila Arzate MD Primary Care Provider: Sreedhar Mejia MD History of Present Illness History of Present Illness Rowena Gil is a 79 year old female Who presented to the hospital after seen bright red blood in the stool. She was constipated for about 4 to 5 days and when she was able to pass a bowel movement it was very large and hard and she saw a significant amount of bright red blood in the stool. Her hemoglobin was stable when she presented to the ER by the CT scan of the abdomen and pelvis showed evidence of an incidental finding of a possible atrial thrombus for which the patient is being admitted for workup and also possible bleeding source of the rectal hemorrhoid. No further bleeding no abdominal pain otherwise doing well Medications/Allergies Home Medications ?Medication ?Instructions ?Recorded ?Confirmed ?Last Taken ?Type ferrous sulfate 325 mg (65 mg 325 mg PO QAM 12/03/21 01/03/25 01/03/25 History iron) tablet qhukjsl-qyanzepgh-skmb 333 mg-133 1 tab PO QAM 01/27/22 01/03/25 01/02/25 History mg-5 mg tablet ipratropium bromide 21 mcg (0.03 2 spray intranasal TID PRN Nasal 02/10/22 01/03/25 01/03/25 History %) nasal spray Congestion vitamin B complex 1 tab PO QAM 02/26/22 01/03/25 01/03/25 History fluticasone propionate 50 2 spray intranasal DAILY 08/02/22 01/03/25 01/03/25 History mcg/actuation nasal spray,suspension acetaminophen 500 mg tablet 500 mg PO BID PRN Pain 05/21/23 01/03/25 01/02/25 History albuterol sulfate 90 mcg/actuation 2 puff inhalation QID PRN Cough 05/21/23 01/03/25 Unknown History aerosol inhaler cholecalciferol (vitamin D3) 50 2,000 unit PO QAM 05/21/23 01/03/25 01/02/25 History mcg (2,000 unit) tablet (Vitamin D3) lutein 40 mg capsule 40 mg PO QAM 05/21/23 01/03/25 01/03/25 History atorvastatin 40 mg tablet 40 mg PO BEDTIME #90 tabs 10/16/24 01/03/25 01/02/25 Rx loratadine 10 mg tablet 10 mg PO DAILY 12/22/24 01/03/25 12/22/24 History metoprolol tartrate 100 mg tablet 100 mg PO BID 12/22/24 01/03/25 01/03/25 History azithromycin 250 mg tablet 250 mg PO DAILY #5 tabs 12/24/24 01/03/25 12/13/24 Rx dexamethasone 4 mg tablet 4 mg PO DAILY #4 tabs 12/24/24 01/03/25 12/27/24 Rx diltiazem HCl 180 mg 180 mg PO BID #60 caps 12/24/24 01/03/25 01/03/25 Rx capsule,extended release 24 hr, controlled (DILT-XR) furosemide 40 mg tablet 40 mg PO BID #60 tabs 12/24/24 01/03/25 01/03/25 Rx spironolactone 25 mg tablet 25 mg PO BID #60 tabs 12/24/24 01/03/25 Unknown Rx Allergies Allergy/AdvReac Type Severity Reaction Status Date / Time aspirin Allergy Unknown unknown Verified 11/20/24 12:42 losartan Allergy Unknown Verified 11/20/24 12:42 Sulfa (Sulfonamide Allergy UNK Verified 11/20/24 12:42 Antibiotics) amiodarone AdvReac unknown Verified 11/20/24 12:42 lisinopril AdvReac excess Verified 11/20/24 12:42 mucous Penicillins AdvReac childhood Verified 11/20/24 12:42 allergy rash Current Medications Generic Name Dose Route Start Last Admin Trade Name Freq PRN Reason Stop Dose Admin Heparin Sodium/Sodium Chloride 25,000 unit in 500 mls @ 0 mls/hr 01/03/25 20:15 01/04/25 05:55 Heparin Drip IV 11.65 unit/kg/hr CONT TIAGO 13 mls/hr Protocol Titration Per Protocol PFSH Acute PFSH: Medical History (Updated 01/03/25 @ 22:52 by Zuleika Sorto MD) Macrocytosis History of nonmelanoma skin cancer Osteoporosis CHF (congestive heart failure) History of atrial fibrillation History of pulmonary embolism (2019) Hypothyroidism Valvular heart disease Moderate mitral and tricuspid regurgitation and trace aortic regurgitation by echocardiogram Peripheral arterial disease Leukopenia Temporal arteritis Varicose vein of leg Anemia History of transfusion dependent anemia Dyslipidemia Hypertension CVA (cerebral vascular accident) (2019) GERD (gastroesophageal reflux disease) COPD (chronic obstructive pulmonary disease) Albuterol and Atrovent, budesonide, oxygen Surgical History History of PTCA Status post surgical removal of malignant neoplasm of skin (01/2021) 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 History of angioplasty (2015) Angioplasty to right superficial femoral artery History of bilateral cataract extraction S/P dilatation and curettage Hx of coronary artery balloon dilation History of heart surgery History of intravascular stent placement (2015) Left superficial femoral artery History of colonoscopy Hx of tonsillectomy Family History Mother Hypertension Father Stroke Denies family history of Diabetes CAD (coronary artery disease) Clotting disorder Hyperlipidemia Chronic kidney disease (CKD) Bleeding disorder Cancer Social History Smoking and tobacco/nicotine status: former use of tobacco/nicotine Quit status (tobacco/nicotine): has quit using Year quit tobacco: 2008 Alcohol intake: never Substance/Drug Use: never Additional social history: 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 Vitals/I&O/Wt Last Vital Signs Temp 97.6 F 01/04/25 07:32 Pulse 94 01/04/25 07:32 Resp 23 H 01/04/25 07:32 BP 140/82 01/04/25 07:32 Pulse Ox 93 01/04/25 07:32 O2 Del Method Room Air 01/04/25 07:32 01/03/25 01/04/25 01/04/25 22:59 06:59 14:59 Intake Total 1000 / 1000 137.6 / 1137.6 Balance 1000 / 1000 137.6 / 1137.6 Weight last 48 hrs Weight 121 lb 0.54 oz Weight 123 lb 7.342 oz Weight 123 lb Physical Exam GI: OTHER: Benign abdominal exam abdomen soft nontender nondistended rectal examination was done there is no external hemorrhoids, there is some internal hemorrhoids on digital examination no evidence of blood residue no tenderness Data 01/04/25 03:25 01/04/25 03:25 A&P Assessment and plan 1. Bright red rectal bleedin. Constipation: Plan: Patient episode of GI bleed is most likely due to mechanical trauma to internal hemorrhoids, this has now stopped. I will recommend that the patient starts Once a day MiraLAX in the long-term to prevent further episodes of constipation. At this point there is no indication to proceed with endoscopic evaluation or any additional intervention. There is no contraindication for anticoagulation. In the case of recurrent bleeding from hemorrhoids in the setting of patient being anticoagulated we will likely have to proceed to the OR for local control. Patient shows understanding is agreeable with the plan. MiraLAX once daily All other management per medical team PDMP PDMP Reviewed: Not Reviewed Coding Level of Care Code Acute Code for g Fwd Diagnoses Bright red rectal bleeding K62.5 Constipation K59.00
--- NOTE | 2025-01-04 07:42 | PM.PN ---
Subjective Subjective: Patient had no interval complaints except for resolution of rectal bleed which is a good notification to me by the patient. Vitals/I&O/Wt Last Vital Signs Temp 97.6 F 01/04/25 07:32 Pulse 94 01/04/25 07:32 Resp 23 H 01/04/25 07:32 BP 140/82 01/04/25 07:32 Pulse Ox 93 01/04/25 07:32 O2 Del Method Room Air 01/04/25 07:32 01/03/25 01/04/25 01/04/25 22:59 06:59 14:59 Intake Total 1000 / 1000 137.6 / 1137.6 Balance 1000 / 1000 137.6 / 1137.6 Weight last 48 hrs Weight 54.9 kg Weight 56 kg Weight 55.792 kg Physical Exam Narrative: Generally patient is in no apparent distress relaxed in bed denies any complaints HEENT normocephalic atraumatic neck neck is supple cardiovascular heart rate is regular lungs are pretty much clear abdomen is soft nontender nondistended unremarkable extremities are intact no edema has good pulses normal GCS no focality lab studies lab studies reviewed and noted Data 01/04/25 03:25 01/04/25 03:25 A&P Assessment and plan 1. 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 she said it makes her anemic 2. Right atrial thrombus: Clot in the atrial appendage Continue heparin drip 3. History of atrial fibrillation: Patient does have history of atrial fibrillation Never on oral anticoagulant Patient currently is on heparin drip mostly because of the noted atrial clot Must continue to monitor 4. Constipation: Constipation leading to hemorrhoidal bleeding Surgery consulted and follow through it was noted that the bleeding cleared nothing more to do about that Patient currently is not even bleeding even with the heparin drip running 5. Bright red rectal bleeding: Continue to monitor no bleeding for now 6. Acute combined systolic (congestive) and diastolic (congestive) heart failure: Patient with systemic and diastolic heart failure Not in overt heart failure Plan: See above continue as indicated and also patient is on GI and DVT prophylaxis in place PDMP PDMP Reviewed: Last Reviewed 01/04/25 15:38 by Kamila Arzate MD Attestations Medical Necessity Statement*: Patient status post BARRERA today and on heparin drip patient will need at least 2 days for optimization of care in the hands of meat sales and storage manager. Patient with left atrial clot now on heparin drip Coding Level of Care Code 75634 Diagnoses Mural thrombus of heart I51.3 Right atrial thrombus I51.3 History of atrial fibrillation Z86.79 Constipation K59.00 Bright red rectal bleeding K62.5 Acute combined systolic (congestive) and diastolic (congestive) heart failure I50.41 Time Spent (min) 35
--- NOTE | 2025-01-04 08:30 | P.CONIM_ITS ---
<Statement entered by Mayank Ashby M.D - 01/05/25 12:11> Patient was evaluated and cared for in conjunction with an advanced practice practitioner.? I personally examined the patient and reviewed the chart and all pertinent data including imaging, telemetry, and laboratory results.? I discussed the patient in detail with the advanced practice practitioner.? Please see? their note for complete consult note, testing results and agreed upon plan of care for the patient. GENERAL: Patient is alert, awake and oriented x3. HEART: Irregularly irregular LUNGS: Clear to auscultate bilaterally. CENTRAL NERVOUS SYSTEM: Grossly nonfocal. EXTREMITIES: Lower extremities without edema bilaterally. BARRERA confirmed left atrial appendage thrombus and possible right atrial thrombus. 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 Providers/Reason For Consult 2 Consulting Physician/Specialty*: Dr Ashby, cardiology Reason for Consult*: Atrial thrombus Requesting Physician: Kamila Arzate MD Attending Physician: Kamila Arzate MD Primary Care Provider: Sreedhar Mejia MD History of Present Illness History of Present Illness Rowena Gil is a 79 year old female with past medical history of nonischemic cardiomyopathy, hypertension, dyslipidemia, systolic and diastolic CHF, aortic stenosis, pulmonary embolism, atrial fibrillation not anticoagulated, PAD. She has previously discontinued Entresto because she believed it was making her heart failure worse and anticoagulation with warfarin due to intolerance/side effects of fatigue, states she was previously told by the financial aid director she could not take blood thinner due to anemia. She was admitted to the hospital 2 weeks ago with COPD exacerbation/bronchitis, A-fib RVR. At that time long-acting diltiazem was increased to 180 mg twice daily. She presented to the emergency room yesterday with bleeding per rectum, incidentally CT of the abdomen and pelvis showed filling defects in the right atrial appendage concerning for thrombus. Limited echo was obtained: LVEF 55 to 60%, no regional wall motion abnormality, moderate LVH, hypokinetic RV, echogenic structure in the right and left atrium concerning for thrombus, mild mitral regurgitation, mild tricuspid regurgitation, moderate PAH. EKG from admission shows atrial fibrillation, T wave inversion in leads I and II as well as V5 and V6 this is unchanged from previous. Troponin series: 56-> 57-> 61. BUN 29, creatinine 1.0. Hemoglobin 13. Review of Systems 2 Card: Reports: palpitations, irregular heart rhythm, edema, swelling of feet/ankles and dyspnea on exertion; Denies: chest pain, lightheadedness, syncope, pre-syncope, orthopnea or leg pain with exertion Resp: Reports: dyspnea; Denies: productive cough or wheezing GI: Denies: hematochezia : Denies: hematuria Elie/Lymph: Denies: easy bleeding Medications/Allergies Home Medications ?Medication ?Instructions ?Recorded ?Confirmed ?Last Taken ?Type ferrous sulfate 325 mg (65 mg 325 mg PO QAM 12/03/21 0 01/03/25 01/03/25 History iron) tablet gnhrrot-kfrkvciqk-ynhv 333 mg-133 1 tab PO QAM 2 01/03/25 01/02/25 History mg-5 mg tablet ipratropium bromide 21 mcg (0.03 2 spray intranasal TI D PRN Nasal 02/10/22 01/03/25 01/03/25 History %) nasal spray Congestion vitamin B complex 1 tab PO QAM 02/26/2201/03/25 History fluticasone propionate 50 2 spray intranasal DAILY 01/03/25 01/03/25 History mcg/actuation nasal spray,suspension acetaminophen 500 mg tablet 500 mg PO BID PRN Pain 03/0501/03/25 01/02/25 History albuterol sulfate 90 mcg/actuation 2 puff inhalation Q ID PRN Cough 05/21/23 01/03/25 Unknown History aerosol inhaler cholecalciferol (vitamin D3) 50 2,000 unit PO QAM 03/0501/03/25 01/02/25 History mcg (2,000 unit) tablet (Vitamin D3) lutein 40 mg capsule 40 mg PO QAM 05/21/2301/03/25 History atorvastatin 40 mg tablet 40 mg PO BEDTIME #90 tabs 01/03/25 01/02/25 Rx loratadine 10 mg tablet 10 mg PO DAILY 12/22/2412/1212/22/24 History metoprolol tartrate 100 mg tablet 100 mg PO BID 01/03/25 01/03/25 History azithromycin 250 mg tablet 250 mg PO DAILY #5 tabs 01/03/2525 Rx dexamethasone 4 mg tablet 4 mg PO DAILY #4 tabs 01/03/25 12/27/24 Rx diltiazem HCl 180 mg 180 mg PO BID #60 caps 12/2401/03/25 01/03/25 Rx capsule,extended release 24 hr, controlled (DILT-XR) furosemide 40 mg tablet 40 mg PO BID #60 tabs 01/03/25 01/03/25 Rx spironolactone 25 mg tablet 25 mg PO BID #60 tabs 12/1101/03/25 Unknown Rx Allergies Allergy/AdvReac Type Severity Reaction Status Date / Time aspirin Allergy Unknown unknown Verified 11/20/24 12:42 losartan Allergy Unknown Verified 11/20/24 12:42 Sulfa (Sulfonamide Allergy UNK Verified 11/20/24 12:42 Antibiotics) amiodarone AdvReac unknown Verified 11/20/24 12:42 lisinopril AdvReac excess Verified 11/20/24 12:42 mucous Penicillins AdvReac childhood Verified 11/20/24 12:42 allergy rash Current Medications Generic Name Dose Route Start Last Admin Trade Name Freq PRN Reason Stop Dose Admin Diltiazem HCl 180 mg 01/04/25 09:00 01/04/25 08:54 Diltiazem Er (24hr) 180 Mg Capsule PO 180 mg BID TIAGO Administration Furosemide 40 mg 01/04/25 09:00 01/04/25 08:54 Furosemide 40 Mg Tablet PO 40 mg BID TIAGO Administration Heparin Sodium/Sodium Chloride 25,000 unit in 500 mls @ 0 mls/hr 01/03/25 20:15 01/04/25 13:35 Heparin Drip IV 8.96 unit/kg/hr CONT TIAGO 10 mls/hr Protocol Titration Per Protocol Sodium Chloride 1,000 mls @ 0 mls/hr 01/04/25 12:55 01/04/25 13:48 Sodium Chloride 0.9% IV Infused .Q0M TIAGO Infusion As Directed Metoprolol Tartrate 100 mg 01/04/25 09:00 01/04/25 08:54 Metoprolol Tartrate 50 Mg Tablet PO 100 mg BID@0900,2100 TIAGO Administration Pantoprazole Sodium 40 mg 01/04/25 09:00 01/04/25 08:[address] 40 Mg Tablet PO 40 mg DAILY TIAGO Administration Polyethylene Glycol 17 gm 01/04/25 09:00 01/04/25 08:55 Polyethylene Glycol 3350 Pkt 17 Gm PO 17 gm DAILY TIAGO Administration Senna/Docusate Sodium 1 tab 01/04/25 09:00 01/04/25 08:54 Sennosides-Docusate Tablet PO 1 tab BID TIAGO Administration PFSH Acute 2 PFSH: Medical History Macrocytosis History of nonmelanoma skin cancer Osteoporosis CHF (congestive heart failure) History of atrial fibrillation History of pulmonary embolism (2019) Hypothyroidism Valvular heart disease Moderate mitral and tricuspid regurgitation and trace aortic regurgitation by echocardiogram Peripheral arterial disease Leukopenia Temporal arteritis Varicose vein of leg Anemia History of transfusion dependent anemia Dyslipidemia Hypertension CVA (cerebral vascular accident) (2019) GERD (gastroesophageal reflux disease) COPD (chronic obstructive pulmonary disease) Albuterol and Atrovent, budesonide, oxygen Surgical History History of PTCA Status post surgical removal of malignant neoplasm of skin (01/2021) 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 History of angioplasty (2015) Angioplasty to right superficial femoral artery History of bilateral cataract extraction S/P dilatation and curettage Hx of coronary artery balloon dilation History of heart surgery History of intravascular stent placement (2015) Left superficial femoral artery History of colonoscopy Hx of tonsillectomy Family History Mother Hypertension Father Stroke Denies family history of Diabetes CAD (coronary artery disease) Clotting disorder Hyperlipidemia Chronic kidney disease (CKD) Bleeding disorder Cancer Social History Smoking and tobacco/nicotine status: former use of tobacco/nicotine Quit status (tobacco/nicotine): has quit using Year quit tobacco: 2008 Alcohol intake: never Substance/Drug Use: never Additional social history: 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 Vitals/I&O/Wt Last Vital Signs Temp 97.7 F 01/04/25 11:36 Pulse 72 01/04/25 11:36 Resp 17 01/04/25 11:36 BP 114/68 01/04/25 11:36 Pulse Ox 91 01/04/25 11:36 O2 Del Method Room Air 01/04/25 11:36 01/03/25 01/04/25 01/04/25 22:59 06:59 14:59 Intake Total 1000 / 1137.6 137.6 / 1137.6 99.667 / 99.667 Output Total 500 / 500 Balance 1000 / 1137.6 137.6 / 1137.6 -400.333 / -400.333 Weight last 48 hrs Weight 121 lb 0.54 oz Weight 123 lb 7.342 oz Weight 123 lb Physical Exam 2 Const: COMMON NORMALS: no acute distress and patient oriented x3 Chest: COMMONS NORMALS: normal inspection of the chest and normal palpation of entire chest wall CHEST: Yes Symmetrical chest wall rise Resp: COMMON NORMALS: normal respiratory effort, No retractions, No use of accessory muscles and clear to auscultation bilaterally EFFORT & INSPECTION: Yes symmetric chest movement AUSCULTATION: clear to auscultation bilaterally Cardio: COMMON NORMALS: S1 normal heart sound present, S2 normal heart sound present, No gallops present (Cardio), No clicks present (Cardio), No murmurs present (Cardio) and No rub (Cardio) RHYTHM: abnormal rhythm irregularly irregular HEART SOUNDS: S1 normal heart sound present and S2 normal heart sound present PERIPHERAL PULSES: radial pulses present, posterior tibial pulses present and dorsalis pedis present Neuro: COMMON NORMALS: patient oriented x3 and moves all extremities Psych: COMMON NORMALS: mental status grossly normal and cooperative Data 01/04/25 03:25 01/04/25 03:25 A&P Assessment and plan 1. Atrial fibrillation: 2. Right atrial thrombus: 3. Hypertension: Plan: Plan is for BARRERA today to further evaluate the possible thrombi. Afternoon update: Left atrial appendage thrombus seen as well as possible thrombus in the right atrium. Plan is to continue anticoagulation. She is on heparin infusion currently. No bloody stool reported. She also had a abnormal stress test 11/27/2024, small to moderate area of minimal to moderate reversible defect in the distribution of the left circumflex, however no prone images were performed. Compared to previous stress test in 2021 the ischemia is new. She is not having chest pain currently. Troponin did not increase significantly. I do not have any records of any previous coronary angiogram. This can be managed medically for now and addressed as an outpatient with her primary chef instructor. PDMP PDMP Reviewed: Not Reviewed Coding Level of Care Code Acute Code for Chg Fwd Diagnoses Atrial fibrillation I48.91 Right atrial thrombus I51.3 Hypertension I10
[2025-01-04] MEDS: sennosides-docusate Tablet 1 TAB PO ×2 (08:54→18:26)
[2025-01-04] MEDS: dilTIAZem ER (24HR) 180 mg Capsule PO ×2 (08:54→18:26)
[2025-01-04] MEDS: polyethylene glycol 3350 Pkt 17 gm PO (08:55)
--- NOTE | 2025-01-04 09:15 | PC.SOCIAL ---
IMM Updated Updated pt on IMM. No questions voiced. Provided pt a copy. Initialed, dated, & timed a copy & placed in chart.
--- NOTE | 2025-01-04 13:00 | W.PM.OPSUD ---
Surgery/Procedure H&P Update DATE OF PROCEDURE: January 04, 2025 DATE H&P PERFORMED: 01/04/25 H&P UPDATE INFORMATION: I have reviewed H&P completed within last 30 days, I have examined patient prior to procedure and No changes to prior documentation PREOP DIAGNOSIS: Right atrial thrombus PRIMARY INDICATION FOR PROCEDURE: Right atrial thrombus PLANNED PROCEDURE: Transesophageal echocardiogram Anesthesia team available for sedation
[2025-01-04 13:18] LABS: Partial Thromboplastin Time 114.9 SECONDS (23.9-36.7)
--- NOTE | 2025-01-04 13:36 | PM.PROC ---
Procedure Note: Date of procedure: 01/04/25 Pre-procedure diagnosis: Possible cardiac thrombus Post-procedure diagnosis: other (Left atrial appendage thrombus seen. ) Procedure: Left atrial appendage thrombus seen. Echodensity seen in the right atrium, possible thrombus. Need to continue anticoagulation Performing Provider: Mayank Ashby Complications: None Condition: stable Disposition: no change Coding Level of Care Code [facility]
--- NOTE | 2025-01-04 13:49 | PC.NURSE ---
BARRERA performed start time 1315 end time 1324 time out complete patient tolerated well arousable and flexing from pain noted family back at bedside
[2025-01-04 20:32] LABS: Partial Thromboplastin Time 65.5 SECONDS (23.9-36.7)
--- NOTE | 2025-01-04 22:08 | USCV_ITS ---
Rowena Gil Age: 79 Gender: F : 1945 Exam Date: 01/04/2025 13:11 Ordering Phys: Zuleika Sorto MD Technologist: Exam Location: [facility] [place] Indication: rt atruim thrombus BP: / HR: Rhythm: Sinus Technical Quality: Adequate MEASUREMENTS (Male / Female) Normal Values Medications Per anesthesia team. Complications None Proc. Components After anesthesia team sedated patient, we proceeded with advancing the BARRERA probe. FINDINGS Left Ventricle Left ventricle is grossly normal. Right Ventricle Normal in size Right Atrium Dilated. Echogenic structure seen in right atrium. This is consistent with possible right atrial thrombus. Left Atrium Dilated. Smoke seen. There is a mobile thrombus seen in left atrial appendage. LA Appendage Thrombus seen in the left atrial appendage. IA Septum No intracardiac shunting seen on bubble study. Mitral Valve Grossly normal. Aortic Valve Aortic valve is thickened. Tricuspid Valve Grossly normal Pulmonic Valve Not well visualized Pericardium Grossly normal Aorta Not well visualized CONCLUSIONS Left ventricle is grossly normal. Biatrial enlargement. Echogenic structure seen in right atrium. This is consistent with possible right atrial thrombus Mobile thrombus seen in the left atrial appendage. No intracardiac shunting seen on bubble study. Mayank Ashby MD (Electronically Signed) Final Date: 06 January 2025 13:20 S
[2025-01-05] VITALS (8 sets, daily range): BP systolic 105–127; BP diastolic 60–72; PULSE 66–98; RESP 16–23; TEMP 36.3–37.1; O2SAT 90–94
[2025-01-05 01:16] LABS: Platelet Count 143 10^3/cmm (157-399)
[2025-01-05 01:32] LABS: Partial Thromboplastin Time 62.1 SECONDS (23.9-36.7)
[2025-01-05 07:28] LABS: Partial Thromboplastin Time 56.1 SECONDS (23.9-36.7)
[2025-01-05] MEDS: sennosides-docusate Tablet 1 TAB PO ×2 (08:15→17:47)
[2025-01-05] MEDS: dilTIAZem ER (24HR) 180 mg Capsule PO ×2 (08:16→17:47)
--- NOTE | 2025-01-05 08:24 | PC.NURSE ---
patient told me the doctor told her not wear compression socks or do any sort of leg compression.
--- NOTE | 2025-01-05 08:57 | P.PN_ITS ---
Subjective 2 Subjective: BARRERA confirmed left atrial appendage thrombus. Also concern for right atrial thrombus. No chest pain Vitals/I&O/Wt Last Vital Signs Temp 97.3 F L 01/05/25 07:19 Pulse 73 01/05/25 07:19 Resp 18 01/05/25 07:19 BP 122/60 01/05/25 07:19 Pulse Ox 94 01/05/25 07:19 O2 Del Method Nasal Cannula 01/05/25 04:00 01/04/25 01/05/25 01/05/25 22:59 06:59 14:59 Intake Total 540 / 639.667 240 / 879.667 Balance 540 / 139.667 240 / 379.667 Weight last 48 hrs Weight 121 lb 4.068 oz Weight 121 lb 0.54 oz Weight 123 lb 7.342 oz Weight 123 lb Physical Exam 2 Narrative: GENERAL: Patient is alert, awake and oriented x3. [] NECK: No jugular vein distension. [] HEENT: No cyanosis. No icterus. No pallor. [] HEART: Irregularly irregular LUNGS: Clear to auscultate bilaterally. [] EXTREMITIES: Lower extremities with no edema bilaterally. Data 01/05/25 01:08 01/04/25 03:25 A&P Assessment and plan 1. Atrial fibrillation: 2. Right atrial thrombus: 3. Hypertension: Plan: BARRERA showed left atrial appendage thrombus. Also has possible right atrial thrombus. Cannot stop anticoagulation. Can switch to Eliquis 5 mg twice daily. Close follow-up in cardiology office with Dr. Mauricio. Thank you for involving us with care of this patient. We will sign off. Please call with questions. PDMP PDMP Reviewed: Not Reviewed Attestations 2 Medical Necessity Statement*: Care expected to cross 2 midnights. Coding Level of Care Code Acute Code for [facility] Fwd Diagnoses Atrial fibrillation I48.91 Right atrial thrombus I51.3 Hypertension I10
[2025-01-05 13:42] LABS: Partial Thromboplastin Time 53.7 SECONDS (23.9-36.7)
[2025-01-05 19:20] LABS: Partial Thromboplastin Time 56.4 SECONDS (23.9-36.7)
[2025-01-06 01:16] LABS: Partial Thromboplastin Time 58.6 SECONDS (23.9-36.7)
[2025-01-06 03:37] VITALS: BP 115/75; PULSE 76; RESP 21; TEMP 36.6; O2SAT 92
[2025-01-06 06:58] LABS: Partial Thromboplastin Time 68.3 SECONDS (23.9-36.7)
[2025-01-06 08:00] VITALS: BP 134/81; PULSE 83; RESP 20; TEMP 36.7; O2SAT 93
--- NOTE | 2025-01-06 09:39 | P.PN_ITS ---
Subjective 2 Subjective: Patient has been doing okay, has been having daily bowel movements, no blood in the stool per nursing report. Tolerating anticoagulation Vitals/I&O/Wt Last Vital Signs Temp 98.1 F 01/06/25 08:00 Pulse 83 01/06/25 08:00 Resp 20 H 01/06/25 08:00 BP 134/81 01/06/25 08:00 Pulse Ox 93 01/06/25 08:00 O2 Del Method Room Air 01/06/25 03:37 01/05/25 01/06/25 01/06/25 22:59 06:59 14:59 Intake Total 290 / 770 50 / 820 183.517 / 183.517 Balance 290 / 370 50 / 420 183.517 / 183.517 Weight last 48 hrs Weight 120 lb 13.013 oz Weight 121 lb 4.068 oz Physical Exam 2 GI: OTHER: Abdomen is soft nontender nondistended digital rectal examination is negative for blood residue there is regular color stool in the rectal vault Data 01/05/25 01:08 01/04/25 03:25 A&P Assessment and plan 1. Anemia: Plan: Patient showing good progression from the surgical standpoint, no additional surgical intervention is expected during this hospital stay. Follow- up will be as needed with general surgery. Please reconsult if there is any changes in clinical status. PDMP PDMP Reviewed: Not Reviewed Attestations 2 Medical Necessity Statement*: Per medical team Coding Level of Care Code Acute Code for Chg Fwd Diagnoses Anemia D64.9
[2025-01-06] MEDS: polyethylene glycol 3350 Pkt 17 gm PO (09:49)
[2025-01-06] MEDS: sennosides-docusate Tablet 1 TAB PO (09:50)
[2025-01-06] MEDS: dilTIAZem ER (24HR) 180 mg Capsule PO (09:50)
[2025-01-06 12:00] VITALS: BP 132/89; PULSE 102; RESP 20; TEMP 36.4; O2SAT 95
--- NOTE | 2025-01-06 13:02 | PM.DCS ---
Discharge Providers Date of Admission: 01/03/25 20:22 Date of Discharge: January 06, 2025 Attending Provider at Admission: Zuleika Sorto MD Attending Provider at Discharge: Kamila Arzate MD Consults: Cardiology with Dr. Ashby Surgery- Primary Care Provider: Sreedhar Mejia MD Diagnoses at Discharge Discharge Diagnosis 1. Anemia: Other Information Additional DC diagnoses/information: 1.Atrial fibrillation with rapid ventricular rate resolved and on anticoagulant and rate controlling medication 2. Hemorrhoidal bleed resolved 3. Anemia--stable Reason for Visit Reason for Visit: bowel problems Hospital Course Hospital Course Rowena Gil is a 79 year old female with PMH Nonischemic cardiomyopathy, Hypertension, Dyslipidemia, Combined systolic and diastolic congestive heart failure, Aortic stenosis, mild, Pulmonary embolism on right, Atrial fibrillation, Peripheral arterial disease. Patient has intolerance to Entresto and oral anticoagulant. she was recent admitted and discharged on 12/24 after being treated for CHF and COPD. She returned today to the ER after experiencing bright red blood per rectum. She had been constipated since her discharge from the hospital and took some stool softners. This resulted in Bleeding per rectum which brought her to the RE. CT abdomen showed Focal area of hyperattenuation within the rectum with ill-defined hyperattenuation near the anorectal junction could represent bleeding internal hemorrhoids. Incidentally noted Rounded filling defects in the region of the right atrial appendage concerning for thrombus. Stat Echo was ordered to confirm which is currently pending. She has been started on a/c with heparin at this time. Past cardiac history is notable as above. She reports she has not been on any anticoagulation in spite of a history of PE and A-fib due to history of anemia in the past. She was last seen as an outpatient in October 2024 at which time she had complained of some left-sided chest discomfort concerning for angina. She underwent a stress test in November 2024 where an myocardial perfusion revealed small to moderate area of minimal to moderate reversible defect involving the anterolateral and anterolateral segments suggesting ischemia predominantly in the distribution of the LCx. LVEF was noted to be at 69%, no regional wall motion abnormalities were noted at that time. This appeared to be a change from 2021. She denies any chest pain today. Her EKG today shows a baseline rhythm of A-fib, ST deviation in leads V5 V6. Troponin series done The surgeon saw the patient and did not have any active bleeding from the hemorrhoid. No further care and nothing more to add to care. It must be noted that patient came in with COPD exacerbation that was also managed with nebulizing treatment and antibiotics with azithromycin. These have completely resolved at this time. Patient heart rate controlled with beta-vero with metoprolol 100 mg twice daily and Cardizem 180 mg twice daily. Patient could not take amiodarone because of allergy. This rate controlling medication is for atrial fibrillation with rapid ventricular rate. Patient rate is controlled in the 60s. Blood pressure stable. I also have added anticoagulant with Eliquis 5 mg twice daily. Patient does have a clot in the appendage of the left atrium and the entire coagulation is 7 months apart from being in atrial fibrillation. Patient is doing well with no complaints and pretty much stable to go home at this time. Cardiology and surgery had cleared for patient to leave and I agree patient is discharged to follow-up with the PCP in 1 week and follow-up with cardiology in 7 to 10 days. . Physical Exam Narrative: General The patient is doing well in no apparent distress. HEENT normocephalic/atraumatic neck neck is supple cardiovascular heart is regular lungs are pretty much clear abdomen soft nontender nondistended unremarkable extremities are intact no edema has good pulses neurology has no focality lab studies lab has been reviewed and noted. Discharge Data Studies Completed and Pending Completed Studies During Hospitalization Category Date Time Status CT abdomen pelvis w con* [id number] Stat Cat Scan 01/03/25 17:52 Completed CV. echo limited [id number] Stat Ultrasound 01/03/25 19:49 Completed Pending at discharge Category Date Time Status ARANZA SCREEN [ARANZA Profile Rheumatology] Routine Lab 01/03/25 22:02 Received Lupus Inhibitor Panel Anticoag Routine Lab 01/03/25 23:00 Received PTT [Partial Thromboplastin Time] Timed Lab 01/06/25 12:50 Received Platelet Count Q2D Lab 01/07/25 04:00 Ordered CV. echo transesophageal [id number] Routine Ultrasound 01/04/25 22:08 Taken Radiology Impressions Abdomen/Pelvis CT 01/03/25 17:52 IMPRESSION: 1. Focal area of hyperattenuation within the rectum with ill-defined hyperattenuation near the anorectal junction could represent bleeding in the GI tract, possibly from internal hemorrhoids, though assessment is limited on this single phase of contrast. Correlate with physical exam findings. 2. Rounded filling defects in the region of the right atrial appendage concerning for thrombus. Consider echocardiogram for further evaluation. 3. Similar asymmetric atrophy of the right kidney. 4. Additional nonemergent findings as above are similar to prior. COMMENTS: Consistent with the [employer]'s Incidental Findings Committee white paper (J Am Jalil Radiol 2018): Any incidental renal lesion less than 1 cm or classified as too small to characterize, or any incidental cystic renal lesion characterized as simple-appearing, is likely benign. No follow-up imaging is recommended for these lesions per consensus recommendations based on imaging criteria. Laboratory Results WBC 5.80 10^3/uL (3.29-11.43) 01/04/25 03:25 RBC 3.98 10^6/uL (3.85-5.65) 01/04/25 03:25 Hgb 13.20 g/dL (11.27-16.99) 01/04/25 03:25 Hct 39.4 % (36-47) 01/04/25 03:25 MCV 99.0 fl (85-98) H 01/04/25 03:25 MCH 33.2 pg (27-33) H 01/04/25 03:25 MCHC 33.5 g/dL (30-55) 01/04/25 03:25 RDW 14.7 % (12.1-15.1) 01/04/25 03:25 Plt Count 143 10^3/cmm (157-399) L 01/05/25 01:08 MPV 9.3 fL (7.4-10.4) 01/04/25 03:25 Neut % (Auto) 73.4 % 01/04/25 03:25 Lymph % (Auto) 12.1 % 01/04/25 03:25 Bates % (Auto) 11.2 % 01/04/25 03:25 Eos % (Auto) 1.6 % 01/04/25 03:25 Baso % (Auto) 0.3 % 01/04/25 03:25 Neut # (Auto) 4.26 10^3/uL (1.8-7.7) 01/04/25 03:25 Lymph # (Auto) 0.7 10^3/uL (0.8-4.8) L 01/04/25 03:25 Bates # (Auto) 0.7 10^3/uL (0.2-0.9) 01/04/25 03:25 Eos # (Auto) 0.1 10^3/uL (0.0-0.8) 01/04/25 03:25 Baso # (Auto) 0.0 10^3/uL (0.0-0.1) 01/04/25 03:25 Nucleated RBC % (auto) 0 % 01/04/25 03:25 Nucleated RBCs # 0.0 /100WBC 01/04/25 03:25 PT 13.90 SECONDS (12.1-14.9) 01/03/25 23:00 INR 1.00 (0.8-1.2) 01/03/25 23:00 APTT 68.3 SECONDS (23.9-36.7) H 01/06/25 06:40 Sodium 133 mmol/L (136-145) L 01/04/25 03:25 Potassium 3.9 mmol/L (3.5-5.1) 01/04/25 03:25 Chloride 98 mmol/L (98-107) 01/04/25 03:25 Carbon Dioxide 25 mmol/L (22-29) 01/04/25 03:25 Anion Gap 13.9 (5-19) 01/04/25 03:25 BUN 29 mg/dL (8-23) H 01/04/25 03:25 Creatinine 1.0 mg/dL (0.5-0.9) H 01/04/25 03:25 GFR Calculation Not Reportable 01/04/25 03:25 Glucose 147 mg/dL (65-115) H 01/04/25 03:25 Calculated Osmolality 285 mOsm/kg (285-295) 01/04/25 03:25 Lactic Acid 1.3 mmol/L (0.5-2.2) 01/03/25 18:09 Calcium 9.1 mg/dL (8.5-10.5) 01/04/25 03:25 Magnesium 2.4 mg/dL (1.7-2.3) H 01/04/25 03:25 Total Bilirubin 0.8 mg/dL (0.15-1.2) 01/04/25 03:25 AST 19 U/L (0-32) 01/04/25 03:25 ALT 32 U/L (0-33) 01/04/25 03:25 Alkaline Phosphatase 101 U/L (35-105) 01/04/25 03:25 Troponin T Baseline 56 ng/L (0-10) H 01/03/25 23:00 Troponin T 120 Minute 57.45 ng/L (0-10) H 01/04/25 01:00 Delta Troponin T 1.45 ABS# (0-10) 01/04/25 01:00 Troponin T Hi Sens 6Hr 61.42 ng/L (0-10) H 01/04/25 05:34 Troponin T Hi Sens 6Hr Delta 5.42 ng/L (0-12) 01/04/25 05:34 C-Reactive Protein 27.0 mg/L (0.0-4.9) H 01/03/25 18:09 Total Protein 5.6 g/dL (6.6-8.7) L 01/04/25 03:25 Albumin 3.4 g/dL (3.5-5.2) L 01/04/25 03:25 Globulin 2.2 g/dL (1.3-4.6) 01/04/25 03:25 Lipase 24 U/L (13-60) 01/03/25 18:09 Urine Color Yellow (Yellow) 01/03/25 19:41 Urine Appearance Clear (CLEAR) 01/03/25 19:41 Urine pH 7.5 (5-7) 01/03/25 19:41 Ur Specific [place] 1.055 (1.005-1.030) H 01/03/25 19:41 Urine Protein Trace (Negative) A 01/03/25 19:41 Urine Glucose (UA) Negative (Normal) 01/03/25 19:41 Urine Ketones Negative (Negative) 01/03/25 19:41 Urine Blood Negative (Negative) 01/03/25 19:41 Urine Nitrate Negative (Negative) 01/03/25 19:41 Urine Bilirubin Negative (Negative) 01/03/25 19:41 Urine Urobilinogen 1.0 mg/dL (Negative) 01/03/25 19:41 Ur Leukocyte Esterase Negative (Negative) 01/03/25 19:41 Urine RBC 0-2 /hpf (0-2) 01/03/25 19:41 Urine WBC 0-5 /hpf (0-5) 01/03/25 19:41 Ur Squamous Epith Cells 0-5 /hpf (0-5) 01/03/25 19:41 Amorphous Sediment Not Reportable 01/03/25 19:41 Urine Bacteria None seen /hpf (NONE) 01/03/25 19:41 Hyaline Casts 4.95 /lpf 01/03/25 19:41 Blood Type O Positive 01/03/25 19:17 Rho(D) Type Rh positive 01/03/25 19:17 Antibody Screen Negative 01/03/25 19:17 Vitals Last Vital Signs Temp 97.5 F L 01/06/25 12:00 Pulse 102 H 01/06/25 12:00 Resp 20 H 01/06/25 12:00 BP 132/89 01/06/25 12:00 Pulse Ox 95 01/06/25 12:00 O2 Del Method Room Air 01/06/25 12:00 Discharge Plan Discharge Patient Disposition: Home Condition: Stable Prescriptions: New Eliquis 5 mg tablet 5 mg PO BID Qty: 60 0RF Continued ipratropium bromide 21 mcg (0.03 %) spray,non-aerosol 2 spray intranasal TID PRN (Reason: Nasal Congestion) ferrous sulfate 325 mg (65 mg iron) tablet 325 mg PO QAM bzwygai-bgfguvcbo-glop 333-133-5 mg tablet 1 tab PO QAM atorvastatin 40 mg tablet 40 mg PO BEDTIME Qty: 90 3RF vitamin B complex Tablet 1 tab PO QAM fluticasone propionate 50 mcg/actuation spray,suspension 2 spray INTRANASAL DAILY acetaminophen 500 mg Tablet 500 mg PO BID PRN (Reason: Pain) albuterol sulfate 90 mcg/actuation HFA aerosol inhaler 2 puff INHALATION QID PRN (Reason: Cough) cholecalciferol (vitamin D3) [Vitamin D3] 50 mcg (2,000 unit) Tablet 2,000 unit PO QAM lutein 40 mg Capsule 40 mg PO QAM loratadine 10 mg tablet 10 mg PO DAILY azithromycin 250 mg Tablet 250 mg PO DAILY Qty: 5 0RF spironolactone 25 mg Tablet 25 mg PO BID Qty: 60 0RF furosemide 40 mg tablet 40 mg PO BID Qty: 60 3RF diltiazem HCl [DILT-XR] 180 mg capsule,ext.rel 24h degradable 180 mg PO BID Qty: 60 0RF dexamethasone 4 mg Tablet 4 mg PO DAILY Qty: 4 0RF metoprolol tartrate 100 mg tablet 100 mg PO BID Qty: 120 0RF Nutritional Services Director OK for DC: Cardiology, Family Medicine and Hospitalist Discharge Order = DC NOW: Discharge Order (Routine); Ordered 01/06/25 Ordered By: Kamila Arzate Referrals: Mayank Ashby M.D [Physician, Cardiology] - 7-10 days Referral Note: We have notified your physician's clinic of the need for a follow-up appointment to be scheduled. If you have not heard from them within the next 2 business days, please call them directly. Sreedhar Mejia MD [Primary Care Provider, [facility]] Referral Note: Please call for an follow-up appointment within 4 to 7 days. Thank you. Discharge Diet: Cardiac Discharge Activity: Resume usual activity Patient Instructions: Apixaban (By mouth) (Eliquis), A-fib (Atrial Fibrillation) (DC), Hypertension (DC), Anemia (DC), Mechanical Thrombectomy (DC), CHF Stoplight, Opioid Safety, Patient Portal & Morgan Instructions Discharge Attestations Time Spent in Discharge Care*: less than 30 min Quality Metrics Clinical Quality Measures [ No reported AMI, CVA or VTE this stay] Coding Level of Care Code 55757 Diagnoses Anemia D64.9 Time Spent (min) 30
[2025-01-06 13:13] LABS: Partial Thromboplastin Time 61.9 SECONDS (23.9-36.7)
--- NOTE | 2025-01-06 13:13 | PC.NURSE ---
Patient ambulated in the hallway about 300 feet. Patients vitals remained stable.
[2025-01-06 13:58] VITALS: BP 132/86; PULSE 90; RESP 25; O2SAT 92
[2025-01-07 11:44] LABS: COMPLEMENT COMPONENT C3C 124 mg/dL (83-193); COMPLEMENT COMPONENT C4C 11 mg/dL (15-57)
[2025-01-07 15:54] LABS: COMPLEMENT, TOTAL (CH50) 50 U/mL (31-60)
[2025-01-08 04:54] LABS: CENTROMERE B ANTIBODY <1.0 NEG AI (<1.0 NEG); JO-1 ANTIBODY <1.0 NEG AI (<1.0 NEG); RNP ANTIBODY 7.0 POS AI (<1.0 NEG); SCL-70 ANTIBODY <1.0 NEG AI (<1.0 NEG); SS-B <1.0 NEG AI (<1.0 NEG)
[2025-01-08 22:50] LABS: Lupus DRVVT Confirm NEGATIVE (NEGATIVE); Lupus Hexagonal Phas Confirm NEGATIVE (NEGATIVE); PTT-LA-Screen 135 sec (< OR = 40)
[2025-01-09 12:18] LABS: THYROID PEROXIDASE ANTIBODIES <1 IU/mL (<9)
[2025-01-10 14:19] LABS: DNA AB (DS) CRITHIDIA,IFA NEGATIVE (NEGATIVE)
== END 2025-01-06 15:10 | disposition home health service (06) | DRG 308 ==
LOC: ER 20:19 → CSU 21:17
PROVIDERS: Internal Medicine; Nurse Practitioner; Admitting Provider Student in an Organized Health Care Education/Training Program; Emergency Provider Emergency Medicine; PCP Family Medicine; Visit Provider Internal Medicine
DX: I48.91 Unspecified atrial fibrillation (principal); I50.41 Acute combined systolic (congestive) and diastolic (congestive) heart failure; J44.1 Chronic obstructive pulmonary disease with (acute) exacerbation; D64.9 Anemia, unspecified; K64.8 Other hemorrhoids; I51.3 Intracardiac thrombosis, not elsewhere classified; I11.0 Hypertensive heart disease with heart failure; E78.5 Hyperlipidemia, unspecified; I73.9 Peripheral vascular disease, unspecified; K59.00 Constipation, unspecified; Z86.711 Personal history of pulmonary embolism; Z87.891 Personal history of nicotine dependence; Z86.73 Personal history of transient ischemic attack (TIA), and cerebral infarction without residual deficits
CPT/HCPCS: 36415; 74177; 80053; 81001; 83605; 83690; 83735; 84484; 85025; 85049; 85610; 85613; 85730; 86140; 86160; 86162; 86235; 86255; 86376; 86850; 86900; 93005; 93308; 93312; 93320; 93325; 96365; 96366; 96375; 97110; 97161; 97166; 99285; J1644; J2704; J7030; J9999

== ENCOUNTER → 2025-01-30 10:40 | Outpatient (BNVA) | payer MEDICARE, MEDICAID, SELFPAY | PROVIDERS: PCP Family Medicine; Visit Provider Nurse Practitioner Family | DX: I51.3 Intracardiac thrombosis, not elsewhere classified (principal); I48.20 Chronic atrial fibrillation, unspecified; Z79.01 Long term (current) use of anticoagulants; I73.9 Peripheral vascular disease, unspecified; I35.0 Nonrheumatic aortic (valve) stenosis; I11.0 Hypertensive heart disease with heart failure; I50.42 Chronic combined systolic (congestive) and diastolic (congestive) heart failure; E78.5 Hyperlipidemia, unspecified; R07.89 Other chest pain; Z98.61 Coronary angioplasty status; Z86.711 Personal history of pulmonary embolism; Z86.73 Personal history of transient ischemic attack (TIA), and cerebral infarction without residual deficits; Z87.891 Personal history of nicotine dependence; I48.11 Longstanding persistent atrial fibrillation | CPT/HCPCS: 36415; 83880; 85025; 99213 ==

== ENCOUNTER 2025-02-06 11:18 | Outpatient (CLI) | payer MEDICARE, MEDICAID, SELFPAY ==
[2025-02-06 12:07] LABS: Anion Gap 11.6 (5-19); Blood Urea Nitrogen 23 mg/dL (8-23); Calcium 9.6 mg/dL (8.5-10.5); Carbon Dioxide 31 mmol/L (22-29); Chloride 102 mmol/L (98-107); Glucose 110 mg/dL (65-115); Osmolality Calculated 296 mOsm/kg (285-295); Potassium 3.6 mmol/L (3.5-5.1); Sodium 141 mmol/L (136-145)
== END 2025-02-06 11:19 | disposition home or self-care (01) ==
LOC: LAB 11:19
PROVIDERS: PCP Family Medicine; Visit Provider Nurse Practitioner Family
DX: I10 Essential (primary) hypertension (principal)
CPT/HCPCS: 36415; 80048

== ENCOUNTER → 2025-02-08 11:08 | Outpatient (BNVA) | payer MEDICARE, MEDICAID, SELFPAY | PROVIDERS: PCP Family Medicine; Visit Provider Nurse Practitioner Family | DX: L08.9 Local infection of the skin and subcutaneous tissue, unspecified (principal); I87.2 Venous insufficiency (chronic) (peripheral); L70.8 Other acne; Z85.828 Personal history of other malignant neoplasm of skin; Z08 Encounter for follow-up examination after completed treatment for malignant neoplasm | CPT/HCPCS: 99214 ==

== ENCOUNTER 2025-03-08 09:01 | Outpatient (CLI) | payer MEDICARE, MEDICAID, SELFPAY | END 2025-03-08 09:02 | disposition home or self-care (01) | LOC: RAD 09:02 | PROVIDERS: PCP Family Medicine; Visit Provider Nurse Practitioner Family | DX: I51.3 Intracardiac thrombosis, not elsewhere classified (principal) | CPT/HCPCS: 93306 ==

== ENCOUNTER 2025-03-12 11:46 | Observation (INO) | payer MEDICARE, MEDICAID, SELFPAY ==
[2025-03-12] VITALS (35 sets, daily range): BP systolic 144–183; BP diastolic 60–106; PULSE 56–94; RESP 16–29; TEMP 36.6; O2SAT 90–100; BMI 24.0; BMI 23.1
--- OUTSIDE RECORDS SUMMARY | 2025-03-12 11:52 | XMS_ITS | Clinical Summary ---
Author Organization [facility] Address [address] [place] [address] Phone Care Team Providers Care Yield Analyst Name Role Phone Unavailable Primary Care Provider [...] file Group ID:[id number] Type:Medicare Managed Care Address: [facility] [id number] [place] [id number]
--- OUTSIDE RECORDS SUMMARY | 2025-03-12 11:52 | XMS_ITS | Clinical Summary ---
Author Organization [facility] [address] Address [address] [place] [address] Phone Care Team Providers Care Distribution Sales Manager Name Role Phone Jose Pagan MD Primary [...] Active sodium chloride (OCEAN) 0.65 % Aerosol, [place] Administer 2 Sprays in each nostril PRN [...] migh t be different from the original. 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 Immunizations Immunization [...] on file Legal Sex Female 10:40 PM [employer] Gender Identity Not on file Sexual Orientation [...] Advance Directives For more information, please contact: [phone] * Full Code (Latest Code Status on File) Date Activated Date Inactivated Comments 10/22/2014 1:05 PM 10/25/2014 6:20 PM * Full Code Date Activated Date Inactivated Comments 10/22/2014 7:18 AM 10/22/2014 1:05 PM * Full Code Date Activated Date Inactivated Comments 05/29/2014 7:05 PM 06/07/2014 4:52 PM * Full Code Date Activated Date Inactivated Comments 05/02/2014 6:23 PM 05/05/2014 12:27 PM Care Teams Distribution Sales Manager Relationship Specialty Start Date End Date Jose Pagan MD PCP - General Internal Medicine 06/02/14
--- NOTE | 2025-03-12 11:53 | ECG_ITS ---
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 Measurements Intervals [place] Rate: 77 P: 0 DE: 0 QRS: -34 QRSD: 111 T: 51 QT: 430 QTc: 487 Interpretive Statements ATRIAL FIBRILLATION LEFT AXIS DEVIATION [QRS AXIS < -30] PATTERN CONSISTENT WITH PULMONARY DISEASE MODERATE INTRAVENTRICULAR CONDUCTION DELAY [110+ ms QRS DURATION] Compared to ECG 01/04/2025 02:16:48 Left-axis deviation now present Intraventricular conduction delay now present Prolonged QT interval now present Ventricular premature complex(es) no longer present Aberrant conduction of supraventricular beat(s) no longer present T-wave abnormality no longer present Possible ischemia no longer present Electronically Signed On 03-14-2025 08:40:26 CDT by Mayank Ashby M.D. [email or web address] [id number]
--- NOTE | 2025-03-12 11:54 | XRR_ITS ---
PROCEDURE INFORMATION: Exam: XR Chest Exam date and time: 03/12/2025 1:04 PM Age: 79 years old Clinical indication: Angina pectoris; PT C/O chest pain, PT reports feeling more SOB. TECHNIQUE: Imaging protocol: Radiologic exam of the chest. Views: 1 view. COMPARISON: CR XR chest 1V portable [id number] 12/22/2024 9:50 AM FINDINGS: Lungs: Mild atelectasis or infiltrate at the lateral right lung base. Mild interstitial prominence. Pleural spaces: Unremarkable. No pleural effusion. No pneumothorax. Heart/Mediastinum: See Vasculature finding. Vasculature: Mild cardiomegaly and uncoiling of the thoracic aorta. Diaphragm: Minimally blunted left CP angle. Bones/joints: Unremarkable. XR/XR chest 1V portable [id number] IMPRESSION: Mild bibasilar opacities.
[2025-03-12 13:01] LABS: Hematocrit 41.7 % (36-47); Hemoglobin 13.30 g/dL (11.27-16.99); Mean Corpuscular HGB Conc 31.9 g/dL (30-55); Mean Corpuscular Hemoglobin 34.2 pg (27-33); Mean Corpuscular Volume 107.2 fl (85-98); Nucleated Red Blood Cells % 0 %; Platelet Count 150 10^3/cmm (157-399); Red Blood Count 3.89 10^6/uL (3.85-5.65); White Blood Count 3.56 10^3/uL (3.29-11.43)
[2025-03-12 13:15] LABS: Troponin(5th) Baseline 32 ng/L (0-10)
[2025-03-12 13:26] LABS: Alanine Aminotransferase 32 U/L (0-33); Albumin Level 4.3 g/dL (3.5-5.2); Alkaline Phosphatase 89 U/L (35-105); Anion Gap 12.6 (5-19); Aspartate Amino Transferase 31 U/L (0-32); Blood Urea Nitrogen 21 mg/dL (8-23); Calcium 9.7 mg/dL (8.5-10.5); Carbon Dioxide 33 mmol/L (22-29); Chloride 102 mmol/L (98-107); Creatinine Clr Calc Pharmacy 49.6857; Globulin 1.9 g/dL (1.3-4.6); Glucose 107 mg/dL (65-115); NT Pro B Type Natriuretic Pept 6451 pg/mL (0-450); Osmolality Calculated 301 mOsm/kg (285-295); Potassium 3.6 mmol/L (3.5-5.1); Sodium 144 mmol/L (136-145); Total Protein 6.2 g/dL (6.6-8.7)
--- NOTE | 2025-03-12 13:52 | USCV_ITS ---
Rownea Gil Age: 79 Gender: F : 1945 Exam Date: 03/12/2025 14:06 Ordering Phys: Gwyn Sánchez DO Technologist: JAYY Exam Location: [facility] Indication: SWELLING HISTORY: Lower extremity swelling. PROCEDURES: Venous duplex imaging was performed in bilateral lower extremities. The following venous structures were evaluated: common femoral vein, profunda vein, proximal portion of the greater saphenous vein, superficial femoral vein, and the popliteal vein. In addition, the posterior tibial and peroneal trunk were evaluated. FINDINGS: Normal 2-D Doppler and augmentation and compressibility throughout the lower extremity venous structures. Additional imaging through the proximal calf veins also reveals no thrombus. Limited evaluation of the greater saphenous vein is patent with no thrombus. CONCLUSIONS No DVT bilateral lower extremities. Dr. Ana Logan DO (Electronically Signed) Final Date: 12 March 2025 14:48 S
--- NOTE | 2025-03-12 13:52 | CTR_ITS ---
PROCEDURE INFORMATION: Exam: CTA Chest With Contrast Exam date and time: 03/12/2025 3:12 PM Age: 79 years old Clinical indication: Dyspnea; Additional info: Dyspnea on exertional TECHNIQUE: Imaging protocol: Computed tomographic angiography of the chest with contrast. Exam focused on the arteries. 3D rendering (Not supervised by radiologist): MIP and/or 3D reconstructed images were created by the technologist. Radiation optimization: All CT scans at this facility use at least one of these dose optimization techniques: automated exposure control; mA and/or kV adjustment per patient size (includes targeted exams where dose is matched to clinical indication); or iterative reconstruction. Contrast material: OMNIPAQUE 350; Contrast volume: 100 ml; Contrast route: INTRAVENOUS (IV); COMPARISON: CT angio chest PE protcl [id number] 08/18/2019 11:36 AM RADIATION DOSE METRICS: Total DLP (mGy-cm): 218.95 FINDINGS: Pulmonary arteries: Normal. No pulmonary emboli. Aorta: Unremarkable. No aortic aneurysm. No aortic dissection. Lungs: Emphysematous COPD. Pleural spaces: Trace bilateral pleural effusions. Heart: Unremarkable. No cardiomegaly. No pericardial effusion. Lymph nodes: Unremarkable. No enlarged lymph nodes. Bones/joints: Mild stable compression of a midthoracic vertebral body. Soft tissues: Unremarkable. CT/CT angio chest PE protcl [id number] IMPRESSION: No acute intrathoracic pathology.
--- NOTE | 2025-03-12 13:54 | ECG_ITS ---
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 Measurements Intervals [place] Rate: 84 P: 0 DE: 0 QRS: -51 QRSD: 98 T: 65 QT: 404 QTc: 478 Interpretive Statements ATRIAL FIBRILLATION LEFT AXIS DEVIATION [QRS AXIS < -30] PATTERN CONSISTENT WITH PULMONARY DISEASE Compared to ECG 01/04/2025 02:16:48 Left-axis deviation now present Ventricular premature complex(es) no longer present Aberrant conduction of supraventricular beat(s) no longer present T-wave abnormality no longer present Possible ischemia no longer present Electronically Signed On 03-14-2025 09:01:04 CDT by Mayank Ashby M.D. [email or web address] [id number]
--- NOTE | 2025-03-12 13:54 | W.ED.CHESTPA ---
HPI - Chest Pain General: Chief Complaint: Chest Pain Stated Complaint: Dr. Mauricio sent, chest pain Time Seen by Provider: 03/12/25 13:28 History of Present Illness: 79-year-old female presents to the emergency room with complaints of shortness of breath and leg swelling. Patient has known history of atrial fibrillation she has a known right atrial thrombus and a thrombus in the left atrium as well she had been started on outpatient Eliquis but stopped because she began to have nausea and vomiting. Since then she has began to have mild chest pressure increasing shortness of breath with exertion she previously had used oxygen supplementation occasionally is now requiring oxygen continuously. She had seen Dr. Mauricio earlier today and was advised to go to the emergency room he is concerned about a PE and/or DVT. Previous hospitalization reviewed. Associated symptoms: Reports dyspnea; Deny abdominal pain or fever(s) Related Data Home Medications ?Medication ?Instructions ?Recorded ?Confirmed ferrous sulfate 325 mg (65 mg 325 mg PO QAM 12/03/21 03/12/25 iron) tablet [id number] 333 mg-133 1 tab PO QAM 01/27/22 03/12/25 mg-5 mg tablet ipratropium bromide 21 mcg (0.03 2 spray intranasal TID PRN Nasal 02/10/22 03/12/25 %) nasal spray Congestion vitamin B complex 1 tab PO QAM 02/26/22 03/12/25 fluticasone propionate 50 2 spray intranasal QAM 08/02/22 03/12/25 mcg/actuation nasal spray,suspension acetaminophen 500 mg tablet 500 mg PO BID PRN Pain 05/21/23 03/12/25 cholecalciferol (vitamin D3) 50 2,000 unit PO QAM 05/21/23 03/12/25 mcg (2,000 unit) tablet (Vitamin D3) lutein 40 mg capsule 40 mg PO QAM 05/21/23 03/12/25 diltiazem HCl 180 mg 180 mg PO QDAY 01/30/25 03/12/25 capsule,extended release 24 hr, controlled (DILT-XR) loratadine 10 mg tablet 10 mg PO DAILY PRN allergies 01/30/25 03/12/25 furosemide 40 mg tablet 60 mg PO QAM 03/12/25 03/12/25 triamcinolone acetonide 0.1 % 1 applic topical BID 03/12/25 03/12/25 topical cream Previous Rx's ?Medication ?Instructions ?Recorded atorvastatin 40 mg tablet 40 mg PO BEDTIME #90 tabs 10/16/24 metoprolol tartrate 100 mg tablet 100 mg PO BID #120 tabs 01/06/25 nitroglycerin 0.4 mg sublingual 0.4 mg sublingual Q5M PRN chest 01/30/25 tablet pain #20 tabs enoxaparin 60 mg/0.6 mL 60 mg (0.6 mL) SUBCUT Q12H #6 mL 03/12/25 subcutaneous syringe (Lovenox) isosorbide mononitrate 30 mg 30 mg PO DAILY #30 tabs 03/12/25 tablet,extended release 24 hr warfarin 5 mg tablet 5 mg PO DAILY #30 tabs 03/12/25 Allergies Allergy/AdvReac Type Severity Reaction Status Date / Time aspirin Allergy Unknown unknown Verified 03/12/25 10:04 losartan Allergy Unknown Verified 03/12/25 10:04 Sulfa (Sulfonamide Allergy UNK Verified 03/12/25 10:04 Antibiotics) amiodarone AdvReac unknown Verified 03/12/25 10:04 lisinopril AdvReac excess Verified 03/12/25 10:04 mucous Penicillins AdvReac childhood Verified 03/12/25 10:04 allergy rash Review of Systems Const: Denies: fever(s) or chills Card: Denies: chest pain Resp: Reports: dyspnea GI: Denies: abdominal pain : Denies: dysuria, urinary frequency or urinary urgency Musc: Denies: neck pain or back pain Skin/Breast: Denies: rash PFSH ED PFSH: Medical History Macrocytosis History of nonmelanoma skin cancer Osteoporosis CHF (congestive heart failure) History of atrial fibrillation History of pulmonary embolism (2019) Hypothyroidism Valvular heart disease Moderate mitral and tricuspid regurgitation and trace aortic regurgitation by echocardiogram Peripheral arterial disease Leukopenia Temporal arteritis Varicose vein of leg Anemia History of transfusion dependent anemia Dyslipidemia Hypertension CVA (cerebral vascular accident) (2019) GERD (gastroesophageal reflux disease) COPD (chronic obstructive pulmonary disease) Albuterol and Atrovent, budesonide, oxygen Surgical History History of PTCA Status post surgical removal of malignant neoplasm of skin (01/2021) 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 History of angioplasty (2016) Angioplasty to right superficial femoral artery History of bilateral cataract extraction S/P dilatation and curettage Hx of coronary artery balloon dilation History of heart surgery History of intravascular stent placement (2016) Left superficial femoral artery History of colonoscopy Hx of tonsillectomy Family History Mother Hypertension Father Stroke Denies family history of Diabetes CAD (coronary artery disease) Clotting disorder Hyperlipidemia Chronic kidney disease (CKD) Bleeding disorder Cancer Social History Smoking and tobacco/nicotine status: former use of tobacco/nicotine Quit status (tobacco/nicotine): has quit using Year quit tobacco: 2008 Alcohol intake: never Substance/Drug Use: never Additional social history: 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 Physical Exam Const: GENERAL APPEARANCE: cooperative ORIENTATION/CONSCIOUSNESS: Yes awake, Yes oriented to person, Yes oriented to place and Yes oriented to time HENMT: COMMON NORMALS: normocephalic, atraumatic and hearing grossly normal bilaterally HEAD & SCALP: normocephalic and atraumatic Resp: COMMON NORMALS: normal respiratory effort, No retractions, No use of accessory muscles and clear to auscultation bilaterally AUSCULTATION: clear to auscultation bilaterally Cardio: COMMON NORMALS: regular rate and No murmurs present (Cardio) RATE: regular rate RHYTHM: abnormal rhythm irregularly irregular GI: COMMON NORMALS: Soft to palpation and No hepatosplenomegaly present AUSCULTATION: Yes normoactive bowel sounds PALPATION: Yes Soft to palpation, No Tenderness to palpation present (GI), No Guarding due to palpation present (GI) and Yes No hepatosplenomegaly present Extremity: COMMON NORMALS: normal to inspection, capillary refill normal, no clubbing, cyanosis or edema, no calf tenderness and no pedal edema Neuro: SENSORIUM/ORIENTATION: Yes oriented to person, Yes oriented to place and Yes oriented to time Skin: COMMON NORMALS: no rashes or lesions noted GENERAL SKIN EXAM: no rashes or lesions noted Course Vital Signs: Vital signs: Vital Signs Temperature 97.8 F 03/12/25 11:54 Pulse Rate 75 03/12/25 14:32 Respiratory Rate 18 03/12/25 14:32 Blood Pressure 175/99 03/12/25 14:32 Pulse Oximetry 100 03/12/25 14:32 Oxygen Delivery Me thod Nasal Cannula 03/12/25 14:32 Oxygen Flow Rate 2 03/12/25 14:32 MDM - Chest Pain Medical Decision Making Patient has worsening heart failure now requiring oxygen. No PE no DVT she was given Lasix here still requiring oxygen she does need to be started on anticoagulation. Discussed with Dr. Sorto will admit orders written started on Lovenox for now for bridging. Medical Records I reviewed the patient's medical records. Lab Data I reviewed the patient's lab results. 03/12/25 12:20 03/12/25 12:20 Radiology Impressions Chest X-Ray 03/12/25 11:54 IMPRESSION: Mild bibasilar opacities. Chest CTA 03/12/25 13:52 IMPRESSION: No acute intrathoracic pathology. Laboratory Results WBC 3.56 10^3/uL (3.29-11.43) 03/12/25 12:20 RBC 3.89 10^6/uL (3.85-5.65) 03/12/25 12:20 Hgb 13.30 g/dL (11.27-16.99) 03/12/25 12:20 Hct 41.7 % (36-47) 03/12/25 12:20 MCV 107.2 fl (85-98) H 03/12/25 12:20 MCH 34.2 pg (27-33) H 03/12/25 12:20 MCHC 31.9 g/dL (30-55) 03/12/25 12:20 RDW 15.4 % (12.1-15.1) H 03/12/25 12:20 Plt Count 150 10^3/cmm (157-399) L 03/12/25 12:20 MPV 9.6 fL (7.4-10.4) 03/12/25 12:20 Neut % (Auto) 71.5 % 03/12/25 12:20 Lymph % (Auto) 17.4 % 03/12/25 12:20 [place] % (Auto) 9.6 % 03/12/25 12:20 Eos % (Auto) 0.6 % 03/12/25 12:20 Baso % (Auto) 0.6 % 03/12/25 12:20 Neut # (Auto) 2.55 10^3/uL (1.8-7.7) 03/12/25 12:20 Lymph # (Auto) 0.6 10^3/uL (0.8-4.8) L 03/12/25 12:20 [place] # (Auto) 0.3 10^3/uL (0.2-0.9) 03/12/25 12:20 Eos # (Auto) 0.0 10^3/uL (0.0-0.8) 03/12/25 12:20 Baso # (Auto) 0.0 10^3/uL (0.0-0.1) 03/12/25 12:20 Nucleated RBC % (auto) 0 % 03/12/25 12:20 Nucleated RBCs # 0.0 /100WBC 03/12/25 12:20 Sodium 144 mmol/L (136-145) 03/12/25 12:20 Potassium 3.6 mmol/L (3.5-5.1) 03/12/25 12:20 Chloride 102 mmol/L (98-107) 03/12/25 12:20 Carbon Dioxide 33 mmol/L (22-29) H 03/12/25 12:20 Anion Gap 12.6 (5-19) 03/12/25 12:20 BUN 21 mg/dL (8-23) 03/12/25 12:20 Creatinine 0.7 mg/dL (0.5-0.9) 03/12/25 12:20 GFR Calculation Not Reportable 03/12/25 12:20 Glucose 107 mg/dL (65-115) 03/12/25 12:20 Calculated Osmolality 301 mOsm/kg (285-295) H 03/12/25 12:20 Calcium 9.7 mg/dL (8.5-10.5) 03/12/25 12:20 Total Bilirubin 1.1 mg/dL (0.15-1.2) 03/12/25 12:20 AST 31 U/L (0-32) 03/12/25 12:20 ALT 32 U/L (0-33) 03/12/25 12:20 Alkaline Phosphatase 89 U/L (35-105) 03/12/25 12:20 Troponin T Baseline 32 ng/L (0-10) H 03/12/25 12:20 Troponin T 120 Minute 29.27 ng/L (0-10) H 03/12/25 14:36 Delta Troponin T -2.73 ABS# (0-10) L 03/12/25 14:36 NT-Pro-B Natriuret Pep 6451 pg/mL (0-450) H 03/12/25 12:20 Total Protein 6.2 g/dL (6.6-8.7) L 03/12/25 12:20 Albumin 4.3 g/dL (3.5-5.2) 03/12/25 12:20 Globulin 1.9 g/dL (1.3-4.6) 03/12/25 12:20 All radiology interpretation(s) finalized by discharge EKG Data EKG 1: Interpretation: EKG 03/12/2025 1153 atrial fibrillation rate of 77 QTc 487. Compared to EKG 01/04/2025 longer QT present no acute ST changes noted EKG 2: Interpretation: EKG 03/12/2025 1338 atrial fibrillation rate 84 QTc 478. Left axis deviation unchanged. No significant change from EKG done earlier same day Discharge Plan Discharge Patient Disposition: Admitted As Inpatient Admit Provider: Zuleika Sorto Clinical Impression: Combined systolic and diastolic congestive heart failure, Nonischemic cardiomyopathy, Aortic stenosis, mild, Atrial fibrillation, Right atrial thrombus, Left atrial thrombus Condition: Stable Coding Level of Care Code ED Per Diem for Chg Fwmarkel
[2025-03-12] MEDS: FUROsemide 10 mg/mL SDV 10mL 60 MG IVP (14:37)
[2025-03-12 15:00] LABS: Troponin 5 2HR 29.27 ng/L (0-10)
[2025-03-12 15:01] LABS: Troponin 5 2HR Delta -2.73 ABS# (0-10)
[2025-03-12] MEDS: iohexol 350 mg/mL 500 mL Btl (per mL) IV (15:16)
--- NOTE | 2025-03-12 17:17 | PM.HP ---
Providers/Chief Complaint Admitting Physician: Zuleika Sorto MD Primary Care Provider: Sreedhar Mejia MD Chief Complaint: Dr. Hang lópez, chest pain History of Present Illness Rowena Gil is a 79 year old female With past medical history of nonischemic cardiomyopathy with last known EF of 45 to 50%, hypertension, dyslipidemia, left atrial appendage thrombus, atrial fibrillation, PAD presents to the ER today from cardiology office due to increased lower limb swelling not being managed on oral 60 mg Lasix. After the patient's lower limb swelling has been progressively getting worse for the last few months not being managed with oral Lasix. She is also supposed to be on Eliquis for LA thrombus but she stopped taking it as per her own accord for last 3 weeks as she felt Eliquis was making her sick and more forgetful. Patient currently denies any weakness in her arms or legs, complains of mild difficulty in breathing. Review of Systems General: Reports: 10 or more systems reviewed and unremarkable except in HPI and below Const: Denies: fever(s), chills, body aches, change in appetite, change in weight, malaise, night sweats, diaphoresis, change in sleep pattern, daytime sleepiness or snoring Eyes: Denies: change in vision, blurry vision, photophobia, eye discomfort or eye discharge ENMT: Denies: throat pain, enlarged tonsils, hoarseness, mouth pain, oral sores, dry mouth, tinnitus, nasal congestion or post nasal drip Card: Denies: chest pain, palpitations, irregular heart rhythm, edema, swelling of feet/ankles, lightheadedness, syncope, pre-syncope, dyspnea on exertion, orthopnea, leg pain with exertion or acrocyanosis Resp: Denies: dyspnea, productive cough, non-productive cough, wheezing, stridor, pain on inspiration, change in phlegm color, hemoptysis or chest congestion GI: Denies: abdominal pain, nausea, vomiting, hematemesis, coffee ground emesis, dysphagia, heartburn, diarrhea, constipation, bloating, GI cramping, change in bowel habits, pain on defecation, hematochezia or melena : Denies: flank pain, dysuria, urinary frequency, urinary urgency, urinary hesitancy, nocturia or hematuria Musc: Denies: neck pain, back pain, extremity pain, joint pain, joint swelling, joint redness, joint stiffness or limited range of motion Neuro: Denies: headache(s), numbness in extremities, weakness in extremities, sensory changes, lack of coordination, difficulty walking, frequent falls, dizziness, vertigo, confusion, Slurred speech present, difficulty communicating thoughts or seizure-like activity Psych: Denies: anxiety, depression, mood swings, panic attacks, hopelessness or irritability Endo: Denies: polyuria, polydipsia, tired all the time, cold intolerance, excessive sweating, flushing or heat intolerance Elie/Lymph: Denies: easy bruising or easy bleeding All/Imm: Denies: tongue swelling, facial swelling or acute wheezing Medications/Allergies Home Medications ?Medication ?Instructions ?Recorded ?Confirmed ?Last Taken ?Type ferrous sulfate 325 mg (65 mg 325 mg PO QAM 12/03/21 03/12/25 03/12/25 History iron) tablet jbgmiez-qyqwbfgkt-mupr 333 mg-133 1 tab PO QAM 01/27/22 03/12/25 03/12/25 History mg-5 mg tablet ipratropium bromide 21 mcg (0.03 2 spray intranasal TID PRN Nasal 02/10/22 03/12/25 01/03/25 History %) nasal spray Congestion vitamin B complex 1 tab PO QAM 02/26/22 03/12/25 03/12/25 History fluticasone propionate 50 2 spray intranasal QAM 08/02/22 03/12/25 03/12/25 History mcg/actuation nasal spray,suspension acetaminophen 500 mg tablet 500 mg PO BID PRN Pain 05/21/23 03/12/25 01/02/25 History cholecalciferol (vitamin D3) 50 2,000 unit PO QAM 05/21/23 03/12/25 03/12/25 History mcg (2,000 unit) tablet (Vitamin D3) lutein 40 mg capsule 40 mg PO QAM 05/21/23 03/12/25 03/12/25 History atorvastatin 40 mg tablet 40 mg PO BEDTIME #90 tabs 10/16/24 03/12/25 03/11/25 Rx metoprolol tartrate 100 mg tablet 100 mg PO BID #120 tabs 01/06/25 03/12/25 03/12/25 Rx diltiazem HCl 180 mg 180 mg PO QDAY 01/30/25 03/12/25 03/12/25 History capsule,extended release 24 hr, controlled (DILT-XR) loratadine 10 mg tablet 10 mg PO DAILY PRN allergies 01/30/25 03/12/25 Unknown History nitroglycerin 0.4 mg sublingual 0.4 mg sublingual Q5M PRN chest 01/30/25 03/12/25 Unknown Rx tablet pain #20 tabs enoxaparin 60 mg/0.6 mL 60 mg (0.6 mL) SUBCUT Q12H #6 mL 03/12/25 03/12/25 Unknown Rx subcutaneous syringe (Lovenox) furosemide 40 mg tablet 60 mg PO QAM 03/12/25 03/12/25 03/12/25 History isosorbide mononitrate 30 mg 30 mg PO DAILY #30 tabs 03/12/25 03/12/25 Unknown Rx tablet,extended release 24 hr triamcinolone acetonide 0.1 % 1 applic topical BID 03/12/25 03/12/25 03/12/25 History topical cream warfarin 5 mg tablet 5 mg PO DAILY #30 tabs 03/12/25 03/12/25 Unknown Rx Allergies Allergy/AdvReac Type Severity Reaction Status Date / Time aspirin Allergy Unknown unknown Verified 03/12/25 10:04 losartan Allergy Unknown Verified 03/12/25 10:04 Sulfa (Sulfonamide Allergy UNK Verified 03/12/25 10:04 Antibiotics) amiodarone AdvReac unknown Verified 03/12/25 10:04 lisinopril AdvReac excess Verified 03/12/25 10:04 mucous Penicillins AdvReac childhood Verified 03/12/25 10:04 allergy rash PFSH Acute PFSH: Medical History (Updated 03/12/25 @ 18:21 by Junito Santiago MD) Combined systolic and diastolic congestive heart failure LVEF 45%, moderate left and right atrial enlargement Acute combined systolic (congestive) and diastolic (congestive) heart failure Macrocytosis History of nonmelanoma skin cancer Osteoporosis CHF (congestive heart failure) History of atrial fibrillation History of pulmonary embolism (2019) Hypothyroidism Valvular heart disease Moderate mitral and tricuspid regurgitation and trace aortic regurgitation by echocardiogram Peripheral arterial disease Leukopenia Temporal arteritis Varicose vein of leg Anemia History of transfusion dependent anemia Dyslipidemia Hypertension CVA (cerebral vascular accident) (2019) GERD (gastroesophageal reflux disease) COPD (chronic obstructive pulmonary disease) Albuterol and Atrovent, budesonide, oxygen Surgical History History of PTCA Status post surgical removal of malignant neoplasm of skin (01/2021) 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 History of angioplasty (2015) Angioplasty to right superficial femoral artery History of bilateral cataract extraction S/P dilatation and curettage Hx of coronary artery balloon dilation History of heart surgery History of intravascular stent placement (2015) Left superficial femoral artery History of colonoscopy Hx of tonsillectomy Family History Mother Hypertension Father Stroke Denies family history of Diabetes CAD (coronary artery disease) Clotting disorder Hyperlipidemia Chronic kidney disease (CKD) Bleeding disorder Cancer Social History Smoking and tobacco/nicotine status: former use of tobacco/nicotine Quit status (tobacco/nicotine): has quit using Year quit tobacco: 2008 Alcohol intake: never Substance/Drug Use: never Additional social history: 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 Vitals/I&O/Wt Last Vital Signs Temp 97.8 F 03/12/25 11:54 Pulse 85 03/12/25 17:04 Resp 18 03/12/25 14:32 BP 183/88 03/12/25 16:15 Pulse Ox 92 03/12/25 17:04 O2 Del Method Nasal Cannula 03/12/25 17:04 O2 Flow Rate 2 03/12/25 17:04 Weight last 48 hrs Weight 61.689 kg Physical Exam Narrative: General: No acute distress, AO x3 HEENT: PERRLA, pupils bilaterally equal and reactive Chest: Normal vesicular breath sounds, no added sounds, equal good air entry bilaterally CVS: S1-S2 regular, no murmurs, no tachycardia, no gallops, no rubs Abdomen: Soft, nontender, no organomegaly, bowel sounds present Neuro: No focal deficits, no facial deformity, AO x3, power 5/5 in all limbs Extremity: Bilateral up to knee pitting edema 2+. Left more than right Data 03/12/25 12:20 03/12/25 12:20 Other Labs: Radiology Impressions Chest X-Ray 03/12/25 11:54 IMPRESSION: Mild bibasilar opacities. Chest CTA 03/12/25 13:52 IMPRESSION: No acute intrathoracic pathology. Laboratory Results WBC 3.56 10^3/uL (3.29-11.43) 03/12/25 12:20 RBC 3.89 10^6/uL (3.85-5.65) 03/12/25 12:20 Hgb 13.30 g/dL (11.27-16.99) 03/12/25 12:20 Hct 41.7 % (36-47) 03/12/25 12:20 MCV 107.2 fl (85-98) H 03/12/25 12:20 MCH 34.2 pg (27-33) H 03/12/25 12:20 MCHC 31.9 g/dL (30-55) 03/12/25 12:20 RDW 15.4 % (12.1-15.1) H 03/12/25 12:20 Plt Count 150 10^3/cmm (157-399) L 03/12/25 12:20 MPV 9.6 fL (7.4-10.4) 03/12/25 12:20 Neut % (Auto) 71.5 % 03/12/25 12:20 Lymph % (Auto) 17.4 % 03/12/25 12:20 [place] % (Auto) 9.6 % 03/12/25 12:20 Eos % (Auto) 0.6 % 03/12/25 12:20 Baso % (Auto) 0.6 % 03/12/25 12:20 Neut # (Auto) 2.55 10^3/uL (1.8-7.7) 03/12/25 12:20 Lymph # (Auto) 0.6 10^3/uL (0.8-4.8) L 03/12/25 12:20 [place] # (Auto) 0.3 10^3/uL (0.2-0.9) 03/12/25 12:20 Eos # (Auto) 0.0 10^3/uL (0.0-0.8) 03/12/25 12:20 Baso # (Auto) 0.0 10^3/uL (0.0-0.1) 03/12/25 12:20 Nucleated RBC % (auto) 0 % 03/12/25 12:20 Nucleated RBCs # 0.0 /100WBC 03/12/25 12:20 PT 13.10 SECONDS (12.1-14.9) 03/12/25 17:32 INR 0.93 (0.8-1.2) 03/12/25 17:32 Sodium 144 mmol/L (136-145) 03/12/25 12:20 Potassium 3.6 mmol/L (3.5-5.1) 03/12/25 12:20 Chloride 102 mmol/L (98-107) 03/12/25 12:20 Carbon Dioxide 33 mmol/L (22-29) H 03/12/25 12:20 Anion Gap 12.6 (5-19) 03/12/25 12:20 BUN 21 mg/dL (8-23) 03/12/25 12:20 Creatinine 0.7 mg/dL (0.5-0.9) 03/12/25 12:20 GFR Calculation Not Reportable 03/12/25 12:20 Glucose 107 mg/dL (65-115) 03/12/25 12:20 Calculated Osmolality 301 mOsm/kg (285-295) H 03/12/25 12:20 Lactic Acid 1.5 mmol/L (0.5-2.2) 03/12/25 17:32 Calcium 9.7 mg/dL (8.5-10.5) 03/12/25 12:20 Total Bilirubin 1.1 mg/dL (0.15-1.2) 03/12/25 12:20 AST 31 U/L (0-32) 03/12/25 12:20 ALT 32 U/L (0-33) 03/12/25 12:20 Alkaline Phosphatase 89 U/L (35-105) 03/12/25 12:20 Troponin T Baseline 32 ng/L (0-10) H 03/12/25 12:20 Troponin T 120 Minute 29.27 ng/L (0-10) H 03/12/25 14:36 Delta Troponin T -2.73 ABS# (0-10) L 03/12/25 14:36 NT-Pro-B Natriuret Pep 6451 pg/mL (0-450) H 03/12/25 12:20 Total Protein 6.2 g/dL (6.6-8.7) L 03/12/25 12:20 Albumin 4.3 g/dL (3.5-5.2) 03/12/25 12:20 Globulin 1.9 g/dL (1.3-4.6) 03/12/25 12:20 Procalcitonin 0.07 ng/mL (0-0.5) 03/12/25 17:32 A&P Assessment and plan 1. Left atrial thrombus: 2. Right atrial thrombus: 3. Hypertension: 4. Lower extremity edema: 5. Chronic combined systolic and diastolic congestive heart failure: 6. Nonischemic cardiomyopathy: 7. Aortic stenosis, mild: 8. Atrial fibrillation: 9. Peripheral arterial disease: Plan: Acute on chronic decompensated systolic and diastolic congestive heart failure: Last known EF of 2023 showed an EF of 45 to 50%. Currently on oral Lasix 60 mg daily. For now start on IV Lasix 40 mg twice daily. Strict input of charting, daily weights. Fluid restriction of less than 1500 cc. [place] catheterization. Monitor renal functions. Lower limb swelling: Most likely in setting of heart failure. Duplex negative for DVT. Intramural thrombus: Patient is supposed to be on Eliquis as an outpatient. Stopped taking it by herself. Agreeable to take Coumadin now. Continue Lovenox 1 mg/kg body weight every 12 hourly for now. Start on Coumadin 5 mg oral daily. Target INR of 2.5-3.5. Once INR achieved can discontinue Lovenox. Atrial fibrillation: Continue with home dose of Cardizem, metoprolol. Anticoagulation as above. Full code Cardiac diet Protonix OPD prophylaxis Coumadin and Lovenox will be sufficient for DVT prophylaxis PDMP PDMP Reviewed: Not Reviewed Attestations Medical Necessity Statement*: Admission for more than 2 midnights for management of acute on chronic episode systolic and diastolic congestive heart failure, intramural thrombus while bridging from Lovenox to Coumadin is done Diagnoses Left atrial thrombus I51.3 Right atrial thrombus I51.3 Hypertension I10 Lower extremity edema R60.0 Chronic combined systolic and diastolic congestive heart failure I50.42 Nonischemic cardiomyopathy I42.8 Aortic stenosis, mild I35.0 Atrial fibrillation I48.91 Peripheral arterial disease I73.9
--- NOTE | 2025-03-12 17:29 | ECG_ITS ---
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 Measurements Intervals [place] Rate: 69 P: 0 MO: 0 QRS: -6 QRSD: 98 T: 45 QT: 418 QTc: 451 Interpretive Statements ATRIAL FIBRILLATION Compared to ECG 03/12/2025 13:38:39 Left-axis deviation no longer present Electronically Signed On 03-14-2025 09:00:37 CDT by Mayank Ashby M.D. [email or web address]
[2025-03-12 17:56] LABS: INR 0.93 (0.8-1.2); Prothrombin Time 13.10 SECONDS (12.1-14.9)
[2025-03-12 17:57] LABS: Lactic Sepsis W/Reflex 1.5 mmol/L (0.5-2.2)
[2025-03-12 18:03] LABS: Procalcitonin 0.07 ng/mL (0-0.5)
[2025-03-12 18:50] LABS: Troponin 5 6HR 27.32 ng/L (0-10); Troponin 5 6HR Delta -4.68 ng/L (0-12)
[2025-03-12 18:59] LABS: Estmated Average Glucose 117; Hemoglobin A1C 5.7 % (4.0-6.0)
[2025-03-12 19:05] LABS: Iron 103 ug/dL (37-145); Thyroid Stimulating Hormone 3.31 uIU/mL (0.27-4.20); Total Iron Binding Capacity 316 mcg/dl; Unsaturated Iron Binding 213 ug/dL (112-347); Vitamin B12 1034 pg/mL (232-1245)
[2025-03-13] VITALS (146 sets, daily range): BP systolic 115–170; BP diastolic 63–92; PULSE 61–110; RESP 15–35; TEMP 36.3–36.5; O2SAT 86–100
[2025-03-13 03:19] LABS: Hematocrit 38.9 % (36-47); Hemoglobin 12.70 g/dL (11.27-16.99); Mean Corpuscular HGB Conc 32.6 g/dL (30-55); Mean Corpuscular Hemoglobin 35.5 pg (27-33); Mean Corpuscular Volume 108.7 fl (85-98); Nucleated Red Blood Cells % 0 %; Platelet Count 122 10^3/cmm (157-399); Red Blood Count 3.58 10^6/uL (3.85-5.65); White Blood Count 3.44 10^3/uL (3.29-11.43)
[2025-03-13 03:34] LABS: INR 0.99 (0.8-1.2); Prothrombin Time 13.80 SECONDS (12.1-14.9)
[2025-03-13 03:42] LABS: Cholesterol 93 mg/dL (0-200); HDL Cholesterol 32 mg/dL (60-100); Triglycerides 64 mg/dL (0-150)
[2025-03-13 03:43] LABS: Alanine Aminotransferase 28 U/L (0-33); Albumin Level 3.6 g/dL (3.5-5.2); Alkaline Phosphatase 80 U/L (35-105); Anion Gap 11.1 (5-19); Aspartate Amino Transferase 25 U/L (0-32); Blood Urea Nitrogen 18 mg/dL (8-23); Calcium 9.1 mg/dL (8.5-10.5); Carbon Dioxide 34 mmol/L (22-29); Chloride 104 mmol/L (98-107); Creatinine Clr Calc Pharmacy 48.7819; Globulin 1.9 g/dL (1.3-4.6); Glucose 88 mg/dL (65-115); Magnesium 2.2 mg/dL (1.7-2.3); Osmolality Calculated 303 mOsm/kg (285-295); Potassium 3.1 mmol/L (3.5-5.1); Sodium 146 mmol/L (136-145); Total Protein 5.5 g/dL (6.6-8.7)
[2025-03-13 03:48] LABS: Procalcitonin 0.07 ng/mL (0-0.5)
[2025-03-13] MEDS: ferrous sulfate EC 325 mg Tablet PO (05:43)
[2025-03-13] MEDS: dilTIAZem ER (24HR) 180 mg Capsule PO (05:43)
[2025-03-13] MEDS: fluticasone nasal spray 16gm Btl 2 SPRAY INTRANASAL (05:54)
[2025-03-13] MEDS: FUROsemide 10 mg/mL SDV 4mL 40 MG IVP (06:05)
--- NOTE | 2025-03-13 14:33 | P.PN_ITS ---
Subjective 2 Subjective: 79-year-old occasion female known to me from December 2024 when I admitted her for acute combined systolic and diastolic congestive heart failure in the setting of A-fib is on chronic oxygen 3 L/min. She came in with shortness of breath and leg swelling. She had stopped her apixaban. When I discharged her on December 24, 2024 patient had refused Lovenox based on Dr. Bautista and told her she could not take blood thinners. She was readmitted 01/03/2025 for rectal bleeding and she had incidental CT scan finding of rounded filling defects in the right atrial appendage concerning for thrombus. This was confirmed with BARRERA showing mobile thrombus in the left atrial appendage. She also had possible right atrial thrombus. Patient was convinced to take anticoagulation since that time. Subsequent to that discharge she was on apixaban but then felt nauseated and vomiting for a month and stopped the anticoagulation in February. Patient is accompanied by her sister Julieta. Patient states she never got the spironolactone so never took it [facility] I see that it was on her med list until late December and was not on her H&P this time. It was removed because she never was able to receive it. Patient states she will do without it. We discussed getting it another pharmacy but she declined. I discussed with her that it helps with diuresis and maintaining a potassium Vitals/I&O/Wt Last Vital Signs Temp 97.3 F L 03/13/25 06:24 Pulse 90 03/13/25 14:00 Resp 16 03/13/25 14:00 BP 139/74 03/13/25 14:00 Pulse Ox 92 03/13/25 14:00 O2 Del Method Nasal Cannula 03/13/25 10:29 O2 Flow Rate 2 03/13/25 10:29 03/12/25 03/13/25 03/13/25 22:59 06:59 14:59 Intake Total 360 / 360 Output Total 350 / 350 500 / 850 Balance -350 / -350 -500 / -850 360 / 360 Weight last 48 hrs Weight 60.328 kg Weight 59.137 kg Weight 61.689 kg Physical Exam 2 Narrative: General well-developed well-nourished female in no acute cardiopulmonary stress CV irregular but rate is controlled lungs crackles heard in the bases bilaterally with moderate air movement Abdomen positive bowel tones soft nontender Calves 2+ pretibial edema with pruning of the skin consistent with diuresis there is some erythema of the pretibial region can consistent with venous stasis change Data 03/13/25 02:45 03/13/25 02:45 A&P Assessment and plan 1. Left atrial thrombus: Left atrial appendage thrombus. Continue with warfarin and monitor daily INR 2. Right atrial thrombus: Right atrial appendage and right atrial chamber thrombi continue with warfarin 3. Primary hypertension: Stable 4. Lower extremity edema: Continue with diuresis and increase potassium replacement 5. Chronic combined systolic and diastolic congestive heart failure: Continue with rate control for atrial fibrillation, diuretics and anticoagulation 6. Nonischemic cardiomyopathy: EF 45 to 50% 7. Longstanding persistent atrial fibrillation: Now on anticoagulation. Also had a history of PE. Patient should be on lifelong anticoagulation as she has A-fib, pulmonary embolism and atrial thrombi 8. Peripheral arterial disease: Stable Plan: Full code Cardiac diet Protonix OPD prophylaxis Coumadin and Lovenox will be sufficient for DVT prophylaxis PDMP PDMP Reviewed: Not Reviewed Attestations 2 Medical Necessity Statement*: Patient remains hospitalized for diuresis and is expected to require greater than 1-2 midnights Coding Level of Care Code 45166 Diagnoses Left atrial thrombus I51.3 Right atrial thrombus I51.3 Primary hypertension I10 Hypertension type: primary hypertension Lower extremity edema R60.0 Chronic combined systolic and diastolic congestive heart failure I50.42 Heart failure chronicity: chronic Nonischemic cardiomyopathy I42.8 Longstanding persistent atrial fibrillation I48.11 Atrial fibrillation type: longstanding persistent Peripheral arterial disease I73.9 Time Spent (min) 40
[2025-03-14] VITALS (8 sets, daily range): BP systolic 108–146; BP diastolic 61–84; PULSE 70–96; RESP 14–20; TEMP 36.6–36.8; O2SAT 86–99; BMI 23.3
[2025-03-14 04:45] LABS: Hematocrit 39.0 % (36-47); Hemoglobin 12.00 g/dL (11.27-16.99); Mean Corpuscular HGB Conc 30.8 g/dL (30-55); Mean Corpuscular Hemoglobin 34.5 pg (27-33); Mean Corpuscular Volume 112.1 fl (85-98); Nucleated Red Blood Cells % 0 %; Platelet Count 130 10^3/cmm (157-399); Red Blood Count 3.48 10^6/uL (3.85-5.65); White Blood Count 3.36 10^3/uL (3.29-11.43)
[2025-03-14 04:59] LABS: INR 1.25 (0.8-1.2); Prothrombin Time 16.50 SECONDS (12.1-14.9)
[2025-03-14 05:22] LABS: Alanine Aminotransferase 26 U/L (0-33); Albumin Level 3.7 g/dL (3.5-5.2); Alkaline Phosphatase 85 U/L (35-105); Anion Gap 12.2 (5-19); Aspartate Amino Transferase 22 U/L (0-32); Blood Urea Nitrogen 17 mg/dL (8-23); Calcium 9.2 mg/dL (8.5-10.5); Carbon Dioxide 31 mmol/L (22-29); Chloride 106 mmol/L (98-107); Creatinine Clr Calc Pharmacy 49.2037; Globulin 1.8 g/dL (1.3-4.6); Glucose 108 mg/dL (65-115); Magnesium 2.2 mg/dL (1.7-2.3); Osmolality Calculated 300 mOsm/kg (285-295); Potassium 5.2 mmol/L (3.5-5.1); Sodium 144 mmol/L (136-145); Total Protein 5.5 g/dL (6.6-8.7)
[2025-03-14] MEDS: dilTIAZem ER (24HR) 180 mg Capsule PO (05:45)
[2025-03-14] MEDS: ferrous sulfate EC 325 mg Tablet PO (05:45)
[2025-03-14] MEDS: fluticasone nasal spray 16gm Btl 2 SPRAY INTRANASAL (05:55)
--- NOTE | 2025-03-14 11:45 | PM.DCS ---
Discharge Providers Date of Admission: 03/12/25 15:54 Date of Discharge: March 14, 2025 Attending Provider at Admission: Zuleika Sorto MD Attending Provider at Discharge: Campbell Chaudhari MD Primary Care Provider: Sreedhar Mejia MD Diagnoses at Discharge Discharge Diagnosis 1. Left atrial thrombus: Details from hospital stay: Patient had left atrial appendage thrombus seen 01/04/2025 and was discharged on apixaban 01/06/2025. She took this medication January through first part of February and stopped due to symptoms of nausea vomiting. Patient was admitted to the hospital with hypoxemia swelling and started on Lovenox bridging to warfarin anticoagulation. Plan was to send her home on this however she declines to do the Lovenox shots and states that she can take the apixaban for the 5 days without significant nausea vomiting developing in that interval. She will get her INR checked at [facility] lab 03/15/2025 and 03/18/[address] Mejia. I would like her to follow-up with Dr. Mauricio in 2 months to make sure the atrial clots and atrial appendage clots have dissolved 2. Right atrial thrombus: Details from hospital stay: See above 3. Primary hypertension: Details from hospital stay: Stable 4. Lower extremity edema: Details from hospital stay: I encouraged patient to wear EDNA hose but she states Dr. Quinn told her not to wear EDNA hose due to arterial stents. I counseled the patient that her edema is significant at the hose would only be enough to squeeze the swelling out of her legs and would not cause her stents to fail. Patient is not easy to convince. 5. Chronic combined systolic and diastolic congestive heart failure: Details from hospital stay: Stable continue with diuresis. Potassium was low on admission so will add 20 mill equivalents to be taken along with her 60 mg furosemide. She states she never received the spironolactone because [facility] pharmacy states they could not get it. 6. Longstanding persistent atrial fibrillation: Details from hospital stay: Continue with rate control and anticoagulation with known biatrial clots 7. Peripheral arterial disease: Details from hospital stay: Stable Reason for Visit Reason for Visit: Dr. Mauricio sent, chest pain Brief History: Rowena Gil is a 79 year old female With past medical history of nonischemic cardiomyopathy with last known EF of 45 to 50%, hypertension, dyslipidemia, left atrial appendage thrombus, atrial fibrillation, PAD presents to the ER today from cardiology office due to increased lower limb swelling not being managed on oral 60 mg Lasix. After the patient's lower limb swelling has been progressively getting worse for the last few months not being managed with oral Lasix. She is also supposed to be on Eliquis for LA thrombus but she stopped taking it as per her own accord for last 3 weeks as she felt Eliquis was making her sick and more forgetful. Patient currently denies any weakness in her arms or legs, complains of mild difficulty in breathing. Hospital Course Hospital Course Patient was admitted and diuresed, potassium was replaced and she was started on Lovenox for untreated biatrial clots related to A-fib. Patient stopped her apixaban 3 weeks prior to admission. She was counseled and started on warfarin with Lovenox bridging. She has been able to walk in her dyspnea has improved with diuresis and anticoagulation. Patient declined to use Lovenox shots and was worried about this. She stated that she would be able to take her apixaban for 5 days needed to bridge the warfarin and so that is the new bridging plan. Patient and sister Julieta were counseled at bedside today for warfarin bridging and follow-up directions Physical Exam Narrative: General well-developed well-nourished female in no acute cardiopulmonary stress CV irregular but rate is controlled lungs no crackles heard in the bases today moderate air movement Abdomen positive bowel tones soft nontender Calves 1+ pretibial edema with pruning of the skin consistent with diuresis there is some erythema of the pretibial region consistent with venous stasis change Discharge Data Studies Completed and Pending Completed Studies During Hospitalization Category Date Time Status CTA chest [CT angio chest PE protcl [id number]] Stat Cat Scan 03/12/25 13:52 Completed XR chest 1V portable [id number] Stat Exams 03/12/25 11:54 Completed US venous duplex lower extremity bilat [CV venous Ultrasound 03/12/25 13:52 [place] [id number]] Stat Pending at discharge Category Date Time Status Complete Blood Count w/Auto AM LABS Lab 03/15/25 04:00 Ordered Comprehensive Metabolic Panel AM LABS Lab 03/15/25 04:00 Ordered Magnesium AM LABS Lab 03/15/25 04:00 Ordered Phosphorus AM LABS Lab 03/15/25 04:00 Ordered Prothrombin Time INR AM LABS Lab 03/15/25 04:00 Ordered Radiology Impressions Chest X-Ray 03/12/25 11:54 IMPRESSION: Mild bibasilar opacities. Chest CTA 03/12/25 13:52 IMPRESSION: No acute intrathoracic pathology. Laboratory Results WBC 3.36 10^3/uL (3.29-11.43) 03/14/25 04:11 RBC 3.48 10^6/uL (3.85-5.65) L 03/14/25 04:11 Hgb 12.00 g/dL (11.27-16.99) 03/14/25 04:11 Hct 39.0 % (36-47) 03/14/25 04:11 MCV 112.1 fl (85-98) H 03/14/25 04:11 MCH 34.5 pg (27-33) H 03/14/25 04:11 MCHC 30.8 g/dL (30-55) D 03/14/25 04:11 RDW 15.2 % (12.1-15.1) H 03/14/25 04:11 Plt Count 130 10^3/cmm (157-399) L 03/14/25 04:11 MPV 9.0 fL (7.4-10.4) 03/14/25 04:11 Neut % (Auto) 64.9 % 03/14/25 04:11 Lymph % (Auto) 22.9 % 03/14/25 04:11 [place] % (Auto) 11.0 % 03/14/25 04:11 Eos % (Auto) 0.3 % 03/14/25 04:11 Baso % (Auto) 0.6 % 03/14/25 04:11 Neut # (Auto) 2.18 10^3/uL (1.8-7.7) 03/14/25 04:11 Lymph # (Auto) 0.8 10^3/uL (0.8-4.8) 03/14/25 04:11 [place] # (Auto) 0.4 10^3/uL (0.2-0.9) 03/14/25 04:11 Eos # (Auto) 0.0 10^3/uL (0.0-0.8) 03/14/25 04:11 Baso # (Auto) 0.0 10^3/uL (0.0-0.1) 03/14/25 04:11 Nucleated RBC % (auto) 0 % 03/14/25 04:11 Nucleated RBCs # 0.0 /100WBC 03/14/25 04:11 PT 16.50 SECONDS (12.1-14.9) H 03/14/25 04:11 INR 1.25 (0.8-1.2) H 03/14/25 04:11 Sodium 144 mmol/L (136-145) 03/14/25 04:11 Potassium 5.2 mmol/L (3.5-5.1) H 03/14/25 04:11 Chloride 106 mmol/L (98-107) 03/14/25 04:11 Carbon Dioxide 31 mmol/L (22-29) H 03/14/25 04:11 Anion Gap 12.2 (5-19) 03/14/25 04:11 BUN 17 mg/dL (8-23) 03/14/25 04:11 Creatinine 0.7 mg/dL (0.5-0.9) 03/14/25 04:11 GFR Calculation Not Reportable 03/14/25 04:11 Glucose 108 mg/dL (65-115) 03/14/25 04:11 Estimat Average Glucose 117 03/12/25 12:20 Hemoglobin A1c 5.7 % (4.0-6.0) 03/12/25 12:20 Calculated Osmolality 300 mOsm/kg (285-295) H 03/14/25 04:11 Lactic Acid 1.5 mmol/L (0.5-2.2) 03/12/25 17:32 Calcium 9.2 mg/dL (8.5-10.5) 03/14/25 04:11 Phosphorus 3.5 mg/dL (2.5-4.5) 03/14/25 04:11 Magnesium 2.2 mg/dL (1.7-2.3) 03/14/25 04:11 Iron 103 ug/dL (37-145) 03/12/25 12:20 TIBC 316 mcg/dl 03/12/25 12:20 % Saturation 32.5 % (20-50) 03/12/25 12:20 Unsat Iron Binding 213 ug/dL (112-347) 03/12/25 12:20 Total Bilirubin 0.7 mg/dL (0.15-1.2) 03/14/25 04:11 AST 22 U/L (0-32) 03/14/25 04:11 ALT 26 U/L (0-33) 03/14/25 04:11 Alkaline Phosphatase 85 U/L (35-105) 03/14/25 04:11 Troponin T Baseline 32 ng/L (0-10) H 03/12/25 12:20 Troponin T 120 Minute 29.27 ng/L (0-10) H 03/12/25 14:36 Delta Troponin T -2.73 ABS# (0-10) L 03/12/25 14:36 Troponin T Hi Sens 6Hr 27.32 ng/L (0-10) H 03/12/25 17:32 Troponin T Hi Sens 6Hr Delta -4.68 ng/L (0-12) L 03/12/25 17:32 NT-Pro-B Natriuret Pep 6451 pg/mL (0-450) H 03/12/25 12:20 Total Protein 5.5 g/dL (6.6-8.7) L 03/14/25 04:11 Albumin 3.7 g/dL (3.5-5.2) 03/14/25 04:11 Globulin 1.8 g/dL (1.3-4.6) 03/14/25 04:11 Triglycerides 64 mg/dL (0-150) 03/13/25 02:45 Cholesterol 93 mg/dL (0-200) 03/13/25 02:45 LDL Cholesterol, Calc 48 mg/dL (50-129) L 03/13/25 02:45 HDL Cholesterol 32 mg/dL (60-100) L 03/13/25 02:45 LDL/HDL Ratio 1.50 RATIO (0.00-3.22) 03/13/25 02:45 Cholesterol/HDL Ratio 2.91 mg/dL (0.0-4.40) 03/13/25 02:45 Vitamin B12 1034 pg/mL (232-1245) 03/12/25 12:20 Folate > 20.0 ng/mL (4.8-37.3) 03/13/25 02:45 Procalcitonin 0.07 ng/mL (0-0.5) 03/13/25 02:45 TSH 3.31 uIU/mL (0.27-4.20) 03/12/25 12:20 Vitals Last Vital Signs Temp 97.8 F 03/14/25 07:46 Pulse 88 03/14/25 07:46 Resp 16 03/14/25 07:46 BP 139/79 03/14/25 07:46 Pulse Ox 86 L 03/14/25 11:22 O2 Del Method Nasal Cannula 03/14/25 07:46 O2 Flow Rate 2 03/14/25 11:22 Discharge Plan Discharge Patient Disposition: Home Health Service Condition: Stable Prescriptions: New warfarin 5 mg Tablet 5 mg PO DAILY@1400 Qty: 60 0RF docusate sodium 100 mg Capsule 100 mg PO BID Qty: 60 0RF lactulose 10 gram/15 mL Solution 10 g PO DAILY PRN (Reason: Constipation (see protocol)) Qty: 473 0RF apixaban 5 mg tablet 5 mg PO BID Qty: 1 0RF Rx Instructions: do not transmit pt has potassium chloride [Klor-Con M20] 20 mEq tablet,ER particles/crystals 20 meq PO DAILY Qty: 30 0RF Rx Instructions: Take when you take your furosemide to replace potassium loss from the diuretic Continued ipratropium bromide 21 mcg (0.03 %) spray,non-aerosol 2 spray intranasal TID PRN (Reason: Nasal Congestion) ferrous sulfate 325 mg (65 mg iron) tablet 325 mg PO QAM [id number] 333-133-5 mg tablet 1 tab PO QAM diltiazem HCl [DILT-XR] 180 mg capsule,ext.rel 24h degradable 180 mg PO QDAY nitroglycerin 0.4 mg tablet, sublingual 0.4 mg sublingual Q5M PRN (Reason: chest pain) Qty: 20 0RF Rx Instructions: do not exceed 3 doses per episode furosemide 40 mg tablet 60 mg PO QAM isosorbide mononitrate 30 mg tablet extended release 24 hr 30 mg PO DAILY Qty: 30 5RF atorvastatin 40 mg tablet 40 mg PO BEDTIME Qty: 90 3RF metoprolol tartrate 100 mg tablet 100 mg PO BID Qty: 120 0RF vitamin B complex Tablet 1 tab PO QAM fluticasone propionate 50 mcg/actuation spray,suspension 2 spray INTRANASAL QAM acetaminophen 500 mg Tablet 500 mg PO BID PRN (Reason: Pain) cholecalciferol (vitamin D3) [Vitamin D3] 50 mcg (2,000 unit) Tablet 2,000 unit PO QAM lutein 40 mg Capsule 40 mg PO QAM loratadine 10 mg tablet 10 mg PO DAILY PRN (Reason: allergies) triamcinolone acetonide 0.1 % cream 1 applic TOPICAL BID Discontinued warfarin 5 mg tablet 5 mg PO DAILY Qty: 30 3RF enoxaparin [Lovenox] 60 mg/0.6 mL syringe 60 mg SUBCUT Q12H Qty: 6 0RF Other Ambulatory Orders: Prothrombin Time INR (Routine) Timeframe: 20250315 Facility: [facility] - Location: Lab - Main Lab Ordered By: Campbell Chaudhari Prothrombin Time INR (Routine) Timeframe: 20250318 Facility: [facility] - Location: Lab - Main Lab Ordered By: Campbell Chaudhari Referrals: Latosha Mauricio MD [Physician, Cardiology] - 04/17/25 2:30 pm Referral Note: Follow-up left and right atrial clot for dissolution Problems: Right atrial thrombus; Left atrial thrombus Sreedhar Mejia MD [Primary Care Provider, [facility]] - 03/21/25 11:15 am Discharge Diet: Cardiac and Low Salt Discharge Activity: Increase activity as tolerated Patient Instructions: Warfarin (By mouth) (Coumadin, Jantoven), A-fib (Atrial Fibrillation) (GEN), Vitamin K in Foods (GEN), Opioid Safety, Patient Portal & Morgan Instructions Activity Restrictions/Additional Instructions: Take warfarin 5 mg daily and you will need blood work checked by Dr. Mejia to make sure that your warfarin falls within range. To begin with I have ordered a lab for tomorrow and another 1 for Tuesday. Do labs in the morning and call Dr. Mejia office in afternoon to find out if your medication dose needs to be adjusted. Thus far you have received 3 doses of 5 mg warfarin Take apixaban 5 mg twice a day until your warfarin level is above 2 and your physician agrees that it can be stopped. I anticipate this should be less than 5 days You need to take apixaban twice a day until warfarin level is appropriate in order to prevent stroke from clots in your heart shooting out of your heart and causing a stroke Return for any stroke symptoms or acute shortness of breath or chest pain Discharge Attestations Time Spent in Discharge Care*: greater than 30 min Time Spent in Smoking Cessation: Patient is not a smoker Quality Metrics Clinical Quality Measures [ No reported AMI, CVA or VTE this stay] Coding Level of Care Code 81581 Diagnoses Left atrial thrombus I51.3 Right atrial thrombus I51.3 Primary hypertension I10 Hypertension type: primary hypertension Lower extremity edema R60.0 Chronic combined systolic and diastolic congestive heart failure I50.42 Heart failure chronicity: chronic Longstanding persistent atrial fibrillation I48.11 Atrial fibrillation type: longstanding persistent Peripheral arterial disease I73.9 Time Spent (min) 40
--- OUTSIDE RECORDS SUMMARY | 2025-03-18 10:57 | XMS_ITS | Clinical Summary ---
Author Organization [facility] Address [address] [place] [address] Phone Care Team Providers Care Buhr Dresser Name Role Phone Unavailable Primary Care Provider [...] file Group ID:[id number] Type:Medicare Managed Care Address: [facility] [id number] [place] [id number]
--- OUTSIDE RECORDS SUMMARY | 2025-03-18 10:57 | XMS_ITS | Clinical Summary ---
Author Organization [facility] [address] Address [address] [place] [address] Phone Care Team Providers Care Residential Instructor Name Role Phone Jose Pagan MD Primary [...] Active sodium chloride (OCEAN) 0.65 % Aerosol, [place] Administer 2 Sprays in each nostril PRN [...] migh t be different from the original. Quill Fixer: Abiodun Leon MD Problem Noted Date Diagnosed [...] Atrial fibrillation Coronary artery disease invo lving [place] coronary artery without angina pectoris Immunizations Immunization [...] file Legal Sex Female 10:40 PM [employer] Gender Identity Not on file Sexual Orientation [...] Advance Directives For more information, please contact: [phone] * Full Code (Latest Code Status on File) Date Activated Date Inactivated Comments 10/22/2014 1:05 PM 10/25/2014 6:20 PM * Full Code Date Activated Date Inactivated Comments 10/22/2014 7:18 AM 10/22/2014 1:05 PM * Full Code Date Activated Date Inactivated Comments 05/29/2014 7:05 PM 06/07/2014 4:52 PM * Full Code Date Activated Date Inactivated Comments 05/02/2014 6:23 PM 05/05/2014 12:27 PM Care Teams Residential Instructor Relationship Specialty Start Date End Date Jose Pagan MD PCP - General Internal Medicine 06/02/14
== END 2025-03-14 13:51 | disposition home health service (06) ==
LOC: ER 15:33 → ICU 16:17 → MEDSURG 03-14 10:31 → ICU 03-18 10:50 → MEDSURG 03-18 10:50
PROVIDERS: Emergency Medicine; Student in an Organized Health Care Education/Training Program; Admitting Provider Student in an Organized Health Care Education/Training Program; Emergency Provider Family Medicine; PCP Family Medicine; Visit Provider Internal Medicine
DX: R60.0 Localized edema (principal); I51.3 Intracardiac thrombosis, not elsewhere classified; I50.42 Chronic combined systolic (congestive) and diastolic (congestive) heart failure; I11.0 Hypertensive heart disease with heart failure; I48.11 Longstanding persistent atrial fibrillation; I73.9 Peripheral vascular disease, unspecified; Z79.01 Long term (current) use of anticoagulants; Z99.81 Dependence on supplemental oxygen; E78.5 Hyperlipidemia, unspecified; Z86.73 Personal history of transient ischemic attack (TIA), and cerebral infarction without residual deficits; J44.9 Chronic obstructive pulmonary disease, unspecified; K21.9 Gastro-esophageal reflux disease without esophagitis; D64.9 Anemia, unspecified; Z87.891 Personal history of nicotine dependence
CPT/HCPCS: 36415; 51702; 71045; 71275; 80053; 80061; 82607; 82746; 83036; 83540; 83550; 83605; 83735; 83880; 84100; 84145; 84443; 84484; 85025; 85610; 93005; 93970; 94664; 94760; 96372; 96374; 99215; 99285; G0378; J1650; J1938; J9999

== ENCOUNTER 2025-03-15 11:16 | Outpatient (CLI) | payer MEDICARE, MEDICAID, SELFPAY ==
[2025-03-15 12:52] LABS: INR 1.79 (0.8-1.2); Prothrombin Time 21.90 SECONDS (12.1-14.9)
== END 2025-03-15 11:17 | disposition home or self-care (01) ==
LOC: LAB 11:20
PROVIDERS: Internal Medicine; PCP Family Medicine; Visit Provider Internal Medicine Cardiovascular Disease
DX: Z79.01 Long term (current) use of anticoagulants (principal)
CPT/HCPCS: 36415; 85610

== ENCOUNTER 2025-03-18 11:29 | Outpatient (CLI) | payer MEDICARE, MEDICAID, SELFPAY ==
[2025-03-18 12:33] LABS: INR 1.72 (0.8-1.2); Prothrombin Time 21.20 SECONDS (12.1-14.9)
== END 2025-03-18 11:30 | disposition home or self-care (01) ==
PROVIDERS: Internal Medicine; PCP Family Medicine; Visit Provider Internal Medicine Cardiovascular Disease
DX: Z79.01 Long term (current) use of anticoagulants (principal)
CPT/HCPCS: 36415; 85610

== ENCOUNTER → 2025-04-17 14:09 | Outpatient (BNVA) | payer MEDICARE, MEDICAID, SELFPAY | PROVIDERS: PCP Family Medicine; Visit Provider Internal Medicine Cardiovascular Disease | DX: I48.91 Unspecified atrial fibrillation (principal); Z79.01 Long term (current) use of anticoagulants; R07.89 Other chest pain; I11.0 Hypertensive heart disease with heart failure; I50.30 Unspecified diastolic (congestive) heart failure; I51.3 Intracardiac thrombosis, not elsewhere classified; E78.5 Hyperlipidemia, unspecified; I35.0 Nonrheumatic aortic (valve) stenosis; I73.9 Peripheral vascular disease, unspecified; Z98.61 Coronary angioplasty status; Z86.73 Personal history of transient ischemic attack (TIA), and cerebral infarction without residual deficits; Z86.711 Personal history of pulmonary embolism; Z87.891 Personal history of nicotine dependence | CPT/HCPCS: 99214 ==

== ENCOUNTER → 2025-05-22 13:00 | Outpatient (BNVA) | payer MEDICARE, MEDICAID, SELFPAY | PROVIDERS: PCP Family Medicine; Visit Provider Podiatrist Foot & Ankle Surgery | DX: I73.9 Peripheral vascular disease, unspecified (principal); L60.3 Nail dystrophy; L60.8 Other nail disorders | CPT/HCPCS: 11721 ==